=== PATIENT | female | born 1955 | race Caucasian/White ===

== ENCOUNTER → 2020-07-12 08:39 | Outpatient (CLI) | payer MEDICARE, MEDICAID, SELFPAY ==
--- NOTE | 2020-07-12 09:30 | BRBX_PTH ---
PATIENT: NEL HUANG LOC: [facility] U#:[id number] AGE/SX: 69/F ROOM: RE07/12/[address]: Dr. Jess Orellana MD : 1955 BED: DIS: SPEC #: [id number] RECD: 07/12/20 11:56 STATUS: MICHELLE REErick #: [id number] VAISHNAVI: 07/12/20 09:[address]: Jess Orellana DEPT: SURGICAL PATHOLOGY RECD BY: Marcelo Berman ENTERED: 07/12/20 13:27 SP TYPE: BREAST BX OTHR DR: Dr. Elsa Taylor MD Tissues: Right breast, NOS Procedures: Surgery Specimen Level IV HEADER OPERATION: Right stereotactic breast biopsy PRE-OP DIAGNOSIS: Right upper outer quadrant breast microcalcifications TISSUE SUBMITTED: Right breast core tissue ISCHEMIC TIME: 1 minute FIXATION TIME: 58 hours MICROSCOPIC DIAGNOSIS Right breast, upper outer quadrant, stereotactic core biopsy: Clustered microcalcifications in areas of fat necrosis. No evidence of malignancy. AM:jossue 07/15/2020 MICROSCOPIC DESCRIPTION Slides are reviewed. GROSS DESCRIPTION Received is one container labeled with the patient's name and not further designated. The specimen consists of multiple irregular and elongated fragments of yellow-dior soft tissue that in aggregate measure 2.5 x 2.5 x 0.2 cm. The specimen is totally submitted in one cassette. / AM:jossue 07/12/20 TC:5 CPT: 46387
--- NOTE | 2020-07-12 10:28 | OP.PCM_ITS ---
Report of Operation Date of Procedure: 07/12/20 Pre-Operative Diagnosis: abnormal right breast mammograms, history of right breast cancer Post-Operative Diagnosis: same Surgery/Procedure Performed:: right stereotactic breast biopsy Description of Surgical Findings:: tissue taken from the axillary area of the breast - suspect degenerating lymph node Specimen's removed: right breast tissue Estimated Blood Loss (mL): minimal Description of Procedure: After informed consent was given, the patient was brought into the Breast Biopsy suite. Appropriate time out protocol was followed. The patient was placed in the prone position on the stereotactic biopsy table. The patient?s right breast was then placed in the opening at the head of the biopsy table. A well logging captain comp ression mammogram was then obtained in the CC view. The suspicious radiological lesion was thus identified. Stereo pictures of the lesion were then taken for XYZ coordinates. The Mammotome biopsy stylus was then positioned where it would be entering into the patient?s breast. The skin at this site was then cleansed with a surgical skin preparation. The skin and subcutaneous tissues at this si te were then infiltrated with 1% xylocaine. A small skin incision was made with an 11 blade scalpel. The biopsy stylus was then positioned into the patient?s breast at the proper coordinates of depth. Using the Mammotome vacuum-assist device, several core samples of breast tissue were obtained. A specimen mammogram was the obtained. It revealed that the abnormal calcifications were within the specimen. I reviewed this personally and concluded that the tissue sampling was adequate. A hemostatic marker clip was then placed into the biopsy cavity and a well logging captain film revealed that it was properly deployed. The patient was then placed in the supine position and pressure was applied to the breast until no active bleeding was noted. Steristrips were applied to reapproximate the skin. A unilateral mammogram in the CC and MLO view were then taken which revealed that the marker clip was in the same area as the previous suspicious lesion. The patient tolerated the procedure well and was discharged from the Breast Biopsy suite in good condition. - Complications none noted
== END ==
PROVIDERS: PCP Internal Medicine; Referring Provider Surgery; Visit Provider Surgery
DX: R92.8 Other abnormal and inconclusive findings on diagnostic imaging of breast (principal)
CPT/HCPCS: 19081; 88305; J7050

== ENCOUNTER 2022-06-28 00:29 | Inpatient (IN) | payer MEDICARE, MEDICAID, SELFPAY ==
[2022-06-28] VITALS (8 sets, daily range): BP systolic 96–151; BP diastolic 59–95; PULSE 66–97; RESP 16–18; TEMP 36.2–37; O2SAT 94–100; BMI 45.5; BMI 44.6
--- NOTE | 2022-06-28 00:47 | CT_ITS ---
EXAM: CT ABDOMEN AND PELVIS WITHOUT INTRAVENOUS CONTRAST CLINICAL INDICATION: hematuria -- constipation TECHNIQUE: Helically acquired images were obtained of the abdomen and pelvis without intravenous contrast. This CT exam was performed using one or more of the following dose reduction techniques: automated exposure control, adjustment of the mA and/or kV according to patient size, and/or use of iterative reconstruction technique. This report was created using [employer] report generation technology. RADIATION DOSE: Total DLP: 1251.76 mGy-cm. COMPARISON: None. FINDINGS: LOWER THORAX: Visualized lung bases are clear. There is a trace of pericardial fluid. Minimal hiatal hernia is noted. No coronary artery calcifications visualized. ABDOMEN: LIVER: Elongated right hepatic lobe which measures 22 cm in cephalocaudal dimension. GALLBLADDER AND BILE DUCTS: Cholecystectomy. No biliary ductal dilatation or calcified common duct stone. PANCREAS: Unremarkable. No focal cystic mass. SPLEEN: Unremarkable. Normal size without focal cystic or solid mass. ADRENALS: Unremarkable. No nodules. KIDNEYS AND URETERS: Normal size kidneys with nonspecific perirenal stranding. Small exophytic simple cyst at the upper pole of the right kidney, which requires no follow-up. 6 mm ovoid parenchymal calcification at the lower pole of the left kidney. Minimal fullness of the left intrarenal collecting system. No obstructing ureteral stone STOMACH AND BOWEL: Stomach is decompressed. No periduodenal inflammatory changes or distended small bowel loops. Numerous diverticula project from the descending and sigmoid colon. A long segment of colon extending from the distal descending colon through the mid to distal sigmoid colon shows mild/moderate mural thickening with extensive pericolonic stranding. A broad band of soft tissue density containing air bubbles extends anteriorly and inferiorly from the proximal sigmoid colon indicating microperforation, with this abnormal soft tissue density measuring up to 7.4 cm in transverse diameter by 2 cm in cephalocaudal dimension by 5.7 cm in AP diameter. No definite fluid collection is seen in this area. Urinary bladder tilts toward this soft tissue density but no air bubbles are seen within the bladder to indicate fistula. More distally, a 4 cm thin-walled air bubble abuts the mid sigmoid colon, separate from the lumen, and also indicate extraluminal gas. PELVIS: APPENDIX: No evidence of acute appendicitis. BLADDER: Urinary bladder is nearly empty. The bladder wall is thickened with perivesicular stranding, which could be due to cystitis and/or reactive edema from the adjacent sigmoid inflammation. REPRODUCTIVE: Absent uterus. No adnexal mass. Trace of air within the vaginal vault. ABDOMEN and PELVIS: INTRAPERITONEAL SPACE: No free air is noted within the nondependent portion of the abdomen or pelvis. No ascites. BONES/JOINTS: Flowing osteophytes fuse the lower thoracic disc spaces. Lower lumbar facet arthritis is noted. No suspicious lytic or blastic abnormality. SOFT TISSUES: No discrete abdominal or pelvic wall hernia. VASCULATURE: Unremarkable. Abdominal aorta is non-dilated. LYMPH NODES: Unremarkable. No enlarged lymph nodes. CT/Abdomen/Pelvis without Cont IMPRESSION: Extensive colonic diverticulosis. Abnormal thickening of the colonic wall from the distal descending colon through the mid sigmoid colon, with surrounding fat stranding, most likely diverticulitis given the numerous diverticula, though colitis is also a consideration. Bubbles of extraluminal air adjacent to the thick-walled colon indicating microperforation; air bubbles lie within a broad band of soft tissue density radiating anteriorly and inferiorly from the thickened proximal sigmoid colon, consistent with phlegmon. No thick-walled extraluminal fluid collection is seen on this nonenhanced scan to indicate an abscess. Thickening of the urinary bladder with surrounding fat stranding, secondary to reactive edema and/or cystitis. No air bubbles within the urinary bladder. No findings of constipation or small bowel obstruction. Nonstandard communication protocol initiated and completed. N.B. : The above Results were Read Back by Ji Sanabria MD to Dr. Zuhair Roberts MD, and understanding confirmed on 06/28/2022 01:41:28 (ET). Electronically Signed: Ji Sanabria MD at 1:48 EST ,
--- NOTE | 2022-06-28 00:48 | ED.VIS.GI ---
HPI HPI - GI History of Present Illness Chief Complaint: Abd Pain Informant: patient Narrative Narrative: Presents with intermittent constipation for the past 2 weeks. Typical bowel movements every other day. She has been using laxatives with small outputs. Mild abdominal bloating. No vomiting. Cholecystectomy and hysterectomy in the past. Contacted her PCP 2 days ago has not heard back. This evening gross blood in the urine no dysuria or frequency. Mild flank pain in the left. History of kidney stones. No anticoagulation medicines. She has had colonoscopies previously states she is due for another one. Prior similar symptoms: Yes PFSH PFSH Home Medications metformin 500 mg tablet (Glucophage) 500 mg PO DAILY 09/14/16 [History Last Taken Unknown] multivit-iron 18 mg-folic acid 400 mcg-calcium 500 mg-minerals tablet (Women's Daily Formula) 1 ea PO DAILY 09/14/16 [History Last Taken Unknown] atenolol 50 mg tablet 50 mg PO DAILY 06/28/22 [History Last Taken Unknown] chlorthalidone 25 mg tablet 12.5 mg PO DAILY 06/28/22 [History Last Taken Unknown] exemestane 25 mg tablet 25 mg PO DAILY 06/28/22 [History Last Taken Unknown] glipizide 2.5 mg tablet, extended release 24 hr 2.5 mg PO DAILY 06/28/22 [History Last Taken Unknown] potassium chloride 20 mEq tablet,extended release 20 meq PO BID 06/28/22 [History Last Taken Unknown] Allergy/AdvReac Type Severity Reaction Status Date / Time chani dine Allergy Hives Uncoded 06/28/22 00:34 Family History (Updated 06/28/22 @ 03:[address] Yaya Winters MD) Other Cancer Surgical History H/O: hysterectomy Social History Smoking Status: Former smoker ROS ROS ED Constitutional Constitutional ED: Denies chills, fever(s) or sweats Eyes Eyes: Denies change in vision ENT ENT ED: Denies dysphagia or sore throat Cardiovascular Cardiovascular: Denies chest pain, leg edema, palpitations or racing heartbeat Respiratory/Chest Respiratory/Chest: Denies cough, dyspnea or dyspnea on exertion Gastrointestinal Gastrointestinal: Reports constipation; Denies abdominal pain, diarrhea, nausea or vomiting Genitourinary Genitourinary ED: Reports hematuria; Denies dysuria or urinary frequency Musculoskeletal Musculoskeletal: Denies back pain, extremity pain or neck pain Integumentary Denies rash or wounds Neurologic Neurologic: Denies headache(s), paresthesias or weakness EXAM Physical Exam Const Vital Signs: 06/28/22 00:31 Temperature 97.7 F L Temperature Source Oral Pulse Rate 97 Respiratory Rate 18 Blood Pressure 151/95 H Blood Pressure Mean 113 Pulse Ox 98 Oxygen Delivery Method Room Air Positive well nourished and well developed General Appearance ED: well developed and NAD HEENT Reports moist mucous membranes normocephalic and atraumatic Eyes PERRL, EOMs intact bilaterally and conjunctivae normal General Eye ED: Yes normal appearance of both eyes Neck no lymphadenopathy and supple General: Negative for tenderness Chest Wall Chest: Negative for tenderness Resp normal respiratory effort and normal air movement Effort and Inspection: symmetric chest movement; Negative for respiratory distress Cardio regular rate, regular rhythm and no murmurs Peripheral Pulses: pulses 2+ throughout GI normal to inspection, nondistended, normoactive bowel sounds and non-tender GI Narrative: Negative Brownlee's or McBurney's tenderness no left lower quadrant tenderness. Palpation: Negative for guarding or rebound tenderness present Back/Spine no CVA tenderness and no thoracic nor lumbar tenderness Extremity normal to inspection General Extremety ED: Negative for edema or tenderness General Extremity: Negative for edema Neuro oriented x3 and no sensory deficits noted Sensorium / Orientation: awake and alert Skin no rashes or lesions noted and no wounds MDM MDM MDM Narrative Medical decision making narrative: Patient presenting with hematuria with constipation complaints. Does report intermittent pain in her flank region. She denies any rectal bleeding. Differential UTI versus cystitis versus pyelonephritis versus diverticulitis versus kidney stones. Work-up was initiated. Urine noted hematuria with nitrites and bacteria. Culture sent. Laboratory studies White count 14 hemoglobin 12.[address] scan abdomen pelvis interpreted by myself and discussion with radiologist significant diverticulitis extending to the bladder causing thickening. There is noted microperforation and phlegmon there is no abscess. Patient meets SIRS criteria with pulse greater than 90 and white count 14 lactic acid and blood cultures added. She is covered Rocephin and Flagyl IV. Urine noted hematuria with bacteria. Clinically no dysuria, likely extension from her diverticulitis however she is covered with antibiotics for her diverticulitis. 0230: I spoke with on-call surgeon Dr. Menard, discussed patient's history and findings and clinical evaluation. She states medical management at this time. She asked if I would speak with hospitalist for possible admission medically with her consult. I spoke with hospitalist, Dr. Winters for evaluation the ED for admission. Lactic acid returned at 1.3. Clinically remained stable. Patient stable for the medical floor. Lab Data Attestation: I reviewed the patient's lab results. Labs: Laboratory Results - last 24 hr 06/28/22 06/28/22 06/28/22 00:40 01:00 01:00 WBC 14.3 H RBC 4.93 Hgb 12.8 Hct 39.7 MCV 80.5 L MCH 26.0 L MCHC 32.2 RDW Std Deviation 44.2 H RDW Coeff of [place] 15.2 H Plt Count 479 H MPV 8.9 Immature Gran % (Auto) 1.400 H Neut % (Auto) 74.2 H Lymph % (Auto) 13.3 L [place] % (Auto) 9.9 Eos % (Auto) 0.9 Baso % (Auto) 0.3 Absolute Neuts (auto) 10.6 H Absolute Lymphs (auto) 1.91 Nucleated RBC % 0 Sodium 133 L Potassium 3.5 Chloride 100 Carbon Dioxide 26.0 Anion Gap 7 BUN 8 Creatinine 0.98 Estim Creat Clear Calc 56.40 Est GFR (MDRD) Af Amer 74 Est GFR (MDRD) Non-Af 61 BUN/Creatinine Ratio 8.2 L Glucose 142 H Lactic Acid Calcium 9.8 Urine Color Brown Urine Clarity Cloudy Urine pH 6.5 Ur Specific [place] 1.015 Urine Protein 500 H Urine Glucose (UA) Normal Urine Ketones 5 H Urine Occult Blood 250 H Urine Nitrite Positive H Urine Bilirubin Negative Urine Urobilinogen Normal Ur Leukocyte Esterase 500 H Urine RBC 0 SEEN Urine WBC >100 SEEN Ur Squamous Epith Cells 0 SEEN Urine Bacteria 0 SEEN Urine Mucus 0 SEEN 06/28/22 02:20 WBC RBC Hgb Hct MCV MCH MCHC RDW Std Deviation RDW Coeff of [place] Plt Count MPV Immature Gran % (Auto) Neut % (Auto) Lymph % (Auto) [place] % (Auto) Eos % (Auto) Baso % (Auto) Absolute Neuts (auto) Absolute Lymphs (auto) Nucleated RBC % Sodium Potassium Chloride Carbon Dioxide Anion Gap BUN Creatinine Estim Creat Clear Calc Est GFR (MDRD) Af Amer Est GFR (MDRD) Non-Af BUN/Creatinine Ratio Glucose Lactic Acid 1.3 Calcium Urine Color Urine Clarity Urine pH Ur Specific [place] Urine Protein Urine Glucose (UA) Urine Ketones Urine Occult Blood Urine Nitrite Urine Bilirubin Urine Urobilinogen Ur Leukocyte Esterase Urine RBC Urine WBC Ur Squamous Epith Cells Urine Bacteria Urine Mucus Radiography Diagnostic Testing: Clinical Impression(s) from Imaging Studies Abdomen/Pelvis CT 06/28/22 00:47 IMPRESSION: Extensive colonic diverticulosis. Abnormal thickening of the colonic wall from the distal descending colon through the mid sigmoid colon, with surrounding fat stranding, most likely diverticulitis given the numerous diverticula, though colitis is also a consideration. Bubbles of extraluminal air adjacent to the thick-walled colon indicating microperforation; air bubbles lie within a broad band of soft tissue density radiating anteriorly and inferiorly from the thickened proximal sigmoid colon, consistent with phlegmon. No thick-walled extraluminal fluid collection is seen on this nonenhanced scan to indicate an abscess. Thickening of the urinary bladder with surrounding fat stranding, secondary to reactive edema and/or cystitis. No air bubbles within the urinary bladder. No findings of constipation or small bowel obstruction. Nonstandard communication protocol initiated and completed. N.B. : The above Results were Read Back by Ji Sanabria MD to Dr. Zuhair Roberts MD, and understanding confirmed on 06/28/2022 01:41:28 (ET). Electronically Signed: Ji Sanabria MD at 1:48 EST , ADDENDUM: 06/28/22 [id number] IMPRESSION: Extensive colonic diverticulosis. Abnormal thickening of the colonic wall from the distal descending colon through the mid sigmoid colon, with surrounding fat stranding, most likely diverticulitis given the numerous diverticula, though colitis is also a consideration. Bubbles of extraluminal air adjacent to the thick-walled colon indicating microperforation; air bubbles lie within a broad band of soft tissue density radiating anteriorly and inferiorly from the thickened proximal sigmoid colon, consistent with phlegmon. No thick-walled extraluminal fluid collection is seen on this nonenhanced scan to indicate an abscess. Thickening of the urinary bladder with surrounding fat stranding, secondary to reactive edema and/or cystitis. No air bubbles within the urinary bladder. No findings of constipation or small bowel obstruction. Nonstandard communication protocol initiated and completed. N.B. : The above Results were Read Back by Ji Sanabria MD to Dr. Zuhair Roberts MD, and understanding confirmed on 06/28/2022 01:41:28 (ET). Electronically Signed: Ji Sanabria MD at 1:48 EST , Critical Care Time Critical Care Time: Yes Critical care time (excluding procedures): 30-74 minutes, Discussing w/Patient &/or Family/Promotions Officer, Discussing w/Consultants, Arranging Admission or Transfer, Performing Direct Patient Care at Bedside and - (30 minutes) Discharge Plan Dx/Rx/DC Orders Clinical Impression: Diverticulitis of intestine with perforation without abscess or bleeding, Hematuria, UTI (urinary tract infection) Disposition Disposition: Acute Care [facility]
[2022-06-28 00:55] LABS: Bacteria 0 SEEN /hpf (None Seen); Mucous, Urine 0 SEEN /hpf (<or=2+); Red Blood Cells-Urine 0 SEEN /hpf (0-5); Squamous Epithelial Cells - UA 0 SEEN /hpf (5-10)
[2022-06-28 01:00] LABS: Color, Urine Brown (Yellow); Glucose, Dipstick Normal (Normal); Ketone-Dipstick 5 mg/dl (Negative); Leukocyte Esterase-Dipstick 500 /ul (Negative); Nitrite-Dipstick Positive (Negative); Occult Blood-Urine 250 /ul (Negative); Protein-Dipstick 500 mg/dl (Negative); Specific Gravity, Urine 1.015 (1.002-1.030); Urine Bilirubin Dipstick Negative (Negative); Urine Clarity Cloudy (Clear); Urine Urobilinogen Normal (Normal); Urine pH 6.5 (5.0 - 8.0)
[2022-06-28 01:06] LABS: White Blood Cells >100 SEEN /hpf (0-5)
[2022-06-28 01:12] LABS: Absolute Lymphocyte Count 1.91 X10^3/uL (0.83-4.51); Absolute Neutrophil Count 10.6 X10^3/uL (2.0-7.7); Basophil# 0.05 X10^3/uL; Basophil% 0.3 % (0-1); Eosinophil# 0.13 X10^3/uL; Eosinophils% 0.9 % (0-5); Hematocrit 39.7 % (37-47); Hemoglobin 12.8 g/dL (12.0-15.0); Lymphocyte # 1.91 X10^3/ul (0.83-4.51); Lymphocyte % 13.3 % (19-41); Mean Corp Hgb Conc 32.2 g/dL (32-36); Mean Corpuscular Volume 80.5 fL (81-99); Mean Platelet Vol. 8.9 fl (6.2-12.0); Monocyte# 1.42 X10^3/uL; Monocyte% 9.9 % (0-10); NRBC Flagged by Analyzer 0 % (0-5); Neutrophil # 10.62 X10^3/uL (2.7-7.7); Neutrophil % 74.2 % (47-70); Platelet Count 479 K/mm3 (150-450); RBC Distribution Width CV 15.2 % (11.6-14.6); RBC Distribution Width SD 44.2 fl (35.1-43.9); Red Blood Count 4.93 M/mm3 (4.2-5.4); White Blood Count 14.3 K/mm3 (4.4-11.0)
[2022-06-28 01:20] LABS: Anion Gap 7 (5-15); BUN 8 mg/dL (7-18); BUN/Creat Ratio 8.2 RATIO (10-20); Calcium,Total 9.8 mg/dL (8.5-10.1); Chloride 100 mmol/L (98-107); Creatinine, Serum 0.98 mg/dL (0.55-1.02); EST Glomerular Filtration Rate 61 mL/min (>60); Est Glom Filt Rate - Afr Amer 74 mL/min (>60); Glucose 142 mg/dL (74-106); Potassium 3.5 mmol/L (3.5-5.1); Sodium Level 133 mmol/L (136-145)
[2022-06-28] MEDS: Ceftriaxone 1 GM/50 ML BAG IV ×2 (02:40→22:32)
--- NOTE | 2022-06-28 02:43 | PCM.HP.STD ---
[facility] - General General Date of Admission: 06/28/22 Date of Service: 06/28/22 Chief Complaint: Gross hematuria and constipation [facility] Narrative NEL HUANG, is a 66 F with a significant history of right breast cancer status postmastectomy and radiation and on exemestane; appendectomy; hysterectomy; diabetes mellitus and hypertension who presents emergency department with gross hematuria that started a day before presentation. Patient has pain on the left lumbar area of her abdomen; and left hypogastric area of her abdomen. Also patient has constipation for a 'couple' of weeks. Her constipation is not new; it is on and off. She attributes her constipation to possible metformin use. At the emergency department a CT scan showed diverticulitis with microperforation. Emergent department doctor discussed the case with general surgery who will follow. [facility] Home Medications metformin 500 mg tablet (Glucophage) 500 mg PO DAILY 09/14/16 [History Last Taken Unknown] multivit-iron 18 mg-folic acid 400 mcg-calcium 500 mg-minerals tablet (Women's Daily Formula) 1 ea PO DAILY 09/14/16 [History Last Taken Unknown] atenolol 50 mg tablet 50 mg PO DAILY 06/28/22 [History Last Taken Unknown] chlorthalidone 25 mg tablet 12.5 mg PO DAILY 06/28/22 [History Last Taken Unknown] exemestane 25 mg tablet 25 mg PO DAILY 06/28/22 [History Last Taken Unknown] glipizide 2.5 mg tablet, extended release 24 hr 2.5 mg PO DAILY 06/28/22 [History Last Taken Unknown] potassium chloride 20 mEq tablet,extended release 20 meq PO BID 06/28/22 [History Last Taken Unknown] Allergy/AdvReac Type Severity Reaction Status Date / Time chani dine Allergy Hives Uncoded 06/28/22 00:34 Family History (Updated 06/28/22 @ 03:[address] Yaya Winters MD) Other Cancer Surgical History H/O: hysterectomy Social History Smoking Status: Former smoker ROS ROS Narrative Pertinent positives and pertinent negatives as noted in HPI. All other systems were reviewed and are negative Vital Signs Vital Signs Vital Signs: 06/28/22 00:31 Temperature 97.7 F L Temperature Source Oral Pulse Rate 97 Respiratory Rate 18 Blood Pressure 151/95 H Blood Pressure Mean 113 Pulse Ox 98 Oxygen Delivery Method Room Air Weight Weight: 131.9 kg Body Mass Index (BMI) 45.5 Physical Exam Narrative Physical exam: General: Well-nourished, well-developed. Head: Normocephalic, atraumatic, no tenderness Eyes: Vision is grossly intact. EOMI ENT: edentulous, dry mucous membranes, no rhinorrhea Neck: Nontender, No thyromegaly. CVS: Regular rate and rhythm. S1-S2 present. No murmur, gallop or rub. Respiratory : clear to auscultation bilaterally, chest wall nontender, no wheezing Abdomen: Soft, nontender, nondistended, normal bowel sounds, no masses : Deferred Back: Nontender, no CVA tenderness, no midline spinal tenderness, deformities, step-offs Extremities: Nontender full range of motion, no trauma Skin: Normal color, no trauma, abrasions Neuro: Alert, oriented, cranial nerves II through XII grossly intact. Psychiatry: Normal mood. Normal affect. Not depressed. Not anxious. Results Lab / Micro Data Result Diagrams: 06/28/22 01:00 06/28/22 01:00 Labs: Laboratory Results - last 24 hr 06/28/22 00:40: Urine Color Brown, Urine Clarity Cloudy, Urine pH 6.5, Ur Specific [employer] 1.015, Urine Protein 500 H, Urine Glucose (UA) Normal, Urine Ketones 5 H, Urine Occult Blood 250 H, Urine Nitrite Positive H, Urine Bilirubin Negative, Urine Urobilinogen Normal, Ur Leukocyte Esterase 500 H, Urine RBC 0 SEEN, Urine WBC >100 SEEN, Ur Squamous Epith Cells 0 SEEN, Urine Bacteria 0 SEEN, Urine Mucus 0 SEEN 06/28/22 01:00: WBC 14.3 H, RBC 4.93, Hgb 12.8, Hct 39.7, MCV 80.5 L, MCH 26.0 L, MCHC 32.2, RDW Std Deviation 44.2 H, RDW Coeff of Rashaun 15.2 H, Plt Count 479 H, MPV 8.9, Immature Gran % (Auto) 1.400 H, Neut % (Auto) 74.2 H, Lymph % (Auto) 13.3 L, [place] % (Auto) 9.9, Eos % (Auto) 0.9, Baso % (Auto) 0.3, Absolute Neuts (auto) 10.6 H, Absolute Lymphs (auto) 1.91, Nucleated RBC % 0 06/28/22 01:00: Sodium 133 L, Potassium 3.5, Chloride 100, Carbon Dioxide 26.0, Anion Gap 7, BUN 8, Creatinine 0.98, Estim Creat Clear Calc 56.40, Est GFR (MDRD) Af Amer 74, Est GFR (MDRD) Non-Af 61, BUN/Creatinine Ratio 8.2 L, Glucose 142 H, Calcium 9.8 Radiology Impression Abdomen/Pelvis CT 06/28/22 00:47 IMPRESSION: Extensive colonic diverticulosis. Abnormal thickening of the colonic wall from the distal descending colon through the mid sigmoid colon, with surrounding fat stranding, most likely diverticulitis given the numerous diverticula, though colitis is also a consideration. Bubbles of extraluminal air adjacent to the thick-walled colon indicating microperforation; air bubbles lie within a broad band of soft tissue density radiating anteriorly and inferiorly from the thickened proximal sigmoid colon, consistent with phlegmon. No thick-walled extraluminal fluid collection is seen on this nonenhanced scan to indicate an abscess. Thickening of the urinary bladder with surrounding fat stranding, secondary to reactive edema and/or cystitis. No air bubbles within the urinary bladder. No findings of constipation or small bowel obstruction. Nonstandard communication protocol initiated and completed. N.B. : The above Results were Read Back by Ji Sanabria MD to Dr. Zuhair Roberts MD, and understanding confirmed on 06/28/2022 01:41:28 (ET). Electronically Signed: Ji Sanabria MD at 1:48 EST , ADDENDUM: 06/28/22 [id number] IMPRESSION: Extensive colonic diverticulosis. Abnormal thickening of the colonic wall from the distal descending colon through the mid sigmoid colon, with surrounding fat stranding, most likely diverticulitis given the numerous diverticula, though colitis is also a consideration. Bubbles of extraluminal air adjacent to the thick-walled colon indicating microperforation; air bubbles lie within a broad band of soft tissue density radiating anteriorly and inferiorly from the thickened proximal sigmoid colon, consistent with phlegmon. No thick-walled extraluminal fluid collection is seen on this nonenhanced scan to indicate an abscess. Thickening of the urinary bladder with surrounding fat stranding, secondary to reactive edema and/or cystitis. No air bubbles within the urinary bladder. No findings of constipation or small bowel obstruction. Nonstandard communication protocol initiated and completed. N.B. : The above Results were Read Back by Ji Sanabria MD to Dr. Zuhair Roberts MD, and understanding confirmed on 06/28/2022 01:41:28 (ET). Electronically Signed: Ji Sanabria MD at 1:48 EST , Assessment & Plan Assessment/Plan (1) Diverticulitis of intestine with perforation without abscess or bleeding: (2) Hematuria: (3) UTI (urinary tract infection): (4) HTN (hypertension): PLAN: Plan Acute diverticulitis with perforation without abscess or bleeding Abdomen pelvis CT scan of the abdomen with diverticulitis, perforation without abscess or bleeding. Also thickening of the bladder wall. Abdomen/pelvis CT was visualized and independently interpreted and I agree radiologist interpretation. CBC showed white count 14,300 with 1.4% bandemia. Emergency department doctor discussed the case with general surgeon on-call who recommended medical management. Flagyl and ceftriaxone ordered at emergency department and continued. General surgery consult. Trend CBC and BMP. Cystitis CT scan abdomen pelvis with thickening of the bladder wall. Urinalysis is abnormal Flagyl and ceftriaxone as above. Hypertension Blood pressure is stable Home blood pressure medication continued. Trend blood pressure and adjust blood pressure medications. Diabetes mellitus Patient with hyperglycemia on presentation continued. Glipizide continue. Hold metformin Monitor Accu-Cheks Correction scale insulin ordered. DVT prophylaxis: Patient Patient is not a candidate for chemical thromboprophylaxis secondary to gross hematuria. SCDs ordered. Charges/Coding Visit Charges Inpatient E&M: 55919 Subs Hosp L3
[2022-06-28] MEDS: 0.9% Normal Saline 1,000 ML 150 ML IV (02:44)
[2022-06-28 03:10] LABS: Lactic Acid 1.3 mmol/L (0.4-1.9)
[2022-06-28] MEDS: metroNIDAZOLE 500 MG/100 ML BAG 100 MG IV ×3 (03:17→21:14)
[2022-06-28] MEDS: 0.9% Normal Saline 1,000 ML 100 ML IV ×2 (04:31→15:40)
[2022-06-28 06:16] LABS: Absolute Lymphocyte Count 2.12 X10^3/uL (0.83-4.51); Absolute Neutrophil Count 8.9 X10^3/uL (2.0-7.7); Basophil# 0.04 X10^3/uL; Basophil% 0.3 % (0-1); Eosinophil# 0.17 X10^3/uL; Eosinophils% 1.3 % (0-5); Hematocrit 38.4 % (37-47); Hemoglobin 12.1 g/dL (12.0-15.0); Lymphocyte # 2.12 X10^3/ul (0.83-4.51); Lymphocyte % 16.8 % (19-41); Mean Corp Hgb Conc 31.5 g/dL (32-36); Mean Corpuscular Hgb 25.6 pg (27.0-32.0); Mean Corpuscular Volume 81.4 fL (81-99); Mean Platelet Vol. 9.2 fl (6.2-12.0); Monocyte# 1.29 X10^3/uL; Monocyte% 10.2 % (0-10); NRBC Flagged by Analyzer 0 % (0-5); Neutrophil # 8.85 X10^3/uL (2.7-7.7); Neutrophil % 70.1 % (47-70); Platelet Count 454 K/mm3 (150-450); RBC Distribution Width SD 44.8 fl (35.1-43.9); Red Blood Count 4.72 M/mm3 (4.2-5.4); White Blood Count 12.6 K/mm3 (4.4-11.0)
[2022-06-28 06:40] LABS: Bedside Glucose 96 mg/dL (74-106)
[2022-06-28 07:00] LABS: Anion Gap 10 (5-15); BUN 7 mg/dL (7-18); BUN/Creat Ratio 9.7 RATIO (10-20); Calcium,Total 9.5 mg/dL (8.5-10.1); Chloride 104 mmol/L (98-107); Creatinine, Serum 0.72 mg/dL (0.55-1.02); EST Glomerular Filtration Rate 86 mL/min (>60); Est Glom Filt Rate - Afr Amer 104 mL/min (>60); Estimated Creatinine Clearance 76.76 ml/min; Glucose 104 mg/dL (74-106); Potassium 3.3 mmol/L (3.5-5.1); Sodium Level 137 mmol/L (136-145)
[2022-06-28] MEDS: Multivitamins,Ther W-Minerals Tablet 1 TABLET PO (09:30)
[2022-06-28] MEDS: Chlorthalidone 50 MG Tablet 12.5 MG PO (09:30)
[2022-06-28] MEDS: Potassium Chloride Oral Tablet 20 MEQ PO ×2 (09:30→16:58)
[2022-06-28] MEDS: Atenolol 50 MG Tablet PO (09:30)
[2022-06-28 11:25] LABS: Bedside Glucose 158 mg/dL (74-106)
[2022-06-28] MEDS: Insulin Lispro 100 UNIT/ML INSULN.PEN SC (12:00)
--- NOTE | 2022-06-28 13:16 | CON.PCM.SX_ITS ---
Assessment & Plan Assessment/Plan (1) Diverticulitis of intestine with perforation without abscess or bleeding: (2) UTI (urinary tract infection): (3) Hematuria: PLAN: Plan Clears, IV abx (ceftriaxone & flagyl--probably will d/c on augmentin). Plan for conservative management. Pt agreeable with plan- will plan to repeat CT a/p in future. WBC improving minimal to no pain, improved hematuria Deja Menard M.D. Pager: [phone] [facility] [address] [place] [address], Outpatient [facility], [address] [place] [address] Office: [phone] HPI Consult Data Date of Consult: 06/28/22 HPI Narrative HPI Narrative: NEL HUANG, is a 66 F who presents to the ER due to hematuria/clots in her urine. Patient CT abdomen pelvis showed microperforation due to sigmoid diverticulitis. Patient states her last colonoscopy was a few years ago she is currently due for when she states there was a narrowing this was done in [place] patient has not had a previous one as they want her to get him a diet and she is unable to do so as her kids work. Patient gives a history of occasional off-and-on left lower quadrant pain over the last month. Patient did have mild discomfort prior to coming in currently states she only really has a twinge in that area. Patient states her current urine does have appear to have a little bit of blood but it is much less than before. Patient states she has had issues with constipation but did have some small bowel movements denies any blood with those. Patient's abdominal surgeries include a laparoscopic cholecystectomy and hysterectomy and BSO. [facility] Medical History (Updated 06/28/22 @ 04:06 by Sonja Sesay) Bone spur Diabetes type 2, controlled Former smoker Hypertension Home Medications metformin 500 mg tablet (Glucophage) 500 mg PO DAILY diabetes 09/14/16 [History Last Taken 06/27/22 10:00] multivit-iron 18 mg-folic acid 400 mcg-calcium 500 mg-minerals tablet (Women's Daily Formula) 1 ea PO DAILY supplememnt 09/14/16 [History Last Taken 06/27/22 10:00] atenolol 50 mg tablet 50 mg PO DAILY blood pressure 06/28/22 [History Last Taken 06/27/22 10:00] chlorthalidone 25 mg tablet 12.5 mg PO DAILY water pill 06/28/22 [History Last Taken 06/27/22 10:00] exemestane 25 mg tablet 25 mg PO DAILY breast cancer 06/28/22 [History Last Taken 06/27/22 10:00] glipizide 2.5 mg tablet, extended release 24 hr 2.5 mg PO DAILY diabetes 06/28/22 [History Last Taken 06/27/22 10:00] potassium chloride 20 mEq tablet,extended release 20 meq PO BID supplement 06/28/22 [History Last Taken 06/27/22 18:00] Allergy/AdvReac Type Severity Reaction Status Date / Time silver sulfadiazine Allergy Hives Verified 06/28/22 04:09 [From Apryl] Family History (Updated 06/28/22 @ 03:[address] Yaya Winters MD) Other Cancer Surgical History (Updated 06/28/22 @ 04:06 by Sonja Sesay) H/O mastectomy H/O: hysterectomy History of cholecystectomy Social History Smoking Status: Former smoker ROS Constitutional Constitutional: Denies fever(s) Eyes Eyes: Denies change in vision ENT HEENT: Denies dysphagia Cardiovascular Cardiovascular: Denies chest pain Respiratory/Chest Respiratory/Chest: Denies cough Gastrointestinal Gastrointestinal: Reports abdominal pain and constipation; Denies nausea or vomiting Genitourinary Genitourinary: Reports hematuria Musculoskeletal Musculoskeletal: Denies difficulty walking Integumentary Integumentary: Denies jaundice Neurologic Neurologic: Denies abnormal gait Psychiatric Psychiatric: Denies depression Endocrine Endocrinology: Denies palpitations Hematologic/Lymphatic Hematologic/Lymphatic: Denies easy bleeding Physical Exam Const alert, oriented x3 and no apparent distress HEENT normocephalic and head/scalp atraumatic Resp normal respiratory effort Cardio regular rate GI soft to palpation; Negative for non-distended GI Narrative: very minimal LLq tenderness to deep palpation Palpation: Negative for guarding Extremity no clubbing, cyanosis or edema Neuro CN's II-XII intact bilaterally Psych mental status grossly normal Lab / Micro Data Result Diagrams: 06/28/22 05:13 06/28/22 05:13 Labs: Laboratory Results - last 24 hr 06/28/22 00:40: Urine Color Brown, Urine Clarity Cloudy, Urine pH 6.5, Ur Specific [place] 1.015, Urine Protein 500 H, Urine Glucose (UA) Normal, Urine Ketones 5 H, Urine Occult Blood 250 H, Urine Nitrite Positive H, Urine Bilirubin Negative, Urine Urobilinogen Normal, Ur Leukocyte Esterase 500 H, Urine RBC 0 SE EN, Urine WBC >100 SEEN, Ur Squamous Epith Cells 0 SEEN, Urine Bacteria 0 SEEN, Urine Mucus 0 SEEN 06/28/22 01:00: WBC 14.3 H, RBC 4.93, Hgb 12.8, Hct 39.7, MCV 80.5 L, MCH 26.0 L , MCHC 32.2, RDW Std Deviation 44.2 H, RDW Coeff of [place] 15.2 H, Plt Count 479 H, MPV 8.9, Immature Gran % (Auto) 1.400 H, Neut % (Auto) 74.2 H, Lymph % (Auto) 13.3 L, [place] % (Auto) 9.9, Eos % (Auto) 0.9, Baso % (Auto) 0.3, Absolute Neuts (auto) 10.6 H, Absolute Lymphs (auto) 1.91, Nucleated RBC % 0 06/28/22 01:00: Sodium 133 L, Potassium 3.5, Chloride 100, Carbon Dioxide 26.0, Anion Gap 7, BUN 8, Creatinine 0.98, Estim Creat Clear Calc 56.40, Est GFR (MDRD) Af Amer 74, Est GFR (MDRD) Non-Af 61, BUN/Creatinine Ratio 8.2 L, Glucose 142 H, Calcium 9.8 06/28/22 02:20: Lactic Acid 1.3 06/28/22 05:13: WBC 12.6 H, RBC 4.72, Hgb 12.1, Hct 38.4, MCV 81.4, MCH 25.6 L, MCHC 31.5 L, RDW Std Deviation 44.8 H, RDW Coeff of [place] 15.0 H, Plt Count 454 H, MPV 9.2, Immature Gran % (Auto) 1.300 H, Neut % (Auto) 70.1 H, Lymph % (Auto) 16.8 L, [place] % (Auto) 10.2 H, Eos % (Auto) 1.3, Baso % (Auto) 0.3, Absolute Neuts (auto) 8.9 H, Absolute Lymphs (auto) 2.12, Nucleated RBC % 0 06/28/22 05:13: Sodium 137, Potassium 3.3 L, Chloride 104, Carbon Dioxide 23.0, Anion Gap 10, BUN 7, Creatinine 0.72, Estim Creat Clear Calc 76.76, Est GFR (MDRD) Af Amer 104, Est GFR (MDRD) Non-Af 86, BUN/Creatinine Ratio 9.7 L, Glucose 104, Calcium 9.5 06/28/22 06:17: POC Glucose 96 06/28/22 11:03: POC Glucose 158 H Radiology Impression Abdomen/Pelvis CT 06/28/22 00:47 IMPRESSION: Extensive colonic diverticulosis. Abnormal thickening of the colonic wall from the distal descending colon through the mid sigmoid colon, with surrounding fat stranding, most likely diverticulitis given the numerous diverticula, though colitis is also a consideration. Bubbles of extraluminal air adjacent to the thick-walled colon indicating microperforation; air bubbles lie within a broad band of soft tissue density radiating anteriorly and inferiorly from the thickened proximal sigmoid colon, consistent with phlegmon. No thick-walled extraluminal fluid collection is seen on this nonenhanced scan to indicate an abscess. Thickening of the urinary bladder with surrounding fat stranding, secondary to reactive edema and/or cystitis. No air bubbles within the urinary bladder. No findings of constipation or small bowel obstruction. Nonstandard communication protocol initiated and completed. N.B. : The above Results were Read Back by Ji Sanabria MD to Dr. Zuhair Roberts MD, and understanding confirmed on 06/28/2022 01:41:28 (ET). Electronically Signed: Ji Sanabria MD at 1:48 EST , ADDENDUM: 06/28/22 0156
[2022-06-28 16:05] LABS: Bedside Glucose 97 mg/dL (74-106)
[2022-06-28 23:25] LABS: Bedside Glucose 96 mg/dL (74-106)
[2022-06-29 03:15] VITALS: BP 98/60; PULSE 62; RESP 16; TEMP 36.8; O2SAT 96
[2022-06-29] MEDS: 0.9% Normal Saline 1,000 ML 100 ML IV ×2 (03:20→14:54)
[2022-06-29 05:16] LABS: Bedside Glucose 98 mg/dL (74-106)
[2022-06-29 05:34] LABS: Absolute Lymphocyte Count 1.95 X10^3/uL (0.83-4.51); Absolute Neutrophil Count 5.7 X10^3/uL (2.0-7.7); Basophil# 0.04 X10^3/uL; Basophil% 0.4 % (0-1); Eosinophil# 0.42 X10^3/uL; Eosinophils% 4.5 % (0-5); Hematocrit 37.7 % (37-47); Hemoglobin 11.9 g/dL (12.0-15.0); Lymphocyte # 1.95 X10^3/ul (0.83-4.51); Mean Corp Hgb Conc 31.6 g/dL (32-36); Mean Corpuscular Hgb 25.6 pg (27.0-32.0); Mean Corpuscular Volume 81.1 fL (81-99); Mean Platelet Vol. 9.2 fl (6.2-12.0); Monocyte# 0.96 X10^3/uL; Monocyte% 10.3 % (0-10); NRBC Flagged by Analyzer 0 % (0-5); Neutrophil # 5.74 X10^3/uL (2.7-7.7); Neutrophil % 61.9 % (47-70); Platelet Count 467 K/mm3 (150-450); RBC Distribution Width CV 15.4 % (11.6-14.6); RBC Distribution Width SD 45.3 fl (35.1-43.9); Red Blood Count 4.65 M/mm3 (4.2-5.4); White Blood Count 9.3 K/mm3 (4.4-11.0)
[2022-06-29 05:58] LABS: Anion Gap 9 (5-15); BUN 5 mg/dL (7-18); BUN/Creat Ratio 7.7 RATIO (10-20); Calcium,Total 9.1 mg/dL (8.5-10.1); Chloride 108 mmol/L (98-107); Creatinine, Serum 0.65 mg/dL (0.55-1.02); EST Glomerular Filtration Rate 97 mL/min (>60); Est Glom Filt Rate - Afr Amer 118 mL/min (>60); Estimated Creatinine Clearance 85.03 ml/min; Glucose 93 mg/dL (74-106); Potassium 3.5 mmol/L (3.5-5.1); Sodium Level 140 mmol/L (136-145)
[2022-06-29] MEDS: metroNIDAZOLE 500 MG/100 ML BAG 100 MG IV ×3 (06:36→21:10)
[2022-06-29 07:06] LABS: Bedside Glucose 89 mg/dL (74-106)
[2022-06-29 08:26] VITALS: BP 109/63; PULSE 72; RESP 16; TEMP 36.6; O2SAT 95
[2022-06-29] MEDS: Potassium Chloride Oral Tablet 20 MEQ PO ×2 (08:43→17:03)
[2022-06-29] MEDS: Multivitamins,Ther W-Minerals Tablet 1 TABLET PO (08:43)
--- NOTE | 2022-06-29 08:47 | PCM.PN.SRG ---
Subjective Subjective Tolerating clears patient did have liquid bowel movement and a little bit of a twinge in the left lower quadrant with the bowel movement. The pain has overall been controlled she is not needed any pain meds. Objective Data Objective Data Vital Signs: Vital Signs Temp Pulse Resp BP Pulse Ox O2 Del Method 97.8 F 72 16 109/63 95 Room Air 06/29/22 08:26 06/29/22 08:26 06/29/22 08:26 06/29/22 08:26 06/29/22 08:26 06/29/22 08:26 Oxygen Delivery Method Room Air Weight: 285 lb 0.923 oz Body Mass Index (BMI) 44.6 Intake & Output: Intake and Output for Last 24 Hours 06/27/22 06/28/22 06/29/22 23:59 23:59 23:59 Intake Total 3153.33 / 3153.33 1245.00 / 1245.00 Output Total 450 / 450 1200 / 1200 Balance 2703.33 / 2703.33 45.00 / 45.00 Lab / Micro Data Result Diagrams: 06/29/22 05:05 06/29/22 05:05 Labs: Laboratory Results - last 24 hr 06/28/22 11:03: POC Glucose 158 H 06/28/22 15:44: POC Glucose 97 06/28/22 21:17: POC Glucose 96 06/29/22 04:54: POC Glucose 98 06/29/22 05:05: WBC 9.3, RBC 4.65, Hgb 11.9 L, Hct 37.7, MCV 81.1, MCH 25.6 L, MCHC 31.6 L, RDW Std Deviation 45.3 H, RDW Coeff of [place] 15.4 H, Plt Count 467 H, MPV 9.2, Immature Gran % (Auto) 1.900 H, Neut % (Auto) 61.9, Lymph % (Auto) 21.0, [place] % (Auto) 10.3 H, Eos % (Auto) 4.5, Baso % (Auto) 0.4, Absolute Neuts (auto) 5.7, Absolute Lymphs (auto) 1.95, Nucleated RBC % 0 06/29/22 05:05: Sodium 140, Potassium 3.5, Chloride 108 H, Carbon Dioxide 23.0, Anion Gap 9, BUN 5 L, Creatinine 0.65, Estim Creat Clear Calc 85.03, Est GFR (MDRD) Af Amer 118, Est GFR (MDRD) Non-Af 97, BUN/Creatinine Ratio 7.7 L, Glucose 93, Calcium 9.1 06/29/22 06:35: POC Glucose 89 Physical Exam Const oriented x3 and no apparent distress Resp normal respiratory effort Cardio regular rate GI soft to palpation and non-tender Inspection: Negative for abdominal distention Assessment & Plan Assessment/Plan (1) Diverticulitis of intestine with perforation without abscess or bleeding: (2) UTI (urinary tract infection): (3) Hematuria: PLAN: Plan Fullss, stay on IV abx today(ceftriaxone & flagyl--probably will d/c on augmentin). Plan for conservative management. Pt agreeable with plan- will plan to repeat CT a/p in future. WBC improving minimal to no pain, improved hematuria Deja Menard M.D. Pager: [phone] [facility] [address] [place] [address], Outpatient [place], [address] [place] [id number] Office: [phone] Charges/Coding Visit Charges Inpatient E&M: 69841 Subs Hosp L2
--- NOTE | 2022-06-29 09:50 | CASEMGMT ---
RN CM FABRICATION SPECIALIST CM to room to meet with patient for initial transition planning/care coordination assessment. ROSALINA BASHIR introduced self and role at [facility]. Pt voices understanding and consents to assessment at this time. Pt resting in bed in no distress at this time. Pt is A/O at this time and answers all questions appropriately. Care providers, pharmacy, and demographics verified/updated at this time. PCP: Dr Taylor Specialists: Dr Tabor-oncology, Dr Orellana-surgeon Preferred Pharmacy: [facility] Retail Insurance:[facility] Dual Prescription Benefit: Yes Living Will/HPOA: Pt does not currently have LW/HCPOA and declines info at this time. Pt made aware that she can contact [facility] as an out-pt and make appt in the future if she decides she would like to talk with someone about this or would like to utilize [facility] social work for advanced directive completion. Given [employer] card with information and contact number. Pt expresses understanding. LNOK: 7 children. Dtr, Brian Living Arrangements: Pt lives in a 2-story home w/no steps to enter. Pt states her son lives w/her occasionally. She states she does pretty good w/navigating the stairs. She could do FFSU, if needed. Indep w/ADL's, IADL's, and manages her own medications. Transportation: Pt states drives self and states no transportation concerns at this time. DME: States has the following DME: BP machine, pulse ox, functioning glucometer w/supplies. Pt also has a cane, walker, and W/C, but does not use Pt states no need for further DME at this time. HHC/SNF: No hx of SNF. Has had HHC in the past after foot surgery. Pt declines need for HHC and no needs identified. Pt wishes to return home and states has no concerns with going home at time of discharge. CM to follow for any discharge planning/needs. Pt voices no concerns/needs at this time. Advised pt to ask for CM if any questions/concerns/needs arise. Voices understanding. PLAN: Home Nguyễn DE JESUS RN, CM
[2022-06-29] MEDS: Atenolol 50 MG Tablet PO (10:37)
[2022-06-29] MEDS: Chlorthalidone 50 MG Tablet 12.5 MG PO (10:37)
--- NOTE | 2022-06-29 10:45 | CASEMGMT ---
Provided pt with a local healthcare directory per hospitalist request. Pt appreciative.
[2022-06-29 11:10] LABS: Bedside Glucose 105 mg/dL (74-106)
[2022-06-29 14:40] VITALS: BP 96/67; PULSE 66; RESP 16; TEMP 36.6; O2SAT 96
--- NOTE | 2022-06-29 16:41 | PCM.PN.HOSP ---
Subjective Subjective Patient states she is having very minimal abdominal pain. She states she had some grape juice this morning and felt like afterward she had a little bit increased abdominal pain but currently is having minimal symptoms. No previous episodes of diverticulitis. General surgery has advance her diet to full liquids and plan is to repeat a CAT scan in the near future-anticipate in the next 24 to 48 hours. Patient is having bowel movements. Patient indicates she would like a new list of primary care providers that she is unhappy with her current situation. Objective Data Objective Data Vital Signs: Vital Signs Temp Pulse Resp BP Pulse Ox O2 Del Method 97.8 F 66 16 96/67 96 Room Air 06/29/22 14:40 06/29/22 14:40 06/29/22 14:40 06/29/22 14:40 06/29/22 14:40 06/29/22 14:40 Oxygen Delivery Method Room Air Weight: 129.3 kg Body Mass Index (BMI) 44.6 Intake & Output: Intake and Output for Last 24 Hours 06/27/22 06/28/22 06/29/22 23:59 23:59 23:59 Intake Total 3153.33 / 3153.33 1245.00 / 1245.00 Output Total 450 / 450 1200 / 1200 Balance 2703.33 / 2703.33 45.00 / 45.00 Lab / Micro Data Result Diagrams: 06/29/22 05:05 06/29/22 05:05 Labs: Laboratory Results - last 24 hr 06/28/22 00:40: Urine Color Brown, Urine Clarity Cloudy, Urine pH 6.5, Ur Specific [place] 1.015, Urine Protein 500 H, Urine Glucose (UA) Normal, Urine Ketones 5 H, Urine Occult Blood 250 H, Urine Nitrite Positive H, Urine Bilirubin Negative, Urine Urobilinogen Normal, Ur Leukocyte Esterase 500 H, Urine RBC 0 SEEN, Urine WBC >100 SEEN, Ur Squamous Epith Cells 0 SEEN, Urine Bacteria 0 SEEN, Urine Mucus 0 SEEN 06/28/22 21:17: POC Glucose 96 06/29/22 04:54: POC Glucose 98 06/29/22 05:05: WBC 9.3, RBC 4.65, Hgb 11.9 L, Hct 37.7, MCV 81.1, MCH 25.6 L, MCHC 31.6 L, RDW Std Deviation 45.3 H, RDW Coeff of Rashaun 15.4 H, Plt Count 467 H, MPV 9.2, Immature Gran % (Auto) 1.900 H, Neut % (Auto) 61.9, Lymph % (Auto) 21.0, [place] % (Auto) 10.3 H, Eos % (Auto) 4.5, Baso % (Auto) 0.4, Absolute Neuts (auto) 5.7, Absolute Lymphs (auto) 1.95, Nucleated RBC % 0 06/29/22 05:05: Sodium 140, Potassium 3.5, Chloride 108 H, Carbon Dioxide 23.0, Anion Gap 9, BUN 5 L, Creatinine 0.65, Estim Creat Clear Calc 85.03, Est GFR (MDRD) Af Amer 118, Est GFR (MDRD) Non-Af 97, BUN/Creatinine Ratio 7.7 L, Glucose 93, Calcium 9.1 06/29/22 06:35: POC Glucose 89 06/29/22 10:42: POC Glucose 105 Micro: Microbiology 06/28/22 00:40 Urine, Clean Catch Urine Culture - Preliminary Presumptive E. coli Physical Exam Const alert, oriented x3, no apparent distress and well nourished Constitutional Narrative: Morbidly obese, white female, sitting up in bed, appears comfortable and nontoxic, nursing at bedside HEENT head/scalp atraumatic and moist oral mucous membranes HEENT Narrative: Mallampati 3, no thrush Head and Scalp: normocephalic Resp normal respiratory effort, no retractions, no use of accessory muscles and clear to auscultation bilaterally Cardio regular rate, regular rhythm, S1 normal heart sound, S2 normal heart sound, no murmurs, no rub, no gallops and no clicks GI normal to inspection, nondistended, normoactive bowel sounds GI Narrative: Mild tenderness left side of abdomen-predominantly in left mid to lower quadrant area Extremity no clubbing, cyanosis or edema Extremity Narrative: 2+ pedal pulses Neuro oriented x3, moves all extremities and no focal motor deficits Speech: speech normal Psych affect normal Psych Narrative: Very pleasant Assessment & Plan Assessment/Plan (1) Diverticulitis of intestine with perforation without abscess or bleeding: (2) Hematuria: (3) UTI (urinary tract infection): PLAN: Plan Acute diverticulitis with microperforation -Continue IV antibiotics with ceftriaxone and Flagyl -Ended of plan is for discharge on Augmentin -Continue IV fluids for now and if patient's oral intake is adequate we will discontinue -As needed pain medications--> patient has not required -White count has normalized at 9.3 -Will need colonoscopy in the next 3 to 6 months for further evaluation -Plan for repeat CT of the abdomen pelvis in the near future Acute E. coli urinary tract infection/hematuria -Blood cultures are pending -Continue ceftriaxone -Hematuria is resolving -Recommend outpatient follow-up--> refer to after discharge Hypertension -Continue home atenolol -Continue home chlorthalidone DM-2 -Hold home glipizide/metformin -Sliding scale -Accu-Cheks as ordered -When diet advances would recommend advancing to a carb controlled diet History of breast cancer -Continue home Aromasin -Outpatient follow-up is already scheduled DVT prophylaxis -Start enoxaparin 40 twice daily CODE STATUS Full code Charges/Coding Visit Charges Inpatient E&M: 83328 Subs Hosp L2
[2022-06-29 17:30] LABS: Bedside Glucose 120 mg/dL (74-106)
[2022-06-29 21:05] VITALS: BP 118/66; PULSE 65; RESP 18; TEMP 36.8; O2SAT 99
[2022-06-29] MEDS: Enoxaparin 40 MG/0.4 ML Syringe SC (22:26)
[2022-06-29] MEDS: Ceftriaxone 1 GM/50 ML BAG IV (23:21)
[2022-06-29 23:31] LABS: Bedside Glucose 125 mg/dL (74-106)
[2022-06-30] MEDS: 0.9% Normal Saline 1,000 ML 100 ML IV (03:59)
[2022-06-30 04:03] VITALS: BP 101/59; PULSE 57; RESP 16; TEMP 36.4; O2SAT 97
[2022-06-30] MEDS: metroNIDAZOLE 500 MG/100 ML BAG 100 MG IV ×2 (06:27→15:01)
[2022-06-30 07:05] LABS: Bedside Glucose 90 mg/dL (74-106)
[2022-06-30 07:16] VITALS: O2SAT 97
[2022-06-30 07:33] LABS: Absolute Lymphocyte Count 1.87 X10^3/uL (0.83-4.51); Absolute Neutrophil Count 4.5 X10^3/uL (2.0-7.7); Basophil# 0.03 X10^3/uL; Basophil% 0.4 % (0-1); Eosinophil# 0.33 X10^3/uL; Eosinophils% 4.3 % (0-5); Hematocrit 36.7 % (37-47); Hemoglobin 11.5 g/dL (12.0-15.0); Lymphocyte # 1.87 X10^3/ul (0.83-4.51); Lymphocyte % 24.6 % (19-41); Mean Corp Hgb Conc 31.3 g/dL (32-36); Mean Corpuscular Hgb 25.6 pg (27.0-32.0); Mean Corpuscular Volume 81.7 fL (81-99); Mean Platelet Vol. 8.9 fl (6.2-12.0); Monocyte# 0.72 X10^3/uL; Monocyte% 9.5 % (0-10); NRBC Flagged by Analyzer 0 % (0-5); Neutrophil # 4.45 X10^3/uL (2.7-7.7); Neutrophil % 58.6 % (47-70); Platelet Count 492 K/mm3 (150-450); RBC Distribution Width CV 15.5 % (11.6-14.6); RBC Distribution Width SD 46.5 fl (35.1-43.9); Red Blood Count 4.49 M/mm3 (4.2-5.4); White Blood Count 7.6 K/mm3 (4.4-11.0)
[2022-06-30 08:09] LABS: Anion Gap 6 (5-15); BUN 4 mg/dL (7-18); BUN/Creat Ratio 6.1 RATIO (10-20); Calcium,Total 8.9 mg/dL (8.5-10.1); Chloride 111 mmol/L (98-107); Creatinine, Serum 0.66 mg/dL (0.55-1.02); EST Glomerular Filtration Rate 96 mL/min (>60); Est Glom Filt Rate - Afr Amer 117 mL/min (>60); Estimated Creatinine Clearance 83.74 ml/min; Glucose 89 mg/dL (74-106); Magnesium 1.9 mg/dL (1.6-2.6); Phosphorus 3.2 mg/dL (2.5-4.9); Potassium 3.4 mmol/L (3.5-5.1); Sodium Level 142 mmol/L (136-145)
[2022-06-30 08:33] VITALS: BP 106/61; PULSE 62; RESP 16; TEMP 36.6; O2SAT 98
[2022-06-30] MEDS: Potassium Chloride Oral Tablet 20 MEQ PO ×2 (08:43→16:14)
[2022-06-30] MEDS: Multivitamins,Ther W-Minerals Tablet 1 TABLET PO (08:43)
[2022-06-30] MEDS: Enoxaparin 40 MG/0.4 ML Syringe SC (09:15)
[2022-06-30] MEDS: Atenolol 50 MG Tablet PO (09:15)
[2022-06-30] MEDS: Chlorthalidone 50 MG Tablet 12.5 MG PO (09:16)
--- NOTE | 2022-06-30 09:26 | CT_ITS ---
STUDY: CT ABDOMEN AND PELVIS WITH CONTRAST REASON FOR EXAM: Female, 66 years old. Fever and abdominal pain, possible diverticulitis RADIATION DOSAGE (If Supplied By Facility): CTDIvol = ( 17.07 ) mGy, DLP = ( 1324.88 ) mGycm TECHNIQUE: Transaxial images were obtained from the dome of the diaphragm to the symphysis pubis with oral contrast. Oral and amp; IV Gastrografin and amp; 100mL Isovue-370 was administered. Sagittal and coronal images were reconstructed. Individualized dose optimization techniques were used for this CT. COMPARISON: 06/28/2022 FINDINGS: Chronic interstitial changes in the lung bases. The visualized portions of the heart are within normal limits. Normal liver. There are surgical clips in the gallbladder fossa consistent with a prior cholecystectomy. Normal spleen. Normal pancreas. Normal bilateral adrenal glands. Normal right kidney. Normal left kidney. Normal visualized stomach. Normal small intestine. Persistent evidence of acute sigmoid diverticulitis with abnormal thickening of the sigmoid and pericolonic inflammatory stranding. There do appear to be bubbles outside the lumen of the sigmoid colon suggesting microperforation but there is no organized abscess. There is non-visualization of the appendix. Normal abdominal aorta. Normal inferior vena cava. Normal retroperitoneum. Normal urinary bladder. There is absence of the uterus consistent with a prior hysterectomy. Normal abdominal wall. There are diffuse degenerative changes of the visualized lumbar spine, and pelvis. CT/Abdomen/Pelvis WITH Contrast IMPRESSION: Persistent CT evidence of acute sigmoid diverticulitis with microperforation but no organized abscess. Overall, little significant interval change since yesterday''s study. No suspicious solid organ abnormality Previously noted bladder wall thickening and inflammation around the bladder has improved there may be some residual cystitis. No associated ileus or bowel obstruction Electronically Signed: Daniel Chandra MD at 14:23 EST ,
--- NOTE | 2022-06-30 10:17 | PN.SURG_ITS ---
Subjective Subjective Patient states she feels better overall than she has in weeks. Did have some liquid bowel movements yesterday. Objective Data Objective Data Vital Signs: Vital Signs Temp Pulse Resp BP Pulse Ox O2 Del Method 97.8 F 62 16 106/61 98 Room Air 06/30/22 08:33 06/30/22 08:33 06/30/22 08:33 06/30/22 08:33 06/30/22 08:33 06/30/22 08:33 Oxygen Delivery Method Room Air Weight: 285 lb 0.923 oz Body Mass Index (BMI) 44.6 Intake & Output: Intake and Output for Last 24 Hours 06/28/22 06/29/22 06/30/22 23:59 23:59 23:59 Intake Total 3153.33 / 3153.33 2125.00 / 2125.00 1020 / 1020 Output Total 450 / 450 1200 / 1200 Balance 2703.33 / 2703.33 925.00 / 925.00 1020 / 1020 Lab / Micro Data Result Diagrams: 06/30/22 06:55 06/30/22 06:55 Labs: Laboratory Results - last 24 hr 06/28/22 00:40: Urine Color Brown, Urine Clarity Cloudy, Urine pH 6.5, Ur Specific [place] 1.015, Urine Protein 500 H, Urine Glucose (UA) Normal, Urine Ketones 5 H, Urine Occult Blood 250 H, Urine Nitrite Positive H, Urine Bilirubin Negative, Urine Urobilinogen Normal, Ur Leukocyte Esterase 500 H, Urine RBC 0 SEEN, Urine WBC >100 SEEN, Ur Squamous Epith Cells 0 SEEN, Urine Bacteria 0 SEEN, Urine Mucus 0 SEEN 06/29/22 10:42: POC Glucose 105 06/29/22 17:01: POC Glucose 120 H 06/29/22 21:09: POC Glucose 125 H 06/30/22 06:26: POC Glucose 90 06/30/22 06:55: WBC 7.6, RBC 4.49, Hgb 11.5 L, Hct 36.7 L, MCV 81.7, MCH 25.6 L, MCHC 31.3 L, RDW Std Deviation 46.5 H, RDW Coeff of Rashaun 15.5 H, Plt Count 492 H, MPV 8.9, Immature Gran % (Auto) 2.600 H, Neut % (Auto) 58.6, Lymph % (Auto) 24.6, [place] % (Auto) 9.5, Eos % (Auto) 4.3, Baso % (Auto) 0.4, Absolute Neuts (auto) 4.5, Absolute Lymphs (auto) 1.87, Nucleated RBC % 0 06/30/22 06:55: Sodium 142, Potassium 3.4 L, Chloride 111 H, Carbon Dioxide 25.0, Anion Gap 6, BUN 4 L, Creatinine 0.66, Estim Creat Clear Calc 83.74, Est GFR (MDRD) Af Amer 117, Est GFR (MDRD) Non-Af 96, BUN/Creatinine Ratio 6.1 L, Glucose 89, Calcium 8.9, Phosphorus 3.2, Magnesium 1.9 Micro: Microbiology 06/28/22 02:30 Blood Culture (Wb) - Arm Left Blood Culture - Preliminary No growth in 48 hours. 06/28/22 02:20 Blood Culture (Wb) - Anticubital Left Blood Culture - Preliminary No growth in 48 hours. 06/28/22 00:40 Urine, Clean Catch Urine Culture - Final Presumptive E. coli Physical Exam Const oriented x3 and no apparent distress Resp normal respiratory effort Cardio regular rate GI soft to palpation and non-tender Inspection: Negative for abdominal distention Assessment & Plan Assessment/Plan (1) Diverticulitis of intestine with perforation without abscess or bleeding: (2) UTI (urinary tract infection): (3) Hematuria: PLAN: Plan Tolerating full liquids, stay on IV abx today(ceftriaxone & flagyl--probably will d/c on augmentin). Repeat CT abdomen pelvis with IV and p.o. contrast if stable/improved would likely DC home with Augmentin. Patient states she feels better overall today that she has in weeks, no pain on exam. Deja Menard M.D. Pager: [phone] [facility] [address] [place] [address], [facility], [address] [place] [address] Office: [phone] Charges/Coding Visit Charges Inpatient E&M: 08440 Subs Hosp L2
[2022-06-30 10:56] LABS: Bedside Glucose 149 mg/dL (74-106)
--- NOTE | 2022-06-30 11:03 | PCA ---
SENT A REQUEST FOR MEDICAL RECORDS TO [facility] FOR COLONOSCOPY RESULTS. THE HOSPITAL SAID THAT THEY DONT HAVE ANY COLONOSCOPES IN FILE FOR THIS PATIENT IN THER 10 YEAR RETENTION RECORDS THEY KEEP
--- NOTE | 2022-06-30 15:47 | DS.PCM_ITS ---
Providers Date of Admission: 06/28/22 Date of Discharge: 06/30/22 Primary Care Physician: Dr. Elsa Taylor MD Consultations 06/28/22 03:54 Consult: General Surgery Routine Consulting Provider: Deja Menard Reason for Consult: Diverticulitis with microperforation EMERGENT Consult: No MD Notified: Yes Date Notified: 06/28/22 Time Notified: 02:56 Method of Notification: ED Physician Initiated Reason For Visit: ACUTE DIVERTICULITIS WITH MICROPERFORATION. Diagnosis Discharge Diagnosis (1) Diverticulitis of intestine with perforation without abscess or bleeding: Status: Acute Code(s): K57.80 - Diverticulitis of intestine, part unspecified, with perforation and abscess without bleeding (2) UTI (urinary tract infection): Status: Acute Code(s): N39.0 - Urinary tract infection, site not specified (3) Hematuria: Status: Acute Code(s): R31.9 - Hematuria, unspecified Medications at Discharge Home Medications metformin 500 mg tablet (Glucophage) 500 mg PO DAILY diabetes 09/14/16 multivit-iron 18 mg-folic acid 400 mcg-calcium 500 mg-minerals tablet (Women's Daily Formula) 1 ea PO DAILY supplememnt 09/14/16 atenolol 50 mg tablet 50 mg PO DAILY blood pressure 06/28/22 chlorthalidone 25 mg tablet 12.5 mg PO DAILY water pill 06/28/22 exemestane 25 mg tablet 25 mg PO DAILY breast cancer 06/28/22 glipizide 2.5 mg tablet, extended release 24 hr 2.5 mg PO DAILY diabetes 06/28/22 potassium chloride 20 mEq tablet,extended release 20 meq PO BID supplement 06/28/22 ciprofloxacin HCl 500 mg tablet (Cipro) 500 mg PO BID #28 tabs 06/30/22 metronidazole 500 mg tablet 500 mg PO TID #42 tabs 06/30/22 Hospital Course Procedures - (CT of the abdomen pelvis x2) Summary of Care Provided Minutes Spent on Discharge: 37 Hospital Course: Mrs. Sanchez is a 66-year-old white female who presented to the emergency department [facility] due to hematuria and clots in her urine and abdominal pain. The patient underwent a CT of her abdomen pelvis which showed a microperforation due to sigmoid diverticulitis. We do suspect that this has been ongoing for some time now. Patient did indicate she had a colonoscopy which was done a few years ago we did contact [place] and it seems that this has been at least 10 years and a do not have any records. She has had left lower quadrant pain on and off over the last month and has had some weight loss but seems to have a fairly high pain tolerance. Her UA was consistent with infection. She was admitted to the medical floor and started on ceftriaxone and Flagyl. A urine culture was sent and general surgery was consulted. General surgery allow the patient to start with clear liquids and advance to full liquid diet by 06/29/2019 3 in the afternoon. A repeat CT of her abdomen pelvis was performed on 06/30/2022 and after general surgery review they feel that it looks like it is improving. Clinically she is feeling much better. Her hematuria has resolved and I suspect this is related to her cystitis. The imaging of her bladder appears improved as well on the CT done on the . It was recommended that she continue a low residue diet for the next 4 weeks after discharge. This was discussed with the patient prior to discharge. We also will continue oral antibiotics for 14 more days as there is microperforation on the CAT scan and we suspect this has been ongoing for some time. There was no abscess or fluid collection on either CAT scan. She was placed on Cipro and Flagyl to complete her oral antibiotic regimen and a prescription for 14 more days of each was sent to her pharmacy. We did choose Cipro and Flagyl based on her urine culture sens itivities. Her white count had resolved prior to discharge and patient was tolerating a regular low fiber diet prior to discharge. She was discharged home in stable condition. She is to call Dr. Menard's office to schedule follow-up appointment to be seen within the next 2 weeks. Discharge diagnoses: Acute diverticulitis with microperforation-sigmoid colon Acute E. coli urinary tract infection Hematuria-resolved Hypertension DM-2 History of breast cancer Physical Exam Const alert, oriented x3, no apparent distress, healthy appearing and well nourished Constitutional Narrative: Morbidly obese, white female, sitting up in bed, appears comfortable nontoxic General Appearance: cooperative, comfortable, well kempt and well developed Orientation / Consciousness: awake, oriented to person, oriented to place and oriented to time Exam Limitations: no limitations Nutritional Appearance: morbidly obese HEENT normocephalic, head/scalp atraumatic, hearing grossly normal bilaterally and moist oral mucous membranes HEENT Narrative: Mallampati 3, no thrush Eyes PERRL, EOMs intact bilaterally and conjunctivae normal Eyes Narrative: No scleral icterus Neck no lymphadenopathy and supple Neck Narrative: Trachea midline, no thyroid enlargement Resp normal respiratory effort, no retractions, no use of accessory muscles and clear to auscultation bilaterally Auscultation: Negative for crackles, rhonchi or wheezes Cardio regular rate, regular rhythm, S1 normal heart sound, S2 normal heart sound, no murmurs, no rub, no gallops and no clicks GI normal to inspection, nondistended, normoactive bowel sounds, soft to palpation and non-tender Extremity no clubbing, cyanosis or edema Extremity Narrative: 2+ pedal pulses Skin no rashes or lesions noted, no wounds, skin turgor normal and no jaundice Neuro oriented x3, CN's II-XII intact bilaterally, moves all extremities and no focal motor deficits Sensorium / Orientation: awake, alert, oriented to person, oriented to place and oriented to time Speech: speech normal Psych affect normal Psych Narrative: Very pleasant, appropriately active Weight / BMI Weight Weight: 129.3 kg Body Mass Index (BMI) 44.6 ABG / Lab / Microbiology Data Result Diagrams: 06/30/22 06:55 06/30/22 06:55 Laboratory: Laboratory Results - last 24 hr 06/29/22 17:01: POC Glucose 120 H 06/29/22 21:09: POC Glucose 125 H 06/30/22 06:26: POC Glucose 90 06/30/22 06:55: WBC 7.6, RBC 4.49, Hgb 11.5 L, Hct 36.7 L, MCV 81.7, MCH 25.6 L, MCHC 31.3 L, RDW Std Deviation 46.5 H, RDW Coeff of Rashaun 15.5 H, Plt Count 492 H, MPV 8.9, Immature Gran % (Auto) 2.600 H, Neut % (Auto) 58.6, Lymph % (Auto) 24.6, [place] % (Auto) 9.5, Eos % (Auto) 4.3, Baso % (Auto) 0.4, Absolute Neuts (auto) 4.5, Absolute Lymphs (auto) 1.87, Nucleated RBC % 0 06/30/22 06:55: Sodium 142, Potassium 3.4 L, Chloride 111 H, Carbon Dioxide 25.0, Anion Gap 6, BUN 4 L, Creatinine 0.66, Estim Creat Clear Calc 83.74, Est GFR (MDRD) Af Amer 117, Est GFR (MDRD) Non-Af 96, BUN/Creatinine Ratio 6.1 L, Glucose 89, Calcium 8.9, Phosphorus 3.2, Magnesium 1.9 06/30/22 10:34: POC Glucose 149 H Microbiology: Microbiology 06/28/22 02:30 Blood Culture (Wb) - Arm Left Blood Culture - Preliminary No growth in 48 hours. 06/28/22 02:20 Blood Culture (Wb) - Anticubital Left Blood Culture - Preliminary No growth in 48 hours. 06/28/22 00:40 Urine, Clean Catch Urine Culture - Final Presumptive E. coli Radiography Diagnostic Testing: Radiology Impression Abdomen/Pelvis CT 06/30/22 09:26 IMPRESSION: Persistent CT evidence of acute sigmoid diverticulitis with microperforation but no organized abscess. Overall, little significant interval change since yesterday''s study. No suspicious solid organ abnormality Previously noted bladder wall thickening and inflammation around the bladder has improved there may be some residual cystitis. No associated ileus or bowel obstruction Electronically Signed: Daniel Chandra MD at 14:23 EST Reading Location ID and State: [address] [place] [address] , Service support , D/C Instructions Discharge Diet: Low fat / Low cholesterol (low residue x 4 weeks) and 1800 Calorie Control Diet Discharge Activity: Return to Normal Activity Return to work on: 07/02/22 Meaningful Use Info Meaningful Use Diagnoses (Choose all that apply): None applicable Discharge Plan Admission Admit Date/Time: 06/28/22 02:45 Primary Reason for Your Visit: Gross hematuria/constipation Attending Provider: Chica Centeno Primary Care Provider: Elsa Taylor Consulting Providers: Deja Menard ; Yaya Winters ; Michael Redman Instructions Additional Instructions / Restrictions: 1. Follow a low residue diet for 4 weeks after discharge 2. Please call Dr. Menard's office tomorrow to schedule outpatient follow-up to be seen within the next 2 weeks 3. Please complete oral antibiotics as ordered Discharge Orders/Prescriptions Prescriptions: New ciprofloxacin HCl [Cipro] 500 mg tablet 500 mg PO BID Qty: 28 0RF metronidazole 500 mg tablet 500 mg PO TID Qty: 42 0RF Continued metformin [Glucophage] 500 MG tablet 500 mg PO DAILY Women's Daily Formula 1 EACH tablet 1 ea PO DAILY exemestane 25 mg tablet 25 mg PO DAILY atenolol 50 mg tablet 50 mg PO DAILY chlorthalidone 25 mg tablet 12.5 mg PO DAILY glipizide 2.5 mg tablet extended release 24hr 2.5 mg PO DAILY potassium chloride 20 mEq tablet extended release 20 meq PO BID Referrals / Follow Up: Elsa Taylor MD [Primary Care Provider] - Within 2 Weeks Deja Menard MD [Med Staff - Active Staff] - Within 2 Weeks Disposition Disposition (needs filled in before D/C Order can be placed): Home, Self Care Charges/Coding Visit Charges Inpatient E&M: 78189 Disch Hosp >30min
[2022-06-30 17:36] VITALS: BP 119/75; PULSE 72; RESP 16; TEMP 36.6; O2SAT 98
== END 2022-06-30 17:20 | disposition home or self-care (01) | DRG 392 ==
LOC: ED 02:49 → MS3 03:18
PROVIDERS: Family Medicine; Admitting Provider Hospitalist; Emergency Provider Emergency Medicine; PCP Internal Medicine; Visit Provider Internal Medicine
DX: K57.20 Diverticulitis of large intestine with perforation and abscess without bleeding (principal); N30.01 Acute cystitis with hematuria; Z68.41 Body mass index [BMI] 40.0-44.9, adult; E11.65 Type 2 diabetes mellitus with hyperglycemia; E66.01 Morbid (severe) obesity due to excess calories; I10 Essential (primary) hypertension; B96.20 Unspecified Escherichia coli [E. coli] as the cause of diseases classified elsewhere; I77.6 Arteritis, unspecified; Z90.49 Acquired absence of other specified parts of digestive tract; Z90.710 Acquired absence of both cervix and uterus; Z79.84 Long term (current) use of oral hypoglycemic drugs; Z79.899 Other long term (current) drug therapy; Z85.3 Personal history of malignant neoplasm of breast; Z87.891 Personal history of nicotine dependence
CPT/HCPCS: 36415; 74176; 74177; 80048; 81001; 82962; 83605; 83735; 84100; 85025; 87040; 87086; 87088; 87186; 97802; 99284; J7030; Q9967; A4216

== ENCOUNTER 2022-08-07 17:01 | Emergency (ER) | payer MEDICARE, MEDICAID, SELFPAY ==
[2022-08-07 17:04] VITALS: BP 118/84; PULSE 88; RESP 24; TEMP 37.1; O2SAT 98; BMI 47.0
--- NOTE | 2022-08-07 18:40 | CT_ITS ---
STUDY: CT Abdomen And Pelvis W/ Contrast Injection 08/07/2022 8:26 PM REASON FOR EXAM: Female, 66 years old. History of diverticulitis, hypertension, cholecystectomy, hysterectomy, breast cancer. pain llq abdominal pain Individualized dose optimization techniques were used for this CT. COMPARISON: 06.30.22. TECHNIQUE: CT Abdomen And Pelvis W/ Contrast Injection IV 100mL Isovue-370 FINDINGS: There are atherosclerotic calcifications of visualized coronary arteries. The visualized portions of the heart are within normal limits. Normal liver. There are surgical clips in the gallbladder fossa consistent with a prior cholecystectomy. Normal spleen. Normal pancreas. Normal bilateral adrenal glands. No acute findings of the right kidney. Non obstructive 2 mm left renal parenchymal stones. Normal visualized stomach. Normal small intestine. There is diverticulosis, with thickening of the colon wall, and pericolonic inflammation changes consistent with acute diverticulitis. There is non-visualization of the appendix. There are calcifications of the abdominal aorta. This is consistent for atherosclerotic disease. There is NO abdominal aortic aneurysm. Vascular workup can be obtained based on clinical correlation. Normal inferior vena cava. Subcentimeter mesenteric lymph nodes. Normal urinary bladder. There is absence of the uterus consistent with a prior hysterectomy. There is an umbilical hernia containing fat. Normal osseous structures. CT/Abdomen/Pelvis W IV Cont ONLY IMPRESSION: (NOT LISTED IN ORDER OF SIGNIFICANCE) There is acute distal descending diverticulitis. Other findings as above. Electronically Signed: Gunnar Santizo MD at 20:29 EST ,
--- NOTE | 2022-08-07 18:50 | ED.VIS.GI ---
HPI HPI - GI History of Present Illness Chief Complaint: Abd Pain Narrative Narrative: Old female with history of UTI, renal calculi, diverticulitis presenting with left lower quadrant abdominal pain. She states it started again today. She states that in June she had diverticulitis with microperforations. She was admitted on IV antibiotics. She was seen by Dr. Menard at that time and was discharged home on Augmentin. There was no surgery at that point. Patient followed up with surgery and is scheduled for colonoscopy on Wednesday but is now having abdominal pain. She does state it started rather abruptly. She does state that radiates to the left flank. She states that she did not know it last time she was here but she had a very bad UTI as well. [facility] Medical History Arthritis Bone spur Cancer Diabetes Diabetes type 2, controlled Former smoker History of diverticulitis History of stress test HTN (hypertension) Hypertension Invasive ductal carcinoma of right breast Rash Wears glasses Home Medications metformin 500 mg tablet (Glucophage) 500 mg PO DAILY diabetes 09/14/16 [History Last Taken 06/27/22 10:00] multivit-iron 18 mg-folic acid 400 mcg-calcium 500 mg-minerals tablet (Women's Daily Formula) 1 ea PO DAILY supplememnt 09/14/16 [History Last Taken 06/27/22 10:00] atenolol 50 mg tablet 50 mg PO DAILY blood pressure 06/28/22 [History Last Taken 06/27/22 10:00] chlorthalidone 25 mg tablet 12.5 mg PO DAILY water pill 06/28/22 [History Last Taken 06/27/22 10:00] exemestane 25 mg tablet 25 mg PO DAILY breast cancer 06/28/22 [History Last Taken 06/27/22 10:00] glipizide 2.5 mg tablet, extended release 24 hr 2.5 mg PO DAILY diabetes 06/28/22 [History Last Taken 06/27/22 10:00] potassium chloride 20 mEq tablet,extended release 20 meq PO BID supplement 06/28/22 [History Last Taken 06/27/22 18:00] amoxicillin 875 mg-potassium clavulanate 125 mg tablet 1 tab PO BID #20 tabs 08/07/22 [Rx Last Taken Unknown] Allergy/AdvReac Type Severity Reaction Status Date / Time silver sulfadiazine Allergy Hives Verified 08/07/22 17:06 [From Silvadene] Family History Other Cancer Surgical History H/O: hysterectomy History of cholecystectomy History of foot surgery S/P lumpectomy, right breast Social History Smoking Status: Former smoker ROS ROS ED Constitutional Constitutional ED: Denies chills or fever(s) ENT ENT ED: Denies rhinorrhea or sore throat Cardiovascular Cardiovascular: Denies chest pain or palpitations Respiratory/Chest Respiratory/Chest: Denies cough or dyspnea Gastrointestinal Gastrointestinal: Reports abdominal pain, diarrhea and nausea Genitourinary Genitourinary ED: Denies dysuria or hematuria Musculoskeletal Musculoskeletal: Reports back pain; Denies arthralgias Integumentary Denies abscess or Abrasions Neurologic Neurologic: Reports headache(s); Denies paresthesias Psychiatric Psychiatric: Denies anxiety or depression EXAM Physical Exam Const Vital Signs: 08/07/22 17:04 08/07/22 20:33 Temperature 98.8 F Temperature Source Temporal Pulse Rate 88 81 Respiratory Rate 24 H 16 Blood Pressure 118/84 H 114/71 Blood Pressure Mean 95 85 Pulse Ox 98 96 Oxygen Delivery Method Room Air Room Air Positive well nourished and obese General Appearance ED: NAD Nutritional Appearance: obese HEENT Reports moist mucous membranes normocephalic and atraumatic Eyes PERRL and EOMs intact bilaterally General Eye ED: Yes pale conjunctiva Resp normal respiratory effort GI Palpation: tender LLQ Back/Spine General Back: CVA tenderness left Neuro CN's II-XII intact bilaterally Sensorium / Orientation: alert Psych mental status grossly normal Skin no wounds MDM MDM MDM Narrative Medical decision making narrative: Patient presenting with left lower quadrant abdominal pain but also has CVA tenderness on exam. She has history of UTI, kidney stones, diverticulitis. Differential at this point includes but is not limited to UTI, pyelonephritis, renal calculi, ureteral calculi, diverticulitis, colitis. CBC to assess white blood cell count, hemoglobin, platelets, differential. BMP to assess renal function electrolytes. Urinalysis to assess for occult blood and for evidence of infection. Patient declines analgesia and antiemetics at this point. Urinalysis does not show any evidence of infection. CBC with blood cell count of 12.8. Hemoglobin stable at 14.7. Platelets normal 424. Renal function and electrolytes within normal limits with exception of potassium 3.4. CT of the abdomen pelvis with IV contrast was obtained and this does show acute uncomplicated sigmoid diverticulitis. Patient feels well enough to go home. She started on Augmentin. First dose given in the ED. She declines analgesia. She states that she will come back if it gets worse. She will follow-up with Dr. Menard. Impression: 1. abdominal pain 2. leukocytosis 3. Acute uncomplicated sigmoid diverticula Lab Data Attestation: I reviewed the patient's lab results. Labs: Laboratory Results - last 24 hr 08/07/22 08/07/22 08/07/22 18:25 18:30 18:30 WBC 12.8 H RBC 5.48 H Hgb 14.7 Hct 45.2 MCV 82.5 MCH 26.8 L MCHC 32.5 RDW Std Deviation 53.2 H RDW Coeff of Rashaun 17.9 H Plt Count 424 MPV 9.6 Immature Gran % (Auto) 0.500 Neut % (Auto) 78.2 H Lymph % (Auto) 13.2 L Stanly % (Auto) 7.3 Eos % (Auto) 0.6 Baso % (Auto) 0.2 Absolute Neuts (auto) 10.0 H Absolute Lymphs (auto) 1.69 Nucleated RBC % 0 Sodium 138 Potassium 3.4 L Chloride 102 Carbon Dioxide 29.0 Anion Gap 7 BUN 7 Creatinine 0.80 Estim Creat Clear Calc 66.51 Est GFR (MDRD) Af Amer 92 Est GFR (MDRD) Non-Af 76 BUN/Creatinine Ratio 8.7 L Glucose 119 H Calcium 10.2 H Urine Color Yellow Urine Clarity Clear Urine pH 7.0 Ur Specific [place] 1.010 Urine Protein Negative Urine Glucose (UA) Normal Urine Ketones Negative Urine Occult Blood 10 H Urine Nitrite Negative Urine Bilirubin Negative Urine Urobilinogen Normal Ur Leukocyte Esterase 500 H Urine RBC 0 SEEN Urine WBC 0-5 SEEN Ur Squamous Epith Cells 0 SEEN Urine Bacteria 0 SEEN Urine Mucus 0 SEEN Radiography Diagnostic Testing: Clinical Impression(s) from Imaging Studies Abdomen/Pelvis CT 08/07/22 18:40 IMPRESSION: (NOT LISTED IN ORDER OF SIGNIFICANCE) There is acute distal descending diverticulitis. Other findings as above. Electronically Signed: Gunnar Santizo MD at 20:29 EST Reading Location ID and State: [facility] / [place] , Service support , Discharge Plan Triage Chief Complaint: Abd Pain ED Provider: Rafy Jordan Dx/Rx/DC Orders Clinical Impression: Sigmoid diverticulitis Instructions: ED Diverticulitis Prescriptions: New amoxicillin-pot clavulanate 875-125 mg tablet 1 tab PO BID Qty: 20 0RF No Action metformin [Glucophage] 500 MG tablet 500 mg PO DAILY Women's Daily Formula 1 EACH tablet 1 ea PO DAILY exemestane 25 mg tablet 25 mg PO DAILY atenolol 50 mg tablet 50 mg PO DAILY chlorthalidone 25 mg tablet 12.5 mg PO DAILY glipizide 2.5 mg tablet extended release 24hr 2.5 mg PO DAILY potassium chloride 20 mEq tablet extended release 20 meq PO BID Primary Care Provider: Elsa Taylor Referrals: Elsa Taylor MD [Primary Care Provider] - Deja Menard MD [Med Staff - Active Staff] - 3-5 Days Disposition Disposition: Home, Self Care Discharge Date/Time: 08/07/22 22:44
[2022-08-07 18:51] LABS: Bacteria 0 SEEN /hpf (None Seen); Mucous, Urine 0 SEEN /hpf (<or=2+); Red Blood Cells-Urine 0 SEEN /hpf (0-5); Squamous Epithelial Cells - UA 0 SEEN /hpf (5-10)
[2022-08-07 18:53] LABS: Absolute Lymphocyte Count 1.69 X10^3/uL (0.83-4.51); Basophil# 0.03 X10^3/uL; Basophil% 0.2 % (0-1); Eosinophil# 0.08 X10^3/uL; Eosinophils% 0.6 % (0-5); Hematocrit 45.2 % (37-47); Hemoglobin 14.7 g/dL (12.0-15.0); Lymphocyte # 1.69 X10^3/ul (0.83-4.51); Lymphocyte % 13.2 % (19-41); Mean Corp Hgb Conc 32.5 g/dL (32-36); Mean Corpuscular Hgb 26.8 pg (27.0-32.0); Mean Corpuscular Volume 82.5 fL (81-99); Mean Platelet Vol. 9.6 fl (6.2-12.0); Monocyte# 0.94 X10^3/uL; Monocyte% 7.3 % (0-10); NRBC Flagged by Analyzer 0 % (0-5); Neutrophil # 10.01 X10^3/uL (2.7-7.7); Neutrophil % 78.2 % (47-70); Platelet Count 424 K/mm3 (150-450); RBC Distribution Width CV 17.9 % (11.6-14.6); RBC Distribution Width SD 53.2 fl (35.1-43.9); Red Blood Count 5.48 M/mm3 (4.2-5.4); White Blood Count 12.8 K/mm3 (4.4-11.0)
[2022-08-07 18:58] LABS: Color, Urine Yellow (Yellow); Glucose, Dipstick Normal (Normal); Ketone-Dipstick Negative (Negative); Leukocyte Esterase-Dipstick 500 /ul (Negative); Nitrite-Dipstick Negative (Negative); Occult Blood-Urine 10 /ul (Negative); Protein-Dipstick Negative (Negative); Urine Bilirubin Dipstick Negative (Negative); Urine Clarity Clear (Clear); Urine Urobilinogen Normal (Normal)
[2022-08-07 19:07] LABS: Anion Gap 7 (5-15); BUN 7 mg/dL (7-18); BUN/Creat Ratio 8.7 RATIO (10-20); Calcium,Total 10.2 mg/dL (8.5-10.1); Chloride 102 mmol/L (98-107); EST Glomerular Filtration Rate 76 mL/min (>60); Est Glom Filt Rate - Afr Amer 92 mL/min (>60); Estimated Creatinine Clearance 66.51 ml/min; Glucose 119 mg/dL (74-106); Potassium 3.4 mmol/L (3.5-5.1); Sodium Level 138 mmol/L (136-145)
[2022-08-07 19:37] LABS: White Blood Cells 0-5 SEEN /hpf (0-5)
[2022-08-07 20:33] VITALS: BP 114/71; PULSE 81; RESP 16; O2SAT 96
--- NOTE | 2022-08-07 21:14 | ED.RN ---
WHEN PT RETURNED FROM RADIOLOGY, PT REPORTED IV LEAKING. THIS RN ASSESSED THE IV SITE. SKIN AROUND IV SITE P/W/D. IV FLUSHES. THIS RN REPLACED DRESSING AND CLEANED UP SKIN AROUND IV SITE WITH GAUZE PAD. PT DENIES PAIN OR IRRITATION AT IV SITE. NO S/S OF INFILTRATION.
[2022-08-07] MEDS: Amox/Clavulanate 875 MG Tablet PO (22:39)
== END 2022-08-07 22:44 | disposition home or self-care (01) ==
PROVIDERS: Emergency Provider Student in an Organized Health Care Education/Training Program; PCP Internal Medicine; Visit Provider Student in an Organized Health Care Education/Training Program
DX: R10.32 Left lower quadrant pain (principal); D72.829 Elevated white blood cell count, unspecified; K57.32 Diverticulitis of large intestine without perforation or abscess without bleeding; E66.9 Obesity, unspecified; Z87.891 Personal history of nicotine dependence
CPT/HCPCS: 74177; 80048; 81001; 85025; 99283; Q9967; A4216

== ENCOUNTER → 2022-09-01 | Outpatient (CLI) | payer MEDICARE, MEDICAID, SELFPAY ==
--- NOTE | 2022-09-01 | BRBX_PTH ---
PATIENT: NEL HUANG LOC: [facility] U#:[id number] AGE/SX: 67/F ROOM: RE09/01/[address]: Dr. Jess Orellana MD : 1955 BED: DIS: 09/01/2022 SPEC #: [id number] RECD: 09/01/22 12:56 STATUS: MICHELLE REQ #: [id number] VAISHNAVI: 09/01/22 00:[address]: Jess Orellana DEPT: SURGICAL PATHOLOGY RECD BY: Jay Jay Thomas ENTERED: 09/01/22 12:56 SP TYPE: BREAST BX OTHR DR: Dr. Elsa Taylor MD Tissues: Right breast, NOS Procedures: Surgery Specimen Level IV HEADER OPERATION: Right breast stereotactic biopsy PRE-OP DIAGNOSIS: Right breast calcifications medial middle depth TISSUE SUBMITTED: Right breast core tissue ISCHEMIC TIME: 1 minute FIXATION TIME: 8 hours MICROSCOPIC DIAGNOSIS Right breast, stereotactic core biopsy: Fat necrosis. Focal clustered banal microcalcifications. No evidence of malignancy. AM:jossue 09/02/2022 MICROSCOPIC DESCRIPTION Slides are reviewed. GROSS DESCRIPTION Received in fixative is one container labeled with the patient's name and designated right breast. The specimen consists of multiple elongated fragments of dior-yellow fibroadipose tissue that in aggregate measure 5.0 x 3.0 x 0.3 cm. The entire specimen is submitted in two cassettes. / SJ:jossue 09/01/2022 TC:5 CPT: 84032
--- NOTE | 2022-09-01 11:41 | PCM.OPRPT ---
Report of Operation Date of Procedure: 09/01/22 Pre-Operative Diagnosis: abnormal calcifications of right breast, history of right breast cancer Post-Operative Diagnosis: same Surgery/Procedure Performed:: right stereotactic breast biopsy Surgeon: Jess Orellana operations asst: None Type of Anesthesia: Local Specimen's removed: right breast tissue Estimated Blood Loss (mL): minimal Description of Procedure: After informed consent was given, the patient was brought into the Breast Biopsy suite. Appropriate time out protocol was followed. The patient was placed in the prone position on the stereotactic biopsy table. The patient?s right breast was then placed in the opening at the head of the biopsy table. A court manager compression mammogram was then obtained in the lateral view. The suspicious radiological lesion was thus identified. Stereo pictures of the lesion were then taken for XYZ coordinates. The Mammotome biopsy stylus was then positioned where it would be entering into the patient?s breast. The skin at this site was then cleansed with a surgical skin preparation. The skin and subcutaneous tissues at this site were then infiltrated with 1% xylocaine. A small skin incision was made with an 11 blade scalpel. The biopsy stylus was then positioned into the patient?s breast at the proper coordinates of depth. Using the Mammotome vacuum-assist device, several core samples of breast tissue were obtained. A specimen mammogram was the obtained. It revealed that the abnormal calcifications were within the specimen. I reviewed this personally and concluded that the tissue sampling was adequate. A hemostatic marker clip was then placed into the biopsy cavity and a court manager film revealed that it was properly deployed. The patient was then placed in the supine position and pressure was applied to the breast until no active bleeding was noted. Steristrips were applied to reapproximate the skin. A unilateral mammogram in the CC and MLO view were then taken which revealed that the marker clip was in the same area as the previous suspicious lesion. The patient tolerated the procedure well and was discharged from the Breast Biopsy suite in good condition. Complications none noted
== END | disposition home or self-care (01) ==
LOC: BIRAD 10:53
PROVIDERS: PCP Internal Medicine; Referring Provider Surgery; Visit Provider Surgery
DX: R92.8 Other abnormal and inconclusive findings on diagnostic imaging of breast (principal); R92.1 Mammographic calcification found on diagnostic imaging of breast
CPT/HCPCS: 19081; 88305; J7050

== ENCOUNTER 2022-10-05 06:28 | Day surgery (SDC) | payer MEDICARE, MEDICAID, SELFPAY ==
--- NOTE | 2022-10-05 | COLBX_PTH ---
PATIENT: NEL HUANG LOC: EN U#:[id number] AGE/SX: 67/F ROOM: RE10/05/[address]: Dr. Deja Menard MD : 1955 BED: DIS: 10/05/2022 SPEC #: [id number] RECD: 10/05/22 13:11 STATUS: MICHELLE REErick #: [id number] VAISHNAVI: 10/05/22 00:[address]: Deja Menard DEPT: SURGICAL PATHOLOGY RECD BY: Jay Jay Thomas ENTERED: 10/05/22 13:11 SP TYPE: COLON BX OTHR DR: Dr. Elsa Taylor MD Tissues: A - Sigmoid colon biopsy B - Cecum, NOS C - Rectum, NOS Procedures: Surgery Specimen Level IV HEADER OPERATION: Colonoscopy (MAC) with biopsies PRE-OP DIAGNOSIS: Diverticulitis TISSUE SUBMITTED: A ? Sigmoid polyp biopsy, B ? Cecum polyp biopsy, C ? Rectal polyp biopsy MICROSCOPIC DIAGNOSIS A. Sigmoid colon polyp, biopsy: Hyperplastic polyp. B. Cecal polyp, biopsy: Focal adenomatous change. C. Rectal polyp, biopsy: Fragments of hyperplastic polyp. AM:jossue 10/06/2022 MICROSCOPIC DESCRIPTION Slides are reviewed. GROSS DESCRIPTION A - Received in fixative is one container labeled with the patient's name and designated sigmoid polyp biopsy. The specimen consists of one irregular fragment of light dior soft tissue that measures 0.4 x 0.3 x 0.1 cm. The specimen is totally submitted in one cassette. B - Received in fixative is one container labeled with the patient's name and designated cecum polyp biopsy. The specimen consists of one irregular fragment of light dior soft tissue that measures 0.4 x 0.3 x 0.1 cm. The specimen is totally submitted in one cassette. C - Received in fixative is one container labeled with the patient's name and designated rectal polyp biopsy. The specimen consists of two irregular fragments of light dior soft tissue that in aggregate measure 0.6 x 0.3 x 0.1 cm. The specimen is totally submitted in one cassette. / BALDOMERO:jossue 10/05/2022 TC:3 CPT: 60168 x3
[2022-10-05] MEDS: Lactated Ringers 1,000 ML 15 ML IV (06:35)
[2022-10-05 06:48] VITALS: BP 103/82; PULSE 73; RESP 16; TEMP 37.1; O2SAT 97; BMI 46.6
--- NOTE | 2022-10-05 07:06 | PCM.HP.BLA ---
History and Physical Date of Admission: 10/05/22 Date of Service:? 09/07/22 MR#: [id number] Acct: [id number] Name:? NEL HUANG Rep #: [id number] : 1955 ? ? Provider: Dr. Deja Menard MD Age/Sex:? 67/F ? ? [place] [facility] 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 Required: No Is patient in pain?: No Allergies silver sulfadiazine [From Silvadene] Allergy (Verified 09/07/22 13:02) Hives Medications metformin 500 mg tablet (Glucophage) 500 mg PO DAILY diabetes 09/14/16 [History Confirmed 09/07/22] multivit-iron 18 mg-folic acid 400 mcg-calcium 500 mg-minerals tablet (Women's Daily Formula) 1 ea PO DAILY supplememnt 09/14/16 [History Confirmed 09/07/22] atenolol 50 mg tablet 50 mg PO DAILY blood pressure 06/28/22 [History Confirmed 09/07/22] chlorthalidone 25 mg tablet 12.5 mg PO DAILY water pill 06/28/22 [History Confirmed 09/07/22] exemestane 25 mg tablet 25 mg PO DAILY breast cancer 06/28/22 [History Confirmed 09/07/22] glipizide 2.5 mg tablet, extended release 24 hr 2.5 mg PO DAILY diabetes 06/28/22 [History Confirmed 09/07/22] potassium chloride 20 mEq tablet,extended release 20 meq PO BID supplement 06/28/22 [History Confirmed 09/07/22] fluconazole 150 mg tablet 150 mg PO 09/07/22 [History Confirmed 09/07/22] PFSH Medical History? Arthritis Bone spur Cancer Diabetes Diabetes type 2, controlled Former smoker History of diverticulitis History of stress test HTN (hypertension) Hypertension Invasive ductal carcinoma of right breast Rash Wears glasses Surgical History? H/O: hysterectomy History of cholecystectomy History of foot surgery S/P lumpectomy, right breast Family History? Other Cancer Social History? Smoking Status:? Former smoker HPI HPI HPI: 67-year-old female presents for follow-up for diverticulitis for colonoscopy.? Patient previously had a colonoscopy scheduled however she had a diverticulitis attack just prior and needed to cancel.? Patient completed her amoxicillin about August 28.? Has not had any left lower quadrant pain since then or a couple days before.? Patient is having bowel is having issues with constipation and takes stool softeners however to stool softeners may give her diarrhea but 1 may not work as well.? Patient denies any nausea or vomiting.? Patient did have her stereotactic breast biopsy done by Dr. Orellana and was benign. Exam Const General: cooperative, healthy appearing, comfortable and no acute distress Neck Neck: normal visual inspection Resp Effort & Inspection: normal respiratory effort Cardio Rate: regular rate GI Inspection: non-distended Palpation: soft, no guarding and nontender Neuro General: patient oriented x3 Psych Affect: normal affect Assessment and Plan Assessment and Plan (1) Diverticulitis of intestine with perforation without abscess or bleeding: ?Status:?Acute ? ? ? Medications: Discontinued amoxicillin-pot clavulanate 875-125 mg ?? Discontinued Reason:? Pt no longer taking 1 TAB? PO BID 20 tabs 0RF ? ? Plan If she has any pain before the colonoscopy will not schedule until after September 28-.? If patient did have pain would plan to get repeat CAT scan and do additional Augmentin. I have discussed the above with the patient. I have offered the patient colonoscopy for evaluation. I have explained the risks/benefits of the procedure and described the procedure.? I have discussed the risks with the patient, including but not limited to:? infection, bleeding, perforation of the GI tract requiring emergency surgery, inability to complete the procedure, injury to any internal organs, complications of anesthesia, etc. - the patient understands and agrees to proceed. I have answered all the patient's questions to the patient's satisfaction and the patient has no further questions. The patient has been given instructions for the colon cleansing preparation.? 1 day of clears, MiraLAX Dulcolax split prep. Deja Menard M.D. Pager: [phone] [facility] [address] [place] [address], [facility], [address] [place] [address] Office: [phone] Coding Level of Care Code Off vis,est,level 4 Diagnoses Diverticulitis of intestine with perforation without abscess or bleeding? K57.80 09/07/22 1328 <Electronically signed by Deja Menard MD> Date Deja Menard MD
[2022-10-05 07:20] LABS: Bedside Glucose 151 mg/dL (74-106)
[2022-10-05 08:00] VITALS: BP 103/82; BP 108/68; PULSE 70; RESP 16; TEMP 36.3; O2SAT 96
[2022-10-05 08:05] VITALS: BP 103/82; BP 109/77; PULSE 66; RESP 16; O2SAT 99
--- NOTE | 2022-10-05 08:07 | OP.COLON_ITS ---
Patient Name: Patrica Sanchez Procedure Date: 10/05/2022 7:15 AM Date of : 1955 Age: 67 Procedure: Colonoscopy Indications: Follow-up of diverticulitis Providers: Deja Menard MD Referring MD: Deja Menard MD Medicines: Monitored Anesthesia Care Patient Profile: This is a 67 year old female. Last Colonoscopy: more than 10 years ago. Complications: No immediate complications. Procedure: Pre-Anesthesia Assessment: - Prior to the procedure, a History and Physical was performed, and patient medications and allergies were reviewed. The patient's tolerance of previous anesthesia was also reviewed. The risks and benefits of the procedure and the sedation options and risks were discussed with the patient. All questions were answered, and informed consent was obtained. Prior Anticoagulants: The patient has taken no previous anticoagulant or antiplatelet agents. ASA Grade Assessment: Per anesthesia. After reviewing the risks and benefits, the patient was deemed in satisfactory condition to undergo the procedure. After I obtained informed consent, the scope was passed under direct vision. Throughout the procedure, the patient's blood pressure, pulse, and oxygen saturations were monitored continuously. The colonoscope was introduced through the anus and advanced to the cecum, identified by the appendiceal orifice, ileocecal valve and palpation. The colonoscopy was performed without difficulty. The patient tolerated the procedure well. The quality of the bowel preparation was good. Scope In: 7:27:18 AM Scope Withdrawal Time 0 hours 10 minutes 26 seconds Scope Out: 7:52:47 AM Total Procedure Duration Time 0 hours 25 minutes 29 seconds Findings: Hemorrhoids were found on perianal exam. Non-bleeding internal hemorrhoids were found. The hemorrhoids were Grade I (internal hemorrhoids that do not prolapse). Three sessile polyps were found in the rectum, sigmoid colon and cecum. The polyps were less than 5 mm in size. These polyps were removed with a cold biopsy forceps. Resection and retrieval were complete. The exam was otherwise without abnormality. Many small and large-mouthed diverticula were found in the sigmoid colon, descending colon and transverse colon. Impression: - Hemorrhoids found on perianal exam. - Non-bleeding internal hemorrhoids. - Three less than 5 mm polyps in the rectum, in the sigmoid colon and in the cecum, removed with a cold biopsy forceps. Resected and retrieved. - The examination was otherwise normal. - Diverticulosis in the sigmoid colon, in the descending colon and in the transverse colon. Recommendation: - Discharge patient to home. - Resume previous diet. - Continue present medications. - Await pathology results. - Repeat colonoscopy in 5 years for surveillance based on pathology results. Procedure Code(s): --- Professional --- 26334, Colonoscopy, flexible; with biopsy, single or multiple Diagnosis Code(s): --- Professional --- K64.0, First degree hemorrhoids K62.1, Rectal polyp D12.5, Benign neoplasm of sigmoid colon D12.0, Benign neoplasm of cecum K57.32, Diverticulitis of large intestine without perforation or abscess without bleeding K57.30, Diverticulosis of large intestine without perforation or abscess without bleeding CPT copyright 2017 [employer] [place] [employer]. All rights reserved. The codes documented in this report are preliminary and upon creasing and cutting press feeder review may be revised to meet current compliance requirements. MD Deja Shannon MD 10/05/2022 8:07:01 AM This report has been signed electronically. Number of Addenda: 0 Note Initiated On: 10/05/2022 7:15 AM
--- NOTE | 2022-10-05 08:08 | OP.CCLET_ITS ---
10/05/2022 Elsa Taylor [address] [id number] Re : Colonoscopy procedure for Patrica Sanchez Dear Dr. Taylor This procedure was performed on Wednesday, October 05, 2022. My impressions and recommendations are as follows: Impressions : - Hemorrhoids found on perianal exam. - Non-bleeding internal hemorrhoids. - Three less than 5 mm polyps in the rectum, in the sigmoid colon and in the cecum, removed with a cold biopsy forceps. Resected and retrieved. - The examination was otherwise normal. - Diverticulosis in the sigmoid colon, in the descending colon and in the transverse colon. Recommendations : - Discharge patient to home. - Resume previous diet. - Continue present medications. - Await pathology results. - Repeat colonoscopy in 5 years for surveillance based on pathology results. My findings are described in the full procedure note, which is enclosed. If I can be of further assistance, please feel free to contact me at Doctor phone number(s): , Work: . Sincerely, MD Deja Shannon MD 10/05/2022 8:07:01 AM This report has been signed electronically.
[2022-10-05 08:10] VITALS: BP 103/82; BP 112/79; PULSE 67; RESP 16; O2SAT 98
[2022-10-05 08:16] VITALS: BP 103/82; BP 107/66; PULSE 61; RESP 16; TEMP 36.5; O2SAT 100
[2022-10-05 08:25] VITALS: BP 103/82
== END 2022-10-05 08:43 | disposition home or self-care (01) ==
LOC: EN 06:31 → AC 06:31
PROVIDERS: PCP Internal Medicine; Referring Provider Internal Medicine; Visit Provider Surgery
PROC: 0DJD8ZZ Inspection of Lower Intestinal Tract, Via Natural or Artificial Opening Endoscopic (ICD-10-PCS; CPT 45378; principal; 2022-10-05 07:25)
DX: K57.30 Diverticulosis of large intestine without perforation or abscess without bleeding (principal); E11.9 Type 2 diabetes mellitus without complications; D12.0 Benign neoplasm of cecum; K64.0 First degree hemorrhoids; K62.1 Rectal polyp; I10 Essential (primary) hypertension; Z79.899 Other long term (current) drug therapy; Z79.84 Long term (current) use of oral hypoglycemic drugs; Z87.891 Personal history of nicotine dependence
CPT/HCPCS: 45380; 82962; 88305; J7120; J2405

== ENCOUNTER 2023-07-05 18:58 | Emergency (ER) | payer MEDICARE, MEDICAID, SELFPAY ==
[2023-07-05 18:59] VITALS: BP 126/96; PULSE 71; RESP 18; TEMP 37.2; O2SAT 99; BMI 48.1
[2023-07-05 19:51] LABS: Absolute Lymphocyte Count 2.16 X10^3/uL (0.83-4.51); Absolute Neutrophil Count 6.2 X10^3/uL (2.0-7.7); Basophil# 0.07 X10^3/uL; Basophil% 0.7 % (0-1); Eosinophil# 0.19 X10^3/uL; Hematocrit 48.8 % (37-47); Hemoglobin 15.6 g/dL (12.0-15.0); Lymphocyte # 2.16 X10^3/ul (0.83-4.51); Mean Corpuscular Hgb 26.9 pg (27.0-32.0); Mean Platelet Vol. 9.8 fl (6.2-12.0); Monocyte# 0.75 X10^3/uL; NRBC Flagged by Analyzer 0 % (0-5); Neutrophil # 6.19 X10^3/uL (2.7-7.7); Neutrophil % 65.9 % (47-70); Platelet Count 355 K/mm3 (150-450); RBC Distribution Width CV 15.1 % (11.6-14.6); RBC Distribution Width SD 45.3 fl (35.1-43.9); Red Blood Count 5.81 M/mm3 (4.2-5.4); White Blood Count 9.4 K/mm3 (4.4-11.0)
[2023-07-05 20:12] LABS: ALB/GLOB Ratio 0.7 RATIO (0.9-2.4); AST(SGOT) 33 U/L (15-37); Alanine Aminotransfer ALT/SGPT 41 U/L (13-56); Albumin, Serum 3.6 g/dL (3.2-5.0); Alkaline Phosphatase 140 U/L (45-117); Anion Gap 7 (5-15); BUN 8 mg/dL (7-18); BUN/Creat Ratio 7.8 RATIO (10-20); Calcium,Total 10.6 mg/dL (8.5-10.1); Chloride 106 mmol/L (98-107); Creatinine, Serum 1.02 mg/dL (0.55-1.02); EST Glomerular Filtration Rate 58 mL/min (>60); Est Glom Filt Rate - Afr Amer 70 mL/min (>60); Estimated Creatinine Clearance 77.82 ml/min; Globulin 4.9 g/dL (2.2-4.2); Glucose 145 mg/dL (74-106); Protein, Total 8.5 g/dL (6.4-8.2); Sodium Level 138 mmol/L (136-145)
--- NOTE | 2023-07-05 20:39 | CT_ITS ---
We are attempting to reach an attending provider to discuss findings. An addendum with communication details will be sent when the communication is complete. EXAM: CT ABDOMEN AND PELVIS WITH INTRAVENOUS CONTRAST CLINICAL INDICATION: diverticulitis TECHNIQUE: Helically acquired images were obtained of the abdomen and pelvis with intravenous contrast. This CT exam was performed using one or more of the following dose reduction techniques: automated exposure control, adjustment of the mA and/or kV according to patient size, and/or use of iterative reconstruction technique. CONTRAST: IV 100mL Isovue-370 COMPARISON: 08/07/2022 FINDINGS: LOWER THORAX: No significant abnormality. Lung bases are clear. No cardiomegaly. No significant pericardial effusion. ABDOMEN: LIVER: No significant abnormality. Homogeneous. No focal mass. GALLBLADDER AND BILE DUCTS: Status post cholecystectomy. No intra- or extrahepatic biliary ductal dilation. PANCREAS: No significant abnormality. No focal cystic or solid mass. SPLEEN: No significant abnormality. Normal size without focal cystic or solid mass. ADRENALS: No significant abnormality. No nodules. KIDNEYS AND URETERS: Left lower pole parenchymal calcification. No obstructive urolithiasis. STOMACH AND BOWEL: Small foci of air adjacent to the sigmoid colon may be within focal diverticula versus indicative of microperforation. Colonic diverticulosis, mild sigmoid wall thickening, and pericolonic inflammation suggesting acute uncomplicated diverticulitis. No stomach or bowel distention. PELVIS: APPENDIX: No evidence of acute appendicitis. BLADDER: Strandy opacity within the mesentery between the sigmoid colon and the urinary bladder. Urinary bladder wall thickening. No air within the urinary bladder lumen. REPRODUCTIVE: Status post hysterectomy. No mass. ABDOMEN and PELVIS: INTRAPERITONEAL SPACE: Strandy opacities adjacent to the sigmoid colon. Possible microperforation. No abscess. No significant free fluid. BONES/JOINTS: No significant abnormality. No suspicious lytic or blastic abnormality. SOFT TISSUES: No significant abnormality. No discrete abdominal or pelvic wall hernia. VASCULATURE: No significant abnormality. Abdominal aorta is non-dilated. LYMPH NODES: No significant abnormality. No enlarged lymph nodes. CT/Abdomen/Pelvis W IV Cont ONLY IMPRESSION: Acute diverticulitis of the sigmoid colon. No discrete abscess. Possible microperforation. Similar appearance of findings suggesting possible enterovesicular fistula versus adhesions/scarring from prior disease. Electronically Signed: Sergei Ferrara DO at 21:20 EST ,
--- NOTE | 2023-07-05 20:48 | EX.ED.DYSGE1 ---
HPI History of Present Illness Chief Complaint: Abd Pain Informant: patient Narrative Narrative: 67-year-old female with a history of diverticulitis. She states that since Wednesday she has not really had much of an appetite. She states she has been drinking lots of fluids. She has not had a fever. She notes some pain in the left lower quadrant and suprapubic region. She states it is similar to the pain that she had when she had diverticulitis. She reports that today she had several loose stools which she states is not unexpected for her. She also notes nasal congestion and drainage into her throat. She now notes a frontal headache. She also feels bloated. She states the pain in the lower abdomen seems to radiate to her low back. [facility] Medical History Arthritis Bone spur Cancer Diabetes Former smoker History of diverticulitis History of stress test HTN (hypertension) Hypertension Invasive ductal carcinoma of right breast Rash Wears glasses Home Medications metformin 500 mg tablet (Glucophage) 500 mg PO DAILY diabetes 09/14/16 [History Last Taken 06/27/22 10:00] multivit-iron 18 mg-folic acid 400 mcg-calcium 500 mg-minerals tablet (Women's Daily Formula) 1 ea PO DAILY supplememnt 09/14/16 [History Last Taken 06/27/22 10:00] atenolol 50 mg tablet 50 mg PO DAILY blood pressure 06/28/22 [History Last Taken 10/05/22] chlorthalidone 25 mg tablet 12.5 mg PO DAILY water pill 06/28/22 [History Last Taken 06/27/22 10:00] exemestane 25 mg tablet 25 mg PO DAILY breast cancer 06/28/22 [History Last Taken 06/27/22 10:00] glipizide 2.5 mg tablet, extended release 24 hr 2.5 mg PO DAILY diabetes 06/28/22 [History Last Taken 06/27/22 10:00] potassium chloride 20 mEq tablet,extended release 20 meq PO BID supplement 06/28/22 [History Last Taken 06/27/22 18:00] amoxicillin 875 mg-potassium clavulanate 125 mg tablet 1 tab PO BID #19 tabs 07/05/23 [Rx Last Taken Unknown] Allergy/AdvReac Type Severity Reaction Status Date / Time silver sulfadiazine Allergy Hives Verified 07/05/23 18:59 [From Apryl] Family History Other Cancer Surgical History H/O: hysterectomy History of cholecystectomy History of foot surgery S/P lumpectomy, right breast Social History Smoking Status: Former smoker ROS ROS ED Constitutional Constitutional ED: Reports chills; Denies fever(s), sweats or weight loss Eyes Eyes: Denies change in vision or diplopia ENT ENT ED: Reports rhinorrhea; Denies ear pain or sore throat Cardiovascular Cardiovascular: Denies chest pain, orthopnea, palpitations or racing heartbeat Respiratory/Chest Respiratory/Chest: Denies cough, dyspnea or orthopnea Gastrointestinal Gastrointestinal: Reports abdominal pain, diarrhea and other Details: Anorexia ; Denies nausea or vomiting Genitourinary Genitourinary ED: Denies dysuria, hematuria or urinary frequency Musculoskeletal Musculoskeletal: Reports back pain; Denies arthralgias or myalgias Integumentary Denies abscess or rash Neurologic Neurologic: Denies headache(s) or weakness Psychiatric Psychiatric: Denies anxiety, depression, suicidal ideation or suicidal thoughts Endocrine Endocrinology: Denies polydipsia, polyphagia or polyuria Allergic/Immunologic Allergic/Immunologic ED: Denies mouth swelling, tongue swelling or urticaria EXAM Physical Exam Const Vital Signs: 07/05/23 18:59 07/05/23 23:00 Temperature 98.9 F Temperature Source Temporal Pulse Rate 71 75 Respiratory Rate 18 16 Blood Pressure 126/96 H Blood Pressure Mean 106 Pulse Ox 99 99 Oxygen Delivery Method Room Air Room Air Positive well nourished, well developed and obese General Appearance ED: well developed Nutritional Appearance: obese HEENT Reports normocephalic, head/scalp atraumatic and moist mucous membranes HEENT Narrative: Nasal congestion mild frontal sinus tenderness to palpation Eyes PERRL and EOMs intact bilaterally Neck no lymphadenopathy, supple and no JVD Resp normal respiratory effort and clear to auscultation bilaterally Cardio regular rate, regular rhythm and no murmurs GI Inspection: Negative for abdominal distention Auscultation: normoactive bowel sounds Palpation: soft and tender LLQ and suprapubic; Negative for guarding or rebound tenderness present Back/Spine no CVA tenderness and normal ROM Extremity normal to inspection General Extremety ED: Negative for edema General Extremity: Negative for edema Neuro oriented x3 and CN's II-XII intact bilaterally Sensorium / Orientation: alert Motor Exam: strength 5/5 throughout Psych mental status grossly normal Mood & Affect: Negative for depressed or tearful Skin no rashes or lesions noted and no wounds MDM MDM MDM Narrative Medical decision making narrative: Patient's white count was 9.4 with a hemoglobin of 15.6. Platelet count of 355. BMP creatinine 1.02 CO2 of 25 alk phos 140 urinalysis with 10-25 white cells rare bacteria negative nitrates urine color is yellow. CT of the abdomen pelvis was obtained. This was reviewed by myself read by radiology as acute diverticulitis of the sigmoid colon without discrete abscess. They feel that there is possible microperforation. They question findings suggesting enterovesicular fistula. Her urine however does not not appear to have stool with that there is a small amount of white cells. Patient did have colonoscopy by surgery in October 2022. I spoke with general surgery regarding this patient. Reviewed the CT together. Plan is that we will start her on Augmentin. The patient does not wish any pain or nausea medication. I doubt that this represents a enterovesicular fistula. There is no obvious abscess. Microperforation can always be a possibility and be very small. However her exam is not overly tender her white count is normal and she is without fever. She will follow-up with surgery in the office return if worsening History & Record Review Discussion w/independent historian: Patient Lab Data Attestation: I reviewed the patient's lab results. Labs: Laboratory Results - last 24 hr 07/05/23 07/05/23 19:30 19:40 WBC 9.4 RBC 5.81 H Hgb 15.6 H Hct 48.8 H MCV 84.0 MCH 26.9 L MCHC 32.0 RDW Std Deviation 45.3 H RDW Coeff of [place] 15.1 H Plt Count 355 MPV 9.8 Immature Gran % (Auto) 0.400 Neut % (Auto) 65.9 Lymph % (Auto) 23.0 [place] % (Auto) 8.0 Eos % (Auto) 2.0 Baso % (Auto) 0.7 Absolute Neuts (auto) 6.2 Absolute Lymphs (auto) 2.16 Nucleated RBC % 0 Sodium 138 Potassium 4.0 Chloride 106 Carbon Dioxide 25.0 Anion Gap 7 BUN 8 Creatinine 1.02 Estim Creat Clear Calc 77.82 Est GFR (MDRD) Af Amer 70 Est GFR (MDRD) Non-Af 58 L BUN/Creatinine Ratio 7.8 L Glucose 145 H Calcium 10.6 H Total Bilirubin 0.50 AST 33 ALT 41 Alkaline Phosphatase 140 H Total Protein 8.5 H Albumin 3.6 Globulin 4.9 H Albumin/Globulin Ratio 0.7 L Urine Color Yellow Urine Clarity Sl. Cloudy Urine pH 7.0 Ur Specific [place] 1.005 Urine Protein 15 H Urine Glucose (UA) Normal Urine Ketones Negative Urine Occult Blood 10 H Urine Nitrite Negative Urine Bilirubin Negative Urine Urobilinogen Normal Ur Leukocyte Esterase 500 H Urine RBC 0 SEEN Urine WBC 10-25 SEEN Ur Squamous Epith Cells 0-5 SEEN Urine Bacteria RARE Urine Mucus 0 SEEN Radiography Diagnostic Testing: Clinical Impression(s) from Imaging Studies Abdomen/Pelvis CT 07/05/23 20:39 IMPRESSION: Acute diverticulitis of the sigmoid colon. No discrete abscess. Possible microperforation. Similar appearance of findings suggesting possible enterovesicular fistula versus adhesions/scarring from prior disease. Electronically Signed: Sergei Ferrara DO at 21:20 EST , ADDENDUM: 07/05/234 IMPRESSION: Acute diverticulitis of the sigmoid colon. No discrete abscess. Possible microperforation. Similar appearance of findings suggesting possible enterovesicular fistula versus adhesions/scarring from prior disease. N.B. : The above Results were Read Back by Sergei Ferrara DO to Adam Wallis DO, and understanding confirmed on 07/05/2023 21:47:39 (ET). Electronically Signed: Sergei Ferrara DO at 21:20 EST , Management Discussion w/another healthcare provider: Survey Technician (Surgery (Dr. Tran)) Discharge Plan Triage Chief Complaint: Abd Pain ED Provider: Adam Wallis Dx/Rx/DC Orders Clinical Impression: Abdominal pain, Diverticulitis of intestine with perforation without abscess or bleeding Instructions: ED Diverticulitis Prescriptions: New amoxicillin-pot clavulanate 875-125 mg tablet 1 tab PO BID Qty: 19 0RF No Action metformin [Glucophage] 500 MG tablet 500 mg PO DAILY Women's Daily Formula 1 EACH tablet 1 ea PO DAILY exemestane 25 mg tablet 25 mg PO DAILY atenolol 50 mg tablet 50 mg PO DAILY chlorthalidone 25 mg tablet 12.5 mg PO DAILY glipizide 2.5 mg tablet extended release 24hr 2.5 mg PO DAILY potassium chloride 20 mEq tablet extended release 20 meq PO BID Primary Care Provider: Elsa Taylor Referrals: Elsa Taylor MD [Primary Care Provider] - Deja Menard MD [Med Staff - Active Staff] - As soon as possible Disposition Disposition: Home, Self Care Discharge Date/Time: 07/05/23 23:46
--- OUTSIDE RECORDS SUMMARY | 2023-07-05 20:54 | XMS RPT_ITS | CCD ---
Author Name Unknown Address [address] [place] [address] Organization [facility] Care Team Providers Care Sports Marketing Specialist Name Role Phone BARK, VELIA E Unavailable Unavailable BARK, VELIA E Unavailable Unavailable BARK, VELIA E Unavailable Unavailable BARK, VELIA E Unavailable Unavailable MAKKAR, GUDELIA K Unavailable Unavailable MAKKAR, GUDELIA K Unavailable Unavailable MAKKAR, GUDELIA K Unavailable Unavailable MAKKAR, GUDELIA K Unavailable Unavailable Kamaljit Berry Admitting Unavailabl e Kamaljit Berry Attending Unavailabl e Ganta, Yuli C Primary Care Unavailable Kamaljit Berry Admitting Unavailabl e Kamaljit Berry Attending Unavailabl e Ganta, Yuli C Primary Care Unavailable Bark, Velia E Admitting Unavailable Bark, Velia E Attending Unavailable Ganta, Yuli C Primary Care Unavailable Yuli Taylor MD Primary Care Provider Jacobo STARK MD, Frank Unavailable Donicki RN, Carmen Unavailable Unavailable Yuli Taylor MD Primary Care Provider Jacobo STARK MD, Frank Unavailable Doup RN, Carmen Unavailable Unavailable Yuli Taylor MD Primary Care Provider Jacobo STARK MD, Frank Unavailable Doup RN, Carmen Unavailable Unavailable Doup RN, Carmen Unavailable Unavailable JESS ORELLANA Attending Unavailable GANTA, YULI Primary Care Unavailable GANTA, YULI Primary Care Unavailable KALIA TABOR Referring Unavailable GANTA, YULI Primary Care Unavailable ZOHREH TY Referring Unavailable GANTA, YULI Primary Care Unavailable GANTA, YULI Referring Unavailable GANTA, YULI Primary Care Unavailable GANTA, YULI Referring Unavailable GANTA, YULI Primary Care Unavailable GANTA, YULI Attending Unavailable GANTA, YULI Primary Care Unavailable GANTA, YULI Primary Care Unavailable REMIGIO GARCIA Attending Unavailable MASCIKALIA Referring Unavailable GANTA, YULI Primary Care Unavailable GANTA, YULI Referring Unavailable GANTA, YULI Primary Care Unavailable OLDER, TAMIA Referring Unavailable GANTA, YULI Primary Care Unavailable OLDER, TAMIA Attending Unavailable GANTA, YULI Primary Care Unavailable GANTA, YULI Attending Unavailable GANTA, YULI Referring Unavailable GANTA, YULI Primary Care Unavailable GILL LEE Attending Unavailable GANTA, YULI Primary Care Unavailable ZOHREH TY Referring Unavailable GANTA, YULI Primary Care Unavailable KALIA TABOR Attending Unavailable ZOHREH TY Referring Unavailable GANTA, YULI Primary Care Unavailable JESS ORELLANA Attending Unavailable MASCI, KALIA A Referring Unavailable GANTA, YULI Primary Care Unavailable Allergies Allergy Classification Reported Allergen(s) Allergy Type Date of Onset Reaction(s) Facility (1 source) Sulfonamides (Antibiotic); Translations: [sulfa drugs] Propensity to adverse reactions to drug (disorder) [facility] (20 sources) silver sulfADIAZINE; Translations: [SILVER SULFADIAZINE] Drug Allergy 7 [facility] (20 sources) Sulfonamides (Antibiotic); Translations: [SULFA (SULFONAMIDE ANTIBIOTICS)] Drug Allergy 1 [facility] Medications Current Medications Medication Drug Class(es) Dates Sig (Normalized) Sig (Original) [id number] 200 actuat albuterol 0.09 mg/actuat metered dose inhaler (7 sources) beta2-Adrenergic Agonist Start: 05-13-2022 End: 07-04-2022 take 2 puff(s) by inhalation every six hours as needed albuterol HFA (PROAIR HFA) 90 mcg/actuation inhaler Inhale 2 Puffs as instructed every 6 hours as needed. 1 Each 0 05/13/2022 07/04/2022 Discontinued Completed/Discontinued Medications Medication Drug Class(es) Dates Sig (Normalized) Sig (Original) ascorbic acid 500 mg oral tablet (20 sources) Vitamin C End: 03-08-2023 take 1 tablet by mouth once daily ascorbic acid, vitamin C, (VITAMIN C) 500 mg tablet Take 500 mg by mouth once daily. 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 breast; Translations: [Malignant neoplasm of lower-outer quadrant of right female breast] Onset: 10-14-2016 10-14-2016 Chronic Diabetes mellitus without complication (20 sources) Type 2 diabetes mellitus without complication; Translations: [Type 2 diabetes mellitus without complications] Onset: 10-22-2015 Chronic Disorders of lipid metabolism (20 sources) Hypercholesterolemia; Translations: [Pure hypercholesterolemia, unspecified] Onset: 12-30-2013 Chronic Diverticulosis and diverticulitis (4 sources) Diverticulitis; Translations: [Diverticulitis of intestine, part unspecified, without perforation or abscess without bleeding] Onset: 08-04-2022 Chronic Esophageal disorders (20 sources) Gastroesophageal reflux disease; Translations: [Gastro-esophageal reflux disease without esophagitis] 10-19-2016 Chronic Essential hypertension (20 sources) Essential hypertension; Translations: [Essential (primary) hypertension] Onset: 12-13-2013 Chronic Fluid and electrolyte disorders (2 sources) Hypokalemia; Translations: [Hypokalemia] Episodic Mycoses (2 sources) Candidiasis; Translations: [Candidiasis, unspecified] Episodic Other nutritional; endocrine; and metabolic disorders (20 sources) Body mass index 40+ - severely obese; Translations: [Morbid (severe) obesity due to excess calories] Onset: 11-07-2013 Chronic Other upper respiratory infections (1 source) Chronic sinusitis; Translations: [Chronic sinusitis, unspecified] Chronic Residual codes; unclassified (1 source) Menopause present; Translations: [Asymptomatic menopausal state] Episodic Unclassified (1 source) New Patient / [id number]() Onset: 08-24-2017 Unclassified (1 source) Unknown / UNK(Unknown) Onset: 12-14-2016 Past or Other Problems Problem Classification Problem Date Documented Date Episodic/Chronic Blindness and vision defects (20 sources) Hypermetropia; Translations: [Hypermetropia, unspecified eye] Onset: 10-22-2015 10-22-2015 Episodic Genitourinary symptoms and ill-defined conditions (5 sources) [place] hematuria; Translations: [Gross hematuria] Onset: 07-14-2022 Episodic Nonmalignant breast conditions (3 sources) Mammographic calcification of right breast; Translations: [Mammographic calcification found on diagnostic imaging of breast] Onset: 09-11-2022 Episodic Other and unspecified benign neoplasm (20 sources) Benign neoplasm of skin of eyelid; Translations: [Other benign neoplasm of skin of unspecified eyelid, including canthus] Onset: 10-22-2015 10-22-2015 Episodic Other screening for suspected conditions (not mental disorders or infectious disease) (7 sources) Mammography abnormal; Translations: [Other abnormal and inconclusive findings on diagnostic imaging of breast] Onset: 07-06-2022 Episodic Residual codes; unclassified (20 sources) Family history of malignant neoplasm of ovary; Translations: [Family history of malignant neoplasm of ovary] Onset: 10-14-2016 10-14-2016 Episodic Residual codes; unclassified (1 source) Estrogen receptor positive status [ER+]; Translations: [Carcinoma of right breast, estrogen and progesterone receptor positive (HCC)] Onset: 10-14-2016 Episodic Spondylosis; intervertebral disc disorders; other back problems (20 sources) Chronic low back pain; Translations: [Lumbago with sciatica, left side] Onset: 01-09-2016 01-09-2016 Episodic Unclassified (1 source) New Patient; Translations: [New Patient] Onset: 08-24-2017 Results Test Name Value Interpretation Reference Range Facil it Vital Signs Date Time Vital Sign Value Performing Clinician Narda guerrero 04-19-2023 10:27-0500 Body weight 137.53 kg ANALYST PROGRAMMER.AMMY Work Phone: [facility] 04-19-2023 10:27-0500 Diastolic blood pressure 76 mm[Hg] ANALYST PROGRAMMER.INFORMATION TECHNOLOGY PROJECT MANAGER Work Phone: [facility] 04-19-2023 10:27-0500 Heart rate 68 /min ANALYST PROGRAMMER.INFORMATION TECHNOLOGY PROJECT MANAGER Work Phone: [facility] 04-19-2023 10:27-0500 Respiratory rate 16 /min Tamia Older ANALYST PROGRAMMER.AMMY Work Phone: [facility] 04-19-2023 10:27-0500 SaO2% (BldA) [Mass fraction] 97 % Tamia Older ANALYST PROGRAMMER.INFORMATION TECHNOLOGY PROJECT MANAGER Work Phone: [facility] 04-19-2023 10:27-0500 Systolic blood pressure 122 mm[Hg] Tamia Watson APRN.CNP Work Phone: [facility] 09-26-2022 09:42-0400 Body weight 132.9 kg Yuli Taylor MD Work Phone: [facility] 09-26-2022 09:42-0400 Diastolic blood pressure 72 mm[Hg] Yuli Taylor MD Work Phone: [facility] 09-26-2022 09:42-0400 Heart rate 64 /min Yuli Taylor MD Work Phone: [facility] 09-26-2022 09:42-0400 Respiratory rate 16 /min Yuli Taylor MD Work Phone: [facility] 09-26-2022 09:42-0400 SaO2% (BldA) [Mass fraction] 97 % Yuli Taylor MD Work Phone: [facility] 09-26-2022 09:42-0400 Systolic blood pressure 118 mm[Hg] Yuli Taylor MD Work Phone: [facility] 08-04-2022 12:42-0500 Body height 167.6 cm Jess Orellana MD Work Phone: [facility] 08-04-2022 12:42-0500 Body temperature 98.6 [degF] Jess Orellana MD Work Phone: [facility] 08-04-2022 12:42-0500 Body weight 131.09 kg Jess Orellana MD Work Phone: [facility] 08-04-2022 12:42-0500 Diastolic blood pressure 72 mm[Hg] Jess Orellana MD Work Phone: [facility] 08-04-2022 12:42-0500 Heart rate 81 /min Jess Orellana MD Work Phone: [facility] 08-04-2022 12:42-0500 SaO2% (BldA) [Mass fraction] 96 % Jess Orellana MD Work Phone: [facility] 08-04-2022 12:42-0500 Systolic blood pressure 118 mm[Hg] Jess Orellana MD Work Phone: [facility] 07-14-2022 11:10-0500 Body height 167.6 cm Remigio Garcia PA-C Work Phone: [facility] 07-14-2022 11:10-0500 Body temperature 97.7 [degF] Remigio Garcia PA-C Work Phone: [facility] 07-14-2022 11:10-0500 Body weight 132.45 kg Remigio Garcia PA-C Work Phone: [facility] 07-14-2022 11:10-0500 Diastolic blood pressure 80 mm[Hg] Remigio Garcia PA-C Work Phone: [facility] 07-14-2022 11:10-0500 Heart rate 86 /min Remigio Garcia PA-C Work Phone: [facility] 07-14-2022 11:10-0500 SaO2% (BldA) [Mass fraction] 98 % Remigio Garcia PA-C Work Phone: [facility] 07-14-2022 11:10-0500 Systolic blood pressure 110 mm[Hg] Remigio Garcia PA-C Work Phone: [facility] 07-09-2022 09:12-0500 Body height 167 cm Kalia Masci DO Work Phone: [facility] 07-09-2022 09:12-0500 Body temperature 98.2 [degF] Kalia Masci DO Work Phone: [facility] 07-09-2022 09:12-0500 Body weight 132.22 kg Kalia Masci DO Work Phone: [facility] 07-09-2022 09:12-0500 Diastolic blood pressure 70 mm[Hg] Kalia Masci DO Work Phone: [facility] 07-09-2022 09:12-0500 Heart rate 81 /min Kalia Masci DO Work Phone: [facility] 07-09-2022 09:12-0500 SaO2% (BldA) [Mass fraction] 98 % Kalia Tabor DO Work Phone: [facility] 07-09-2022 09:12-0500 Systolic blood pressure 115 mm[Hg] Kalia Tabor DO Work Phone: [facility] 07-03-2022 15:15-0500 Body height 165.1 cm Yuli Taylor MD Work Phone: [facility] 07-03-2022 15:15-0500 Body temperature 98.29 [degF] Yuli Taylor MD Work Phone: [facility] 07-03-2022 15:15-0500 Body weight 131.54 kg Yuli Taylor MD Work Phone: [facility] 07-03-2022 15:15-0500 Diastolic blood pressure 82 mm[Hg] Yuli Taylor MD Work Phone: [facility] 07-03-2022 15:15-0500 Heart rate 71 /min Yuli Taylor MD Work Phone: [facility] 07-03-2022 15:15-0500 Respiratory rate 16 /min Yuli Taylor MD Work Phone: [facility] 07-03-2022 15:15-0500 SaO2% (BldA) [Mass fraction] 97 % uYli Taylor MD Work Phone: [facility] 07-03-2022 15:15-0500 Systolic blood pressure 120 mm[Hg] Yuli Taylor MD Work Phone: [facility] 05-13-2022 12:10-0500 Body temperature 97.5 [degF] Khris Berry APRN.INFORMATION TECHNOLOGY PROJECT MANAGER Work Phone: [facility] 05-13-2022 12:10-0500 Body weight 137.71 kg Khris Berry APRN.INFORMATION TECHNOLOGY PROJECT MANAGER Work Phone: [facility] 05-13-2022 12:10-0500 Diastolic blood pressure 74 mm[Hg] [facility]ris [facility] ANALYST PROGRAMMER.INFORMATION TECHNOLOGY PROJECT MANAGER Work Phone: [facility] 05-13-2022 12:10-0500 Heart rate 65 /min [facility]ris [facility] ANALYST PROGRAMMER.INFORMATION TECHNOLOGY PROJECT MANAGER Work Phone: [facility] 05-13-2022 12:10-0500 Respiratory rate 18 /min [facility] ANALYST PROGRAMMER.INFORMATION TECHNOLOGY PROJECT MANAGER Work Phone: [facility] 05-13-2022 12:10-0500 SaO2% (BldA) [Mass fraction] 97 % [facility] ANALYST PROGRAMMER.INFORMATION TECHNOLOGY PROJECT MANAGER Work Phone: [facility] 05-13-2022 12:10-0500 Systolic blood pressure 122 mm[Hg] Khris [facility] ANALYST PROGRAMMER.INFORMATION TECHNOLOGY PROJECT MANAGER Work Phone: [facility] 09-03-2021 14:06-0400 Body height 165.1 cm Yuli Taylor MD Work Phone: [facility] 09-03-2021 14:06-0400 Body temperature 98.4 [degF] Yuli Taylor MD Work Phone: [facility] 09-03-2021 14:06-0400 Body weight 137.89 kg Yuli Taylor MD Work Phone: [facility] 09-03-2021 14:06-0400 Diastolic blood pressure 76 mm[Hg] Yuli Taylor MD Work Phone: [facility] 09-03-2021 14:06-0400 Heart rate 75 /min Yuli Taylor MD Work Phone: [facility] 09-03-2021 14:06-0400 Respiratory rate 16 /min Yuil Taylor MD Work Phone: [facility] 09-03-2021 14:06-0400 SaO2% (BldA) [Mass fraction] 94 % Yuli Taylor MD Work Phone: [facility] 09-03-2021 14:06-0400 Systolic blood pressure 122 mm[Hg] Yuli Taylor MD Work Phone: [facility] Encounters Encounter Date Encounter Type Care Provider Facility Start: 05-26-2023 Maria L rose PA-C Work Phone: [facility] Procedures Date Procedure Procedure Detail Performing Clinician Start: 10-05-2022 Colonoscopy [facility] Provid er Start: 09-26-2022 Urnls dip stick/tabl et rgnt auto w/o microscopy Yuli Taylor MD Work Phone: Start: 07-14-2022 Urnls dip stick/tabl et rgnt auto w/o microscopy Remigio Garcia PA-C Work Phone: Start: 07-06-2022 End: 07-06-2022 Mammography Zohreh Ty MD Work Phone: Start: 07-04-2021 Adult depression scr eening assessment Yuli Taylor MD Work Phone: Start: 07-03-2021 Mammography Yuli whittaker MD Work Phone: Start: 09-22-2010 Colonoscopy Yuli whittaker MD Work Phone: Plan of Treatment Date Care Activity Detail Author Start: 10-06-2027 Colonoscopy COLONOSCOPY [facility] Start: 10-06-2027 COLORECTAL CANCER SCREENING COLORECTAL CANCER SCREENING [facility] Start: 10-06-2027 Screening for malign ant neoplasm of colon [facility] Start: 04-19-2024 Annual PCP Team Ada Accommodation Consultant collin Disease Visit Annual PCP Team Chronic Disease Visit [facility] Start: 04-19-2024 BP Controlled (<130/80) BP Controlle d (<130/80) [facility] Start: 04-19-2024 Hepatitis B screening Urine Al bumin:Creatinine Ratio [facility] Start: 04-19-2024 Hepatitis B Vaccine (1 of 3 - Risk 3-dose series) Hepatitis B Vaccine (1 of 3 - Risk 3-dose series) [facility] Immunizations Immunization Date Immunization Notes Care Provider Tesha thompson 04-06-2017 influenza virus vaccine, unspecified formulation Screen Wstr [facility] 12-13-2013 tetanus toxoid, redu kristin diphtheria toxoid, and acellular pertussis vaccine, adsorbed Yuli Taylor MD Work Phone: [facility] Work Phone: Payers Date Payer Category Payer Medicaid [id number] 2019 Medicaid MEDICAID [facility] MEDICAID [id number] 2019-Present [phone] [address] [place] [address] Medicaid [id number] 2018 Medicare [facility] MEDICARE [facility] DUAL COMPLETE HMO SNP [id number] 2018-Present [phone] [address] [place] [address] Medicare [id number] 2018 Unknown [id number] 2018 Medicaid 2018 Medicare 2017 Private Health Insurance 1955 Unknown [id number] 1955 Unknown [id number] 1957 Unknown [id number] 1957 Unknown [id number] 17 Medicare [id number] Social History Date Type Detail Facility Start: 10-19-2013 End: 03-02-2022 Tobacco smoking status NHIS Ex-smoker [facility] Work Phone: End: 10-19-2006 History of tobacco use Current smoker [facility] Work Phone: End: 10-19-2006 History of tobacco use Cigarette Smoker [facility] Work Phone: Start: 10-19-2013 End: 03-08-2023 Cigarettes smoked current (pack per day) - Reported 1 [facility] Start: 10-19-2013 End: 03-02-2022 Tobacco use and exposure Smokeless tobacco non-user [facility] Work Phone: Start: 09-03-2021 End: 04-19-2023 Alcohol intake Current non-drinker of alcohol (finding) [facility] Start: 04-01-2021 End: 07-05-2022 History SDOH Alcohol Binge 1 [facility] Start: 04-01-2021 End: 07-05-2022 History SDOH Social Connections Phone 5 [facility] Start: 04-01-2021 End: 04-20-2022 History SDOH Social Connections Yazidism 98 [facility] Start: 04-01-2021 End: 07-05-2022 History SDOH Social Connections Membership 2 [facility] Start: 04-01-2021 End: 04-20-2022 History SDOH Financial 3 [facility] Start: 01-13-2020 Education 12 [facility] Start: 1955 Sex Assigned At Female [facility] Start: 08-24-2021 End: 03-02-2022 Exposure to SARS-CoV-2 (event) Not sure [facility] Work Phone: Start: 04-20-2022 End: 07-05-2022 History SDOH Alcohol Std Drinks 0 [facility] Start: 07-05-2022 End: 03-08-2023 Social connection and isolation panel [facility] Do you belong to any clubs or organizations such as lutheran groups, unions, fraternal or athletic groups, or school groups? No [facility] Are you now , , , , never or living with a partner? [facility] How often to you hav e a drink containing alcohol? Never [facility] How many standard dr inks containing alcohol do you have on a typical day? Patient does not drink [facility] Do you feel stress - tense, restless, nervous, or anxious, or unable to sleep at night because your mind is troubled all the time - these days [OSQ] Not at all [facility] (I/We) worried wheth er (my/our) food would run out before (I/we) got money to buy more. Never true [facility] Start: 03-30-2021 Gender identity Identifies as female gender (finding) [facility] Start: 03-30-2021 Sexual orientation Heterosexual (finding) [facility] Medical Equipment Procedure Code Equipment Code Equipment Origin al Text Equipment Identifier Dates Sys Endscp Rebecca Cummings - [id number] Start: 02-01-2015 Start: 07-26-2019 End: 02-09-2023 Clinical Notes 09-19-2015 to 04-19-2023 Tamia Watson APRN.INFORMATION TECHNOLOGY PROJECT MANAGER - 04/19/2023 10:44 AM ESTTelephone Encounter - Joni Kelly TRAINING DEVELOPMENT SPECIALIST - 02/09/2023 8:11 AM EDTTelephone Encounter - Kelly Alvarez TRAINING DEVELOPMENT SPECIALIST - 11/27/2022 10:41 AM EDTPatient Instructions Note Date & Type Note Facility 04-19-2023 Note HNO ID: [id number] Author: Tamia Watson APRN.CNP Service: ? Author Type: Nurse Practitioner Type: Progress Notes Filed: 04/19/2023 4:01 PM Note Text: CC: Patient presents with: F/U 6 months HPI Donnajulio Sanchez is a 67 year old female who presents today for routine follow up. DIABETES MELLITUS: Ms. Sanchez denies excessive thirst or increased frequency of urination, chest pain or dyspnea , numbness, tingling or pain in extremities, new or unusual visual symptoms, low sugar/hypoglycemic reactions, weight loss/gain, lightheadedness/dizziness. Follows a diabetic diet most of the time. She is compliant with medication(s) and is tolerating med(s) without any side effects. She reports checking her glucose on a twice a day schedule with sugars in the fasting 120s-140s and postprandial 70s-90s range. Patient's last HgA1C was Hemoglobin A1C (%) Date Value 09/07/2022 6.1 06/18/2022 6.8 12/20/2019 7.7 07/11/2019 7.6 Hemoglobin A1C (POCT) (%) Date Value 04/01/2021 7.1 ) Last Ophthalmology exam was over a year ago. HTN: Ms. Sanchez indicates that she is feeling well and denies any symptoms referable to elevated blood pressure. Specifically denies headache, chest pain, palpitations, dyspnea, and peripheral edema. Patient denies any side effects of her medication(s) and is compliant with their regimen. She does check BP's away from this office with average BP's in the 110s-120s/70s-80 range. Donna gets sporadic irregular exercise with walking. She watches her diet for sodium, low fat and low cholesterol some of the time. Last 3 Encounter BP Readings: Date: BP: 04/19/2023 122/76 03/08/2023 103/67 09/26/2022 118/72 Obesity: Has difficulty with exercise because of arthritic pain. Will every now and then take an ibuprofen to help when she is unable to sleep. Does not use more than once a week or less. REVIEW OF SYSTEMS General: no fevers, no chills, no night sweats, no recurrent infections, no change in appetite, no change in energy, and no significant changes in weight Respiratory: no cough, no wheezing, no shortness of breath, no hemoptysis Cardiovascular: no chest pain, no chest pressure, no palpitations, and no swelling Endocrine: no fatigue, no polyuria, no polyphagia, and no polydipsia Neurologic: No headache, weakness, numbness, dizziness, memory loss, syncope. PAST MEDICAL HISTORY Diagnosis Date Abnormal mammogram 07/2020 Achilles tendon pain 04/29/2015 Ankle weakness 04/29/2015 Chronic pain of left ankle 05/21/2016 Colon abnormality 11/07/2013 Thickening of the ascending colon seen on the recent CT scan. Patient has had a colonoscopy around 4 years ago. Records were obtained for [facility] her colonoscopy was completely normal, no thickening, and the biopsy too was normal except for lymphoid aggregates. Diverticulitis [address] Menard at [facility] DJD (degenerative joint disease), ankle and foot 09/19/2015 DM (diabetes mellitus) (HCC) GERD (gastroesophageal reflux disease) Gross hematuria 10/19/20132013, had hematuria, investigated extensively along with cytoscopy, a stone was found but no signs of any malignancy. Heel pain, chronic 05/21/2016 Hepatic steatosis 03/09/2017 Hiatal hernia 03/09/2017 Hypertension Insomnia Kidney stone 10/19/2013 Morbid obesity (HCC) Nephrolithiasis Neuritis 07/18/2015 Renal lesion 10/19/2013 S/P Achilles tendon repair 04/29/2015 sx done PAST SURGICAL HISTORY Procedure Laterality Date BREAST LUMPECTOMY HX Right 2017 BX BREAST W/DEVICE 1ST LESION STEREOTACTIC GUID Right 07/12/2020 CHOLECYSTECTOMY 2010 gallbladder removal COLONOSCOPY 2010 CT ABDOMEN 10/09/2013 PAST SURGICAL HISTORY OF 01/10/2014 [facility] hysteroscopy PAST SURGICAL HISTORY OF Left 02/01/2015 Left foot surgery S PK LAVH [id number] 03/22/2014 ALLERGIES Silvadene [Silver Sulfadiazine] and Sulfa (Sulfonamide Antibiotics) MEDICATIONS metFORMIN ER (GLUCOPHAGE XR) 500 mg 24 hr tablet Take 1 tablet by mouth daily with breakfast. blood sugar diagnostic (BLOOD GLUCOSE TEST) test strip Test blood sugars 2daily. Dx:ucnontrolled diabetes . Insulin: Yes chlorthalidone (HYGROTON) 25 mg tablet Take 0.5 tablets by mouth once daily. atenolol (TENORMIN) 50 mg tablet Take 1 tablet by mouth once daily. potassium chloride 20 mEq TbER Take 1 tablet by mouth twice daily. glipiZIDE (GLUCOTROL XL) 2.5 mg 24 hr tablet Take 1 tablet by mouth once daily. exemestane (AROMASIN) 25 mg tablet Take 1 tablet by mouth once daily. ibuprofen (MOTRIN) 800 mg tablet Take 1 tablet by mouth every 8 hours as needed for pain. Take with food. lancets (ONE TOUCH DELICA) 33 gauge misc Test blood sugar(s) 2 daily. Dx: Type 2 DM - Controlled E11.9 Insulin: Yes Blood-Glucose Meter monitoring kit Glucose Meter of Choice - Kit - Dx: Type 2 DM - Uncontrolled E11.65 MV-MN/FOLIC A (more content not included)... [facility] 04-19-2023 History of Present illness Narrative CC: Patient presents with: F/U 6 months HPI Donnajulio Sanchez is a 67 year old female who presents today for routine follow up. DIABETES MELLITUS: Ms. Sanchez denies excessive thirst or increased frequency of urination, chest pain or dyspnea , numbness, tingling or pain in extremities, new or unusual visual symptoms, low sugar/hypoglycemic reactions, weight loss/gain, lightheadedness/dizziness. Follows a diabetic diet most of the time. She is compliant with medication(s) and is tolerating med(s) without any side effects. She reports checking her glucose on a twice a day schedule with sugars in the fasting 120s-140s and postprandial 70s-90s range. Patient's last HgA1C was Hemoglobin A1C (%) Date Value 09/07/2022 6.1 06/18/2022 6.8 12/20/2019 7.7 07/11/2019 7.6 Hemoglobin A1C (POCT) (%) Date Value 04/01/2021 7.1 ) Last Ophthalmology exam was over a year ago. HTN: Ms. Sanchez indicates that she is feeling well and denies any symptoms referable to elevated blood pressure. Specifically denies headache, chest pain, palpitations, dyspnea, and peripheral edema. Patient denies any side effects of her medication(s) and is compliant with their regimen. She does check BP's away from this office with average BP's in the 110s-120s/70s-80 range. Donna gets sporadic irregular exercise with walking. She watches her diet for sodium, low fat and low cholesterol some of the time. Last 3 Encounter BP Readings: Date: BP: 04/19/2023 122/76 03/08/2023 103/67 09/26/2022 118/72 Obesity: Has difficulty with exercise because of arthritic pain. Will every now and then take an ibuprofen to help when she is unable to sleep. Does not use more than once a week or less. REVIEW OF SYSTEMS General: no fevers, no chills, no night sweats, no recurrent infections, no change in appetite, no change in energy, and no significant changes in weight Respiratory: no cough, no wheezing, no shortness of breath, no hemoptysis Cardiovascular: no chest pain, no chest pressure, no palpitations, and no swelling Endocrine: no fatigue, no polyuria, no polyphagia, and no polydipsia Neurologic: No headache, weakness, numbness, dizziness, memory loss, syncope. PAST MEDICAL HISTORY Diagnosis Date Abnormal mammogram 07/2020 Achilles tendon pain 04/29/2015 Ankle weakness 04/29/2015 Chronic pain of left ankle 05/21/2016 Colon abnormality 11/07/2013 Thickening of the ascending colon seen on the recent CT scan. Patient has had a colonoscopy around 4 years ago. Records were obtained for when they were done, 4 [facility]. her colonoscopy was completely normal, no thickening, and the biopsy too was normal except for lymphoid aggregates. Diverticulitis [address] Menard at [facility] DJD (degenerative joint disease), ankle and foot 09/19/2015 DM (diabetes mellitus) (HCC) GERD (gastroesophageal reflux disease) Gross hematuria 10/19/20132013, had hematuria, investigated extensively along with cytoscopy, a stone was found but no signs of any malignancy. Heel pain, chronic 05/21/2016 Hepatic steatosis 03/09/2017 Hiatal hernia 03/09/2017 Hypertension Insomnia Kidney stone 10/19/2013 Morbid obesity (HCC) Nephrolithiasis Neuritis 07/18/2015 Renal lesion 10/19/2013 S/P Achilles tendon repair 04/29/2015 sx done PAST SURGICAL HISTORY Procedure Laterality Date BREAST LUMPECTOMY HX Right 2016 BX BREAST W/DEVICE 1ST LESION STEREOTACTIC GUID Right 07/12/2020 CHOLECYSTECTOMY 2010 gallbladder removal COLONOSCOPY 2010 CT ABDOMEN 10/09/2013 PAST SURGICAL HISTORY OF 01/10/2014 D&C hysteroscopy PAST SURGICAL HISTORY OF Left 02/01/2015 Left foot surgery S PK LAVH [id number] 03/22/2014 ALLERGIES Silvadene [Silver Sulfadiazine] and Sulfa (Sulfonamide Antibiotics) MEDICATIONS metFORMIN ER (GLUCOPHAGE XR) 500 mg 24 hr tablet Take 1 tablet by mouth daily with breakfast. blood sugar diagnostic (BLOOD GLUCOSE TEST) test strip Test blood sugars 2daily. Dx:ucnontrolled diabetes . Insulin: Yes chlorthalidone (HYGROTON) 25 mg tablet Take 0.5 tablets by mouth once daily. atenolol (TENORMIN) 50 mg tablet Take 1 tablet by mouth once daily. potassium chloride 20 mEq TbER Take 1 tablet by mouth twice daily. glipiZIDE (GLUCOTROL XL) 2.5 mg 24 hr tablet Take 1 tablet by mouth once daily. exemestane (AROMASIN) 25 mg tablet Take 1 tablet by mouth once daily. ibuprofen (MOTRIN) 800 mg tablet Take 1 tablet by mouth every 8 hours as needed for pain. Take with food. lancets (ONE TOUCH DELICA) 33 gauge misc Test blood sugar(s) 2 daily. Dx: Type 2 DM - Controlled E11.9 Insulin: Yes Blood-Glucose Meter monitoring kit Glucose Meter of Choice - Kit - Dx: Type 2 DM - Uncontrolled E11.65 MV-MN/FOLIC ACID/CALCIUM/VIT K (ONE-A-DAY WOMEN'S 50 PLUS ORAL) Take 1 tablet by mouth once daily. azithromycin (ZITHROMAX Z-CRUZ) 250 mg tablet TAKE 2 TABS ON THE FIRST DAY, THEN ONE TAB DAILY FOR 4 DAYS. FAMILY HISTORY Problem Relation Age of Onset Ovarian cancer Mother 39 Heart Father Hypertension Father Prostate Cancer Father 78 other (kidney stones) Brother Hypertension Brother Diabetes Brother Seizures Son Breast Cancer Other 55 Double first cousin (daughter of mother's sister and father's brother) Social History Tobacco Use Smoking status: Former Packs/day: 1.00 Years: 10.00 Additional pack years: 0.00 Total pack years: 10.00 Types: Cigarettes Quit date: 10/19/2006 Years since quittin.5 Smokeless tobacco: Never Vaping Use Vaping Use: Never used Substance Use Topics Alcohol use: No Drug use: Not Currently Comment: marijuana for insomnia - currently not using PHYSICAL EXAM BP 122/76 (BP Site: Left Arm, BP Position: Sitting, BP Cuff Size: Regular Adult) Pulse 68 Resp 16 Wt (!) 137.5 kg (303 lb 3.2 oz) SpO2 97% BMI 49.69 kg/m General Appearance: well appearing, in no acute distress, alert Pysch: mood and affect broad and appropriate Skin: Skin color, texture, turgor normal for age; Eyes: conjunctiva pink and moist, no icterus, sclera white, non-injected Neck: Thyroid normal size and symmetric without palpable nodules, Neck supple, No adenopathy Lymph nodes: No cervical lymphadenopathy and No supraclavicular lymphadenopathy Lungs: Lungs clear to auscultation. No wheezing, rhonchi, rales. Heart: RRR without murmur, gallop, or rubs. No ectopy Health maintenance reviewed with patient: HIV Screening Never done Shingrix Vaccine(1 of 2) Never done Hepatitis B Vaccine(1 of 3 - Risk 3-dose series) Never done RSV Vaccine(1 - 1-dose 60+ series) Never done Dilated Retinal Exam due on 04/14/2022 Urine Albumin:Creatinine Ratio due on 07/03/2022 Bone Density Screening due on 2022 Advance Directive Discussion Never done Influenza Vaccine(1) due on 02/05/2023 Diabetic Foot Exam due on 03/02/2023 HbA1C due on 03/09/2023 Mammogram Screening due on 07/06/2023 Covid-19 Vaccine(1) due on 09/27/2023 Pneumococcal Vaccine: 65+(1 - PCV) due on 09/27/2023 LDL Cholesterol due on 09/08/2023 Annual PCP Team Chronic Disease Visit due on 09/27/2023 DTaP,Tdap,Td Vaccine(2 - Td or Tdap) due on 12/14/2023 BP Controlled (<130/80) due on 03/08/2024 Colorectal Cancer Screening due on 10/06/2027 Depression Assessment Completed Hepatitis C Screening Completed HPV Vaccine Aged Out Pap Testing Discontinued DATA REVIEWED: No new labs ASSESSMENT/PLAN: 1. Controlled type 2 diabetes mellitus without complication, without long-term current use of insulin (HCC) - ICD9: 250.00, ICD10: E11.9 (primary diagnosis) - Control undetermined, due for labs - Continue current medications - Blood glucose monitoring on a once daily schedule - Counseled on healthy diet and regular exercise - Discussed need for and benefit of weight loss. BMI 49.69 kg/(m^2) - CONSULT TO OPHTHALMOLOGY - ALBUMIN/CREAT RATIO RND UR - HGB A1C - BASIC METABOLIC PNL - CBC - LIPID PANEL BASIC - CBC - COMP METABOLIC PANEL - HGB A1C 2. Primary hypertension - ICD9: 401.9, ICD10: I10 - Controlled - Continue current medications - Recommend home blood pressure monitoring, to bring results to next visit - Encouraged sodium restriction, DASH or Mediterranean diet - Recommend regular aerobic exercise - CBC - LIPID PANEL BASIC - CBC - COMP METABOLIC PANEL 3. Morbid obesity with BMI of 40.0-44.9, adult (HCC) - ICD9: 278.01, V85.41, ICD10: E66.01, Z68.41 Weight increasing - Behavioral intervention - low fat, low sugar, well portioned balanced diet - at least 30min of aerobic exercise 5 days a week Prescription instructions reviewed with patient as applicable. Potential red flag symptoms discussed with the patient. Reviewed appropriate action plan to take if red flag symptoms occur. Patient agreeable to treatment plan. Tamia Watson APRN.CNP documented in this encounter [facility] 03-08-2023 Note HNO ID: [id number] Author: Lee, Gill, ANALYST PROGRAMMER.INFORMATION TECHNOLOGY PROJECT MANAGER Service: ? Author Type: Nurse Practitioner Type: Progress Notes Filed: 03/10/2023 1:49 PM Note Text: Chief Complaint Patient presents with: Established Patient HPI: Donna Sanchez is a 67 year old female who presents here today for follow up breast cancer. Per Dr. Ty/Leander's previous note: H/o hypertension and borderline diabetes/insulin resistant, obesity, who presented with an abnormal breast exam at her PCP office. Subsequent diagnostic mammogram revealing a lobulated lesion in the right breast at the lower outer quadrant highly suspicious of malignancy. Patient had a mammotome breast biopsy on 08/31/16 that showed invasive ductal carcinoma, positive for estrogen and progesterone receptors, equivocal for overexpression HER-2/margie. She had surgery by Dr. Orellana, right breast lumpectomy and right axillary sentinel lymph node biopsy on 09/15/16 for right breast cancer. Stage IA- pT1c pN0 (3/3 sentinel lymph nodes negative for metastatic disease) Tumor size 1.5 cm x 1 x 0.9 cm Overall grade 2 out of 7 Margins - 0.4 cm from posterior margin ER/LA >95%, [id number] not amplified by FISH Lymph/vasc invasion - none; derm/vasc/lymph invasion - none Menstrual history: Menarche at age 15, first at age 22, 8 ; surgical menopause-total abdominal hysterectomy age 58. No estrogen replacement therapy. Family history: Mother of ovarian cancer in her 40's. No family history of breast cancer. She was initially started on anastrozole, then subsequent switch to Aromasin because of joint pain. RADIATION-10/27/16 to 12/09/16 Right breast Current treatment: 1) Aromasin 25 mg once daily No new concerns today. Appetite: Ok. Energy level: Eh. Denies fevers. +sinus congestion/drainage Resp:denies cough or sob Cardiac:denies chest pain/palpitations GI:denies abd pain, n/v, moving bowels regularly :denies dysuria/hematuria Extrem:occ. RUE aches, L foot pain s/p surgery Endo:occ. hot flash at night Neuro:denies symptoms of neuropathy Skin:denies rashes Heme:denies bleeding The ROS is otherwise negative. Past medical history, appointments, medications, allergies reviewed. No changes. EXAM: BP 103/67 Pulse 70 Temp 36.5 ?C (97.7 ?F) (Temporal) Ht 166.4 cm (5' 5.5 ) Wt 135.6 kg (299 lb) SpO2 96% BMI 49.00 kg/m? APPEARANCE Well appearing, alert, in no acute distress, well-hydrated, well nourished. HEART RRR with normal S1 and S2, no murmurs LUNG clear to auscultation BREAST FEMALE no mass/nodule b/l, R radiation changes LYMPH NODES No cervical lymphadenopathy, No supraclavicular lymphadenopathy, and No axillary lymphadenopathy. ABDOMEN bowel sounds normoactive, soft, non-tender EXTREMITIES No edema NEURO Awake, alert and oriented x 3, Normal gait, and No involuntary motions. SKIN Skin color, texture, turgor normal, no suspicious rashes or lesions ASSESSMENT/PLAN: 1. Malignant neoplasm of lower-outer quadrant of right breast of female, estrogen receptor positive (HCC) - ICD9: 174.5, V86.0, ICD10: C50.511, Z17.0 (primary diagnosis) pT1c pN0 (3/3 sentinel lymph nodes negative for metastatic disease) stage IA infiltrating ductal carcinoma the right breast. ER/LA >95%, Kum2cmd non-amplified by FISH. - No concerning findings on exam. - Overall tolerating aromasin well. - Continue aromasin. - Mammogram due end of 2023. - Follow up in 6 months. - Pt. aware to call office with any questions/concerns. The patient indicates understanding of these issues and agrees with the plan. All documentation from previous visit of 07/09/22-Dr. Tabor was copied and pasted, documentation has been reviewed and edited as necessary for today's visit. Gill Lee, MEAGAN.[facility] 02-09-2023 Miscellaneous Notes Patient has been identified by name and date of : No Patient phones for refill(s): Requested Prescriptions Pending Prescriptions Disp Refills metFORMIN ER (GLUCOPHAGE XR) 500 mg 24 hr tablet 180 tablet 3 Sig: Take 1 tablet by mouth daily with breakfast. blood sugar diagnostic (BLOOD GLUCOSE TEST) test strip 50 Strip 11 Sig: Test blood sugars 2daily. Dx:ucnontrolled diabetes . Insulin: Yes chlorthalidone (HYGROTON) 25 mg tablet 45 tablet 3 Sig: Take 0.5 tablets by mouth once daily. atenolol (TENORMIN) 50 mg tablet 90 tablet 3 Sig: Take 1 tablet by mouth once daily. potassium chloride 20 mEq TbER 180 tablet 1 Sig: Take 1 tablet by mouth twice daily. glipiZIDE XL (GLUCOTROL XL) 2.5 mg 24 hr tablet 90 tablet 3 Sig: Take 1 tablet by mouth once daily. Date of last office visit in primary care: 09/26/22 Last 2 Encounter Wt Readings: Date: Wt: 09/26/2022 132.9 kg (293 lb) 08/04/2022 132 kg (291 lb) Previous labs/tests for medication: Diabetes: Hemoglobin A1C (%) Date Value 09/07/2022 6.1 06/18/2022 6.8 12/20/2019 7.7 07/11/2019 7.6 Hemoglobin A1C (POCT) (%) Date Value 04/01/2021 7.1 Blood Pressure: BUN (mg/dL) Date Value 09/07/2022 10 07/03/2021 15 Sodium (mmol/L) Date Value 09/07/2022 139 07/03/2021 136 Last 1 Encounter BP Readings: Date: BP: 09/26/2022 118/72 Please advise. Thank you. Kelly Quinones LPN documented in this encounter [facility] 11-27-2022 Miscellaneous Notes Patient has been identified by name and date of : No Patient phones for refill(s): Requested Prescriptions Pending Prescriptions Disp Refills glipiZIDE XL (GLUCOTROL XL) 2.5 mg 24 hr tablet [Pharmacy Med Name: GLIPIZIDE ER 2.5 MG TB24 2.5 Tablet] 90 tablet 3 Sig: TAKE 1 TABLET BY MOUTH ONCE DAILY. Date of last office visit in primary care: 09/26/22 Last 2 Encounter Wt Readings: Date: Wt: 09/26/2022 132.9 kg (293 lb) 08/04/2022 132 kg (291 lb) Previous labs/tests for medication: Diabetes: Hemoglobin A1C (%) Date Value 09/07/2022 6.1 06/18/2022 6.8 12/20/2019 7.7 07/11/2019 7.6 Hemoglobin A1C (POCT) (%) Date Value 04/01/2021 7.1 Please advise. Thank you. Kelly Alvarez LPN documented in this encounter [facility] 09-26-2022 Note HNO ID: [id number] Author: Yuli Taylor MD Service: ? Author Type: Physician Type: Progress Notes Filed: 09/26/2022 1:42 PM Note Text: Reason for Visit Patient presents with: F/U 6 months Donna Sanchez is a 67 year old female who presents here today for Above Complaints.. Health Maintenance PNEUMOCOCCAL: 65+(1 - PCV) HIV SCREENING SHINGRIX VACCINE(1 of 2) COLORECTAL CANCER SCREENING DILATED RETINAL EXAM DEPRESSION ASSESSMENT URINE ALBUMIN:CREATININE RATIO BONE DENSITY ADVANCE DIRECTIVE DISCUSSION HPI Patient is here for chronic medical conditions follow-up and to date on her current diverticulitis condition Reviewed blood work She had diverticulitis the end of June. Was on abx of a couple courses. Patient was in the hospital with IV for 3 days and the on oral abx , one for uti and one for diverticulitis , total of 3/4 courses of abx and then had yeast infection and took diflucan. Right now she still has discharge from the vagina. She is having a colonoscopy with Dr Leavitt. Also had another breast cancer scare but everything is ok as of now. Sugars well controlled . Patient has lost 10 pounds of weight because of the diverticulitis , the low fiber is giving her constipation. HPL: Reviewed test results with patient , takes medications regularly , does not report side effects. Conscious to avoid red meats, full fat dairy and its by products. Exercising 3 to 5 times a week. HTN: BP controlled today. Checks BP at home. Compliant with medications. Denies any chest pain, palpitations, SOB, swelling in the feet. Careful with diet to avoid salt, trying to eat more fruits and vegetables, exercises regularly. Tsh is normal. No problem-specific Assessment AND Plan notes found for this encounter. PAST MEDICAL HISTORY Diagnosis Date Abnormal mammogram 07/2020 Achilles tendon pain 04/29/2015 Ankle weakness 04/29/2015 Chronic pain of left ankle 05/21/2016 Colon abnormality 11/07/2013 Thickening of the ascending colon seen on the recent CT scan. Patient has had a colonoscopy around 4 years ago. Records were obtained for when they were done, [facility]. her colonoscopy was completely normal, no thickening, and the biopsy too was normal except for lymphoid aggregates. Diverticulitis [address] Menard at [facility] DJD (degenerative joint disease), ankle and foot 09/19/2015 DM (diabetes mellitus) (HCC) GERD (gastroesophageal reflux disease) Gross hematuria 10/19/20132013, had hematuria, investigated extensively along with cytoscopy, a stone was found but no signs of any malignancy. Heel pain, chronic 05/21/2016 Hepatic steatosis 03/09/2017 Hiatal hernia 03/09/2017 Hypertension Insomnia Kidney stone 10/19/2013 Morbid obesity (HCC) Nephrolithiasis Neuritis 07/18/2015 Renal lesion 10/19/2013 S/P Achilles tendon repair 04/29/2015 sx done PAST SURGICAL HISTORY Procedure Laterality Date BREAST LUMPECTOMY HX Right 2016 BX BREAST W/DEVICE 1ST LESION STEREOTACTIC GUID Right 07/12/2020 CHOLECYSTECTOMY 2010 gallbladder removal COLONOSCOPY 2010 CT ABDOMEN 10/09/2013 PAST SURGICAL HISTORY OF 01/10/2014 [facility] hysteroscopy PAST SURGICAL HISTORY OF Left 02/01/2015 Left foot surgery S PK LAVH [id number] 03/22/2014 FAMILY HISTORY Problem Relation Age of Onset Ovarian cancer Mother 39 Heart Father Hypertension Father Prostate Cancer Father 78 other (kidney stones) Brother Hypertension Brother Diabetes Brother Seizures Son Breast Cancer Other 55 Double first cousin (daughter of mother's sister and father's brother) Social History Tobacco Use Smoking status: Former Packs/day: 1.00 Years: 10.00 Pack years: 10.00 Types: Cigarettes Quit date: 10/19/2006 Years since quittin.9 Smokeless tobacco: Never Vaping Use Vaping Use: Never used Substance Use Topics Alcohol use: No Drug use: Not Currently Comment: marijuana for insomnia - currently not using Past medical history, appointments, medications, allergies reviewed. Pertinent Lab/Diagnostic Studies are reviewed and discussed today Current Outpatient Medications: potassium chloride 20 mEq TbER atenolol (TENORMIN) 50 mg tablet exemestane (AROMASIN) 25 mg tablet chlorthalidone (HYGROTON) 25 mg tablet metFORMIN ER (GLUCOPHAGE XR) 500 mg 24 hr tablet glipiZIDE (GLUCOTROL XL) 2.5 mg 24 hr tablet blood sugar diagnostic (BLOOD GLUCOSE TEST) test strip ibuprofen (MOTRIN) 800 mg tablet lancets (ONE TOUCH DELICA) [address] [facility] Blood-Glucose Meter monitoring kit MV-MN/FOLIC ACID/CALCIUM/VIT K (ONE-A-DAY WOMEN'S 50 PLUS ORAL) fluconazole (DIFLUCAN) 150 mg tablet ciprofloxacin HCl (CIPRO) 500 mg tablet metroNIDAZOLE (FLAGYL) 500 mg tablet ascorbic acid, vitamin C, (VITAMIN C) 500 mg tablet Review of Systems CONSTITUTIONAL: No fevers, chills night sweats, unintended weight loss CARDIOVASCULAR: N (more content not included)... [facility] 09-26-2022 History of Present illness Narrative Reason for Visit Patient presents with: F/U 6 months Donna Sanchez is a 67 year old female who presents here today for Above Complaints.. Health Maintenance PNEUMOCOCCAL: 65+(1 - PCV) HIV SCREENING SHINGRIX VACCINE(1 of 2) COLORECTAL CANCER SCREENING DILATED RETINAL EXAM DEPRESSION ASSESSMENT URINE ALBUMIN:CREATININE RATIO BONE DENSITY ADVANCE DIRECTIVE DISCUSSION HPI Patient is here for chronic medical conditions follow-up and to date on her current diverticulitis condition Reviewed blood work She had diverticulitis the end of June. Was on abx of a couple courses. Patient was in the hospital with IV for 3 days and the on oral abx , one for uti and one for diverticulitis , total of 3/4 courses of abx and then had yeast infection and took diflucan. Right now she still has discharge from the vagina. She is having a colonoscopy with Dr eLavitt. Also had another breast cancer scare but everything is ok as of now. Sugars well controlled . Patient has lost 10 pounds of weight because of the diverticulitis , the low fiber is giving her constipation. HPL: Reviewed test results with patient , takes medications regularly , does not report side effects. Conscious to avoid red meats, full fat dairy and its by products. Exercising 3 to 5 times a week. HTN: BP controlled today. Checks BP at home. Compliant with medications. Denies any chest pain, palpitations, SOB, swelling in the feet. Careful with diet to avoid salt, trying to eat more fruits and vegetables, exercises regularly. Tsh is normal. No problem-specific Assessment & Plan notes found for this encounter. PAST MEDICAL HISTORY Diagnosis Date Abnormal mammogram 07/2020 Achilles tendon pain 04/29/2015 Ankle weakness 04/29/2015 Chronic pain of left ankle 05/21/2016 Colon abnormality 11/07/2013 Thickening of the ascending colon seen on the recent CT scan. Patient has had a colonoscopy around 4 years ago. Records were obtained for when they were done, [facility]. her colonoscopy was completely normal, no thickening, and the biopsy too was normal except for lymphoid aggregates. Diverticulitis [address] Mneard at [facility] DJD (degenerative joint disease), ankle and foot 09/19/2015 DM (diabetes mellitus) (HCC) GERD (gastroesophageal reflux disease) Gross hematuria 10/19/20132013, had hematuria, investigated extensively along with cytoscopy, a stone was found but no signs of any malignancy. Heel pain, chronic 05/21/2016 Hepatic steatosis 03/09/2017 Hiatal hernia 03/09/2017 Hypertension Insomnia Kidney stone 10/19/2013 Morbid obesity (HCC) Nephrolithiasis Neuritis 07/18/2015 Renal lesion 10/19/2013 S/P Achilles tendon repair 04/29/2015 sx done PAST SURGICAL HISTORY Procedure Laterality Date BREAST LUMPECTOMY HX Right 2016 BX BREAST W/DEVICE 1ST LESION STEREOTACTIC GUID Right 07/12/2020 CHOLECYSTECTOMY 2011 gallbladder removal COLONOSCOPY 2010 CT ABDOMEN 10/09/2013 PAST SURGICAL HISTORY OF 01/10/2014 [facility] hysteroscopy PAST SURGICAL HISTORY OF Left 02/01/2015 Left foot surgery S PK LAVH [id number] 03/22/2014 FAMILY HISTORY Problem Relation Age of Onset Ovarian cancer Mother 39 Heart Father Hypertension Father Prostate Cancer Father 78 other (kidney stones) Brother Hypertension Brother Diabetes Brother Seizures Son Breast Cancer Other 55 Double first cousin (daughter of mother's sister and father's brother) Social History Tobacco Use Smoking status: Former Packs/day: 1.00 Years: 10.00 Pack years: 10.00 Types: Cigarettes Quit date: 10/19/2006 Years since quittin.9 Smokeless tobacco: Never Vaping Use Vaping Use: Never used Substance Use Topics Alcohol use: No Drug use: Not Currently Comment: marijuana for insomnia - currently not using Past medical history, appointments, medications, allergies reviewed. Pertinent Lab/Diagnostic Studies are reviewed and discussed today Current Outpatient Medications: potassium chloride 20 mEq TbER atenolol (TENORMIN) 50 mg tablet exemestane (AROMASIN) 25 mg tablet chlorthalidone (HYGROTON) 25 mg tablet metFORMIN ER (GLUCOPHAGE XR) 500 mg 24 hr tablet glipiZIDE (GLUCOTROL XL) 2.5 mg 24 hr tablet blood sugar diagnostic (BLOOD GLUCOSE TEST) test strip ibuprofen (MOTRIN) 800 mg tablet lancets (ONE TOUCH DELICA) [address] [facility] Blood-Glucose Meter monitoring kit MV-MN/FOLIC ACID/CALCIUM/VIT K (ONE-A-DAY WOMEN'S 50 PLUS ORAL) fluconazole (DIFLUCAN) 150 mg tablet ciprofloxacin HCl (CIPRO) 500 mg tablet metroNIDAZOLE (FLAGYL) 500 mg tablet ascorbic acid, vitamin C, (VITAMIN C) 500 mg tablet Review of Systems CONSTITUTIONAL: No fevers, chills night sweats, unintended weight loss CARDIOVASCULAR: No chest pain, dyspnea, palpitations, orthopnea, PND, ankle edema. PULM: No dyspnea, unexplained cough. GI: No dysphagia/odynophagia, problematic reflux, constipation, diarrhea, changes in stool habits, hematochezia, melena. : No new urinary complaints, including dysuria, gross hematuria or pyuria. NEURO: No new balance problems, peripheral weakness/paresthesias or numbness of concern. Physical Exam BP 118/72 (BP Site: Left Arm, BP Position: Sitting, BP Cuff Size: Large Adult) Pulse 64 Resp 16 Wt 132.9 kg (293 lb) SpO2 97% BMI 47.29 kg/m General appearance: Well appearing, alert, in no acute distress, well nourished. Skin: Skin color, texture, turgor normal, no suspicious rashes or lesions Head: Normocephalic, no masses, lesions, tenderness or abnormalities Eyes: Anicteric sclera. Pupils are equally round and reactive to light. Extraocular movements are intact. Lungs: Lungs clear to auscultation. No wheezing, rhonchi, rales Heart: RRR without murmur, gallop, or rubs. Extremities: No deformities, edema, skin discoloration, clubbing or cyanosis. Good capillary refill. ASSESSMENT/PLAN: 1. Type 2 diabetes mellitus without complication, without long-term current use of insulin (HCC) - ICD9: 250.00, ICD10: E11.9 (primary diagnosis) - IBUPROFEN 800 MG TABLET - ALBUMIN/CREAT RATIO RND UR - DEPRESSION SCREENING/ASSESSMENT 2. Screening for osteoporosis - ICD9: V82.81, ICD10: Z13.820 - DXA-AXIAL SKELETON 3. Asymptomatic menopause - ICD9: V49.81, ICD10: Z78.0 4. Primary hypertension - ICD9: 401.9, ICD10: I10 - good control - Recommended regular aerobic exercise. - Recommend home blood pressure monitoring, to bring results in on next visit - Goal of BP <130/80 5. Hypercholesterolemia - ICD9: 272.0, ICD10: E78.00 6. Diverticulitis - ICD9: 562.11, ICD10: K57.92 We will see what the colonoscopy has to say 7. Dysuria - ICD9: 788.1, ICD10: R30.0 acute - Patient education for prevention given - URINE CULTURE Yuli Taylor MD documented in this encounter [facility] 09-12-2022 Note HNO ID: [id number] Author: Jess Orellana MD Service: ? Author Type: Physician Type: Progress Notes Filed: 09/12/2022 4:16 PM Note Text: TELEPHONE FOLLOW-UP ENCOUNTER Donna Sanchez [id number] 1955 has requested a telemedicine follow-up visit. Donna Sanchez verbalized informed consent to proceed with the telemedicine follow-up visit. Donna Sanchez was informed that the details of this telephone visit would be recorded as part of their electronic medical record. I had a telephone visit with Ms. Sanchez today for follow up of right stereotactic breast biopsy done at [facility] on 09/01/2022. Pathology reveals fat necrosis, focal clustered banal microcalcifications, no evidence of malignancy Patient states that she has no problems from her biopsy. PAST MEDICAL HISTORY Diagnosis Date Abnormal mammogram 07/2020 Achilles tendon pain 04/29/2015 Ankle weakness 04/29/2015 Chronic pain of left ankle 05/21/2016 Colon abnormality 11/07/2013 Thickening of the ascending colon seen on the recent CT scan. Patient has had a colonoscopy around 4 years ago. Records were obtained for when they were done, 4 years ago , [facility]. her colonoscopy was completely normal, no thickening, and the biopsy too was normal except for lymphoid aggregates. Diverticulitis [address] Menard at [facility] DJD (degenerative joint disease), ankle and foot 09/19/2015 DM (diabetes mellitus) (HCC) GERD (gastroesophageal reflux disease) Gross hematuria 10/19/20132013, had hematuria, investigated extensively along with cytoscopy, a stone was found but no signs of any malignancy. Heel pain, chronic 05/21/2016 Hepatic steatosis 03/09/2017 Hiatal hernia 03/09/2017 Hypertension Insomnia Kidney stone 10/19/2013 Morbid obesity (HCC) Nephrolithiasis Neuritis 07/18/2015 Renal lesion 10/19/2013 S/P Achilles tendon repair 04/29/2015 sx done PAST SURGICAL HISTORY Procedure Laterality Date BREAST LUMPECTOMY HX Right 2016 BX BREAST W/DEVICE 1ST LESION STEREOTACTIC GUID Right 07/12/2020 CHOLECYSTECTOMY 2010 gallbladder removal COLONOSCOPY 2010 CT ABDOMEN 10/09/2013 PAST SURGICAL HISTORY OF 01/10/2014 DANDC hysteroscopy PAST SURGICAL HISTORY OF Left 02/01/2015 Left foot surgery S PK LAVH [id number] 03/22/2014 FAMILY HISTORY Problem Relation Age of Onset Ovarian cancer Mother 39 Heart Father Hypertension Father Prostate Cancer Father 78 other (kidney stones) Brother Hypertension Brother Diabetes Brother Seizures Son Breast Cancer Other 55 Double first cousin (daughter of mother's sister and father's brother) Social History Tobacco Use Smoking status: Former Packs/day: 1.00 Years: 10.00 Pack years: 10.00 Types: Cigarettes Quit date: 10/19/2006 Years since quittin.9 Smokeless tobacco: Never Vaping Use Vaping Use: Never used Substance Use Topics Alcohol use: No Drug use: Not Currently Comment: marijuana for insomnia - currently not using Current Outpatient Medications Medication Sig Dispense Refill fluconazole (DIFLUCAN) 150 mg tablet (Patient not taking: Reported on 07/14/2022) ciprofloxacin HCl (CIPRO) 500 mg tablet Take 1 tablet by mouth twice daily. 20 tablet 0 metroNIDAZOLE (FLAGYL) 500 mg tablet Take 500 mg by mouth three times daily. TAKE ONE(2) TABLET TWO(2) TIMES DAILY FOR (1) DAY. 0 potassium chloride 20 mEq TbER Take 1 tablet by mouth twice daily. 180 tablet 1 atenolol (TENORMIN) 50 mg tablet Take 1 tablet by mouth once daily. 90 tablet 3 exemestane (AROMASIN) 25 mg tablet TAKE 1 TABLET BY MOUTH ONCE DAILY. 90 tablet 3 chlorthalidone (HYGROTON) 25 mg tablet Take 0.5 tablets by mouth once daily. 45 tablet 3 metFORMIN ER (GLUCOPHAGE XR) 500 mg 24 hr tablet Take 1 tablet by mouth daily with breakfast. 180 tablet 3 glipiZIDE (GLUCOTROL XL) 2.5 mg 24 hr tablet Take 1 tablet by mouth once daily. 90 tablet 3 blood sugar diagnostic (BLOOD GLUCOSE TEST) test strip Test blood sugars 2daily. Dx:ucnontrolled diabetes . Insulin: Yes 50 Strip 11 ibuprofen (MOTRIN) 800 mg tablet Take 1 tablet by mouth every 8 hours as needed for pain. Take with food. 45 tablet 1 ascorbic acid, vitamin C, (VITAMIN C) 500 mg tablet Take 500 mg by mouth once daily. lancets (ONE TOUCH DELICA) 33 gauge misc Test blood sugar(s) 2 daily. Dx: Type 2 DM - Controlled E11.9 Insulin: Yes 1 Each 11 Blood-Glucose Meter monitoring kit Glucose Meter of Choice - Kit - Dx: Type 2 DM - Uncontrolled E11.65 1 Each 0 MV-MN/FOLIC ACID/CALCIUM/VIT K (ONE-A-DAY WOMEN'S 50 PLUS ORAL) Take 1 tablet by mouth once daily. No current facility-administered medications for this visit. ALLERGIES Allergen Reactions Silvadene [Silver S* Hives Sulfa (Sulfonamide * Hives No physical exam performed due to telephone encounter. Assessment IMPRESSION No evidence of breast cancer from biopsy PLAN Reassurance to patient that there is no c (more content not included)... [facility] 09-12-2022 History of Present illness Narrative TELEPHONE FOLLOW-UP ENCOUNTER Donna Sanchez [id number] 1955 has requested a telemedicine follow-up visit. Donna Sanchez verbalized informed consent to proceed with the telemedicine follow-up visit. Donna Sanchez was informed that the details of this telephone visit would be recorded as part of their electronic medical record. I had a telephone visit with Carie Sanchez today for follow up of right stereotactic breast biopsy done at [facility] on 09/01/2022. Pathology reveals fat necrosis, focal clustered banal microcalcifications, no evidence of malignancy Patient states that she has no problems from her biopsy. PAST MEDICAL HISTORY Diagnosis Date Abnormal mammogram 07/2020 Achilles tendon pain 04/29/2015 Ankle weakness 04/29/2015 Chronic pain of left ankle 05/21/2016 Colon abnormality 11/07/2013 Thickening of the ascending colon seen on the recent CT scan. Patient has had a colonoscopy around 4 years ago. Records were obtained for when they were done, 4 years ago , [facility]. her colonoscopy was completely normal, no thickening, and the biopsy too was normal except for lymphoid aggregates. Diverticulitis [address] Menard at [facility] DJD (degenerative joint disease), ankle and foot 09/19/2015 DM (diabetes mellitus) (HCC) GERD (gastroesophageal reflux disease) Gross hematuria 10/19/20132013, had hematuria, investigated extensively along with cytoscopy, a stone was found but no signs of any malignancy. Heel pain, chronic 05/21/2016 Hepatic steatosis 03/09/2017 Hiatal hernia 03/09/2017 Hypertension Insomnia Kidney stone 10/19/2013 Morbid obesity (HCC) Nephrolithiasis Neuritis 07/18/2015 Renal lesion 10/19/2013 S/P Achilles tendon repair 04/29/2015 sx done PAST SURGICAL HISTORY Procedure Laterality Date BREAST LUMPECTOMY HX Right 2017 BX BREAST W/DEVICE 1ST LESION STEREOTACTIC GUID Right 07/12/2020 CHOLECYSTECTOMY 2010 gallbladder removal COLONOSCOPY 2010 CT ABDOMEN 10/09/2013 PAST SURGICAL HISTORY OF 01/10/2014 D&C hysteroscopy PAST SURGICAL HISTORY OF Left 02/01/2015 Left foot surgery S PK LAVH [id number] 03/22/2014 FAMILY HISTORY Problem Relation Age of Onset Ovarian cancer Mother 39 Heart Father Hypertension Father Prostate Cancer Father 78 other (kidney stones) Brother Hypertension Brother Diabetes Brother Seizures Son Breast Cancer Other 55 Double first cousin (daughter of mother's sister and father's brother) Social History Tobacco Use Smoking status: Former Packs/day: 1.00 Years: 10.00 Pack years: 10.00 Types: Cigarettes Quit date: 10/19/2006 Years since quittin.9 Smokeless tobacco: Never Vaping Use Vaping Use: Never used Substance Use Topics Alcohol use: No Drug use: Not Currently Comment: marijuana for insomnia - currently not using Current Outpatient Medications Medication Sig Dispense Refill fluconazole (DIFLUCAN) 150 mg tablet (Patient not taking: Reported on 07/14/2022) ciprofloxacin HCl (CIPRO) 500 mg tablet Take 1 tablet by mouth twice daily. 20 tablet 0 metroNIDAZOLE (FLAGYL) 500 mg tablet Take 500 mg by mouth three times daily. TAKE ONE(2) TABLET TWO(2) TIMES DAILY FOR (1) DAY. 0 potassium chloride 20 mEq TbER Take 1 tablet by mouth twice daily. 180 tablet 1 atenolol (TENORMIN) 50 mg tablet Take 1 tablet by mouth once daily. 90 tablet 3 exemestane (AROMASIN) 25 mg tablet TAKE 1 TABLET BY MOUTH ONCE DAILY. 90 tablet 3 chlorthalidone (HYGROTON) 25 mg tablet Take 0.5 tablets by mouth once daily. 45 tablet 3 metFORMIN ER (GLUCOPHAGE XR) 500 mg 24 hr tablet Take 1 tablet by mouth daily with breakfast. 180 tablet 3 glipiZIDE (GLUCOTROL XL) 2.5 mg 24 hr tablet Take 1 tablet by mouth once daily. 90 tablet 3 blood sugar diagnostic (BLOOD GLUCOSE TEST) test strip Test blood sugars 2daily. Dx:ucnontrolled diabetes . Insulin: Yes 50 Strip 11 ibuprofen (MOTRIN) 800 mg tablet Take 1 tablet by mouth every 8 hours as needed for pain. Take with food. 45 tablet 1 ascorbic acid, vitamin C, (VITAMIN C) 500 mg tablet Take 500 mg by mouth once daily. lancets (ONE TOUCH DELICA) 33 gauge misc Test blood sugar(s) 2 daily. Dx: Type 2 DM - Controlled E11.9 Insulin: Yes 1 Each 11 Blood-Glucose Meter monitoring kit Glucose Meter of Choice - Kit - Dx: Type 2 DM - Uncontrolled E11.65 1 Each 0 MV-MN/FOLIC ACID/CALCIUM/VIT K (ONE-A-DAY WOMEN'S 50 PLUS ORAL) Take 1 tablet by mouth once daily. No current facility-administered medications for this visit. ALLERGIES Allergen Reactions Silvadene [Silver S* Hives Sulfa (Sulfonamide * Hives No physical exam performed due to telephone encounter. Assessment IMPRESSION No evidence of breast cancer from biopsy PLAN Reassurance to patient that there is no clinical evidence of breast malignancy. Patient to continue routine breast cancer screening - yearly mammograms. Patient will continue follow up with Hem/onc. I spent 5 minutes in the telephone visit. I have confirmed and edited as necessary, the PFSH and ROS obtained by others. Unrelated to E/M, telemedicine, or virtual visit service provided within previous 7 days. No E/M service or procedure anticipated within next 24 hours. Jess Orellana MD September 11, 2022 14:39 PM documented in this encounter [facility] 09-11-2022 Miscellaneous Notes Donna is scheduled for a provider specialty phone call on 09/11/2022. Ana Hunter RN [facility] - [facility]ology [ID [id number]] documented in this encounter [facility] 09-07-2022 Miscellaneous Notes Spoke with patient. Patient was driving, unable to check schedule. Informed to schedule midday and mail reminder. Completed. PSS- OV with Gill in about 6 months. Left detailed message on identified voicemail also sent information via my chart. Miriam Pastor LPN If she is tolerating it then I would advise 7 to 10 years of therapy. OV with Gill in about 6 months. Kalia Tabor DO Patient called stating biopsy was benign and that she has been on cancer medication for 6 years, asking if she is able to discontinue. Please advise. documented in this encounter [facility] 08-06-2022 Miscellaneous Notes Patient returned call and went over results, notes from express care provider with understanding. Left message for pt to call back. Christy Ojeda MA ----- Message from Merlyn Mann APRN.INFORMATION TECHNOLOGY PROJECT MANAGER sent at 08/06/2022 7:18 AM EST ----- Urine culture did not show clear evidence of infection. Recommend follow up with PCP to ensure hematuria has resolved. Merlyn Mann CNP documented in this encounter [facility] 08-05-2022 Note Patient Outreach (ALAN TRISTANAV) DONNA SANCHEZ ([id number]) 1955 F Date Time Provider Department 08/05/22 BELKYS PALENCIA During your visit today, we recorded the following information about you: Belkys Palencia MA 08/05/2022 9:35 AM Signed POPULATION HEALTH NAVIGATION OUTREACH Action/FYI Left message on patient's voice mail to return my call. [employer] message sent. Patient is on [facility] for the following HM care gaps: DILATED RETINAL EXAM COLORECTAL CANCER SCREENING Advance Directives Patient Identified by Name and : NO Outreach Outcome/Action Unable to reach patient: Left message MyChart message sent Did you use a PCP flex slot to schedule this appointment? N/A Reason for Outreach Care Gap or Scheduling/Wellness visits Payer: Payor: [facility] MEDICARE / Plan: [facility] DUAL COMPLETE HMO SNP / Product Type: Medicare / Care Gap Reviewed:: Colorectal Cancer Screening Diabetic Eye Exam Reminder: Reminder note to check Health Maintenance for items below Health Maintenance items due: COVID-19 VACCINE(1) Never done PNEUMOCOCCAL(1 - PCV) Never done HIV SCREENING Never done SHINGRIX VACCINE(1 of 2) Never done PAP TESTING due on 12/06/2018 HPV TESTING due on 12/06/2018 COLORECTAL CANCER SCREENING due on 09/22/2020 DILATED RETINAL EXAM due on 04/14/2022 DEPRESSION ASSESSMENT Never done URINE ALBUMIN:CREATININE RATIO due on 07/03/2022 Navigation Signature: Belkys Palencia MA August 05, 2022 7:27 AM Allergies As of Date: 08/05/2022 Noted Allergy Reaction SILVADENE (SILVER SULFADIAZINE) 01/08/2017 4 - Hives SULFA (SULFONAMIDE ANTIBIOTICS) 04/14/2021 4 - Hives Date Reviewed: 08/04/2022 Reviewed by: Ana Hunter RN - Fully Assessed Reason for Visit: Population Health Navigation Outreach [3910] Cmt: [facility] Care Gaps Prescriptions as of 08/05/2022 - fluconazole (DIFLUCAN) 150 mg tablet - ciprofloxacin HCl (CIPRO) 500 mg tablet Take 1 tablet by mouth twice daily. - metroNIDAZOLE (FLAGYL) 500 mg tablet Take 500 mg by mouth three times daily. TAKE ONE(2) TABLET TWO(2) TIMES DAILY FOR (1) DAY. - potassium chloride 20 mEq TbER Take 1 tablet by mouth twice daily. - atenolol (TENORMIN) 50 mg tablet Take 1 tablet by mouth once daily. - exemestane (AROMASIN) 25 mg tablet TAKE 1 TABLET BY MOUTH ONCE DAILY. - chlorthalidone (HYGROTON) 25 mg tablet Take 0.5 tablets by mouth once daily. - metFORMIN ER (GLUCOPHAGE XR) 500 mg 24 hr tablet Take 1 tablet by mouth daily with breakfast. - glipiZIDE (GLUCOTROL XL) 2.5 mg 24 hr tablet Take 1 tablet by mouth once daily. - blood sugar diagnostic (BLOOD GLUCOSE TEST) test strip Test blood sugars 2daily. Dx:ucnontrolled diabetes . Insulin: Yes - ibuprofen (MOTRIN) 800 mg tablet Take 1 tablet by mouth every 8 hours as needed for pain. Take with food. - ascorbic acid, vitamin C, (VITAMIN C) 500 mg tablet Take 500 mg by mouth once daily. - lancets (ONE TOUCH DELICA) 33 gauge misc Test blood sugar(s) 2 daily. Dx: Type 2 DM - Controlled E11.9 Insulin: Yes - Blood-Glucose Meter monitoring kit Glucose Meter of Choice - Kit - Dx: Type 2 DM - Uncontrolled E11.65 - MV-MN/FOLIC ACID/CALCIUM/VIT K (ONE-A-DAY WOMEN'S 50 PLUS ORAL) Take 1 tablet by mouth once daily. Meds Comments as of 11/29/2014: Patient only took the Etodolac for a few days and noticed no difference so she quit taking this medication. Problem List As Of Date 08/05/2022 Noted Resolved Morbid obesity with BMI of 40.0-44.9, adult (HC*11/07/2013 Uterus disorder [N85.9] 11/07/2013 01/25/2014 Hypertension [I10] 12/13/2013 Hypercholesterolemia [E78.00] 12/30/2013 Endometrial hyperplasia without atypia, complex*01/05/2014 01/25/2014 Uterine prolapse without mention of vaginal wal*01/25/2014 05/04/2014 Rectocele [N81.6] 01/25/2014 05/04/2014 Complex endometrial hyperplasia with atypia [N8*01/25/2014 05/04/2014 Follow-up examination, following other surgery *02/22/2015 09/19/2015 Bilateral low back pain with left-sided sciatic*07/23/2015 01/09/2016 Peroneal tendonitis [M76.70] 09/19/2015 12/29/2018 Controlled diabetes mellitus type II without co*10/22/2015 Hyperopia [H52.00] 10/22/2015 Presbyopia [H52.4] 10/22/2015 Benign neoplasm of skin of eyelid including can*10/22/2015 Chronic bilateral low back pain with left-sided*01/09/2016 Malignant neoplasm of lower-outer quadrant of r*10/14/2016 ER+ LA+ carcinoma of breast (HCC) [C50.919, Z17*10/14/2016 Family history of ovarian cancer [Z80.41] 10/14/2016 GERD (gastroesophageal reflux disease) [K21.9] Encounter Status:Closed by BELKYS PALENCIA on 08/05/22 [facility] 08-05-2022 Note HNO ID: [id number] Author: Belkys Palencia MA Service: ? Author Type: [employer] Supervisor Type: Progress Notes Filed: 08/05/2022 9:35 AM Note Text: POPULATION HEALTH NAVIGATION OUTREACH Action/FYI Left message on patient's voice mail to return my call. MyChart message sent. Patient is on [facility] for the following HM care gaps: DILATED RETINAL EXAM COLORECTAL CANCER SCREENING Advance Directives Patient Identified by Name and : NO Outreach Outcome/Action Unable to reach patient: Left message MyChart message sent Did you use a PCP flex slot to schedule this appointment? N/A Reason for Outreach Care Gap or Scheduling/Wellness visits Payer: Payor: [facility] MEDICARE / Plan: [facility] DUAL COMPLETE HMO SNP / Product Type: Medicare / Care Gap Reviewed:: Colorectal Cancer Screening Diabetic Eye Exam Reminder: Reminder note to check Health Maintenance for items below Health Maintenance items due: COVID-19 VACCINE(1) Never done PNEUMOCOCCAL(1 - PCV) Never done HIV SCREENING Never done SHINGRIX VACCINE(1 of 2) Never done PAP TESTING due on 12/06/2018 HPV TESTING due on 12/06/2018 COLORECTAL CANCER SCREENING due on 09/22/2020 DILATED RETINAL EXAM due on 04/14/2022 DEPRESSION ASSESSMENT Never done URINE ALBUMIN:CREATININE RATIO due on 07/03/2022 Navigation Signature: Belkys Palencia MA August 05, 2022 7:27 AM [facility] 08-05-2022 History of Present illness Narrative POPULATION HEALTH NAVIGATION OUTREACH Action/FYI Left message on patient's voice mail to return my call. MyChart message sent. Patient is on [facility] for the following HM care gaps: DILATED RETINAL EXAM COLORECTAL CANCER SCREENING Advance Directives Patient Identified by Name and : NO Outreach Outcome/Action Unable to reach patient: Left message MyChart message sent Did you use a PCP flex slot to schedule this appointment? N/A Reason for Outreach Care Gap or Scheduling/Wellness visits Payer: Payor: [facility] MEDICARE / Plan: [facility] DUAL COMPLETE HMO SNP / Product Type: Medicare / Care Gap Reviewed:: Colorectal Cancer Screening Diabetic Eye Exam Reminder: Reminder note to check Health Maintenance for items below Health Maintenance items due: COVID-19 VACCINE(1) Never done PNEUMOCOCCAL(1 - PCV) Never done HIV SCREENING Never done SHINGRIX VACCINE(1 of 2) Never done PAP TESTING due on 12/06/2018 HPV TESTING due on 12/06/2018 COLORECTAL CANCER SCREENING due on 09/22/2020 DILATED RETINAL EXAM due on 04/14/2022 DEPRESSION ASSESSMENT Never done URINE ALBUMIN:CREATININE RATIO due on 07/03/2022 Navigation Signature: Belkys Palencia MA August 05, 2022 7:27 AM documented in this encounter [facility] 08-04-2022 Note HNO ID: [id number] Author: Jess Orellana MD Service: ? Author Type: Physician Type: Progress Notes Filed: 08/06/2022 7:49 AM Note Text: Donna Sanchez 1955 REFERRING PHYSICIAN: Kalia Tabor DO CHIEF COMPLAINT: Consult (Abnormal mammogram) HPI: The patient is a 66 year old female presents with abnormal right breast radiographs. She has a history of right breast cancer. She is s/p right breast lumpectomy/SLNBBx and XRT in 2017 There are pleomorphic scattered calcifications that are noted and they are in the vicinity of the previous surgery. She denies palpable breast masses. She denies nipple discharge. She denies chronic pain to the right breast, she notes twinges of discomfort in the area, intermittently. She also presents s/p episode of acute diverticulitis for which she was hospitalized at [facility]. I have reviewed the CT scan findings obtained there. She is scheduled for colonoscopy in the near future. She asks about the disease progression of diverticular disease and why the need for colonscopy. PAST MEDICAL HISTORY Diagnosis Date Abnormal mammogram 07/2020 Achilles tendon pain 04/29/2015 Ankle weakness 04/29/2015 Chronic pain of left ankle 05/21/2016 Colon abnormality 11/07/2013 Thickening of the ascending colon seen on the recent CT scan. Patient has had a colonoscopy around 4 years ago. Records were obtained for when they were done, 4 [facility] , [facility]. her colonoscopy was completely normal, no thickening, and the biopsy too was normal except for lymphoid aggregates. Diverticulitis [address] Menard at [facility] DJD (degenerative joint disease), ankle and foot 09/19/2015 DM (diabetes mellitus) (HCC) GERD (gastroesophageal reflux disease) Gross hematuria 10/19/20132013, had hematuria, investigated extensively along with cytoscopy, a stone was found but no signs of any malignancy. Heel pain, chronic 05/21/2016 Hepatic steatosis 03/09/2017 Hiatal hernia 03/09/2017 Hypertension Insomnia Kidney stone 10/19/2013 Morbid obesity (HCC) Nephrolithiasis Neuritis 07/18/2015 Renal lesion 10/19/2013 S/P Achilles tendon repair 04/29/2015 sx done PAST SURGICAL HISTORY Procedure Laterality Date BREAST LUMPECTOMY HX Right 2017 BX BREAST W/DEVICE 1ST LESION STEREOTACTIC GUID Right 07/12/2020 CHOLECYSTECTOMY 2010 gallbladder removal COLONOSCOPY 2010 CT ABDOMEN 10/09/2013 PAST SURGICAL HISTORY OF 01/10/2014 DANDC hysteroscopy PAST SURGICAL HISTORY OF Left 02/01/2015 Left foot surgery S PK LAVH [id number] 03/22/2014 Current Outpatient Medications Medication Sig potassium chloride 20 mEq TbER Take 1 tablet by mouth twice daily. atenolol (TENORMIN) 50 mg tablet Take 1 tablet by mouth once daily. exemestane (AROMASIN) 25 mg tablet TAKE 1 TABLET BY MOUTH ONCE DAILY. chlorthalidone (HYGROTON) 25 mg tablet Take 0.5 tablets by mouth once daily. metFORMIN ER (GLUCOPHAGE XR) 500 mg 24 hr tablet Take 1 tablet by mouth daily with breakfast. glipiZIDE (GLUCOTROL XL) 2.5 mg 24 hr tablet Take 1 tablet by mouth once daily. blood sugar diagnostic (BLOOD GLUCOSE TEST) test strip Test blood sugars 2daily. Dx:ucnontrolled diabetes . Insulin: Yes ibuprofen (MOTRIN) 800 mg tablet Take 1 tablet by mouth every 8 hours as needed for pain. Take with food. lancets (ONE TOUCH DELICA) 33 gauge misc Test blood sugar(s) 2 daily. Dx: Type 2 DM - Controlled E11.9 Insulin: Yes Blood-Glucose Meter monitoring kit Glucose Meter of Choice - Kit - Dx: Type 2 DM - Uncontrolled E11.65 MV-MN/FOLIC ACID/CALCIUM/VIT K (ONE-A-DAY WOMEN'S 50 PLUS ORAL) Take 1 tablet by mouth once daily. fluconazole (DIFLUCAN) 150 mg tablet (Patient not taking: Reported on 07/14/2022) ciprofloxacin HCl (CIPRO) 500 mg tablet Take 1 tablet by mouth twice daily. metroNIDAZOLE (FLAGYL) 500 mg tablet Take 500 mg by mouth three times daily. TAKE ONE(2) TABLET TWO(2) TIMES DAILY FOR (1) DAY. ascorbic acid, vitamin C, (VITAMIN C) 500 mg tablet Take 500 mg by mouth once daily. ALLERGIES: Silvadene [Silver Sulfadiazine] and Sulfa (Sulfonamide Antibiotics) PERSONAL HISTORY: Social History Tobacco Use Smoking status: Former Packs/day: 1.00 Years: 10.00 Pack years: 10.00 Types: Cigarettes Quit date: 10/19/2006 Years since quittin.8 Smokeless tobacco: Never Vaping Use Vaping Use: Never used Substance Use Topics Alcohol use: No Drug use: Not Currently Comment: marijuana for insomnia - currently not using FAMILY HISTORY Problem Relation Age of Onset Ovarian cancer Mother 39 Heart Father Hypertension Father Prostate Cancer Father 78 other (kidney stones) Brother Hypertension Brother Diabetes Brother Seizures Son Breast Cancer Other 55 Double first cousin (daughter of mother's sister and father's brother) The review of systems data was entered by the nurse and reviewed by me Luzmaria (more content not included)... [facility] 08-04-2022 History of Present illness Narrative Donna Sanchez 1955 REFERRING PHYSICIAN: Kalia Tabor DO CHIEF COMPLAINT: Consult (Abnormal mammogram) HPI: The patient is a 66 year old female presents with abnormal right breast radiographs. She has a history of right breast cancer. She is s/p right breast lumpectomy/SLNBBx and XRT in 2017 There are pleomorphic scattered calcifications that are noted and they are in the vicinity of the previous surgery. She denies palpable breast masses. She denies nipple discharge. She denies chronic pain to the right breast, she notes twinges of discomfort in the area, intermittently. She also presents s/p episode of acute diverticulitis for which she was hospitalized at [facility]. I have reviewed the CT scan findings obtained there. She is scheduled for colonoscopy in the near future. She asks about the disease progression of diverticular disease and why the need for colonscopy. PAST MEDICAL HISTORY Diagnosis Date Abnormal mammogram 07/2020 Achilles tendon pain 04/29/2015 Ankle weakness 04/29/2015 Chronic pain of left ankle 05/21/2016 Colon abnormality 11/07/2013 Thickening of the ascending colon seen on the recent CT scan. Patient has had a colonoscopy around 4 years ago. Records were obtained for when they were done, [facility]. her colonoscopy was completely normal, no thickening, and the biopsy too was normal except for lymphoid aggregates. Diverticulitis [address] Menard at [facility] DJD (degenerative joint disease), ankle and foot 09/19/2015 DM (diabetes mellitus) (HCC) GERD (gastroesophageal reflux disease) Gross hematuria 10/19/20132013, had hematuria, investigated extensively along with cytoscopy, a stone was found but no signs of any malignancy. Heel pain, chronic 05/21/2016 Hepatic steatosis 03/09/2017 Hiatal hernia 03/09/2017 Hypertension Insomnia Kidney stone 10/19/2013 Morbid obesity (HCC) Nephrolithiasis Neuritis 07/18/2015 Renal lesion 10/19/2013 S/P Achilles tendon repair 04/29/2015 sx done PAST SURGICAL HISTORY Procedure Laterality Date BREAST LUMPECTOMY HX Right 2017 BX BREAST W/DEVICE 1ST LESION STEREOTACTIC GUID Right 07/12/2020 CHOLECYSTECTOMY 2011 gallbladder removal COLONOSCOPY 2010 CT ABDOMEN 10/09/2013 PAST SURGICAL HISTORY OF 01/10/2014 D&C hysteroscopy PAST SURGICAL HISTORY OF Left 02/01/2015 Left foot surgery S [facility] [id number] 03/22/2014 Current Outpatient Medications Medication Sig potassium chloride 20 mEq TbER Take 1 tablet by mouth twice daily. atenolol (TENORMIN) 50 mg tablet Take 1 tablet by mouth once daily. exemestane (AROMASIN) 25 mg tablet TAKE 1 TABLET BY MOUTH ONCE DAILY. chlorthalidone (HYGROTON) 25 mg tablet Take 0.5 tablets by mouth once daily. metFORMIN ER (GLUCOPHAGE XR) 500 mg 24 hr tablet Take 1 tablet by mouth daily with breakfast. glipiZIDE (GLUCOTROL XL) 2.5 mg 24 hr tablet Take 1 tablet by mouth once daily. blood sugar diagnostic (BLOOD GLUCOSE TEST) test strip Test blood sugars 2daily. Dx:ucnontrolled diabetes . Insulin: Yes ibuprofen (MOTRIN) 800 mg tablet Take 1 tablet by mouth every 8 hours as needed for pain. Take with food. lancets (ONE TOUCH DELICA) 33 gauge misc Test blood sugar(s) 2 daily. Dx: Type 2 DM - Controlled E11.9 Insulin: Yes Blood-Glucose Meter monitoring kit Glucose Meter of Choice - Kit - Dx: Type 2 DM - Uncontrolled E11.65 MV-MN/FOLIC ACID/CALCIUM/VIT K (ONE-A-DAY WOMEN'S 50 PLUS ORAL) Take 1 tablet by mouth once daily. fluconazole (DIFLUCAN) 150 mg tablet (Patient not taking: Reported on 07/14/2022) ciprofloxacin HCl (CIPRO) 500 mg tablet Take 1 tablet by mouth twice daily. metroNIDAZOLE (FLAGYL) 500 mg tablet Take 500 mg by mouth three times daily. TAKE ONE(2) TABLET TWO(2) TIMES DAILY FOR (1) DAY. ascorbic acid, vitamin C, (VITAMIN C) 500 mg tablet Take 500 mg by mouth once daily. ALLERGIES: Silvadene [Silver Sulfadiazine] and Sulfa (Sulfonamide Antibiotics) PERSONAL HISTORY: Social History Tobacco Use Smoking status: Former Packs/day: 1.00 Years: 10.00 Pack years: 10.00 Types: Cigarettes Quit date: 10/19/2006 Years since quittin.8 Smokeless tobacco: Never Vaping Use Vaping Use: Never used Substance Use Topics Alcohol use: No Drug use: Not Currently Comment: marijuana for insomnia - currently not using FAMILY HISTORY Problem Relation Age of Onset Ovarian cancer Mother 39 Heart Father Hypertension Father Prostate Cancer Father 78 other (kidney stones) Brother Hypertension Brother Diabetes Brother Seizures Son Breast Cancer Other 55 Double first cousin (daughter of mother's sister and father's brother) The review of systems data was entered by the nurse and reviewed by ak Nursing Notes: Ana Hunter RN 08/04/2022 12:50 PM Signed REVIEW OF SYSTEMS: General: The patient denies fatigue, denies weight loss, denies weight gain, denies feeling hot, and denies feelings of cold. Eyes: The patient denies glaucoma, denies eye injury/surgery, wears glasses or contacts. Ear/Nose/Throat: The patient NOTES allergies, denies hayfever, denies ear infections, and denies bloody noses. Cardiovascular: The patient denies chest pain, denies heart disease, NOTES high blood pressure,denies cardiac stent, denies prior heart attack, denies irregular heart beat, denies high cholesterol, denies poor circulation, denies heart failure, other cardiac issues, denies claudication, denies cold feet, denies peripheral arterial stent. Respiratory: The patient denies tuberculosis, denies pneumonia, denies frequent cough, denies pulmonary embolism, denies shortness of breath, and denies coughing up blood. Gastrointestinal: The patient denies difficulty swallowing, denies acid reflux, denies ulcers, denies vomiting, denies jaundice/hepatitis, NOTES gallbladder problems, denies black or tarry stools, denies hemorrhoids, denies bleeding from rectum, NOTES diverticulitis, denies constipation, denies diarrhea, denies loss of stool control, and denies hernias. Kidney/Bladder: The patient NOTES kidney stones, NOTES urine infections, and NOTES bloody urine. Skin: The patient denies a history of skin cancer, denies bleeding/changing moles, and NOTES a history of skin rash. Neurologic: The patient denies a history of epilepsy/convulsions, denies headaches, denies head/spinal injuries, and denies stroke/TIA. Psychiatric: The patient denies psychiatric medications, denies depression, and denies voices, denies substance abuse. Endocrine: The patient denies thyroid disorders, NOTES diabetes, and denies hormonal problems. Hematologic: The patient denies a history of bruising, denies bleeding, and denies anemia, denies blood clots. Infections: The patient denies a history of measles and mumps, denies rheumatic fever, and denies sexually transmitted diseases. Musculoskeletal: The patient denies back pain/injury, denies back problems, denies sciatica, NOTES knee/foot trouble, NOTES arthritis, or denies gout. When was patient's last Mammogram screening? 07/06/22 and 08/04/22 Last Colonoscopy: 09/22/2010 Ana Hunter RN PHYSICAL EXAMINATION: General: The patient is 66 year old female, well nourished, well hydrated in no acute distress. The patient is oriented to time, place, and person. VITALS: Blood pressure 118/72, pulse 81, temperature 37 C (98.6 F), height 167.6 cm (5' 6 ), weight 131.1 kg (289 lb), SpO2 96 %. Body mass index is 46.65 kg/m . Head - Normocephalic. EOM intact with sclera clear and no icterus noted. Neck - supple with no jugular venous distention noted. Trachea is midline. No thyroid enlargement or thyroid nodules detected. No masses noted. Chest/breast - no asymmetry of breasts noted, no suspicious skin lesions noted, - healed incisional sites of upper outer quadrant and inferior aspect of right breast, no nipple discharge and both nipples everted, no breast masses noted Lungs - clear to auscultation. Normal breath sounds. No rales/rhonchi/wheezing noted. No labored breathing noted, such as retractions. No cough heard. Heart - normal S1 and S2 auscultated. No rubs/clicks/murmurs noted. Regular rate. Abdomen - soft and benign. Difficult to determine if any masses or organomegaly due to body habitus. Extremities - no calf tenderness noted. No pitting edema noted. Skin - normal skin integrity. Lymph - no cervical adenopathy detected, no supraclavicular adenopathy detected, no axillary adenopathy detected Neurological - gait normal, no focal deficits noted Psych - calm and appropriate RADIOLOGIC STUDIES: As Noted Assessment IMPRESSION: abnormal calcifications on right breast mammograms, history of right breast cancer PLAN: I have discussed the above with the patient. I have reviewed the abnormal breast radiographs with the patient. I have offered right stereotactic breast biopsy I have explained the procedure to the patient. I have counseled the patient as to the risks of the procedure, including but not limited to: Infection (increased risk due to history of surgery and XRT), bleeding, injury to any blood vessels/nerves, scar tissue, wound infections, complications of anesthesia, etc. - the patient understands. The patient wishes to proceed. I have also explained diverticular disease to the patient and indications for colonoscopy (findings of wall thickening on CT scan). She was concerned about requiring surgery and I have explained the indications for surgery to the patient. She feels better informed and more comfortable with her course of testing. The patient acknowledges above. I have answered all questions to the patient s satisfaction and the patient has no further questions. I have confirmed and edited as necessary, the PFSH and ROS obtained by others. Consultation requested by Dr. Kalia Tabor for an opinion regarding patient's abnormal breast radiographs. My final recommendations will be communicated back to the requesting physician by way of shared Medical record or letter to requesting physician via [place] mail. . Diagnoses: (R92.1) Calcification of right breast on mammography (K57.30) Diverticulosis of large intestine without perforation or abscess without bleeding (R93.3) Abnormal CT scan, gastrointestinal tract Return to Clinic: The patient will be scheduled for stereotactic breast biopsy at [facility]. I spent a total of 41 minutes on the date of the service which included preparing to see the patient with review of any pertinent laboratory studies/radiological imaging/medical records from other medical facilities such as [facility], [id number] patient care, obtaining oral medical history from the patient in this encounter, performing a medically appropriate examination, counseling and educating the patient/family/caregiver, and ordering and/or scheduling of medications/tests/procedures, and completing appropriate medical documentation. Jess Orellana MD documented in this encounter [facility] 08-04-2022 Note HNO ID: [id number] Author: Hazel Estrada APRN.INFORMATION TECHNOLOGY PROJECT MANAGER Service: ? Author Type: Nurse Practitioner Type: Progress Notes Filed: 08/04/2022 11:37 AM Note Text: CC: Patient presents with: Hives: comes and goes x 4 days, itching. Pelvic cramping x 2 days Patient had extensive antibiotics treatment for diverticulitis in June. Still not completely healed from this and patient has a follow up colonoscopy scheduled. NIKHIL Sanchez is a 66 year old female who presents with complaint of possible UTI. These symptoms have been present for 2 days. Associated symptoms: pressure /crampy feeling Denies: burning, fever, chills, sweats, abdominal pain, and flank pain Treatments: nothing The ROS was otherwise negative. PMH, Medications, labs, allergies, and recent past visits with PCP were reviewed and updated as able. PHYSICAL EXAM: BP 102/64 Pulse 82 Temp 37.2 ?C (98.9 ?F) Resp 16 Wt 132 kg (291 lb) SpO2 97% BMI 46.97 kg/m? General: Well appearing and alert CV: Regular rate and rhythm without obvious murmur Lungs: clear to auscultation bilaterally Back: straight and symmetric Abdomen: soft, nontender, nondistended PAST MEDICAL HISTORY Diagnosis Date Abnormal mammogram 07/2020 Achilles tendon pain 04/29/2015 Ankle weakness 04/29/2015 Chronic pain of left ankle 05/21/2016 Colon abnormality 11/07/2013 Thickening of the ascending colon seen on the recent CT scan. Patient has had a colonoscopy around 4 years ago. Records were obtained for when they were done, [facility]. her colonoscopy was completely normal, no thickening, and the biopsy too was normal except for lymphoid aggregates. DJD (degenerative joint disease), ankle and foot 09/19/2015 DM (diabetes mellitus) (HCC) GERD (gastroesophageal reflux disease) Gross hematuria 10/19/20132013, had hematuria, investigated extensively along with cytoscopy, a stone was found but no signs of any malignancy. Heel pain, chronic 05/21/2016 Hepatic steatosis 03/09/2017 Hiatal hernia 03/09/2017 Hypertension Insomnia Kidney stone 10/19/2013 Morbid obesity (HCC) Nephrolithiasis Neuritis 07/18/2015 Renal lesion 10/19/2013 S/P Achilles tendon repair 04/29/2015 sx done PAST SURGICAL HISTORY Procedure Laterality Date BREAST LUMPECTOMY HX Right 2016 BX BREAST W/DEVICE 1ST LESION STEREOTACTIC GUID Right 07/12/2020 CHOLECYSTECTOMY 2010 gallbladder removal COLONOSCOPY 2010 CT ABDOMEN 10/09/2013 PAST SURGICAL HISTORY OF 01/10/2014 DANND hysteroscopy PAST SURGICAL HISTORY OF Left 02/01/2015 Left foot surgery S PK [facility] [id number] 03/22/2014 ALLERGIES Silvadene [Silver Sulfadiazine] and Sulfa (Sulfonamide Antibiotics) MEDICATIONS atenolol (TENORMIN) 50 mg tablet Take 1 tablet by mouth once daily. exemestane (AROMASIN) 25 mg tablet TAKE 1 TABLET BY MOUTH ONCE DAILY. chlorthalidone (HYGROTON) 25 mg tablet Take 0.5 tablets by mouth once daily. metFORMIN ER (GLUCOPHAGE XR) 500 mg 24 hr tablet Take 1 tablet by mouth daily with breakfast. glipiZIDE (GLUCOTROL XL) 2.5 mg 24 hr tablet Take 1 tablet by mouth once daily. blood sugar diagnostic (BLOOD GLUCOSE TEST) test strip Test blood sugars 2daily. Dx:ucnontrolled diabetes . Insulin: Yes ibuprofen (MOTRIN) 800 mg tablet Take 1 tablet by mouth every 8 hours as needed for pain. Take with food. lancets (ONE TOUCH DELICA) 33 gauge misc Test blood sugar(s) 2 daily. Dx: Type 2 DM - Controlled E11.9 Insulin: Yes Blood-Glucose Meter monitoring kit Glucose Meter of Choice - Kit - Dx: Type 2 DM - Uncontrolled E11.65 MV-MN/FOLIC ACID/CALCIUM/VIT K (ONE-A-DAY WOMEN'S 50 PLUS ORAL) Take 1 tablet by mouth once daily. fluconazole (DIFLUCAN) 150 mg tablet (Patient not taking: Reported on 07/14/2022) ciprofloxacin HCl (CIPRO) 500 mg tablet Take 1 tablet by mouth twice daily. metroNIDAZOLE (FLAGYL) 500 mg tablet Take 500 mg by mouth three times daily. TAKE ONE(2) TABLET TWO(2) TIMES DAILY FOR (1) DAY. potassium chloride 20 mEq TbER Take 1 tablet by mouth twice daily. ascorbic acid, vitamin C, (VITAMIN C) 500 mg tablet Take 500 mg by mouth once daily. FAMILY HISTORY Problem Relation Age of Onset Ovarian cancer Mother 39 Heart Father Hypertension Father Prostate Cancer Father 78 other (kidney stones) Brother Hypertension Brother Diabetes Brother Seizures Son Breast Cancer Other 55 Double first cousin (daughter of mother's sister and father's brother) Social History Tobacco Use Smoking status: Former Packs/day: 1.00 Years: 10.00 Pack years: 10.00 Types: Cigarettes Quit date: 10/19/2006 Years since quittin.8 Smokeless tobacco: Never Vaping Use Vaping Use: Never used Substance Use Topics Alcohol use: No Drug use: Not Currently Comment: marijuana for insomnia - currently not using ASSESSMENT/PLAN: 1. Pelvic cramping - ICD9: 625.9, ICD10: R10.2 - UA DIP, URINE (POC) (more content not included)... [facility] 08-04-2022 Nurse Note REVIEW OF SYSTEMS: General: The patient denies fatigue, denies weight loss, denies weight gain, denies feeling hot, and denies feelings of cold. Eyes: The patient denies glaucoma, denies eye injury/surgery, wears glasses or contacts. Ear/Nose/Throat: The patient NOTES allergies, denies hayfever, denies ear infections, and denies bloody noses. Cardiovascular: The patient denies chest pain, denies heart disease, NOTES high blood pressure,denies cardiac stent, denies prior heart attack, denies irregular heart beat, denies high cholesterol, denies poor circulation, denies heart failure, other cardiac issues, denies claudication, denies cold feet, denies peripheral arterial stent. Respiratory: The patient denies tuberculosis, denies pneumonia, denies frequent cough, denies pulmonary embolism, denies shortness of breath, and denies coughing up blood. Gastrointestinal: The patient denies difficulty swallowing, denies acid reflux, denies ulcers, denies vomiting, denies jaundice/hepatitis, NOTES gallbladder problems, denies black or tarry stools, denies hemorrhoids, denies bleeding from rectum, NOTES diverticulitis, denies constipation, denies diarrhea, denies loss of stool control, and denies hernias. Kidney/Bladder: The patient NOTES kidney stones, NOTES urine infections, and NOTES bloody urine. Skin: The patient denies a history of skin cancer, denies bleeding/changing moles, and NOTES a history of skin rash. Neurologic: The patient denies a history of epilepsy/convulsions, denies headaches, denies head/spinal injuries, and denies stroke/TIA. Psychiatric: The patient denies psychiatric medications, denies depression, and denies voices, denies substance abuse. Endocrine: The patient denies thyroid disorders, NOTES diabetes, and denies hormonal problems. Hematologic: The patient denies a history of bruising, denies bleeding, and denies anemia, denies blood clots. Infections: The patient denies a history of measles and mumps, denies rheumatic fever, and denies sexually transmitted diseases. Musculoskeletal: The patient denies back pain/injury, denies back problems, denies sciatica, NOTES knee/foot trouble, NOTES arthritis, or denies gout. When was patient's last Mammogram screening? 07/06/22 and 08/04/22 Last Colonoscopy: 09/22/2010 Ana Hunter RN documented in this encounter [facility] 08-04-2022 Note HNO ID: [id number] Author: Pia Jeronimo Service: ? Author Type: Telecommunications Consultant Type: Progress Notes Filed: 08/04/2022 10:44 AM Note Text: Radiology Service Progress Note PATIENT NAME: Donna Sanchez DATE OF SERVICE: August 04, 2022 TIME: 10:33 AM PATIENT IDENTITY VERIFICATION COMPLETED USING TWO (2) IDENTIFIERS: Name and Date of confirmed by patient verbally. FALL SCREENING: Has the patient had 2 falls in the last year or 1 fall with injury or currently using an Ambulatory Assistive Device (Walker, Cane, Wheelchair, Crutches, etc.)? No PATIENT GENDER DATA: Female. status: : No status: NO. PATIENT RELEVANT IMPLANT DATA REVIEWED: Not Applicable RADIOLOGY DEPARTMENT: Mammography PERIPHERAL IV DATA: Not applicable SIGNED BY: Pia Jeronimo August 04, 2022 10:33 AM [facility] 07-14-2022 Note HNO ID: [id number] Author: Remigio Garcia PA-C Service: ? Author Type: Physician Intramural Director Type: Progress Notes Filed: 07/14/2022 1:05 PM Note Text: [facility] NOTE SERVICE DATE: 07/14/2022 SERVICE TIME: 12:51 PM NAME: Donna Sanchez CHIEF COMPLAINT: Hematuria HISTORY OF PRESENT ILLNESS: Donna Sanchez is a 66 year old female presenting with 2 episodes of hematuria , she was found to have a UTI with E Coli and was given Cipro 500 mg The patient reports UTI improved, and has not seen blood in urine for more than a week. We discussed common causes of hematuria and reviewed tests She had CT and urine culture with E coli LUTS: DYSURIA: yes URGENCY: Yes FREQUENCY:5 per day NOCTURIA: 0 per night STRAINING TO VOID: No EMPTIES COMPLETELY: Yes UTI: 1 past 12 months GROSS HEMATURIA: yes UA DIPSTICK POSITIVE ONLY: yes Other symptoms: LABS: No results found for: TESTOST No results found for: TESTFREE No results found for: PSA Hematocrit (%) Date Value 07/06/2022 45.0 06/18/2022 42.6 03/02/2022 44.1 07/03/2021 45.9 12/30/2020 43.1 12/20/2019 44.4 No results found for: PSA Creatinine Date Value Ref Range Status 07/06/2022 0.84 0.58 - 0.96 mg/dL Final 06/18/2022 0.72 0.58 - 0.96 mg/dL Final 05/13/2022 0.70 0.58 - 0.96 mg/dL Final 04/20/2022 0.74 0.58 - 0.96 mg/dL Final MEDICATIONS: ciprofloxacin HCl (CIPRO) 500 mg tablet Take 1 tablet by mouth twice daily. metroNIDAZOLE (FLAGYL) 500 mg tablet Take 500 mg by mouth three times daily. TAKE ONE(2) TABLET TWO(2) TIMES DAILY FOR (1) DAY. potassium chloride 20 mEq TbER Take 1 tablet by mouth twice daily. atenolol (TENORMIN) 50 mg tablet Take 1 tablet by mouth once daily. exemestane (AROMASIN) 25 mg tablet TAKE 1 TABLET BY MOUTH ONCE DAILY. chlorthalidone (HYGROTON) 25 mg tablet Take 0.5 tablets by mouth once daily. metFORMIN ER (GLUCOPHAGE XR) 500 mg 24 hr tablet Take 1 tablet by mouth daily with breakfast. glipiZIDE (GLUCOTROL XL) 2.5 mg 24 hr tablet Take 1 tablet by mouth once daily. blood sugar diagnostic (BLOOD GLUCOSE TEST) test strip Test blood sugars 2daily. Dx:ucnontrolled diabetes . Insulin: Yes ibuprofen (MOTRIN) 800 mg tablet Take 1 tablet by mouth every 8 hours as needed for pain. Take with food. lancets (ONE TOUCH DELICA) 33 gauge [place] [facility] Test blood sugar(s) 2 daily. Dx: Type 2 DM - Controlled E11.9 Insulin: Yes Blood-Glucose Meter monitoring kit Glucose Meter of Choice - Kit - Dx: Type 2 DM - Uncontrolled E11.65 MV-MN/FOLIC ACID/CALCIUM/VIT K (ONE-A-DAY WOMEN'S 50 PLUS ORAL) Take 1 tablet by mouth once daily. fluconazole (DIFLUCAN) 150 mg tablet (Patient not taking: Reported on 07/14/2022) ascorbic acid, vitamin C, (VITAMIN C) 500 mg tablet Take 500 mg by mouth once daily. PAST MEDICAL HISTORY: PAST MEDICAL HISTORY Diagnosis Date Abnormal mammogram 07/2020 Achilles tendon pain 04/29/2015 Ankle weakness 04/29/2015 Chronic pain of left ankle 05/21/2016 Colon abnormality 11/07/2013 Thickening of the ascending colon seen on the recent CT scan. Patient has had a colonoscopy around 4 years ago. Records were obtained for [facility] her colonoscopy was completely normal, no thickening, and the biopsy too was normal except for lymphoid aggregates. DJD (degenerative joint disease), ankle and foot 09/19/2015 DM (diabetes mellitus) (HCC) GERD (gastroesophageal reflux disease) Gross hematuria 10/19/20132013, had hematuria, investigated extensively along with cytoscopy, a stone was found but no signs of any malignancy. Heel pain, chronic 05/21/2016 Hepatic steatosis 03/09/2017 Hiatal hernia 03/09/2017 Hypertension Insomnia Kidney stone 10/19/2013 Morbid obesity (HCC) Nephrolithiasis Neuritis 07/18/2015 Renal lesion 10/19/2013 S/P Achilles tendon repair 04/29/2015 sx done PAST SURGICAL HISTORY: PAST SURGICAL HISTORY Procedure Laterality Date BREAST LUMPECTOMY HX Right 2017 BX BREAST W/DEVICE 1ST LESION STEREOTACTIC GUID Right 07/12/2020 CHOLECYSTECTOMY 2010 gallbladder removal COLONOSCOPY [address] ABDOMEN 10/09/2013 PAST SURGICAL HISTORY OF 01/10/2014 [facility] hysteroscopy PAST SURGICAL HISTORY OF Left 02/01/2015 Left foot surgery S PK LAVH [id number] 03/22/2014 FAMILY HISTORY: FAMILY HISTORY Problem Relation Age of Onset Ovarian cancer Mother 39 Heart Father Hypertension Father Prostate Cancer Father 78 other (kidney stones) Brother Hypertension Brother Diabetes Brother Seizures Son Breast Cancer Other 55 Double first cousin (daughter of mother's sister and father's brother) SOCIAL HISTORY: Social Connections: Socially Isolated Frequency of Communication with Friends and Family: More than three times a week Frequency of Social Gatherings with Friends and Family: On (more content not included)... [facility] 07-14-2022 Note HNO ID: [id number] Author: Princess Bautista LPN Service: ? Author Type: ? Type: Progress Notes Filed: 07/14/2022 1:05 PM Note Text: Verified name and date of . CC Post Void Residual HPI: Donna Sanchez is a 66 year old female. The patient is here now for an appointment with Remigio Garcia, FRIEDA, XIOMY, PA-BROCK. Procedure: Explained procedure to patient and verbalizes understanding. Performed a PVR. Patient urinated and instructed to empty bladder as much as possible just prior to having PVR done using bladder ultrasound scanner. Results of scan: 0 mL The patient tolerated the procedure well. Plan: Appointment with Remigio. [facility] 07-14-2022 History of Present illness Narrative Images from the original note were not included. [facility] NEW PATIENT CLINIC NOTE SERVICE DATE: 07/14/2022 SERVICE TIME: 12:51 PM NAME: Donna Sanchez CHIEF COMPLAINT: Hematuria HISTORY OF PRESENT ILLNESS: Donna Sanchez is a 66 year old female presenting with 2 episodes of hematuria , she was found to have a UTI with E Coli and was given Cipro 500 mg The patient reports UTI improved, and has not seen blood in urine for more than a week. We discussed common causes of hematuria and reviewed tests She had CT and urine culture with E coli LUTS: DYSURIA: yes URGENCY: Yes FREQUENCY:5 per day NOCTURIA: 0 per night STRAINING TO VOID: No EMPTIES COMPLETELY: Yes UTI: 1 past 12 months GROSS HEMATURIA: yes UA DIPSTICK POSITIVE ONLY: yes Other symptoms: LABS: No results found for: TESTOST No results found for: TESTFREE No results found for: PSA Hematocrit (%) Date Value 07/06/2022 45.0 06/18/2022 42.6 03/02/2022 44.1 07/03/2021 45.9 12/30/2020 43.1 12/20/2019 44.4 No results found for: PSA Creatinine Date Value Ref Range Status 07/06/2022 0.84 0.58 - 0.96 mg/dL Final 06/18/2022 0.72 0.58 - 0.96 mg/dL Final 05/13/2022 0.70 0.58 - 0.96 mg/dL Final 04/20/2022 0.74 0.58 - 0.96 mg/dL Final MEDICATIONS: ciprofloxacin HCl (CIPRO) 500 mg tablet Take 1 tablet by mouth twice daily. metroNIDAZOLE (FLAGYL) 500 mg tablet Take 500 mg by mouth three times daily. TAKE ONE(2) TABLET TWO(2) TIMES DAILY FOR (1) DAY. potassium chloride 20 mEq TbER Take 1 tablet by mouth twice daily. atenolol (TENORMIN) 50 mg tablet Take 1 tablet by mouth once daily. exemestane (AROMASIN) 25 mg tablet TAKE 1 TABLET BY MOUTH ONCE DAILY. chlorthalidone (HYGROTON) 25 mg tablet Take 0.5 tablets by mouth once daily. metFORMIN ER (GLUCOPHAGE XR) 500 mg 24 hr tablet Take 1 tablet by mouth daily with breakfast. glipiZIDE (GLUCOTROL XL) 2.5 mg 24 hr tablet Take 1 tablet by mouth once daily. blood sugar diagnostic (BLOOD GLUCOSE TEST) test strip Test blood sugars 2daily. Dx:ucnontrolled diabetes . Insulin: Yes ibuprofen (MOTRIN) 800 mg tablet Take 1 tablet by mouth every 8 hours as needed for pain. Take with food. lancets (ONE TOUCH DELICA) 33 gauge misc Test blood sugar(s) 2 daily. Dx: Type 2 DM - Controlled E11.9 Insulin: Yes Blood-Glucose Meter monitoring kit Glucose Meter of Choice - Kit - Dx: Type 2 DM - Uncontrolled E11.65 MV-MN/FOLIC ACID/CALCIUM/VIT K (ONE-A-DAY WOMEN'S 50 PLUS ORAL) Take 1 tablet by mouth once daily. fluconazole (DIFLUCAN) 150 mg tablet (Patient not taking: Reported on 07/14/2022) ascorbic acid, vitamin C, (VITAMIN C) 500 mg tablet Take 500 mg by mouth once daily. PAST MEDICAL HISTORY: PAST MEDICAL HISTORY Diagnosis Date Abnormal mammogram 07/2020 Achilles tendon pain 04/29/2015 Ankle weakness 04/29/2015 Chronic pain of left ankle 05/21/2016 Colon abnormality 11/07/2013 Thickening of the ascending colon seen on the recent CT scan. Patient has had a colonoscopy around 4 years ago. Records were obtained for when they were done, [facility]. her colonoscopy was completely normal, no thickening, and the biopsy too was normal except for lymphoid aggregates. DJD (degenerative joint disease), ankle and foot 09/19/2015 DM (diabetes mellitus) (HCC) GERD (gastroesophageal reflux disease) Gross hematuria 10/19/20132013, had hematuria, investigated extensively along with cytoscopy, a stone was found but no signs of any malignancy. Heel pain, chronic 05/21/2016 Hepatic steatosis 03/09/2017 Hiatal hernia 03/09/2017 Hypertension Insomnia Kidney stone 10/19/2013 Morbid obesity (HCC) Nephrolithiasis Neuritis 07/18/2015 Renal lesion 10/19/2013 S/P Achilles tendon repair 04/29/2015 sx done PAST SURGICAL HISTORY: PAST SURGICAL HISTORY Procedure Laterality Date BREAST LUMPECTOMY HX Right 2016 BX BREAST W/DEVICE 1ST LESION STEREOTACTIC GUID Right 07/12/2020 CHOLECYSTECTOMY 2010 gallbladder removal COLONOSCOPY 2010 CT ABDOMEN 10/09/2013 PAST SURGICAL HISTORY OF 01/10/2014 [facility] hysteroscopy PAST SURGICAL HISTORY OF Left 02/01/2015 Left foot surgery S PK LAVH [id number] 03/22/2014 FAMILY HISTORY: FAMILY HISTORY Problem Relation Age of Onset Ovarian cancer Mother 39 Heart Father Hypertension Father Prostate Cancer Father 78 other (kidney stones) Brother Hypertension Brother Diabetes Brother Seizures Son Breast Cancer Other 55 Double first cousin (daughter of mother's sister and father's brother) SOCIAL HISTORY: Social Connections: Socially Isolated Frequency of Communication with Friends and Family: More than three times a week Frequency of Social Gatherings with Friends and Family: Once a week Attends [employer] Services: Never Active Member of Clubs or Organizations: No Attends Club or Organization Meetings: Never Marital Status: REVIEW OF SYSTEMS: GENERAL: No fever, chills, weight loss, or fatigue. ENMT: Negative CARDIOVASCULAR:NO CHEST PAIN, PALPITATIONS, ANKLE EDEMA RESPIRATORY: No chronic cough, wheezing, dyspnea, hemoptysis. GENITOURINARY: SEE HPI MUSCULOSKELETAL:NO CHRONIC BACK PAIN, ARTHRITIS, CHRONIC NECK PAIN SKIN: NO VARICOSE VEINS, RASH, ABNORMAL ITCHING HEME/LYMPH/IMMUNE:Negative for prolonged bleeding, bruising easily or swollen nodes NEUROLOGICAL: NO HEADACHES, NUMBNESS, SEIZURES, STROKE DIABETES: Yes All other systems reviewed and are negative PHYSICAL EXAMINATION: Blood pressure 110/80, pulse 86, temperature 36.5 C (97.7 F), temperature source Temporal, height 167.6 cm (5' 6 ), weight 132.5 kg (292 lb), SpO2 98 %. GENERAL: WNL nutrition, no deformities, healthy appearing NEURO: Awake, alert and oriented x 3 and Normal gait PSYCH: No signs of depression, anxiety, or agitation ENMT (Ear, Nose, Mouth, Throat): No masses, adenopathy, icterus. Thyroid nonpalpable RESP: NL effort, no retractions or purse-lip breathing. CV: No extremity swelling, varices, edema, pallor, erythema GASTROINTESTINAL: Soft, nontender, nondistended, no masses. HERNIAS: None SKIN: No rash, lesions No palpable lymphadenopathy MUSCULOSKELETAL: Extremities normal. No deformities, edema, clubbing or skin discoloration. PROBLEM LIST REVIEW: Yes LABS: Results for orders placed or performed in visit on 07/14/22 UA DIP, URINE (POC) Result Value Ref Range GLUCOSE UA (POCT) Negative Negative mg/dL BILIRUBIN UA (POCT) Negative Negative KETONE UA (POCT) Negative Negative mg/dL SPECIFIC GRAVITY UA (POCT) 1.020 1.005 - 1.030 HEMOGLOBIN/BLOOD UA (POCT) Small (A) Negative PH UA (POCT) 7.0 4.5 - 8.0 PROTEIN UA (POCT) 30 (A) Negative mg/dL UROBILINOGEN UA (POCT) 0.2 Normal E.U./dL NITRITE UA (POCT) Negative Negative LEUKOCYTES UA (POCT) Large (A) Negative COLOR UA (POCT) Yellow CLARITY UA (POCT) Clear Urine Culture: Pending PROCEDURES: PVR: 0 ml IMAGING: CT Urogram - Scanned into [facility] > Normal Kidney and bladder IMPRESSION/PLAN: 66 year old female with 1. Gross hematuria - ICD9: 599.71, ICD10: R31.0 > Urine culture today > Finish Cipro and Flagyl I spent a total of 30 minutes on the date of the service which included preparing to see the patient, face to face patient care, completing clinical documentation, obtaining and/or reviewing separately obtained history, performing a medically appropriate examination, counseling and educating the patient/family/caregiver, ordering medications, tests, or procedures, and care coordination. FRIEDA Purdy MT, PA-C Verified name and date of . CC Post Void Residual HPI: Donna Sanchez is a 66 year old female. The patient is here now for an appointment with Remigio E. Garcia, MPAS, MT, PA-COV. Procedure: Explained procedure to patient and verbalizes understanding. Performed a PVR. Patient urinated and instructed to empty bladder as much as possible just prior to having PVR done using bladder ultrasound scanner. Results of scan: 0 mL The patient tolerated the procedure well. Plan: Appointment with Remigio. documented in this encounter [facility] 07-09-2022 Miscellaneous Notes Called pt and warmed transferred her as directed by scheduling tree to [phone] PSS- please reach out to schedule with urology at [place] and notify patient. Francisca Lipscomb LPN Addended by: KALIA TABOR on: 07/09/2022 01:18 PM Modules accepted: Orders Any of the urologists at [place]. Kalia Tabor DO Dr. Cerna's office called to say they do not accept patient's insurance (Medicaid). Who would you like patient referred to instead? Francisca Lipscomb LPN Patient is aware of all information and verbalized understanding. Referral faxed to Dr. Cerna's office asking them to reach out to patient to schedule. Francisca Lipscomb LPN Let her know that I reviewed her hospital records. As I discussed during the OV I recommend urology evaluation for the gross hematuria she had. Please make a referral to Dr. Cerna at [facility]. Can let her know I talked with Dr. Menard who concurs. Keep appointment with Dr. Menard as well. Kalia Tabor DO documented in this encounter [facility] 07-09-2022 Note HNO ID: [id number] Author: Kalia Tabor DO Service: ? Author Type: Physician Type: Progress Notes Filed: 07/09/2022 11:10 AM Note Text: Per Dr. Ty's most recent OV note. Personally reviewed and updated by me.DIAGNOSIS: Breast cancer HPI: The patient is a 66 year-old female with history of hypertension and borderline diabetes/insulin resistant, obesity, who presented with an abnormal breast exam at her PCP office. Subsequent diagnostic mammogram revealing a lobulated lesion in the right breast at the lower outer quadrant highly suspicious of malignancy. Patient had a mammotome breast biopsy on 08/31/16 that showed invasive ductal carcinoma, positive for estrogen and progesterone receptors, equivocal for overexpression HER-2/margie. She had surgery by Dr. Orellana, right breast lumpectomy and right axillary sentinel lymph node biopsy on 09/15/16 for right breast cancer. Stage IA- pT1c pN0 (3/3 sentinel lymph nodes negative for metastatic disease) Tumor size 1.5 cm x 1 x 0.9 cm Overall grade 2 out of 7 Margins - 0.4 cm from posterior margin ER/LA >95%, [id number] not amplified by FISH Lymph/vasc invasion - none; derm/vasc/lymph invasion - none Menstrual history: Menarche at age 15, first at age 22, 8 ; surgical menopause-total abdominal hysterectomy age 58. No estrogen replacement therapy. Family history: Mother of ovarian cancer in her 40's. No family history of breast cancer. She was initially started on anastrozole, then subsequent switch to Aromasin because of joint pain. Current treatment: 1) Aromasin 25 mg once daily Interim history: Tolerating Aromasin well. Occasional ache in hands. Arthritis pain chronic both knees. Currently on antibiotics for diverticulitis and UTI. Went to ED with gross hematuria with clots. Was also having pain LLQ. Wasn't clearly having dysuria. Had no fever. CT of the abdomen pelvis on 06/28/2022 demonstrated numerous diverticula projecting from the descending and sigmoid colon. Along the segment of the colon extending from the distal descending through the mid to distal sigmoid showed mild to moderate mural thickening with extensive pericolonic stranding. There is a broad band of soft tissue density containing air bubbles extending anteriorly and inferiorly from the proximal sigmoid colon indicating microperforation. No fluid collection was observed. Urinary bladder was noted to tilt toward the soft tissue density but no air bubbles were observed within the bladder to indicate fistula. However the bladder was noted to be nearly empty and the bladder wall was thickened with perivesicular stranding which was attributed to either cystitis and/or reactive edema from adjacent sigmoid inflammation. Urine culture demonstrated 11-25,000 CFU's presumptive E. coli. 2 sets of blood cultures drawn 06/28 remain negative through 5 days. Gross hematuria resolved and pain subsided. PMH, medications and allergies personally reviewed by me today. Any changes documented in appropriate section. ROS: Constitutional: Denies episodes of fever and night sweats. Neuro: Denies BENJAMIN, vertigo, dizziness and imbalance. Denies symptoms of neuropathy. HEENT: No recent change in voice, vision or hearing. Resp: Denies cough, wheeze and hemoptysis. Denies shortness of breath at rest. Denies CASTANEDA. CVS: Denies exertional chest pain, PND, orthopnea and LE edema. GI: Denies dysgeusia. Denies symptoms of stomatitis. Denies dysphagia and odynophagia. Some nausea due to antibiotics. : See above. Endo: Denies hot flashes. Denies polyuria and polydipsia. Denies heat and cold intolerance. Musculoskeletal: See above. Derm: Denies rash. Denies jaundice and diffuse pruritis. Heme: Denies unusual bleeding and unexplained bruising. Psych: Normal mood. PHYSICAL EXAM: Vitals: Blood pressure 115/70, pulse 81, temperature 36.8 ?C (98.2 ?F), height 167 cm (5' 5.75 ), weight 132.2 kg (291 lb 8 oz), SpO2 98 %. Well-appearing and in no acute distress. EYES: Sclerae are anicteric bilaterally. LYMPHATIC: There is no palpable cervical, supraclavicular or axillary adenopathy. RESPIRATORY: Inspiratory breath sounds are of normal intensity in all joiner. No rales, wheezes or rhonchi. CARDIOVASCULAR: Rhythm is regular. 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 There is some contraction of the right breast secondary to radiation. In the lower inner quadrant there is chronic swelling/edema of the skin. No discrete nodule appreciated in the breast tissue itself although palpatory exam is difficult secondary to radiation changes. Left breast no concerning mass or nodule. ABDOMEN: The abdomen is nondistended. Extremities: No swelling or edema. SKIN: No jaundice or rash. No petechiae. NEUROLOGIC: cannon fire direction specialist II-XII are grossly intact. LABS: Component Latest Ref Rng AND Units 07/06/2022 WBC 3.70 - 11.00 k/uL 11.42 (H) RBC 3.90 - 5.20 m/uL 5.56 (H) Hemoglobin 11.5 - 15. (more content not included)... [facility] 07-09-2022 History of Present illness Narrative Per Dr. Ty's most recent OV note. Personally reviewed and updated by me.DIAGNOSIS: Breast cancer HPI: The patient is a 66 year-old female with history of hypertension and borderline diabetes/insulin resistant, obesity, who presented with an abnormal breast exam at her PCP office. Subsequent diagnostic mammogram revealing a lobulated lesion in the right breast at the lower outer quadrant highly suspicious of malignancy. Patient had a mammotome breast biopsy on 08/31/16 that showed invasive ductal carcinoma, positive for estrogen and progesterone receptors, equivocal for overexpression HER-2/margie. She had surgery by Dr. Orellana, right breast lumpectomy and right axillary sentinel lymph node biopsy on 09/15/16 for right breast cancer. Stage IA- pT1c pN0 (3/3 sentinel lymph nodes negative for metastatic disease) Tumor size 1.5 cm x 1 x 0.9 cm Overall grade 2 out of 7 Margins - 0.4 cm from posterior margin ER/LA >95%, [id number] not amplified by FISH Lymph/vasc invasion - none; derm/vasc/lymph invasion - none Menstrual history: Menarche at age 15, first at age 22, 8 ; surgical menopause-total abdominal hysterectomy age 58. No estrogen replacement therapy. Family history: Mother of ovarian cancer in her 40's. No family history of breast cancer. She was initially started on anastrozole, then subsequent switch to Aromasin because of joint pain. Current treatment: 1) Aromasin 25 mg once daily Interim history: Tolerating Aromasin well. Occasional ache in hands. Arthritis pain chronic both knees. Currently on antibiotics for diverticulitis and UTI. Went to ED with gross hematuria with clots. Was also having pain LLQ. Wasn't clearly having dysuria. Had no fever. CT of the abdomen pelvis on 06/28/2022 demonstrated numerous diverticula projecting from the descending and sigmoid colon. Along the segment of the colon extending from the distal descending through the mid to distal sigmoid showed mild to moderate mural thickening with extensive pericolonic stranding. There is a broad band of soft tissue density containing air bubbles extending anteriorly and inferiorly from the proximal sigmoid colon indicating microperforation. No fluid collection was observed. Urinary bladder was noted to tilt toward the soft tissue density but no air bubbles were observed within the bladder to indicate fistula. However the bladder was noted to be nearly empty and the bladder wall was thickened with perivesicular stranding which was attributed to either cystitis and/or reactive edema from adjacent sigmoid inflammation. Urine culture demonstrated 11-25,000 CFU's presumptive E. coli. 2 sets of blood cultures drawn 06/28 remain negative through 5 days. Gross hematuria resolved and pain subsided. PMH, medications and allergies personally reviewed by me today. Any changes documented in appropriate section. ROS: Constitutional: Denies episodes of fever and night sweats. Neuro: Denies BENJAMIN, vertigo, dizziness and imbalance. Denies symptoms of neuropathy. HEENT: No recent change in voice, vision or hearing. Resp: Denies cough, wheeze and hemoptysis. Denies shortness of breath at rest. Denies CASTANEDA. CVS: Denies exertional chest pain, PND, orthopnea and LE edema. GI: Denies dysgeusia. Denies symptoms of stomatitis. Denies dysphagia and odynophagia. Some nausea due to antibiotics. : See above. Endo: Denies hot flashes. Denies polyuria and polydipsia. Denies heat and cold intolerance. Musculoskeletal: See above. Derm: Denies rash. Denies jaundice and diffuse pruritis. Heme: Denies unusual bleeding and unexplained bruising. Psych: Normal mood. PHYSICAL EXAM: Vitals: Blood pressure 115/70, pulse 81, temperature 36.8 C (98.2 F), height 167 cm (5' 5.75 ), weight 132.2 kg (291 lb 8 oz), SpO2 98 %. Well-appearing and in no acute distress. EYES: Sclerae are anicteric bilaterally. LYMPHATIC: There is no palpable cervical, supraclavicular or axillary adenopathy. RESPIRATORY: Inspiratory breath sounds are of normal intensity in all joiner. No rales, wheezes or rhonchi. CARDIOVASCULAR: Rhythm is regular. 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 There is some contraction of the right breast secondary to radiation. In the lower inner quadrant there is chronic swelling/edema of the skin. No discrete nodule appreciated in the breast tissue itself although palpatory exam is difficult secondary to radiation changes. Left breast no concerning mass or nodule. ABDOMEN: The abdomen is nondistended. Extremities: No swelling or edema. SKIN: No jaundice or rash. No petechiae. NEUROLOGIC: cannon fire direction specialist II-XII are grossly intact. LABS: Component Latest Ref Rng & Units 07/06/2022 WBC 3.70 - 11.00 k/uL 11.42 (H) RBC 3.90 - 5.20 m/uL 5.56 (H) Hemoglobin 11.5 - 15.5 g/dL 14.7 Hematocrit 36.0 - 46.0 % 45.0 MCV 80.0 - 100.0 fL 80.9 MCH 26.0 - 34.0 pg 26.4 MCHC 30.5 - 36.0 g/dL 32.7 RDW-CV 11.5 - 15.0 % 17.6 (H) Platelet Count 150 - 400 k/uL 531 (H) MPV 9.0 - 12.7 fL 8.9 (L) Neut% % 71.6 Abs Neut (ANC) 1.45 - 7.50 k/uL 8.17 (H) Lymph% % 17.4 Abs Lymph 1.00 - 4.00 k/uL 1.99 Oneida% % 6.1 Abs [place] <0.87 k/uL 0.70 Eosin% % 3.4 Abs Eosin <0.46 k/uL 0.39 Baso% % 0.5 Abs Baso <0.11 k/uL 0.06 Immature Gran % % 1.0 IMMATURE GRANS (ABS) <0.10 k/uL 0.11 (H) NRBC /100 WBC 0.0 Absolute nRBC <0.01 k/uL <0.01 DTYPE Auto Protein, Total 6.3 - 8.0 g/dL 7.3 Albumin 3.9 - 4.9 g/dL 3.7 (L) Calcium 8.5 - 10.2 mg/dL 9.5 Bilirubin, Total 0.2 - 1.3 mg/dL 0.3 Alkaline Phosphatase 34 - 123 U/L 70 AST 13 - 35 U/L 40 (H) ALT 7 - 38 U/L 47 (H) Glucose 74 - 99 mg/dL 225 (H) BUN 7 - 21 mg/dL 9 Creatinine 0.58 - 0.96 mg/dL 0.84 Sodium 136 - 144 mmol/L 137 Potassium 3.7 - 5.1 mmol/L 3.9 Chloride 97 - 105 mmol/L 101 CO2 22 - 30 mmol/L 25 Anion Gap 9 - 18 mmol/L 11 eGFR >=60 mL/min/1.73m 78 ASSESSMENT/PLAN: (C50.511, Z17.0) Malignant neoplasm of lower-outer quadrant of right breast of female, estrogen receptor positive (HCC) (primary encounter diagnosis) (R92.8) Abnormal mammogram Assessment: -pT1c pN0 (3/3 sentinel lymph nodes negative for metastatic disease) stage IA infiltrating ductal carcinoma the right breast. ER/LA >95%, [id number] non-amplified by FISH. -Has been on exemestane -Reviewed mammogram. New calcifications lower inner quadrant right breast. -Discussed with Dr. Menard. Plan: -Continue exemestane for now. -Diagnostic mammogram right breast with ultrasound. -Further plan pending those results. (R31.0) Gross hematuria Assessment: -She had painless gross hematuria with passing of clots on presentation to the ED. UA demonstrated low-level E. coli. She is a former smoker. I discussed and recommended urology evaluation for opinion on cystoscopy. Plan: -Referral to Dr. Cerna. Portions of this documentation were copied and pasted from previous office visit notes in order to provide a cohesive continuity of the history. The note has been reviewed and edited and updated as necessary. I spent a total of 50 minutes on the date of the service which included preparing to see the patient, [id number] patient care, completing clinical documentation, obtaining and/or reviewing separately obtained history, performing a medically appropriate examination, counseling and educating the patient/family/caregiver, ordering medications, tests, or procedures, communicating with other HCPs (not separately reported), independently interpreting results (not separately reported), communicating results to the patient/family/caregiver, and care coordination (not separately reported). Kalia Tabor DO Cc: Yuli Taylor MD documented in this encounter [facility] 07-07-2022 Miscellaneous Notes July 08, 2022 PID: [id number] Donna Sanchez [address] [place] [address] Dear Ms. Sanchez, Your recent breast imaging exam on 07/06/2022 showed a possible finding that requires additional imaging studies for a complete evaluation. Most such findings are probably benign (not cancer). If you have a healthcare provider who ordered/prescribed your screening mammogram: Please call [phone] or [phone]: [phone] to schedule an appointment for your additional imaging (if you have not already done so). If you DO NOT have a healthcare provider (ie you did not have an order/prescription for your screening mammogram): Please call to schedule an appointment for your additional imaging (if you have not already done so). You must have an order/prescription from your physician when calling to schedule your appointment. If your order/prescription is not electronic, you must bring the hard copy with you on the day of your exam to avoid delays. Your imaging studies and reports are kept on file at [facility] as part of your permanent medical record, and are available for your continuing care. Thank you for allowing us to help in meeting your health care needs. Sincerely, Dr. Kennedy Interpreting Radiologist [facility] (Additional imaging) documented in this encounter [facility] 07-06-2022 Note HNO ID: [id number] Author: RT Eloy(R) Service: ? Author Type: Technologist Type: Progress Notes Filed: 07/06/2022 10:48 AM Note Text: Radiology Service Progress Note PATIENT NAME: Donna Sanchez DATE OF SERVICE: July 06, 2022 TIME: 10:48 AM PATIENT IDENTITY VERIFICATION COMPLETED USING TWO (2) IDENTIFIERS: Name and Date of confirmed by patient verbally. FALL SCREENING: Has the patient had 2 falls in the last year or 1 fall with injury or currently using an Ambulatory Assistive Device (Walker, Cane, Wheelchair, Crutches, etc.)? No PATIENT GENDER DATA: Female. status: : No status: NO. PATIENT RELEVANT IMPLANT DATA REVIEWED: Not Applicable RADIOLOGY DEPARTMENT: Mammography PERIPHERAL IV DATA: Not applicable SIGNED BY: RT Eloy(R) July 06, 2022 10:48 AM [facility] 07-06-2022 History of Present illness Narrative Radiology Service Progress Note PATIENT NAME: Donna Sanchez DATE OF SERVICE: July 06, 2022 TIME: 10:48 AM PATIENT IDENTITY VERIFICATION COMPLETED USING TWO (2) IDENTIFIERS: Name and Date of confirmed by patient verbally. FALL SCREENING: Has the patient had 2 falls in the last year or 1 fall with injury or currently using an Ambulatory Assistive Device (Walker, Cane, Wheelchair, Crutches, etc.)? No PATIENT GENDER DATA: Female. status: : No status: NO. PATIENT RELEVANT IMPLANT DATA REVIEWED: Not Applicable RADIOLOGY DEPARTMENT: Mammography PERIPHERAL IV DATA: Not applicable SIGNED BY: RT Eloy(R) July 06, 2022 10:48 AM documented in this encounter [facility] 07-03-2022 Note HNO ID: [id number] Author: Yuli Taylor MD Service: ? Author Type: Physician Type: Progress Notes Filed: 07/03/2022 5:52 PM Note Text: Reason for Visit Patient presents with: Same Day Appointment: right upper thigh bump size of pea Donna Sanchez is a 66 year old female who presents here today for Above Complaints. Health Maintenance COVID-19 VACCINE(1) PNEUMOCOCCAL(1 - PCV) HIV SCREENING SHINGRIX VACCINE(1 of 2) PAP TESTING HPV TESTING COLORECTAL CANCER SCREENING DILATED RETINAL EXAM DEPRESSION ASSESSMENT MAMMOGRAM URINE ALBUMIN:CREATININE RATIO HPI Being treated for diverticulitis currently with cipro and flagyl. She has been to the emergency room, they had her on IV abx and On clear liquids, 2 ct scans were done. Was there for 3 days, there they noted it to be subacute and discussed surgery for her. She has a follow up with surgeon.. since taking abx her sugars are on the lower side.She has not taken metformin and her sugar was a little on the lower side. Still on the glipizide. Patient is eating different, but not eating lesser than normal. She is eating soft foods. Patient has intentional weight loss. She was not eating all that much. She feels bloated and gassy with medications. Patient does have a follow up appointment. Has developed fungal infection She is here today also for a bump on the upper thigh, It is actually in the lower thing and very superficial , around 0.8 cms and hard like a cyst, she was concerned about dvt but we reassure her that it is not likely to be from dvt. No problem-specific Assessment AND Plan notes found for this encounter. PAST MEDICAL HISTORY Diagnosis Date Abnormal mammogram 07/2020 Achilles tendon pain 04/29/2015 Ankle weakness 04/29/2015 Chronic pain of left ankle 05/21/2016 Colon abnormality 11/07/2013 Thickening of the ascending colon seen on the recent CT scan. Patient has had a colonoscopy around 4 years ago. Records were obtained for when [facility] were [facility] her colonoscopy was completely normal, no thickening, and the biopsy too was normal except for lymphoid aggregates. DJD (degenerative joint disease), ankle and foot 09/19/2015 DM (diabetes mellitus) (HCC) GERD (gastroesophageal reflux disease) Gross hematuria 10/19/20132013, had hematuria, investigated extensively along with cytoscopy, a stone was found but no signs of any malignancy. Heel pain, chronic 05/21/2016 Hepatic steatosis 03/09/2017 Hiatal hernia 03/09/2017 Hypertension Insomnia Kidney stone 10/19/2013 Morbid obesity (HCC) Nephrolithiasis Neuritis 07/18/2015 Renal lesion 10/19/2013 S/P Achilles tendon repair 04/29/2015 sx done PAST SURGICAL HISTORY Procedure Laterality Date BREAST LUMPECTOMY HX Right 2017 BX BREAST W/DEVICE 1ST LESION STEREOTACTIC GUID Right 07/12/2020 CHOLECYSTECTOMY 2010 gallbladder removal COLONOSCOPY 2010 CT ABDOMEN 10/09/2013 PAST SURGICAL HISTORY OF 01/10/2014 [facility] hysteroscopy PAST SURGICAL HISTORY OF Left 02/01/2015 Left foot surgery S PK [facility] [id number] 03/22/2014 FAMILY HISTORY Problem Relation Age of Onset Ovarian cancer Mother 39 Heart Father Hypertension Father Prostate Cancer Father 78 other (kidney stones) Brother Hypertension Brother Diabetes Brother Seizures Son Breast Cancer Other 55 Double first cousin (daughter of mother's sister and father's brother) Social History Tobacco Use Smoking status: Former Packs/day: 1.00 Years: 10.00 Pack years: 10.00 Types: Cigarettes Quit date: 10/19/2006 Years since quittin.7 Smokeless tobacco: Never Substance Use Topics Alcohol use: No Drug use: Yes Comment: marijuana for insomnia - currently not using Past medical history, appointments, medications, allergies reviewed. Pertinent Lab/Diagnostic Studies are reviewed and discussed today Current Outpatient Medications: potassium chloride 20 mEq TbER atenolol (TENORMIN) 50 mg tablet exemestane (AROMASIN) 25 mg tablet benzonatate (TESSALON PERLES) 100 mg capsule albuterol HFA (PROAIR HFA) 90 mcg/actuation inhaler chlorthalidone (HYGROTON) 25 mg tablet metFORMIN ER (GLUCOPHAGE XR) 500 mg 24 hr tablet glipiZIDE (GLUCOTROL XL) 2.5 mg 24 hr tablet blood sugar diagnostic (BLOOD GLUCOSE TEST) test strip ibuprofen (MOTRIN) 800 mg tablet ascorbic acid, vitamin C, (VITAMIN C) 500 mg tablet lancets (ONE TOUCH DELICA) [address] [facility] Blood-Glucose Meter monitoring kit MV-MN/FOLIC ACID/CALCIUM/VIT K (ONE-A-DAY WOMEN'S 50 PLUS ORAL) Review of Systems CONSTITUTIONAL: No fevers, chills night sweats, unintended weight loss CARDIOVASCULAR: No chest pain, dyspnea, palpitations, orthopnea, PND, ankle edema. PULM: No dyspnea, unexplained cough. GI: No dysphagia/odynophagia, problematic reflux, constipation, diarrhea, changes in stool habits, hematochezia, melena. : No new urinary complaints, (more content not included)... [facility] 07-03-2022 History of Present illness Narrative Reason for Visit Patient presents with: Same Day Appointment: right upper thigh bump size of pea Donna F Sanchez is a 66 year old female who presents here today for Above Complaints. Health Maintenance COVID-19 VACCINE(1) PNEUMOCOCCAL(1 - PCV) HIV SCREENING SHINGRIX VACCINE(1 of 2) PAP TESTING HPV TESTING COLORECTAL CANCER SCREENING DILATED RETINAL EXAM DEPRESSION ASSESSMENT MAMMOGRAM URINE ALBUMIN:CREATININE RATIO HPI Being treated for diverticulitis currently with cipro and flagyl. She has been to the emergency room, they had her on IV abx and On clear liquids, 2 ct scans were done. Was there for 3 days, there they noted it to be subacute and discussed surgery for her. She has a follow up with surgeon.. since taking abx her sugars are on the lower side.She has not taken metformin and her sugar was a little on the lower side. Still on the glipizide. Patient is eating different, but not eating lesser than normal. She is eating soft foods. Patient has intentional weight loss. She was not eating all that much. She feels bloated and gassy with medications. Patient does have a follow up appointment. Has developed fungal infection She is here today also for a bump on the upper thigh, It is actually in the lower thing and very superficial , around 0.8 cms and hard like a cyst, she was concerned about dvt but we reassure her that it is not likely to be from dvt. No problem-specific Assessment & Plan notes found for this encounter. PAST MEDICAL HISTORY Diagnosis Date Abnormal mammogram 07/2020 Achilles tendon pain 04/29/2015 Ankle weakness 04/29/2015 Chronic pain of left ankle 05/21/2016 Colon abnormality 11/07/2013 Thickening of the ascending colon seen on the recent CT scan. Patient has had a colonoscopy around 4 years ago. Records were obtained for when they were [facility] her colonoscopy was completely normal, no thickening, and the biopsy too was normal except for lymphoid aggregates. DJD (degenerative joint disease), ankle and foot 09/19/2015 DM (diabetes mellitus) (HCC) GERD (gastroesophageal reflux disease) Gross hematuria 10/19/20132013, had hematuria, investigated extensively along with cytoscopy, a stone was found but no signs of any malignancy. Heel pain, chronic 05/21/2016 Hepatic steatosis 03/09/2017 Hiatal hernia 03/09/2017 Hypertension Insomnia Kidney stone 10/19/2013 Morbid obesity (HCC) Nephrolithiasis Neuritis 07/18/2015 Renal lesion 10/19/2013 S/P Achilles tendon repair 04/29/2015 sx done PAST SURGICAL HISTORY Procedure Laterality Date BREAST LUMPECTOMY HX Right 2017 BX BREAST W/DEVICE 1ST LESION STEREOTACTIC GUID Right 07/12/2020 CHOLECYSTECTOMY 2011 gallbladder removal COLONOSCOPY 2010 CT ABDOMEN 10/09/2013 PAST SURGICAL HISTORY OF 01/10/2014 [facility] hysteroscopy PAST SURGICAL HISTORY OF Left 02/01/2015 Left foot surgery S PK [facility] [id number] 03/22/2014 FAMILY HISTORY Problem Relation Age of Onset Ovarian cancer Mother 39 Heart Father Hypertension Father Prostate Cancer Father 78 other (kidney stones) Brother Hypertension Brother Diabetes Brother Seizures Son Breast Cancer Other 55 Double first cousin (daughter of mother's sister and father's brother) Social History Tobacco Use Smoking status: Former Packs/day: 1.00 Years: 10.00 Pack years: 10.00 Types: Cigarettes Quit date: 10/19/2006 Years since quittin.7 Smokeless tobacco: Never Substance Use Topics Alcohol use: No Drug use: Yes Comment: marijuana for insomnia - currently not using Past medical history, appointments, medications, allergies reviewed. Pertinent Lab/Diagnostic Studies are reviewed and discussed today Current Outpatient Medications: potassium chloride 20 mEq TbER atenolol (TENORMIN) 50 mg tablet exemestane (AROMASIN) 25 mg tablet benzonatate (TESSALON PERLES) 100 mg capsule albuterol HFA (PROAIR HFA) 90 mcg/actuation inhaler chlorthalidone (HYGROTON) 25 mg tablet metFORMIN ER (GLUCOPHAGE XR) 500 mg 24 hr tablet glipiZIDE (GLUCOTROL XL) 2.5 mg 24 hr tablet blood sugar diagnostic (BLOOD GLUCOSE TEST) test strip ibuprofen (MOTRIN) 800 mg tablet ascorbic acid, vitamin C, (VITAMIN C) 500 mg tablet lancets (ONE TOUCH [employer]) [address] [facility] Blood-Glucose Meter monitoring kit MV-MN/FOLIC ACID/CALCIUM/VIT K (ONE-A-DAY WOMEN'S 50 PLUS ORAL) Review of Systems CONSTITUTIONAL: No fevers, chills night sweats, unintended weight loss CARDIOVASCULAR: No chest pain, dyspnea, palpitations, orthopnea, PND, ankle edema. PULM: No dyspnea, unexplained cough. GI: No dysphagia/odynophagia, problematic reflux, constipation, diarrhea, changes in stool habits, hematochezia, melena. : No new urinary complaints, including dysuria, gross hematuria or pyuria. NEURO: No new balance problems, peripheral weakness/paresthesias or numbness of concern. Physical Exam BP 120/82 (BP Site: Left Arm, BP Position: Sitting, BP Cuff Size: Large Adult) Pulse 71 Temp 36.8 C (98.3 F) Resp 16 Ht 165.1 cm (5' 5 ) Wt 131.5 kg (290 lb) SpO2 97% BMI 48.26 kg/m General appearance: Well appearing, alert, in no acute distress, well nourished. Skin: Skin color, texture, turgor normal, no suspicious rashes or lesions Head: Normocephalic, no masses, lesions, tenderness or abnormalities Eyes: Anicteric sclera. Pupils are equally round and reactive to light. Extraocular movements are intact. Lungs: Lungs clear to auscultation. No wheezing, rhonchi, rales Heart: RRR without murmur, gallop, or rubs. Extremities: No deformities, edema, skin discoloration, clubbing or cyanosis. Good capillary refill. ASSESSMENT/PLAN: 1. Primary hypertension - ICD9: 401.9, ICD10: I10 (primary diagnosis) - good control - Recommended regular aerobic exercise. - Recommend home blood pressure monitoring, to bring results in on next visit - Goal of BP <130/80 2. Controlled type 2 diabetes mellitus without complication, without long-term current use of insulin (HCC) - ICD9: 250.00, ICD10: E11.9 Advised to check sugars more often 3. Diverticulitis - ICD9: 562.11, ICD10: K57.92 She has been told that this is subacute and she might need surgery in the future. She is going to follow-up with surgeon to call team. Developed candidiasis for which I gave her Diflucan to take after her antibiotics. Yuli Taylor MD documented in this encounter [facility] 07-01-2022 Miscellaneous Notes Patient has been identified by name and date of : NO Patient phones for refill(s): Requested Prescriptions Pending Prescriptions Disp Refills potassium chloride 20 mEq TbER 180 tablet 1 Sig: Take 1 tablet by mouth twice daily. Date of last office visit in primary care: 03/02/2022 Last 2 Encounter Wt Readings: Date: Wt: 05/13/2022 137.7 kg (303 lb 9.6 oz) 03/02/2022 132.9 kg (293 lb) Previous labs/tests for medication: Not applicable Please advise. Thank you. Kelly Alvarez LPN documented in this encounter [facility] 06-26-2022 Miscellaneous Notes Patient calling, she has noticed since doubling her potassium she is having some constipation. States that she bought miralax but has not taken any. Wondering if it is ok to start with that. She is having small bowel movements and passing gas. Please advise. documented in this encounter [facility] 06-22-2022 Miscellaneous Notes Left below results on identified vm. Tiffanie Ibanez LPN ----- Message from Yuli Taylor MD sent at 06/19/2022 5:43 PM EST ----- Hba1c is a little better donna and the lipids and thyroid are stable documented in this encounter [facility] 06-03-2022 Miscellaneous Notes Pt is calling for a refill for atenolol JAMAR: 03/02/22 NOV: 08/31/22 Last Refill: 03/04/22 #90 3 refills--this order was canceled bc pt was going to increase med to 100mg then her BP's were in normal range so she continued at 50mg but order was already canceled at pharmacy so now pt needs a refill. Pt reports she is still getting good readings with her BP, states systolic has not been over 120. Nano Youngblood LPN documented in this encounter [facility] 05-13-2022 Note HNO ID: [id number] Author: Khris Berry APRN.INFORMATION TECHNOLOGY PROJECT MANAGER Service: ? Author Type: Nurse Practitioner Type: Progress Notes Filed: 05/13/2022 12:32 PM Note Text: Subjective HPI Nontoxic-appearing female presents urgent care chief complaint cough and chest congestion. Duration of symptoms 10 days. Associated symptoms cough chest congestion sinus pressure. States initially she did have body aches chills sore throat headache. Son had similar signs and symptoms. Fever body aches and chills headache and sore throat has since subsided. Presents today with new worsening sinus pressure. No OTC medications used today. Denies any fever body aches chills productive cough chest pain shortness of breath pleuritic pain hemoptysis nausea vomiting abdominal pain change in bowel or bladder habits. Past medical history prescription medication use and allergies reviewed. .Patient presents with: Cough: Cough, chest congestion and scratchy throat x 10 days PAST MEDICAL HISTORY Diagnosis Date Abnormal mammogram 07/2020 Achilles tendon pain 04/29/2015 Ankle weakness 04/29/2015 Chronic pain of left ankle 05/21/2016 Colon abnormality 11/07/2013 Thickening of the ascending colon seen on the recent CT scan. Patient has had a colonoscopy around 4 years ago. Records were obtained for when [facility] were [facility]. her colonoscopy was completely normal, no thickening, and the biopsy too was normal except for lymphoid aggregates. DJD (degenerative joint disease), ankle and foot 09/19/2015 DM (diabetes mellitus) (HCC) GERD (gastroesophageal reflux disease) Gross hematuria 10/19/20132013, had hematuria, investigated extensively along with cytoscopy, a stone was found but no signs of any malignancy. Heel pain, chronic 05/21/2016 Hepatic steatosis 03/09/2017 Hiatal hernia 03/09/2017 Hypertension Insomnia Kidney stone 10/19/2013 Morbid obesity (HCC) Nephrolithiasis Neuritis 07/18/2015 Renal lesion 10/19/2013 S/P Achilles tendon repair 04/29/2015 sx done PAST SURGICAL HISTORY Procedure Laterality Date BREAST LUMPECTOMY HX Right 2017 BX BREAST W/DEVICE 1ST LESION STEREOTACTIC GUID Right 07/12/2020 CHOLECYSTECTOMY 2010 gallbladder removal COLONOSCOPY 2010 CT ABDOMEN 10/09/2013 PAST SURGICAL HISTORY OF 01/10/2014 [facility] hysteroscopy PAST SURGICAL HISTORY OF Left 02/01/2015 Left foot surgery S PK [facility] [id number] 03/22/2014 ALLERGIES Silvadene [Silver Sulfadiazine] and Sulfa (Sulfonamide Antibiotics) MEDICATIONS chlorthalidone (HYGROTON) 25 mg tablet Take 0.5 tablets by mouth once daily. potassium chloride 20 mEq TbER Take 1 tablet by mouth twice daily. metFORMIN ER (GLUCOPHAGE XR) 500 mg 24 hr tablet Take 1 tablet by mouth daily with breakfast. glipiZIDE (GLUCOTROL XL) 2.5 mg 24 hr tablet Take 1 tablet by mouth once daily. blood sugar diagnostic (BLOOD GLUCOSE TEST) test strip Test blood sugars 2daily. Dx:ucnontrolled diabetes . Insulin: Yes ibuprofen (MOTRIN) 800 mg tablet Take 1 tablet by mouth every 8 hours as needed for pain. Take with food. exemestane (AROMASIN) 25 mg tablet Take 1 tablet by mouth once daily. ascorbic acid, vitamin C, (VITAMIN C) 500 mg tablet Take 500 mg by mouth once daily. lancets (ONE TOUCH DELICA) 33 gauge misc Test blood sugar(s) 2 daily. Dx: Type 2 DM - Controlled E11.9 Insulin: Yes Blood-Glucose Meter monitoring kit Glucose Meter of Choice - Kit - Dx: Type 2 DM - Uncontrolled E11.65 MV-MN/FOLIC ACID/CALCIUM/VIT K (ONE-A-DAY WOMEN'S 50 PLUS ORAL) Take 1 tablet by mouth once daily. atenolol (TENORMIN) 100 mg tablet Take 1 tablet by mouth once daily. Vitamin E, dl, acetate, (VITAMIN E) 100 unit capsule Take 100 Units by mouth once daily. polyethylene glycol 3350 (MIRALAX, GLYCOLAX) 17 gram/dose powder Use as directed for Miralax / Gatorade Bowel Prep Kit Gatorade Sports Drink Use as directed for Miralax / Gatorade Bowel Prep Kit cholecalciferol, vitamin D3, (VITAMIN D3 ORAL) Take 1 tablet by mouth once daily. FAMILY HISTORY Problem Relation Age of Onset Ovarian cancer Mother 39 Heart Father Hypertension Father Prostate Cancer Father 78 other (kidney stones) Brother Hypertension Brother Diabetes Brother Seizures Son Breast Cancer Other 55 Double first cousin (daughter of mother's sister and father's brother) Social History Tobacco Use Smoking status: Former Packs/day: 1.00 Years: 10.00 Pack years: 10.00 Types: Cigarettes Quit date: 10/19/2006 Years since quittin.5 Smokeless tobacco: Never Substance Use Topics Alcohol use: No Drug use: Yes Comment: marijuana for insomnia - currently not using BP 122/74 Pulse 65 Temp 36.4 ?C (97.5 ?F) (Tympanic) Resp 18 Wt (!) 137.7 kg (303 lb 9.6 oz) SpO2 97% BMI 50.52 kg/m? Review of Systems Constitutional: Negative for chills, fever and malaise/fatigue. HENT: Positive for congestion and sin (more content not included)... [facility] 05-13-2022 Instructions Khris Berry APRN.INFORMATION TECHNOLOGY PROJECT MANAGER - 05/13/2022 12:25 PM EST COLD AND SINUS PATIENT INSTRUCTIONS A DECONGESTANT Use a nasal saline 3 times daily Directions; 1-2 squirts in each nostril Saline suggestions; [employer] or [employer] or Salt and Water AT BEDTIME TO HELP WITH CONGESTION Use a cool mist vaporizer May use Vicks Vapor Rub on the chest Elevate the head to aid with coughing post nasal drip ACUTE SINUSITIS OVERVIEW Rhinosinusitis, or more commonly sinusitis, is the medical term for inflammation (swelling) of the lining of the sinuses and nose. The sinuses are the hollow areas within the facial bones that are connected to the nasal openings. The sinuses are lined with mucous membranes, similar to the inside of the nose. There are two main types of sinusitis: acute and chronic. Acute sinusitis is inflammation that lasts for less than four weeks while chronic sinusitis lasts for more than 12 weeks. Acute sinusitis is common, affecting approximately one million people per year in the [place]. ACUTE SINUSITIS CAUSES The most common cause of acute sinusitis is a viral infection associated with the common cold. Bacterial sinusitis occurs much less commonly, in only 0.5 to 2 percent of cases, usually as a complication of viral sinusitis. Because antibiotics are effective only against bacterial, and not viral, infections, most people do not need antibiotics for acute sinusitis. ACUTE SINUSITIS SYMPTOMS Symptoms of acute sinusitis include: Nasal congestion or blockage Thick, yellow to green discharge from the nose Pain in the teeth Pain or pressure in the face that is worse when bending forwards Other acute sinusitis symptoms can include fever (temperature greater than 100.4 F or 38 C), fatigue, cough, difficulty or inability to smell, ear pressure or fullness, headache, and bad breath. In most cases, these symptoms develop over the course of one day and begin to improve within seven to 10 days. DO I NEED TO BE EXAMINED? It is difficult to know if you have a viral or bacterial sinus infection initially. However, most people with a viral infection improve without treatment within seven to 10 days after symptoms begin. Bacterial sinusitis also sometimes improves without treatment, although it can also worsen and require treatment. If one or more of the following bothersome symptoms last more than seven days, an examination by a healthcare provider is recommended: Thick, yellow to green discharge from the nose Face or tooth pain, especially if it is only on one side Tenderness over the maxillary sinuses (located on the left and right side of the nose, inside the cheekbones) Symptoms that initially improve and then worsen WHEN TO SEEK IMMEDIATE HELP If you have one or more of the following symptoms, you should seek medical attention immediately (even if symptoms have been present for less than seven days): High fever (>102.5 F or 39.2 C) Sudden, severe pain in the face or head Double vision or difficulty seeing Confusion or difficulty thinking clearly Swelling or redness around one or both eyes Stiff neck, shortness of breath ACUTE SINUSITIS TREATMENT Initial treatment of a sinus infection aims to relieve symptoms since almost everyone will improve within the first seven to 10 days. Experts recommend avoiding antibiotics during this time unless there is clear evidence of a severe bacterial infection. INITIAL TREATMENT Pain relief -- Non-prescription pain medications, such as acetaminophen (eg, Tylenol ) or ibuprofen (eg, Motrin , Advil ) are recommended for pain. Nasal irrigation and saline sprays -- Rinsing the nose with a salt-water (saline) solution is called nasal irrigation or nasal lavage. Saline is also available in a standard nasal spray, although this is not as effective as using larger amounts of water in an irrigation. Nasal irrigation is particularly useful for treating drainage down the back of the throat, sneezing, nasal dryness, and congestion. The treatment helps by rinsing out allergens and irritants from the nose. Saline rinses also clean the nasal lining and can be used before applying sprays containing medications, to get a better effect from the medication. Nasal lavage with warmed saline can be performed as needed, once per day, or twice daily for increased symptoms. Nasal lavage carries few risks when performed correctly. Saline nasal sprays and irrigation kits can be purchased [id number]. Saline mixes can also be purchased or patients can make their own solution. A variety of devices, including bulb syringes, Neti pots, and bottle sprayers, may be used to perform nasal lavage; instructions for nasal lavage are provided in the table. At least 200 mL (about 3/4 cup) of fluid is recommended for each nostril. Nasal decongestants -- Nasal decongestant sprays, including oxymetazoline (Afrin ) and phenylephrine (Mukesh-synephrine ) can be used to temporarily treat congestion. However, these sprays should not be used for more than two to three days due to the risk of rebound congestion (when the nose is congested constantly unless the medication is used repeatedly). Other treatments -- Other treatments for congestion, such as oral antihistamines (such as diphenhydramine/Benadryl ) or zinc supplements are not proven to improve symptoms of sinusitis and can have unwanted side effects. Medications to thin secretions (such as guaifenesin) may help to clear mucus. Secondline treatment -- If symptoms have not improved in seven to ten days, you should arrange for medical evaluation. You may need further treatment. Nasal glucocorticoids -- Nasal glucocorticoids (steroids delivered by a nasal spray) can help to reduce swelling inside the nose, usually within two to three days. These drugs have few side effects and dramatically relieve symptoms in most people. There are a number of nasal glucocorticoids available by prescription. These drugs are all effective, but differ in how frequently they must be used and how much they cost. You may need to use a nasal decongestant for a few days before starting a nasal glucocorticoid to reduce nasal swelling; this will allow the nasal glucocorticoid to reach more areas of the nasal passages Do I need an antibiotic? -- If bothersome symptoms of sinusitis persist for 10 or more days, it is possible that you have bacterial sinusitis. The need for antibiotics depends upon the severity of your symptoms. Mild symptoms -- There are two possible treatment options if you have mild sinusitis symptoms: treat with antibiotics or continue to watch and wait for one week. Watching and waiting is a reasonable option because up to 75 percent of people with bacterial sinusitis improve within one month without antibiotics. During the watch and wait period, treatments to improve symptoms are recommended. If symptoms worsen or do not improve after watching and waiting, treatment with an antibiotic is usually recommended. Treatments to relieve symptoms are recommended while using antibiotics. Moderate or severe symptoms -- Most healthcare providers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 this information is protected by the Federal Confidentiality of Alcohol and Drug Abuse Patient Records regulations: The Federal rules restrict any use of the information to criminally investigate or prosecute any alcohol or drug abuse patient.[facility] HealthIn the event this information is protected by the Federal Confidentiality of Alcohol and Drug Abuse Patient Records regulations: The Federal rules restrict any use of the information to criminally investigate or prosecute any alcohol or drug abuse patient.[facility] HealthIn the event this information is protected by the Federal Confidentiality of Alcohol and Drug Abuse Patient Records regulations: The Federal rules restrict any use of the information to criminally investigate or prosecute any alcohol or drug abuse patient.[facility] HealthIn the event this information is protected by the Federal Confidentiality of Alcohol and Drug Abuse Patient Records regulations: The Federal rules restrict any use of the information to criminally investigate or prosecute any alcohol or drug abuse patient.[facility] HealthIn the event this information is protected by the Federal Confidentiality of Alcohol and Drug Abuse Patient Records regulations: The Federal rules restrict any use of the information to criminally investigate or prosecute any alcohol or drug abuse patient.[facility] HealthIn the event this information is protected by the Federal Confidentiality of Alcohol and Drug Abuse Patient Records regulations: The Federal rules restrict any use of the information to criminally investigate or prosecute any alcohol or drug abuse patient.[facility] HealthIn the event this information is protected by the Federal Confidentiality of Alcohol and Drug Abuse Patient Records regulations: The Federal rules restrict any use of the information to criminally investigate or prosecute any alcohol or drug abuse patient.[facility] HealthIn the event this information is protected by the Federal Confidentiality of Alcohol and Drug Abuse Patient Records regulations: The Federal rules restrict any use of the information to criminally investigate or prosecute any alcohol or drug abuse patient.[facility] HealthIn the event this information is protected by the Federal Confidentiality of Alcohol and Drug Abuse Patient Records regulations: The Federal rules restrict any use of the information to criminally investigate or prosecute any alcohol or drug abuse patient.[facility] HealthIn the event this information is protected by the Federal Confidentiality of Alcohol and Drug Abuse Patient Records regulations: The Federal rules restrict any use of the information to criminally investigate or prosecute any alcohol or drug abuse patient.[facility] HealthIn the event this information is protected by the Federal Confidentiality of Alcohol and Drug Abuse Patient Records regulations: The Federal rules restrict any use of the information to criminally investigate or prosecute any alcohol or drug abuse patient.[facility] HealthIn the event this information is protected by the Federal Confidentiality of Alcohol and Drug Abuse Patient Records regulations: The Federal rules restrict any use of the information to criminally investigate or prosecute any alcohol or drug abuse patient.[facility] HealthIn the event this information is protected by the Federal Confidentiality of Alcohol and Drug Abuse Patient Records regulations: The Federal rules restrict any use of the information to criminally investigate or prosecute any alcohol or drug abuse patient.[facility] HealthIn the event this information is protected by the Federal Confidentiality of Alcohol and Drug Abuse Patient Records regulations: The Federal rules restrict any use of the information to criminally investigate or prosecute any alcohol or drug abuse patient.[facility] HealthIn the event this information is protected by the Federal Confidentiality of Alcohol and Drug Abuse Patient Records regulations: The Federal rules restrict any use of the information to criminally investigate or prosecute any alcohol or drug abuse patient.[facility] HealthIn the event this information is protected by the Federal Confidentiality of Alcohol and Drug Abuse Patient Records regulations: The Federal rules restrict any use of the information to criminally investigate or prosecute any alcohol or drug abuse patient.[facility] HealthIn the event this information is protected by the Federal Confidentiality of Alcohol and Drug Abuse Patient Records regulations: The Federal rules restrict any use of the information to criminally investigate or prosecute any alcohol or drug abuse patient.[facility] Reason for Visit (unrecogniz ed section and content) Specialty Diagnoses / Procedures Referred By Contac t Referred To Contact Internal Medicine / INTERNAL MEDICINE Diagnoses 3 month follow up Procedures 4C EST Self Yuli Taylor MD [address] [place] [address] Referral ID Status Reason Start Date Expiration Date V isits Requested Visits Authorized [id number] Closed Patient Cleared INN/SMCP Payor Auth Obtained 07/04/2021 06/06/2022 1 1 Reason Comments Refill Request Reason Onset Date Comments Refill Request 12/06/2021 Reason Onset Date Comments Refill Request 12/21/2021 Reason Onset Date Comments Population Health Navigation Outreach 12/30/2021 [facility] care gaps Reason Comments Lab Orders Orders Reason Onset Date Comments Refill Request 03/04/2022 Reason Comments Results Reason Onset Date Comments Population Health Navigation Outreach 04/09/2022 [facility] Reason Comments Cough Cough, chest congest ion and scratchy throat x 10 days Reason Onset Date Comments Refill Request 06/03/2022 Reason Comments Constipation Reason Onset Date Comments Refill Request 07/01/2022 Reason Comments Same Day Appointment right upper thigh b ump size of pea Reason Comments Established Patient Specialty Diagnoses / Procedures Referred By Contac t Referred To Contact HEMATOLOGY/ONCOLOGY Diagnoses OV Procedures OFFICE VISIT, EST PT., LEVEL 2 TC OV Zohreh Ty MD [address] [place] [address] [facility] [facility] Include [facility] [address] [place] [address] Referral ID Status Reason Start Date Expiration Date Visits Requested Visits Authorized [id number] Pending Review OON/Self Pay Override 2 11/18/2022 1 1 Reason Comments Mammogram Result Call Back Reason Comments Follow Up Referral to Dr. Hernandez no Reason Comments Consult Blood In Urine Specialty Diagnoses / Procedures Referred By Contac t Referred To Contact Urology Diagnoses Gross hematuria Procedures CONSULT TO UROLOGY OFFICE/OUTPATIENT NEW HIGH MDM 60-74 MINUTES Kalia Tabor DO [address] [place] [address] Referral ID Status Reason Start Date Expiration Date V isits Requested Visits Authorized [id number] Closed PCP Requested Referral 07/09/2022 07/09/2023 1 1 Reason Onset Date Comments Population Health Navigation Outreach 08/05/2022 [facility] Care Gaps Reason Comments Consult Abnormal mammogram Reason Comments Patient Question Reason Comments Results Right breast biopsy results Reason Comments Post Op Follow Up Reason Comments F/U 6 months Reason Comments Medication concern Reason Onset Date Comments Refill Request 11/11/2022 Reason Onset Date Comments Refill Request 02/09/2023 Reason Comments F/U 6 months Care Teams (unrecognized sec tion and content) Sports Marketing Specialist Relationship Specialty Start Date End Date Yuli Taylor MD [address] [place], [place] [address] PCP - General Internal Medicine 11/07/13 Frank Centeno MD, [address] [facility] [place], [place] [address] [phone] Physician Radiation Oncology 10/15/16 Carmen Howell RN Specialty Poultry Farmworker Oncology 01/04/18 Sports Marketing Specialist Relationship Specialty Start Date End Date Yuli Taylor MD [address] [place], [place] [address] PCP - General Internal Medicine 11/07/13 Farnk Centeno MD, [address] [place] [address] Physician Radiation Oncology 10/15/16 Carmen Howell RN Specialty Poultry Farmworker Oncology 01/04/18 Sports Marketing Specialist Relationship Specialty Start Date End Date Yuli Taylor MD [address] [place], [place] [address] [phone] PCP - General Internal Medicine 11/07/13 Frank Centeno MD, [address] [address] Physician Radiation Oncology 10/15/16 Carmen Howell RN Specialty Poultry Farmworker Oncology 01/04/18 Sports Marketing Specialist Relationship Specialty Start Date End Date Yuli Taylor MD [address] [place] [address] PCP - General Internal Medicine 11/07/13 Frank Centeno MD, [address] [facility] [address] Physician Radiation Oncology 10/15/16 Carmen Howell RN Specialty Poultry Farmworker Oncology 01/04/18 Sports Marketing Specialist Relationship Specialty Start Date End Date Yuli Taylor MD [address] [place] [address] PCP - General Internal Medicine 11/07/13 Frank Centeno MD, [address] [facility] [address] Physician Radiation Oncology 10/15/16 Carmen Howell RN Specialty Poultry Farmworker Oncology 01/04/18 Sports Marketing Specialist Relationship Specialty Start Date End Date Yuli Taylor MD [address] [place] [address] PCP - General Internal Medicine 11/07/13 Frank Centeno MD, [address] [facility] [address] Physician Radiation Oncology 10/15/16 Carmen Howell RN Specialty Poultry Farmworker Oncology 01/04/18 Sports Marketing Specialist Relationship Specialty Start Date End Date Yuli Taylor MD [address] [place] [address] PCP - General Internal Medicine 11/07/13 Frank Centeno MD, MD [address] [facility] [place] [address] Physician Radiation Oncology 10/15/16 Carmen Howell RN Specialty Poultry Farmworker Oncology 01/04/18 Sports Marketing Specialist Relationship Specialty Start Date End Date Yuli Taylor MD [address] [place] [address] PCP - General Internal Medicine 11/07/13 Frank Centeno MD, [address] [facility] [place] [address] Physician Radiation Oncology 10/15/16 Carmen Howell RN Specialty Poultry Farmworker Oncology 01/04/18 Sports Marketing Specialist Relationship Specialty Start Date End Date Yuli Taylor MD [address] [place] [address] PCP - General Internal Medicine 11/07/13 Frank Centeno MD, [address] [facility] [address] Physician Radiation Oncology 10/15/16 Carmen Howell RN Specialty Poultry Farmworker Oncology 01/04/18 Sports Marketing Specialist Relationship Specialty Start Date End Date Yuli Taylor MD [address] [place] [address] PCP - General Internal Medicine 11/07/13 Frank Centeno MD, [address] [facility] [address] Physician Radiation Oncology 10/15/16 Carmen Howell RN Specialty Poultry Farmworker Oncology 01/04/18 Sports Marketing Specialist Relationship Specialty Start Date End Date Yuli Taylor MD [address] [place] [address] PCP - General Internal Medicine 11/07/13 Frank Centeno MD, [address] [facility] [place] [address] Physician Radiation Oncology 10/15/16 Carmen Howell RN Specialty Poultry Farmworker Oncology 01/04/18 Sports Marketing Specialist Relationship Specialty Start Date End Date Yuli Taylor MD [address] [place] [address] PCP - General Internal Medicine 11/07/13 Frank Centeno MD, [address] [facility] [place] [address] Physician Radiation Oncology 10/15/16 Carmen Howell RN Specialty Poultry Farmworker Oncology 01/04/18 Sports Marketing Specialist Relationship Specialty Start Date End Date Yuli Taylor MD [address] [place] [address] PCP - General Internal Medicine 11/07/13 Frank Centeno MD, [address] [place] [address] Physician Radiation Oncology 10/15/16 Carmen Howell RN Specialty Poultry Farmworker Oncology 01/04/18 Sports Marketing Specialist Relationship Specialty Start Date End Date Yuli Taylor MD [address] [place] [address] PCP - General Internal Medicine 11/07/13 Frank Centeno MD, [address] [place] [address] Physician Radiation Oncology 10/15/16 Carmen Howell RN Specialty Poultry Farmworker Oncology 01/04/18 Sports Marketing Specialist Relationship Specialty Start Date End Date Yuli Taylor MD [address] [place] [address] PCP - General Internal Medicine 11/07/13 Frank Centeno MD, [address] [place] [facility] [place] [address] Physician Radiation Oncology 10/15/16 Carmen Howell RN Specialty Poultry Farmworker Oncology 01/04/18 Sports Marketing Specialist Relationship Specialty Start Date End Date Yuli Taylor MD [address] [place] [address] PCP - General Internal Medicine 11/07/13 Frank Centeno MD, [address] [facility] [place] [address] Physician Radiation Oncology 10/15/16 Carmen Howell RN Specialty Poultry Farmworker Oncology 01/04/18 Sports Marketing Specialist Relationship Specialty Start Date End Date Yuli Taylor MD [address] [place] [address] PCP - General Internal Medicine 11/07/13 Frank Centeno MD, [address] [place] [address] Physician Radiation Oncology 10/15/16 Carmen Howell RN Specialty Poultry Farmworker Oncology 01/04/18 Sports Marketing Specialist Relationship Specialty Start Date End Date Yuli Taylor MD [address] [place] [address] PCP - General Internal Medicine 11/07/13 Frank Centeno MD, [address] [place] [address] Physician Radiation Oncology 10/15/16 Carmen Howell RN Specialty Poultry Farmworker Oncology 01/04/18 Sports Marketing Specialist Relationship Specialty Start Date End Date Yuli Taylor MD [address] [place] [address] PCP - General Internal Medicine 11/07/13 Frank Centeno MD, [address] [place] [address] Physician Radiation Oncology 10/15/16 Carmen Howell RN Specialty Poultry Farmworker Oncology 01/04/18 Sports Marketing Specialist Relationship Specialty Start Date End Date Yuli Taylor MD [address] [place] [address] PCP - General Internal Medicine 11/07/13 Frank Centeno MD, MD [address] [place] [address] Physician Radiation Oncology 10/15/16 Carmen Howell RN Specialty Poultry Farmworker Oncology 01/04/18 Sports Marketing Specialist Relationship Specialty Start Date End Date Yuli Taylor MD [address] [place] [address] PCP - General Internal Medicine 11/07/13 Frank Centeno MD, [address] [place] [address] Physician Radiation Oncology 10/15/16 Carmen Howell RN Specialty Poultry Farmworker Oncology 01/04/18 Sports Marketing Specialist Relationship Specialty Start Date End Date Yuli Taylor MD [address] [place] [address] PCP - General Internal Medicine 11/07/13 Frank Centeno MD, [address] [place] [address] Physician Radiation Oncology 10/15/16 Carmen Howell RN Specialty Poultry Farmworker Oncology 01/04/18 Sports Marketing Specialist Relationship Specialty Start Date End Date Yuli Taylor MD [address] [place] [address] PCP - General Internal Medicine 11/07/13 Frank Centeno MD, MD [address] [place] [address] Physician Radiation Oncology 10/15/16 Carmen Howell RN Specialty Poultry Farmworker Oncology 01/04/18 Sports Marketing Specialist Relationship Specialty Start Date End Date Yuli Taylor MD [address] [place], [place] [address] PCP - General Internal Medicine 11/07/13 Frank Centeno MD, MD [address] [place], [place] [id number] Physician Radiation Oncology 10/15/16 Carmen Howell RN Specialty Poultry Farmworker Oncology 01/04/18 FOR RECORDS PERTAINING TO PATIENTS WHO ARE OR HAVE BEEN ENROLLED IN A CHEMICAL DEPENDENCY/SUBSTANCEABUSE PROGRAM, SOME INFORMATION MAY BE OMITTED. This clinical summary was aggregated from multiple sources. Caution should be exercised in using it in the provision of clinical care. This summary normalizes information from multiple sources, and as a consequence, information in this document may materially change the coding, format and clinical context of patient data. In addition, data may be omitted in some cases. CLINICAL DECISIONS SHOULD BE BASED ON THE PRIMARY CLINICAL RECORDS. [facility]. provides no warranty or guarantee of the accuracy or completeness of information in this document.
[2023-07-05 21:21] LABS: Mucous, Urine 0 SEEN /hpf (<or=2+); Red Blood Cells-Urine 0 SEEN /hpf (0-5)
[2023-07-05 21:23] LABS: Color, Urine Yellow (Yellow); Glucose, Dipstick Normal (Normal); Ketone-Dipstick Negative (Negative); Leukocyte Esterase-Dipstick 500 /ul (Negative); Nitrite-Dipstick Negative (Negative); Occult Blood-Urine 10 /ul (Negative); Protein-Dipstick 15 mg/dl (Negative); Specific Gravity, Urine 1.005 (1.002-1.030); Urine Bilirubin Dipstick Negative (Negative); Urine Clarity Sl. Cloudy (Clear); Urine Urobilinogen Normal (Normal)
[2023-07-05 21:29] LABS: Bacteria RARE /hpf (None Seen); Squamous Epithelial Cells - UA 0-5 SEEN /hpf (5-10); White Blood Cells 10-25 SEEN /hpf (0-5)
[2023-07-05 23:00] VITALS: PULSE 75; RESP 16; O2SAT 99
[2023-07-05] MEDS: Amox/Clavulanate 875 MG Tablet PO (23:45)
== END 2023-07-05 23:46 | disposition home or self-care (01) ==
PROVIDERS: Emergency Provider Emergency Medicine; PCP Internal Medicine; Visit Provider Emergency Medicine
DX: R10.32 Left lower quadrant pain (principal); E11.9 Type 2 diabetes mellitus without complications; K57.32 Diverticulitis of large intestine without perforation or abscess without bleeding; E66.9 Obesity, unspecified; Z87.891 Personal history of nicotine dependence
CPT/HCPCS: 74177; 80053; 81001; 85025; 87631; 99283; Q9967; A4216

== ENCOUNTER 2024-02-14 20:14 | Emergency (ER) | payer MEDICARE, MEDICAID, SELFPAY ==
[2024-02-14 20:14] VITALS: BP 175/92; PULSE 79; RESP 16; TEMP 36.8; O2SAT 100; BMI 48.8
[2024-02-14 20:54] LABS: Absolute Lymphocyte Count 2.38 X10^3/uL (0.83-4.51); Absolute Neutrophil Count 6.7 X10^3/uL (2.0-7.7); Basophil# 0.06 X10^3/uL; Basophil% 0.6 % (0-1); Eosinophil# 0.37 X10^3/uL; Eosinophils% 3.6 % (0-5); Hematocrit 45.8 % (37-47); Hemoglobin 14.8 g/dL (12.0-15.0); Lymphocyte # 2.38 X10^3/ul (0.83-4.51); Mean Corp Hgb Conc 32.3 g/dL (32-36); Mean Corpuscular Hgb 26.8 pg (27.0-32.0); Mean Corpuscular Volume 82.8 fL (81-99); Mean Platelet Vol. 9.7 fl (6.2-12.0); Monocyte# 0.77 X10^3/uL; Monocyte% 7.4 % (0-10); NRBC Flagged by Analyzer 0 % (0-5); Neutrophil # 6.71 X10^3/uL (2.7-7.7); Neutrophil % 64.9 % (47-70); Platelet Count 326 K/mm3 (150-450); RBC Distribution Width CV 15.3 % (11.6-14.6); RBC Distribution Width SD 46.2 fl (35.1-43.9); Red Blood Count 5.53 M/mm3 (4.2-5.4); White Blood Count 10.3 K/mm3 (4.4-11.0)
[2024-02-14 21:17] LABS: ALB/GLOB Ratio 0.6 RATIO (0.9-2.4); AST(SGOT) 40 U/L (15-37); Alanine Aminotransfer ALT/SGPT 33 U/L (13-56); Albumin, Serum 3.2 g/dL (3.2-5.0); Alkaline Phosphatase 130 U/L (45-117); Anion Gap 7 (5-15); BUN 11 mg/dL (7-18); BUN/Creat Ratio 11.8 RATIO (10-20); Calcium,Total 10.3 mg/dL (8.5-10.1); Chloride 104 mmol/L (98-107); Creatinine, Serum 0.93 mg/dL (0.55-1.02); EST Glomerular Filtration Rate 64 mL/min (>60); Est Glom Filt Rate - Afr Amer 77 mL/min (>60); Glucose 144 mg/dL (74-106); Potassium 4.5 mmol/L (3.5-5.1); Protein, Total 8.2 g/dL (6.4-8.2); Sodium Level 138 mmol/L (136-145)
--- NOTE | 2024-02-14 21:28 | EDS_ITS ---
HPI HPI - GI History of Present Illness Chief Complaint: Abd Pain Informant: patient Narrative Narrative: Reports was 10 days ago had upper respiratory symptoms with diarrhea that was subsiding. Last 4 days discomfort initially right flank that developed to the left side abdomen. Nausea without vomiting. Still having intermittent loose stools nonbloody. No recent antibiotics. She has a urine frequency for the past week. Chills today. No fevers. History of diverticulitis with similar presentation. Last time was this past July and August. She has had previously 2 episodes. Hysterectomy and cholecystectomy in the past. Denies any antibiotic allergies. Prior similar symptoms: Yes [facility] Medical History Wears glasses Cancer Rash Diabetes Arthritis History of diverticulitis History of stress test Invasive ductal carcinoma of right breast Hypertension Former smoker Bone spur HTN (hypertension) Home Medications ?Medication ?Instructions ?Recorded ?Last Taken ?Type metformin 500 mg tablet 500 mg PO DAILY diabetes 09/14/16 06/27/22 10:00 History (Glucophage) multivit-iron 18 mg-folic acid 400 1 ea PO DAILY supplememnt 09/14/16 06/27/22 10:00 History mcg-calcium 500 mg-minerals tablet (Women's Daily Formula) atenolol 50 mg tablet 50 mg PO DAILY blood pressure 06/28/22 10/05/22 History chlorthalidone 25 mg tablet 12.5 mg PO DAILY water pill 06/28/22 06/27/22 10:00 History exemestane 25 mg tablet 25 mg PO DAILY breast cancer 06/28/22 06/27/22 10:00 History glipizide 2.5 mg tablet, extended 2.5 mg PO DAILY diabetes 06/28/22 06/27/22 10:00 History release 24 hr potassium chloride 20 mEq 20 meq PO BID supplement 06/28/22 06/27/22 18:00 History tablet,extended release amoxicillin 875 mg-potassium 1 tab PO BID #14 tabs 07/22/23 Unknown Rx clavulanate 125 mg tablet fluconazole 200 mg tablet 200 mg PO DAILY #2 tabs 07/22/23 Unknown Rx (Diflucan) cefdinir 300 mg capsule 300 mg PO Q12H #14 caps 02/14/24 Unknown Rx metronidazole 500 mg tablet 500 mg PO Q8H #21 tabs 02/14/24 Unknown Rx Allergy/AdvReac Type Severity Reaction Status Date / Time silver sulfadiazine (From Allergy Hives Verified 02/14/24 20:14 Apryl) Family History Other Cancer Surgical History History of colonoscopy History of foot surgery S/P lumpectomy, right breast History of cholecystectomy H/O: hysterectomy Social History Smoking Status: Former smoker ROS ROS ED Constitutional Constitutional ED: Reports chills; Denies fever(s) or sweats Eyes Eyes: Denies change in vision ENT ENT ED: Denies dysphagia or sore throat Cardiovascular Cardiovascular: Denies chest pain, leg edema, palpitations or racing heartbeat Respiratory/Chest Respiratory/Chest: Denies cough, dyspnea or dyspnea on exertion Gastrointestinal Gastrointestinal: Reports abdominal pain and nausea; Denies diarrhea or vomiting Genitourinary Genitourinary ED: Reports urinary frequency; Denies dysuria or hematuria Musculoskeletal Musculoskeletal: Denies back pain, extremity pain or neck pain Integumentary Denies rash or wounds Neurologic Neurologic: Denies headache(s), paresthesias or weakness EXAM Physical Exam Const Vital Signs: 02/14/24 20:14 02/14/24 22:14 02/14/24 23:29 Temperature 98.2 F 97.4 F L Temperature Source Temporal Pulse Rate 79 67 74 Respiratory Rate 16 18 16 Blood Pressure 175/92 H 132/81 H 120/66 Blood Pressure Mean 119 98 84 Pulse Ox 100 98 99 Oxygen Delivery Method Room Air Positive well nourished and well developed General Appearance ED: well developed and NAD HEENT Reports moist mucous membranes normocephalic and atraumatic Eyes EOMs intact bilaterally and conjunctivae normal General Eye ED: Yes normal appearance of both eyes Neck no lymphadenopathy and supple General: Negative for tenderness Chest Wall Chest: Negative for tenderness Resp normal respiratory effort and normal air movement Effort and Inspection: symmetric chest movement; Negative for respiratory distress Cardio regular rate, regular rhythm and no murmurs Peripheral Pulses: pulses 2+ throughout GI normal to inspection, nondistended, normoactive bowel sounds GI Narrative: Mild tenderness left mid abdomen, no guarding or rebound. Palpation: Negative for guarding or rebound tenderness present Back/Spine no CVA tenderness and no thoracic nor lumbar tenderness Extremity normal to inspection General Extremety ED: Negative for edema or tenderness General Extremity: Negative for edema Neuro oriented x3 and no sensory deficits noted Sensorium / Orientation: awake and alert Skin no rashes or lesions noted and no wounds MDM MDM MDM Narrative Medical decision making narrative: Interventions / MDM: Differential diagnosis: Diverticulitis, abdominal pain Diagnosis considered but do not suspect: Kidney stone however CT negative My EKG interpretation: N/A Imaging independently reviewed and interpreted by myself: CT abdomen pelvis IV contrast: Uncomplicated sigmoid diverticulitis, thickening and scarring noted between sigmoid and bladder no current fistula. External documents reviewed: N/A Test considered but not ordered:N/A ED course: Patient is protocol labs performed through triage white count was 10 hemoglobin 14.8. Creatinine 0.93. Patient had fluids ordered, Zofran, CT abdomen pelvis ordered for further evaluation. She declines any pain medicines. Urine resulted no signs of infection. Culture sent. White count is normal creatinine 0.93. She is covered with IV Rocephin. CT scan discussed with radiologist on-call for diverticulitis however noted scarring thickening between the bladder and sigmoid colon without ana fistulization. I did discuss this with the patient. She reports she is followed with surgery Dr. Menard. She had to follow-up with her from her last bout of diverticulitis, she was told no concerns for fistula at this time. Further discussion with patient she states she would have occasional gas with urination. Discussed possible fistula since her last event. Discussed with her to follow-up with her surgeon for outpatient discussion. Return precautions discussed. all questions were answered. Re-evaluation: stable Disposition discussed with patient/family/significant other: Patient Case discussed with consulting clinician: N/A This note was generated with [employer] dictation software. It may contain incorrect words, spelling, and punctuation that were not noted in checking the note before signing. Lab Data Attestation: I reviewed the patient's lab results. Labs: Laboratory Results - last 24 hr 02/14/24 02/14/24 20:31 20:45 WBC 10.3 RBC 5.53 H Hgb 14.8 Hct 45.8 MCV 82.8 MCH 26.8 L MCHC 32.3 RDW Std Deviation 46.2 H RDW Coeff of [place] 15.3 H Plt Count 326 MPV 9.7 Immature Gran % (Auto) 0.500 Neut % (Auto) 64.9 Lymph % (Auto) 23.0 [place] % (Auto) 7.4 Eos % (Auto) 3.6 Baso % (Auto) 0.6 Absolute Neuts (auto) 6.7 Absolute Lymphs (auto) 2.38 Nucleated RBC % 0 Sodium 138 Potassium 4.5 Chloride 104 Carbon Dioxide 27.0 Anion Gap 7 BUN 11 Creatinine 0.93 Estim Creat Clear Calc 85.00 Est GFR (MDRD) Af Amer 77 Est GFR (MDRD) Non-Af 64 BUN/Creatinine Ratio 11.8 Glucose 144 H Calcium 10.3 H Total Bilirubin 0.50 AST 40 H ALT 33 Alkaline Phosphatase 130 H Total Protein 8.2 Albumin 3.2 Globulin 5.0 H Albumin/Globulin Ratio 0.6 L Urine Color Yellow Urine Clarity Clear Urine pH 6.5 Ur Specific Mona 1.010 Urine Protein Negative Urine Glucose (UA) Normal Urine Ketones Negative Urine Occult Blood 25 H Urine Nitrite Negative Urine Bilirubin Negative Urine Urobilinogen Normal Ur Leukocyte Esterase 500 H Urine RBC 0-5 SEEN Urine WBC 5-10 SEEN Ur Squamous Epith Cells 0-5 SEEN Urine Bacteria 2+ Urine Mucus 0 SEEN Radiography Diagnostic Testing: Clinical Impression(s) from Imaging Studies Abdomen/Pelvis CT 02/14/24 21:42 IMPRESSION: 1. Findings most likely due to mild recurrent sigmoid diverticulitis. There is a thick band of presumed inflammation between the proximal sigmoid and the bladder visible on the coronal images, in the region of a prominent previous pocket of air, without ana colovesical fistulization at this time. Moderate bladder wall thickening without intraluminal air. Correlate with evidence of cystitis. 2. No discrete drainable abscess. No free air or free fluid. Mild inflammation along the left upper pelvic sidewall-iliac fossa. 3. Cholecystectomy. Hysterectomy. Nonvisualized appendix. 4. Mild asymmetric irregular soft tissue lobulated density and coarse calcifications in the slightly superior-medial breast, similar to June 2022, not fully included. This may be surgical scarring but it is not fully evaluated. Please correlate with prior procedures and follow-up breast exam, mammogram and ultrasound if it is thought to be indicated. Mammogram September 15, 2016 mentions mass within a resected right biopsy specimen. Electronically Signed: Verena Fregoso MD at 22:47 EDT , ADDENDUM: 02/14/24 2303 IMPRESSION: 1. Findings most likely due to mild recurrent sigmoid diverticulitis. There is a thick band of presumed inflammation between the proximal sigmoid and the bladder visible on the coronal images, in the region of a prominent previous pocket of air, without ana colovesical fistulization at this time. Moderate bladder wall thickening without intraluminal air. Correlate with evidence of cystitis. 2. No discrete drainable abscess. No free air or free fluid. Mild inflammation along the left upper pelvic sidewall-iliac fossa. 3. Cholecystectomy. Hysterectomy. Nonvisualized appendix. 4. Mild asymmetric irregular soft tissue lobulated density and coarse calcifications in the slightly superior-medial breast, similar to June 2022, not fully included. This may be surgical scarring but it is not fully evaluated. Please correlate with prior procedures and follow-up breast exam, mammogram and ultrasound if it is thought to be indicated. Mammogram September 15, 2016 mentions mass within a resected right biopsy specimen. N.B. : The above Results were Read Back by Verena Fregoso MD to Zuhair Roberts DO, and understanding confirmed on 02/14/2024 22:56:42 (ET). Electronically Signed: Verena Fregoso MD at 22:47 EDT , Discharge Plan Triage Chief Complaint: Abd Pain Other Complaint: Complaint ED Provider: Zuhair Roberts Dx/Rx/DC Orders Clinical Impression: Diverticulitis of intestine with perforation without abscess or bleeding, UTI (urinary tract infection) Instructions: Diverticulitis Dc, ED UTIs Women Prescriptions: New metronidazole 500 mg tablet 500 mg PO Q8H Qty: 21 0RF cefdinir 300 mg capsule 300 mg PO Q12H Qty: 14 0RF No Action fluconazole [Diflucan] 200 mg tablet 200 mg PO DAILY Qty: 2 0RF Rx Instructions: take one now and if yeast infection not improved take other in 72 hrs or after the next dose of abx prescribed amoxicillin-pot clavulanate 875-125 mg tablet 1 tab PO BID Qty: 14 0RF metformin [Glucophage] 500 MG tablet 500 mg PO DAILY Women's Daily Formula 1 EACH tablet 1 ea PO DAILY exemestane 25 mg tablet 25 mg PO DAILY atenolol 50 mg tablet 50 mg PO DAILY chlorthalidone 25 mg tablet 12.5 mg PO DAILY glipizide 2.5 mg tablet extended release 24hr 2.5 mg PO DAILY potassium chloride 20 mEq tablet extended release 20 meq PO BID Primary Care Provider: Elsa Taylor Referrals: Elsa Taylor MD [Primary Care Provider] - Deja Menard MD [Med Staff - Active Staff] - 1-2 Weeks Activity Restrictions/Additional Instructions: Uncomplicated diverticulitis. UTI. Take and finish antibiotic as prescribed. CT also notes thickening and inflammation between proximal sigmoid and bladder, at risk for fistulization. Follow-up with your surgeon. Print Language: Albanian Disposition Disposition: Home, Self Care Discharge Date/Time: 02/14/24 23:35
[2024-02-14] MEDS: 0.9% Normal Saline (1000mL) 1,000 ML 1000 ML IV (21:32)
--- NOTE | 2024-02-14 21:42 | CT_ITS ---
We are attempting to reach an attending provider to discuss findings. An addendum with communication details will be sent when the communication is complete. EXAM: CT ABDOMEN AND PELVIS WITH INTRAVENOUS CONTRAST CLINICAL INDICATION: left abd pain June 30, 2022 TECHNIQUE: Helically acquired images were obtained of the abdomen and pelvis with intravenous contrast. This CT exam was performed using one or more of the following dose reduction techniques: automated exposure control, adjustment of the mA and/or kV according to patient size, and/or use of iterative reconstruction technique. CONTRAST: IV 100mL Isovue-370 RADIATION DOSE: CTDIvol = 17.03 mGy, DLP = 1346.09 mGy-cm COMPARISON: July 05, 2023. FINDINGS: LOWER THORAX: Unremarkable. Lung bases are clear. No cardiomegaly. No significant pericardial effusion. ABDOMEN: LIVER: Elongated right lobe of liver is similar to prior exam, 21.1 cm craniocaudal. GALLBLADDER AND BILE DUCTS: Cholecystectomy clips are again noted. No intra- or extrahepatic biliary ductal dilation. PANCREAS: Unremarkable. No focal cystic or solid mass. SPLEEN: Unremarkable. Normal size without focal cystic or solid mass. ADRENALS: Unremarkable. No nodules. KIDNEYS AND URETERS: Similar nonobstructing coarse calcification at the left lower pole renal cortex. No hydronephrosis or ureter stone. STOMACH AND BOWEL: Thick-walled and narrowed long segment of sigmoid and mild adjacent left fascial thickening, similar to prior exam. Diverticulosis of the descending and proximal sigmoid colon. Moderate diverticulosis of hepatic flexure. No stomach or bowel distention. PELVIS: APPENDIX: Nonvisualized appendix. Moderate stool in descending colon. BLADDER: Moderately thick walled but almost collapsed urinary bladder. It is closely adjacent to the inflammatory change of the ethmoid without ana fistula visible at this time. REPRODUCTIVE: Hysterectomy. ABDOMEN and PELVIS: INTRAPERITONEAL SPACE: Unremarkable. No free air or free fluid. BONES/JOINTS: Unremarkable. No suspicious lytic or blastic abnormality. SOFT TISSUES: There are some coarse calcifications and asymmetric appearing soft tissue density in the superior-medial right breast, similar to June 30, 2022. No discrete abdominal or pelvic wall hernia. VASCULATURE: Unremarkable. Abdominal aorta is non-dilated. LYMPH NODES: Unremarkable. No enlarged lymph nodes. CT/Abdomen/Pelvis W IV Cont ONLY IMPRESSION: 1. Findings most likely due to mild recurrent sigmoid diverticulitis. There is a thick band of presumed inflammation between the proximal sigmoid and the bladder visible on the coronal images, in the region of a prominent previous pocket of air, without ana colovesical fistulization at this time. Moderate bladder wall thickening without intraluminal air. Correlate with evidence of cystitis. 2. No discrete drainable abscess. No free air or free fluid. Mild inflammation along the left upper pelvic sidewall-iliac fossa. 3. Cholecystectomy. Hysterectomy. Nonvisualized appendix. 4. Mild asymmetric irregular soft tissue lobulated density and coarse calcifications in the slightly superior-medial breast, similar to June 2022, not fully included. This may be surgical scarring but it is not fully evaluated. Please correlate with prior procedures and follow-up breast exam, mammogram and ultrasound if it is thought to be indicated. Mammogram September 15, 2016 mentions mass within a resected right biopsy specimen. Electronically Signed: Verena Fregoso MD at 22:47 EDT ,
[2024-02-14 21:48] LABS: Mucous, Urine 0 SEEN /hpf (<or=2+)
[2024-02-14 21:58] LABS: Color, Urine Yellow (Yellow); Glucose, Dipstick Normal (Normal); Ketone-Dipstick Negative (Negative); Leukocyte Esterase-Dipstick 500 /ul (Negative); Nitrite-Dipstick Negative (Negative); Occult Blood-Urine 25 /ul (Negative); Protein-Dipstick Negative (Negative); Urine Bilirubin Dipstick Negative (Negative); Urine Clarity Clear (Clear); Urine Urobilinogen Normal (Normal); Urine pH 6.5 (5.0 - 8.0)
[2024-02-14 22:07] LABS: Squamous Epithelial Cells - UA 0-5 SEEN /hpf (5-10); White Blood Cells 5-10 SEEN /hpf (0-5)
[2024-02-14 22:08] LABS: Red Blood Cells-Urine 0-5 SEEN /hpf (0-5)
[2024-02-14 22:09] LABS: Bacteria 2+ /hpf (None Seen)
[2024-02-14 22:14] VITALS: BP 132/81; PULSE 67; RESP 18; O2SAT 98
[2024-02-14] MEDS: Ceftriaxone 1 GM/50 ML BAG IV (23:01)
[2024-02-14] MEDS: metroNIDAZOLE 500 MG Tablet PO (23:28)
[2024-02-14 23:29] VITALS: BP 120/66; PULSE 74; RESP 16; TEMP 36.3; O2SAT 99
== END 2024-02-14 23:35 | disposition home or self-care (01) ==
PROVIDERS: Emergency Provider Emergency Medicine; PCP Internal Medicine; Visit Provider Emergency Medicine
DX: K57.80 Diverticulitis of intestine, part unspecified, with perforation and abscess without bleeding (principal); E11.9 Type 2 diabetes mellitus without complications; N39.0 Urinary tract infection, site not specified; Z87.891 Personal history of nicotine dependence
CPT/HCPCS: 74177; 80053; 81001; 85025; 87086; 87088; 96365; 99284; J7030; Q9967; A4216; J2405

== ENCOUNTER 2024-03-07 13:57 | Observation (INO) | payer MEDICARE, MEDICAID, SELFPAY ==
[2024-03-07] VITALS (7 sets, daily range): BP systolic 110–132; BP diastolic 52–79; PULSE 57–64; RESP 16–18; TEMP 36.6–36.7; O2SAT 96–99; BMI 46.7; BMI 47.2
--- NOTE | 2024-03-07 14:34 | EKG12_ITS ---
Test Reason : GENERAL Blood Pressure : / mmHG Vent. Rate : 060 BPM Atrial Rate : 060 BPM P-R Int : 178 ms QRS Dur : 082 ms QT Int : 426 ms P-R-T Axes : 046 009 053 degrees QTc Int : 426 ms Sinus rhythm with Premature supraventricular complexes Otherwise normal ECG Confirmed by MICHAEL STARK, ALBERT ([id number]), telegraph editor SILVIO GARRIDO ([id number]) on 03/09/2024 1:06:32 PM Referred By: Confirmed By:ALBERT RODRIGUEZ MD
--- NOTE | 2024-03-07 14:35 | CT_ITS ---
INDICATION: recent diverticulitis EXAMINATION: CT Abdomen And Pelvis W/ Contrast Injection TECHNIQUE: Helically acquired images were obtained of the abdomen and pelvis after IV contrast. A radiation dose optimization technique was used for this scan. IV Contrast dosage and agent: IV 100mL Isovue-300 Oral contrast: None. COMPARISON: 02/14/2024. FINDINGS: Visualized lung bases: Unremarkable Liver: Unremarkable Gallbladder: Surgically absent. Spleen: Unremarkable Pancreas: Unremarkable Adrenal Glands: Unremarkable Kidneys: 7 mm nonobstructing stone in the left lower renal pole. Vasculature: Unremarkable GI Tract: Scattered colonic diverticula. There is short segment circumferential wall thickening of the sigmoid colon with surrounding mesenteric fat stranding. Lymphadenopathy: None Peritoneum: No ascites. Bladder: Unremarkable Reproductive organs: Unremarkable Bones/Soft tissues: Mild scattered degenerative changes of the visualized spine. CT/Abdomen/Pelvis W IV Cont ONLY IMPRESSION: Persistent acute sigmoid diverticulitis. No focal fluid collection or free air. Electronically Signed: Jeffrey Alexandra MD at 16:36 EDT ,
[2024-03-07 15:06] LABS: Mucous, Urine 0 SEEN /hpf (<or=2+); Red Blood Cells-Urine 0 SEEN /hpf (0-5)
[2024-03-07 15:20] LABS: Color, Urine Yellow (Yellow); Glucose, Dipstick Normal (Normal); Ketone-Dipstick Negative (Negative); Leukocyte Esterase-Dipstick 500 /ul (Negative); Nitrite-Dipstick Negative (Negative); Occult Blood-Urine 50 /ul (Negative); Protein-Dipstick 15 mg/dl (Negative); Specific Gravity, Urine 1.005 (1.002-1.030); Urine Bilirubin Dipstick Negative (Negative); Urine Clarity Cloudy (Clear); Urine Urobilinogen Normal (Normal)
[2024-03-07 15:26] LABS: Absolute Lymphocyte Count 1.73 X10^3/uL (0.83-4.51); Absolute Neutrophil Count 5.2 X10^3/uL (2.0-7.7); Basophil# 0.06 X10^3/uL; Basophil% 0.7 % (0-1); Eosinophils% 2.5 % (0-5); Hematocrit 46.1 % (37-47); Hemoglobin 14.9 g/dL (12.0-15.0); Lymphocyte # 1.73 X10^3/ul (0.83-4.51); Lymphocyte % 21.4 % (19-41); Mean Corp Hgb Conc 32.3 g/dL (32-36); Mean Corpuscular Hgb 26.8 pg (27.0-32.0); Mean Corpuscular Volume 82.9 fL (81-99); Mean Platelet Vol. 9.6 fl (6.2-12.0); Monocyte# 0.89 X10^3/uL; NRBC Flagged by Analyzer 0 % (0-5); Neutrophil # 5.17 X10^3/uL (2.7-7.7); Platelet Count 310 K/mm3 (150-450); RBC Distribution Width CV 15.9 % (11.6-14.6); RBC Distribution Width SD 48.1 fl (35.1-43.9); Red Blood Count 5.56 M/mm3 (4.2-5.4); White Blood Count 8.1 K/mm3 (4.4-11.0)
[2024-03-07] MEDS: 0.9% Normal Saline (1000mL) 1,000 ML 999 ML IV (15:28)
--- NOTE | 2024-03-07 15:34 | EX.ED.DYSGE1 ---
HPI History of Present Illness Chief Complaint: Abd Pain Narrative Narrative: Patient is a 68-year-old female with past medical history of recent diagnosis of diverticulitis, hypertension, diabetes who presented to the emergency department chief complaint of abdominal pain and not feeling well. Patient states that early on in February she was diagnosed with diverticulitis she was given IV antibiotics here and was ultimately given a 7-day course of oral antibiotics which was then continued by her physician was given another 7-day course of antibiotics. States that the past few days she has not been feeling well she has felt bloated with some abdominal pain nausea but now denies any vomiting. Patient denies any black stools or blood in her stool. Patient states that she is also having some left ear pain and thinks that she may have a ear infection as well. [facility] Medical History (Updated 03/07/24 @ 22:[address] Boyd Zimmerman DO) Kidney stones Diverticulitis Wears glasses Cancer Rash Diabetes Arthritis History of diverticulitis History of stress test Invasive ductal carcinoma of right breast Hypertension Former smoker Bone spur HTN (hypertension) Home Medications ?Medication ?Instructions ?Recorded ?Last Taken ?Type multivit-iron 18 mg-folic acid 400 1 ea PO QODAY supplememnt 09/14/16 03/07/24 History mcg-calcium 500 mg-minerals tablet (Women's Daily Formula) atenolol 50 mg tablet 50 mg PO DAILY blood pressure 06/28/22 03/07/24 History chlorthalidone 25 mg tablet 12.5 mg PO DAILY water pill 06/28/22 03/07/24 History exemestane 25 mg tablet 25 mg PO DAILY breast cancer 06/28/22 03/07/24 History glipizide 2.5 mg tablet, extended 2.5 mg PO DAILY diabetes 06/28/22 03/07/24 History release 24 hr potassium chloride 20 mEq 20 meq PO BID supplement 06/28/22 03/07/24 History tablet,extended release metformin 500 mg tablet,extended 500 mg PO DAILY 03/07/24 03/07/24 History release 24 hr Allergy/AdvReac Type Severity Reaction Status Date / Time silver sulfadiazine (From Allergy Hives Verified 02/23/24 14:42 Silvadene) Family History Other Cancer Surgical History History of colonoscopy History of foot surgery S/P lumpectomy, right breast History of cholecystectomy H/O: hysterectomy Social History Smoking Status: Former smoker ROS ROS ED ROS Narrative Constitutional: Denies any fevers, chills, headaches, lightness, dizziness Eyes, ears, nose, throat: Complains of left ear pain as noted above and concern for ear infection Cardiovascular: Denies any chest pain or palpitations Respiratory: Denies coughing wheezing shortness of breath Abdomen: Complains of abdominal pain and bloating as well as nausea denies vomiting and diarrhea : Denies any painful urination, hematuria, polyuria Neurological: Denies any numbness, weakness, tingling Musculoskeletal: Denies back pain Skin: Denies rashes or lesions EXAM Physical Exam Narrative Exam Narrative: General: Patient lying in bed rest comfortably did not appear to be in acute distress Head: Atraumatic, normocephalic Eyes ears, nose, throat: TMs visualized bilaterally no concern for otitis media or otitis externa Neck: Soft and supple, trachea midline Cardiovascular: Regular rate and rhythm no murmurs gallops rubs noted Respiratory: Clear to auscultation bilaterally no rales rhonchi or wheezes noted Abdomen: Soft, nondistended, diffuse tenderness palpation no rebound or guarding on exam, bowel sounds present x 4 Extremities: +5/5 strength noted in the bilateral upper and lower extremities, no pedal edema on exam, radial pulses +2/4 in the bilateral upper extremities Neurological: Patient is fine commands knew that she was at [facility] there is 2023 Skin: Warm, dry, intact Const Vital Signs: 03/07/24 13:59 03/07/24 15:58 03/07/24 16:00 Temperature 97.9 F 97.9 F Temperature Source Temporal Oral Pulse Rate 64 58 L Respiratory Rate 18 16 Blood Pressure 132/79 H 115/70 115/70 Blood Pressure Mean 96 85 85 Pulse Ox 96 Oxygen Delivery Method Room Air Room Air 03/07/24 17:06 03/07/24 17:07 Temperature 97.9 F 97.9 F Temperature Source Oral Pulse Rate 57 L 57 L Respiratory Rate 18 18 Blood Pressure 118/69 118/69 Blood Pressure Mean 85 85 Pulse Ox 98 98 Oxygen Delivery Method Room Air MDM MDM MDM Narrative Medical decision making narrative: Patient is a 68-year-old female who presented to the emerged part with a chief complaint of abdominal pain, bloating, nausea not feeling well. Patient well at work performed here on the differential diagnose includes but not limited to diverticulitis, diverticular abscess, UTI, pneumonia, ACS. Once workup is obtained reviewed she will be reevaluated. Patient's CBC reviewed and showed no evidence leukocytosis white blood count normal at 8.1, hemoglobin stable 14.9, plate count normal at 310. Patient sodium normal 140, potassium 3.5, creatinine normal at 0.89. Patient lactic acid normal at 1.4, AST and ALT were 24 and 46 respectively, troponin was noted be normal at 6, EKG reviewed and showed sinus bradycardia with a rate of 60 bpm did have some previous mature ventricular complexes noted as well this was independently interpreted by myself. Patient total bilirubin normal at 0.5. Patient lipase normal at 26, urinalysis showed 500 leukocyte esterase 25-50 white cells with 2+ bacteria she is not have any urinary symptoms this was sent for culture. Patient CT abdomen pelvis with IV contrast showed findings consistent with sigmoid diverticulitis no focal fluid collection or free air. At this point time do believe the patient will warrant admission to the hospital for her failed outpatient treatment of her diverticulitis. Called and discussed case with hospitalist Dr. cantu who is recommending we discussed this case with general surgery who I discussed this with Dr. Dillon who states that the patient can be admitted here and be treated with IV antibiotics and pain control and if things are to worsen can be transferred at that point time based on the previous referral. I called back and discussed with hospitalist Dr. Cantu who accept patient for admission. Patient was notified she is agreeable this plan all question concerns answered at bedside. Lab Data Labs: Laboratory Results - last 24 hr 03/07/24 03/07/24 14:55 15:13 WBC 8.1 RBC 5.56 H Hgb 14.9 Hct 46.1 MCV 82.9 MCH 26.8 L MCHC 32.3 RDW Std Deviation 48.1 H RDW Coeff of Rashaun 15.9 H Plt Count 310 MPV 9.6 Immature Gran % (Auto) 0.400 Neut % (Auto) 64.0 Lymph % (Auto) 21.4 [place] % (Auto) 11.0 H Eos % (Auto) 2.5 Baso % (Auto) 0.7 Absolute Neuts (auto) 5.2 Absolute Lymphs (auto) 1.73 Nucleated RBC % 0 Sodium 140 Potassium 3.5 Chloride 107 Carbon Dioxide 29.0 Anion Gap 5 BUN 8 Creatinine 0.89 Estim Creat Clear Calc 86.50 Est GFR (MDRD) Af Amer 82 Est GFR (MDRD) Non-Af 68 BUN/Creatinine Ratio 9.0 L Glucose 106 Lactic Acid 1.4 Calcium 10.0 Total Bilirubin 0.50 AST 24 ALT 46 Alkaline Phosphatase 95 Troponin I High Sens 6 Total Protein 7.6 Albumin 3.2 Globulin 4.4 H Albumin/Globulin Ratio 0.7 L Lipase 26 Urine Color Yellow Urine Clarity Cloudy Urine pH 7.0 Ur Specific [place] 1.005 Urine Protein 15 H Urine Glucose (UA) Normal Urine Ketones Negative Urine Occult Blood 50 H Urine Nitrite Negative Urine Bilirubin Negative Urine Urobilinogen Normal Ur Leukocyte Esterase 500 H Urine RBC 0 SEEN Urine WBC 25-50 SEEN Ur Squamous Epith Cells 0-5 SEEN Urine Bacteria 2+ Urine Mucus 0 SEEN Radiography Diagnostic Testing: Clinical Impression(s) from Imaging Studies Abdomen/Pelvis CT 03/07/24 14:35 IMPRESSION: Persistent acute sigmoid diverticulitis. No focal fluid collection or free air. Electronically Signed: Jeffrey Alexandra MD at 16:36 EDT , Discharge Plan Dx/Rx/DC Orders Clinical Impression: Diverticulitis, Abdominal pain Disposition Disposition: Acute Care Hospital [facility] Discharge Date/Time: 03/07/24 17:56
[2024-03-07 15:42] LABS: Bacteria 2+ /hpf (None Seen); White Blood Cells 25-50 SEEN /hpf (0-5)
[2024-03-07 15:45] LABS: Squamous Epithelial Cells - UA 0-5 SEEN /hpf (5-10)
[2024-03-07 15:48] LABS: ALB/GLOB Ratio 0.7 RATIO (0.9-2.4); AST(SGOT) 24 U/L (15-37); Alanine Aminotransfer ALT/SGPT 46 U/L (13-56); Albumin, Serum 3.2 g/dL (3.2-5.0); Alkaline Phosphatase 95 U/L (45-117); Anion Gap 5 (5-15); BUN 8 mg/dL (7-18); Chloride 107 mmol/L (98-107); Creatinine, Serum 0.89 mg/dL (0.55-1.02); EST Glomerular Filtration Rate 68 mL/min (>60); Est Glom Filt Rate - Afr Amer 82 mL/min (>60); Globulin 4.4 g/dL (2.2-4.2); Glucose 106 mg/dL (74-106); Lipase 26 U/L (13-75); Potassium 3.5 mmol/L (3.5-5.1); Protein, Total 7.6 g/dL (6.4-8.2); Sodium Level 140 mmol/L (136-145); Troponin-I HS 6 pg/mL (3.0-54.0)
[2024-03-07 15:52] LABS: Lactic Acid 1.4 mmol/L (0.4-1.9)
[2024-03-07] MEDS: Piperacil/Tazobactam 3.375 GM in 0.9% Normal Saline (50mL MB+) 50 ML IV ×2 (17:11→21:10)
--- NOTE | 2024-03-07 17:32 | PCM.HP.STD ---
HPI - General General Date of Admission: 03/07/24 Date of Service: 03/07/24 Chief Complaint: Worsening abdominal pain HPI Narrative NEL HUANG, is a 68 F who presented to [facility] ED on 03/07/2024 with worsening abdominal pain. Patient has known history of sigmoid diverticulitis, has followed with Dr. Menard for this since June 2022. Most recent episode was in early February. CT abdomen pelvis on 02/13 showed findings consistent with mild recurrent sigmoid diverticulitis. She was discharged home on p.o. cefdinir and Flagyl and completed course of these antibiotics. Saw Dr. Menard in the office on 02/22. Patient reported mild left mid quadrant pain at that visit but was otherwise feeling improved from previous. Plan was to see Dr. Menard in the office today but patient has had worsening discomfort in the lower abdomen and is generally not been feeling well for the past few days so she was told to come into the ED for further evaluation. CT abdomen pelvis showed persistent acute sigmoid diverticulitis with no focal fluid collection or free air. I saw patient at bedside in the ED and then discussed case with Dr. Dillon over the phone prior to admission. Patient was comfortable appearing in the ED and reported only mild lower abdominal pain. Her abdomen was soft and nontender to palpation. Patient had not eaten anything yesterday and she was stating she was hungry and was asking for a clinic with diet. Dr. Menard noted in her recent office visit note that patient could consider elective surgery for her recurrent diverticulitis, but she would refer patient to colorectal surgery for this. On discussion with Dr. Dillon, patient has no urgent surgical needs and will be fine to treat here with antibiotics and escalate diet as tolerated then discharged home. Patient can then consider outpatient follow-up with surgery and/or establishing with a colorectal surgeon for consideration of elective surgery at that point. Will be admitted here for further management with general surgery consulted. [facility] Medical History (Updated 03/07/24 @ 17:23 by Drea Sandoval) Kidney stones Diverticulitis Wears glasses Cancer Rash Diabetes Arthritis History of diverticulitis History of stress test Invasive ductal carcinoma of right breast Hypertension Former smoker Bone spur HTN (hypertension) Home Medications ?Medication ?Instructions ?Recorded ?Last Taken ?Type multivit-iron 18 mg-folic acid 400 1 ea PO QODAY supplememnt 09/14/16 03/07/24 History mcg-calcium 500 mg-minerals tablet (Women's Daily Formula) atenolol 50 mg tablet 50 mg PO DAILY blood pressure 06/28/22 03/07/24 History chlorthalidone 25 mg tablet 12.5 mg PO DAILY water pill 06/28/22 03/07/24 History exemestane 25 mg tablet 25 mg PO DAILY breast cancer 06/28/22 03/07/24 History glipizide 2.5 mg tablet, extended 2.5 mg PO DAILY diabetes 06/28/22 03/07/24 History release 24 hr potassium chloride 20 mEq 20 meq PO BID supplement 06/28/22 03/07/24 History tablet,extended release metformin 500 mg tablet,extended 500 mg PO DAILY 03/07/24 03/07/24 History release 24 hr Allergy/AdvReac Type Severity Reaction Status Date / Time silver sulfadiazine (From Allergy Hives Verified 02/23/24 14:42 Silvadene) Family History Other Cancer Surgical History History of colonoscopy History of foot surgery S/P lumpectomy, right breast History of cholecystectomy H/O: hysterectomy Social History Smoking Status: Former smoker ROS Constitutional Constitutional: Denies chills, fatigue, fever(s) or weakness Eyes Eyes: Denies change in vision Cardiovascular Cardiovascular: Denies chest pain Respiratory/Chest Respiratory/Chest: Denies shortness of breath at rest Gastrointestinal Gastrointestinal: Reports abdominal pain; Denies constipation, diarrhea, nausea or vomiting Genitourinary Genitourinary: Denies dysuria Vital Signs Vital Signs Vital Signs: 03/07/24 13:59 03/07/24 15:58 03/07/24 16:00 Temperature 97.9 F 97.9 F Temperature Source Temporal Oral Pulse Rate 64 58 L Respiratory Rate 18 16 Blood Pressure 132/79 H 115/70 115/70 Blood Pressure Mean 96 85 85 Pulse Ox 96 Oxygen Delivery Method Room Air Room Air 03/07/24 17:06 03/07/24 17:07 Temperature 97.9 F 97.9 F Temperature Source Oral Pulse Rate 57 L 57 L Respiratory Rate 18 18 Blood Pressure 118/69 118/69 Blood Pressure Mean 85 85 Pulse Ox 98 98 Oxygen Delivery Method Room Air Weight Weight: 131.36 kg Body Mass Index (BMI) 46.7 Physical Exam Const alert, oriented x3 and no apparent distress Constitutional Narrative: Elderly female, morbidly obese, mildly fatigued appearing, otherwise sitting up comfortably in bed, conversing normally, no acute distress. General Appearance: cooperative and comfortable HEENT normocephalic, head/scalp atraumatic, hearing grossly normal bilaterally, nasal mucous membranes and turbinates normal and moist oral mucous membranes Eyes PERRL, EOMs intact bilaterally and conjunctivae normal Neck full ROM Chest inspection of chest normal Resp normal respiratory effort, normal air movement, no use of accessory muscles and clear to auscultation bilaterally Cardio regular rate, regular rhythm, no murmurs and peripheral pulses 2+ throughout GI normal to inspection, nondistended, normoactive bowel sounds, soft to palpation, non-tender and non-distended Back/Spine normal ROM Extremity normal to inspection, full ROM and no pedal edema Skin no rashes or lesions noted Neuro moves all extremities and no focal motor deficits Speech: speech normal Psych mental status grossly normal Results Lab / Micro Data 03/07/24 15:13 03/07/24 15:13 Labs: Laboratory Results - last 24 hr 03/07/24 14:55: Urine Color Yellow, Urine Clarity Cloudy, Urine pH 7.0, Ur Specific [place] 1.005, Urine Protein 15 H, Urine Glucose (UA) Normal, Urine Ketones Negative, Urine Occult Blood 50 H, Urine Nitrite Negative, Urine Bilirubin Negative, Urine Urobilinogen Normal, Ur Leukocyte Esterase 500 H, Urine RBC 0 SEEN, Urine WBC 25-50 SEEN, Ur Squamous Epith Cells 0-5 SEEN, Urine Bacteria 2+, Urine Mucus 0 SEEN 03/07/24 15:13: WBC 8.1, RBC 5.56 H, Hgb 14.9, Hct 46.1, MCV 82.9, MCH 26.8 L, MCHC 32.3, RDW Std Deviation 48.1 H, RDW Coeff of Rashaun 15.9 H, Plt Count 310, MPV 9.6, Immature Gran % (Auto) 0.400, Neut % (Auto) 64.0, Lymph % (Auto) 21.4, [place] % (Auto) 11.0 H, Eos % (Auto) 2.5, Baso % (Auto) 0.7, Absolute Neuts (auto) 5.2, Absolute Lymphs (auto) 1.73, Nucleated RBC % 0, Sodium 140, Potassium 3.5, Chloride 107, Carbon Dioxide 29.0, Anion Gap 5, BUN 8, Creatinine 0.89, Estim Creat Clear Calc 86.50, Est GFR (MDRD) Af Amer 82, Est GFR (MDRD) Non-Af 68, BUN/Creatinine Ratio 9.0 L, Glucose 106, Lactic Acid 1.4, Calcium 10.0, Total Bilirubin 0.50, AST 24, ALT 46, Alkaline Phosphatase 95, Troponin I High Sens 6, Total Protein 7.6, Albumin 3.2, Globulin 4.4 H, Albumin/Globulin Ratio 0.7 L, Lipase 26 Imaging Radiology Impression Abdomen/Pelvis CT 03/07/24 14:35 IMPRESSION: Persistent acute sigmoid diverticulitis. No focal fluid collection or free air. Electronically Signed: Jeffrey Alexandra MD at 16:36 EDT , Assessment & Plan Assessment/Plan (1) Diverticulitis: PLAN: Plan Patient is a 68-year-old female who presented [facility] ED on 03/07/2024 with worsening abdominal pain. 1. Recurrent mild sigmoid diverticulitis ? Admit under observation status to [facility]. General surgery consulted. CT abdomen pelvis showed recurrent acute sigmoid diverticulitis with no perforation or abscess noted. Patient very stable appearing on exam with minimal abdominal pain. Hemodynamically stable and afebrile. Will treat with IV Zosyn for now. Okay for clear liquid diet for now, advance diet per surgery recommendations. Chronic medical conditions: ? Morbid obesity: BMI 47 on admit. Encouraged lifestyle modifications. Complicates hospital course, care and prognosis. ? Hypertension: Stable. Continue home atenolol and chlorthalidone. ? Type 2 diabetes mellitus: Home regimen of metformin 500 mg daily and glipizide 2.5 mg daily. Blood glucose 106 on admit. Okay for sliding scale insulin with meals while inpatient. ? History of breast cancer: Continue home exemestane. DVT prophylaxis: Lovenox twice daily CODE STATUS: Full code, verified Expected disposition: Home, 1 to 2 days Total clinical time spent by myself addressing the patient's medical issues, reviewing all the data, and collaborating with patient's care team: 55 minutes. Charges/Coding Visit Charges Inpatient E&M: 18412 Init Hosp L2
--- NOTE | 2024-03-07 17:46 | NURSING ---
MED SURG MOSTELLER DIVERTICULITIS, FAILED OP TREATMENT
[2024-03-07 23:29] LABS: Bedside Glucose 91 mg/dL (74-106)
[2024-03-08 04:00] VITALS: BP 125/66; PULSE 64; RESP 18; TEMP 36.4; O2SAT 100
[2024-03-08] MEDS: Piperacil/Tazobactam 3.375 GM in 0.9% Normal Saline (50mL MB+) 50 ML IV ×3 (06:10→21:35)
[2024-03-08 06:29] LABS: Bedside Glucose 103 mg/dL (74-106)
[2024-03-08 07:38] LABS: Hematocrit 45.4 % (37-47); Hemoglobin 14.5 g/dL (12.0-15.0); Mean Corp Hgb Conc 31.9 g/dL (32-36); Mean Corpuscular Hgb 26.9 pg (27.0-32.0); Mean Corpuscular Volume 84.2 fL (81-99); Mean Platelet Vol. 10.2 fl (6.2-12.0); Platelet Count 284 K/mm3 (150-450); RBC Distribution Width CV 16.2 % (11.6-14.6); RBC Distribution Width SD 49.4 fl (35.1-43.9); Red Blood Count 5.39 M/mm3 (4.2-5.4); White Blood Count 7.1 K/mm3 (4.4-11.0)
[2024-03-08 07:39] LABS: Anion Gap 5 (5-15); BUN 7 mg/dL (7-18); Calcium,Total 9.6 mg/dL (8.5-10.1); Chloride 110 mmol/L (98-107); Creatinine, Serum 0.77 mg/dL (0.55-1.02); EST Glomerular Filtration Rate 79 mL/min (>60); Est Glom Filt Rate - Afr Amer 96 mL/min (>60); Estimated Creatinine Clearance 96.87 ml/min; Glucose 85 mg/dL (74-106); Potassium 3.4 mmol/L (3.5-5.1); Sodium Level 141 mmol/L (136-145)
--- NOTE | 2024-03-08 07:55 | PN.HOSP_ITS ---
Reason for Visit Reason for Visit: Diagnoses Diverticulitis of intestine, part unspecified, without perforation or abscess without bleeding (03/07/24) Objective Data Objective Data Vital Signs: Vital Signs Temp Pulse Resp BP Pulse Ox O2 Del Method 97.5 F L 64 18 125/66 H 100 Room Air 03/08/24 04:00 03/08/24 04:00 03/08/24 04:00 03/08/24 04:00 03/08/24 04:00 03/08/24 04:00 Oxygen Delivery Method Room Air Weight: 292 lb 12.8 oz Body Mass Index (BMI) 47.2 Intake & Output: Intake and Output for Last 24 Hours 03/06/24 03/07/24 03/08/24 23:59 23:59 23:59 Intake Total 1050 / 1050 150 / 150 Balance 1050 / 1050 150 / 150 Lab / Micro Data 03/08/24 06:54 03/08/24 05:53 Labs: Laboratory Results - last 24 hr 03/07/24 14:55: Urine Color Yellow, Urine Clarity Cloudy, Urine pH 7.0, Ur Specific [place] 1.005, Urine Protein 15 H, Urine Glucose (UA) Normal, Urine Ketones Negative, Urine Occult Blood 50 H, Urine Nitrite Negative, Urine Bilirubin Negative, Urine Urobilinogen Normal, Ur Leukocyte Esterase 500 H, Urine RBC 0 SEEN, Urine WBC 25-50 SEEN, Ur Squamous Epith Cells 0-5 SEEN, Urine Bacteria 2+, Urine Mucus 0 SEEN 03/07/24 15:13: WBC 8.1, RBC 5.56 H, Hgb 14.9, Hct 46.1, MCV 82.9, MCH 26.8 L, MCHC 32.3, RDW Std Deviation 48.1 H, RDW Coeff of Arshaun 15.9 H, Plt Count 310, MPV 9.6, Immature Gran % (Auto) 0.400, Neut % (Auto) 64.0, Lymph % (Auto) 21.4, [place] % (Auto) 11.0 H, Eos % (Auto) 2.5, Baso % (Auto) 0.7, Absolute Neuts (auto) 5.2, Absolute Lymphs (auto) 1.73, Nucleated RBC % 0, Sodium 140, Potassium 3.5, Chloride 107, Carbon Dioxide 29.0, Anion Gap 5, BUN 8, Creatinine 0.89, Estim Creat Clear Calc 86.50, Est GFR (MDRD) Af Amer 82, Est GFR (MDRD) Non-Af 68, B UN/Creatinine Ratio 9.0 L, Glucose 106, Lactic Acid 1.4, Calcium 10.0, Total Bilirubin 0.50, AST 24, ALT 46, Alkaline Phosphatase 95, Troponin I High Sens 6, Total Protein 7.6, Albumin 3.2, Globulin 4.4 H, Albumin/Globulin Ratio 0.7 L, Lipase 26 03/07/24 21:03: POC Glucose 91 03/08/24 05:53: Sodium 141, Potassium 3.4 L, Chloride 110 H, Carbon Dioxide 26.0, Anion Gap 5, BUN 7, Creatinine 0.77, Estim Creat Clear Calc 96.87, Est GFR (MDRD) Af Amer 96, Est GFR (MDRD) Non-Af 79, BUN/Creatinine Ratio 9.0 L, Glucose 85, Calcium 9.6 03/08/24 06:07: POC Glucose 103 03/08/24 06:54: WBC 7.1, RBC 5.39, Hgb 14.5, Hct 45.4, MCV 84.2, MCH 26.9 L, M CHC 31.9 L, RDW Std Deviation 49.4 H, RDW Coeff of Rashaun 16.2 H, Plt Count 284, MPV 10.2 Radiography Diagnostic Testing: Radiology Impression Abdomen/Pelvis CT 03/07/24 14:35 IMPRESSION: Persistent acute sigmoid diverticulitis. No focal fluid collection or free air. Electronically Signed: Jeffrey Alexandra MD at 16:36 EDT , Physical Exam Narrative Seen and examined. Patient has minimal soreness over side of abdomen. Denies abdominal pain. No fever. Physical exam General: Alert, Oriented x3, Cooperative. Morbid obesity BMI 47.3 kg/m?. HEENT: Atraumatic, PERRLA, EOMI, Normocephalic Oral: No Gingival or Mucosal Lesions/ Ulcerations Neck: Supple, No JVD, Negative Carotid Bruits Chest wall/Lungs: Air entry diminished in bilateral lung bases. No crepitation/rhonchi Cardiovascular: Regular rate, Regular Rhythm, Normal S1, Normal S2, No M/G/R Abdomen: Bowel Sounds Present, Soft, Non Tender, Non-Distended. No palpable mass : No dysuria. No renal angle tenderness. No suprapubic tenderness. Extremities: No edema, Capillary Refill Less than 3 Seconds Skin: No rashes, No breakdown Musculoskeletal: No Tenderness to Palpation of Joints or Extremities. ROM restricted. Neurological: Cranial nerves II-XII grossly intact, DTR 2+/4. No acute focal neurological deficit. Psych/Mental Status: Normal Affect, Appropriate. Assessment & Plan Assessment/Plan (1) Diverticulitis: PLAN: Plan Patient is a 68-year-old female who presented [facility] ED on 03/07/2024 with worsening abdominal pain. Patient was diagnosed with diverticulitis in early February and completed 2 weeks of antibiotics 1. Recurrent mild sigmoid diverticulitis ? Admit under observation status to [facility]. General surgery consulted. CT abdomen pelvis showed recurrent acute sigmoid diverticulitis with no perforation or abscess noted. Patient very stable appearing on exam with minimal abdominal pain. Hemodynamically stable and afebrile. IV Zosyn for now. Advised the diet as needed. Patient had 2 weeks of antibiotics. Currently not having diarrhea but soft bowel movement with mucus. No blood. Chronic medical conditions: ? Morbid obesity: BMI 47 on admit. Encouraged lifestyle modifications. Complicates hospital course, care and prognosis. ? Hypertension: Stable. Continue home atenolol and chlorthalidone. ? Type 2 diabetes mellitus: Home regimen of metformin 500 mg daily and glipizide 2.5 mg daily. Blood glucose 106 on admit. Okay for sliding scale insulin with meals while inpatient. ? History of breast cancer: Continue home exemestane. DVT prophylaxis: Lovenox twice daily CODE STATUS: Full code, verified Charges/Coding Visit Charges Inpatient E&M: 27636 Subs Hosp L2
--- NOTE | 2024-03-08 07:57 | CON.PCM.SX_ITS ---
Assessment & Plan Assessment/Plan (1) Diverticulitis: PLAN: Patient has recurrent diverticulitis. She was just seen last week by my partner and referred to a tertiary center. She presents with worsening abdominal pain and CT scan reveals that she has diverticulitis in the same area. I discussed conservative management with her and I will keep her on clear liquids until her pain resolves and continue antibiotics. She may then follow- up at the tertiary center for elective resection of the segment of colon. She is still painful today so I will keep her on clear liquids. Carlos Dillon MD Pager: [facility] [address] [place] [address] [address] [place], [address] [place] [address] Office: HPI Consult Data Date of Consult: 03/08/24 HPI Narrative HPI Narrative: NEL HUANG, is a 68 F who presents with another flareup of her diverticulitis. The patient has had multiple flares in the last month or 2. She was recently referred to a tertiary center due to her BMI but she has not seen them yet. [facility] Medical History (Updated 03/07/24 @ 22:[address] Boyd Zimmerman, DO) Kidney stones Diverticulitis Wears glasses Cancer Rash Diabetes Arthritis History of diverticulitis History of stress test Invasive ductal carcinoma of right breast Hypertension Former smoker Bone spur HTN (hypertension) Home Medications ?Medication ?Instructions ?Recorded ?Last Taken ?Type multivit-iron 18 mg-folic acid 400 1 ea PO QODAY supplememnt 09/14/16 03/07/24 History mcg-calcium 500 mg-minerals tablet (Women's Daily Formula) atenolol 50 mg tablet 50 mg PO DAILY blood pressure 06/28/22 03/07/24 History chlorthalidone 25 mg tablet 12.5 mg PO DAILY water pill 06/28/22 03/07/24 History exemestane 25 mg tablet 25 mg PO DAILY breast cancer 06/28/22 03/07/24 History glipizide 2.5 mg tablet, extended 2.5 mg PO DAILY diabetes 06/28/22 03/07/24 History release 24 hr potassium chloride 20 mEq 20 meq PO BID supplement 06/28/22 03/07/24 History tablet,extended release metformin 500 mg tablet,extended 500 mg PO DAILY 03/07/24 03/07/24 History release 24 hr Allergy/AdvReac Type Severity Reaction Status Date / Time silver sulfadiazine (From Allergy Hives Verified 02/23/24 14:42 Silvadene) Family History Other Cancer Surgical History History of colonoscopy History of foot surgery S/P lumpectomy, right breast History of cholecystectomy H/O: hysterectomy Social History Smoking Status: Former smoker Physical Exam Const alert and oriented x3 HEENT normocephalic Eyes PERRL Chest inspection of chest normal Resp normal respiratory effort and normal air movement Cardio regular rate and regular rhythm GI soft to palpation Palpation: tender LLQ and LUQ Extremity normal to inspection Neuro CN's II-XII intact bilaterally Lab / Micro Data 03/08/24 06:54 03/08/24 05:53 Labs: Laboratory Results - last 24 hr 03/07/24 14:55: Urine Color Yellow, Urine Clarity Cloudy, Urine pH 7.0, Ur Specific [place] 1.005, Urine Protein 15 H, Urine Glucose (UA) Normal, Urine Ketones Negative, Urine Occult Blood 50 H, Urine Nitrite Negative, Urine Bilirubin Negative, Urine Urobilinogen Normal, Ur Leukocyte Esterase 500 H, Urine RBC 0 SEEN, Urine WBC 25-50 SEEN, Ur Squamous Epith Cells 0-5 SEEN, Urine Bacteria 2+, Urine Mucus 0 SEEN 03/07/24 15:13: WBC 8.1, RBC 5.56 H, Hgb 14.9, Hct 46.1, MCV 82.9, MCH 26.8 L, MCHC 32.3, RDW Std Deviation 48.1 H, RDW Coeff of Rashaun 15.9 H, Plt Count 310, MPV 9.6, Immature Gran % (Auto) 0.400, Neut % (Auto) 64.0, Lymph % (Auto) 21.4, [place] % (Auto) 11.0 H, Eos % (Auto) 2.5, Baso % (Auto) 0.7, Absolute Neuts (auto) 5.2, Absolute Lymphs (auto) 1.73, Nucleated RBC % 0, Sodium 140, Potassium 3.5, Chloride 107, Carbon Dioxide 29.0, Anion Gap 5, BUN 8, Creatinine 0.89, Estim Creat Clear Calc 86.50, Est GFR (MDRD) Af Amer 82, Est GFR (MDRD) Non-Af 68, B UN/Creatinine Ratio 9.0 L, Glucose 106, Lactic Acid 1.4, Calcium 10.0, Total Bilirubin 0.50, AST 24, ALT 46, Alkaline Phosphatase 95, Troponin I High Sens 6, Total Protein 7.6, Albumin 3.2, Globulin 4.4 H, Albumin/Globulin Ratio 0.7 L, Lipase 26 03/07/24 21:03: POC Glucose 91 03/08/24 05:53: Sodium 141, Potassium 3.4 L, Chloride 110 H, Carbon Dioxide 26.0, Anion Gap 5, BUN 7, Creatinine 0.77, Estim Creat Clear Calc 96.87, Est GFR (MDRD) Af Amer 96, Est GFR (MDRD) Non-Af 79, BUN/Creatinine Ratio 9.0 L, Glucose 85, Calcium 9.6 03/08/24 06:07: POC Glucose 103 03/08/24 06:54: WBC 7.1, RBC 5.39, Hgb 14.5, Hct 45.4, MCV 84.2, MCH 26.9 L, M CHC 31.9 L, RDW Std Deviation 49.4 H, RDW Coeff of Rashaun 16.2 H, Plt Count 284, MPV 10.2 Imaging Radiology Impression Abdomen/Pelvis CT 03/07/24 14:35 IMPRESSION: Persistent acute sigmoid diverticulitis. No focal fluid collection or free air. Electronically Signed: Jeffrey Alexandra MD at 16:36 EDT ,
[2024-03-08 08:28] VITALS: BP 114/66; PULSE 55; RESP 18; TEMP 36.4; O2SAT 100
[2024-03-08 08:30] VITALS: PULSE 55
[2024-03-08 08:33] VITALS: O2SAT 96
[2024-03-08] MEDS: Enoxaparin 40 MG/0.4 ML Syringe SC ×2 (08:49→21:33)
[2024-03-08] MEDS: Potassium Chloride Oral Tablet 20 MEQ PO ×2 (08:49→11:38)
[2024-03-08 11:52] LABS: Bedside Glucose 149 mg/dL (74-106)
--- NOTE | 2024-03-08 14:24 | CASEMGMT ---
Met with patient to complete SANTOS form. SANTOS form explained to patient who voiced understanding and signed form. Original form placed in pt?s chart and copy provided to patient. Nano Lopez, Discharge Planning Asst
[2024-03-08 15:09] VITALS: BP 128/64; PULSE 58; RESP 17; TEMP 36.6; O2SAT 97
[2024-03-08 17:13] LABS: Bedside Glucose 126 mg/dL (74-106)
[2024-03-08 21:19] VITALS: BP 114/70; PULSE 61; RESP 18; TEMP 36.9; O2SAT 96
[2024-03-08] MEDS: Lactobacillis Acidophilus 1 CAP PO (21:35)
[2024-03-08 21:55] LABS: Bedside Glucose 82 mg/dL (74-106)
[2024-03-09 04:34] VITALS: BP 110/72; PULSE 55; RESP 18; TEMP 36.3; O2SAT 100
[2024-03-09] MEDS: 0.9% Saline Lock 10 ML Syringe IV (04:44)
[2024-03-09] MEDS: 0.9% Normal Saline (250mL Bag) 250 ML 15 ML IV (04:44)
[2024-03-09] MEDS: Piperacil/Tazobactam 3.375 GM in 0.9% Normal Saline (50mL MB+) 50 ML IV (06:20)
[2024-03-09 06:56] LABS: Bedside Glucose 99 mg/dL (74-106)
[2024-03-09 06:58] LABS: Absolute Lymphocyte Count 1.63 X10^3/uL (0.83-4.51); Absolute Neutrophil Count 3.4 X10^3/uL (2.0-7.7); Basophil# 0.04 X10^3/uL; Basophil% 0.7 % (0-1); Eosinophil# 0.25 X10^3/uL; Eosinophils% 4.2 % (0-5); Hematocrit 48.4 % (37-47); Hemoglobin 15.4 g/dL (12.0-15.0); Lymphocyte # 1.63 X10^3/ul (0.83-4.51); Lymphocyte % 27.2 % (19-41); Mean Corp Hgb Conc 31.8 g/dL (32-36); Mean Corpuscular Hgb 27.2 pg (27.0-32.0); Mean Corpuscular Volume 85.5 fL (81-99); Mean Platelet Vol. 9.8 fl (6.2-12.0); Monocyte# 0.65 X10^3/uL; Monocyte% 10.8 % (0-10); NRBC Flagged by Analyzer 0 % (0-5); Neutrophil # 3.41 X10^3/uL (2.7-7.7); Neutrophil % 56.8 % (47-70); Platelet Count 259 K/mm3 (150-450); RBC Distribution Width CV 16.5 % (11.6-14.6); Red Blood Count 5.66 M/mm3 (4.2-5.4)
[2024-03-09 07:27] LABS: Anion Gap 6 (5-15); BUN 6 mg/dL (7-18); BUN/Creat Ratio 6.8 RATIO (10-20); Calcium,Total 9.6 mg/dL (8.5-10.1); Chloride 111 mmol/L (98-107); Creatinine, Serum 0.88 mg/dL (0.55-1.02); EST Glomerular Filtration Rate 69 mL/min (>60); Est Glom Filt Rate - Afr Amer 83 mL/min (>60); Estimated Creatinine Clearance 88.06 ml/min; Glucose 96 mg/dL (74-106); Potassium 3.6 mmol/L (3.5-5.1); Sodium Level 140 mmol/L (136-145)
[2024-03-09 08:10] VITALS: BP 135/61; PULSE 58; RESP 18; TEMP 36.6; O2SAT 98
--- NOTE | 2024-03-09 08:22 | PN.SURG_ITS ---
Subjective Subjective Patient is evaluated resting comfortably in bed. She denies any current abdominal pain. She is frustrated with the continued flare ups of the diverticulitis. She denies any nausea, vomiting, fever. She states she is attempting to figure out what diet is best for her situation. She notes passing flatus. She notes when passing flatus there is some minimal pain noted. Objective Data Objective Data Vital Signs: Vital Signs Temp Pulse Resp BP Pulse Ox O2 Del Method 98 F 58 L 18 135/61 H 98 Room Air 03/09/24 08:10 03/09/24 08:10 03/09/24 08:10 03/09/24 08:10 03/09/24 08:10 03/09/24 08:14 Oxygen Delivery Method Room Air Weight: 292 lb 12.8 oz Body Mass Index (BMI) 47.2 Intake & Output: Intake and Output for Last 24 Hours 03/07/24 03/08/24 03/09/24 23:59 23:59 23:59 Intake Total 1050 / 1050 900 / 1550 800 / 800 Balance 1050 / 1050 900 / 1550 800 / 800 Lab / Micro Data 03/09/24 06:32 03/09/24 06:32 Labs: Laboratory Results - last 24 hr 03/08/24 11:32: POC Glucose 149 H 03/08/24 16:54: POC Glucose 126 H 03/08/24 21:26: POC Glucose 82 03/09/24 06:17: POC Glucose 99 03/09/24 06:32: WBC 6.0, RBC 5.66 H, Hgb 15.4 H, Hct 48.4 H, MCV 85.5, MCH 27.2, MCHC 31.8 L, RDW Std Deviation 51.0 H, RDW Coeff of Rashaun 16.5 H, Plt Count 259, MPV 9.8, Immature Gran % (Auto) 0.300, Neut % (Auto) 56.8, Lymph % (Auto) 27.2, [place] % (Auto) 10.8 H, Eos % (Auto) 4.2, Baso % (Auto) 0.7, Absolute Neuts (auto) 3.4, Absolute Lymphs (auto) 1.63, Nucleated RBC % 0, Sodium 140, Potassium 3.6, Chloride 111 H, Carbon Dioxide 23.0, Anion Gap 6, BUN 6 L, Creatinine 0.88, Estim Creat Clear Calc 88.06, Est GFR (MDRD) Af Amer 83, Est GFR (MDRD) Non-Af 69, BUN/Creatinine Ratio 6.8 L, Glucose 96, Calcium 9.6 Physical Exam GI GI Narrative: Abdomen- soft, nontender to palpation. Positive bowel sounds Assessment & Plan Assessment/Plan (1) Diverticulitis: (2) Abdominal pain: PLAN: Plan I am seeing this patient in conjunction with Dr. Dillon. He has independently evaluated this patient. Continue IV antibiotics Increase to transitional diet If patient tolerated transitional diet, plan to discharge home on Augmentin x 10 days I have discussed with the patient that I will have our office check into the referral to Dr. Hook's office for evaluation and recommendation of sigmoidectomy for recurrent diverticulitis I will also include recommendations on a more specific diet for diverticulitis Hopefully patient will meet with the dietitian for further recommendations on diet We will continue to monitor this patient Charges/Coding Visit Charges Inpatient E&M: [address] [facility] L1
[2024-03-09] MEDS: Potassium Chloride Oral Tablet 20 MEQ 40 MEQ PO (08:42)
[2024-03-09] MEDS: Enoxaparin 40 MG/0.4 ML Syringe SC (08:42)
[2024-03-09] MEDS: Lactobacillis Acidophilus 1 CAP PO (08:42)
[2024-03-09] MEDS: Chlorthalidone 50 MG Tablet 12.5 MG PO (10:19)
[2024-03-09] MEDS: Potassium Chloride Oral Tablet 20 MEQ PO (10:41)
--- NOTE | 2024-03-09 11:11 | DCINST_ITS ---
Discharge Instructions Diet Discharge Diet: - (Low fiber diet. See attached. ) Activity Discharge Activity: Return to Normal Activity Weight Bearing Status: Weight bearing as tolerated Dressing / Incision Call your doctor if you observe: Fever of 101 or Higher, Coldness, Increased Pain, Numbness or Tingling, Change in Color, Inability to urinate, Inability to have a bowel movement, Using more than 1 pad per hour, Shortness of breath, Dizziness, Fainting spells, Swelling in the ankles, Chest pain, Prolonged hiccupping, Increased palpitations (irregular heartbeat) and Calf discomfort Follow Up Care Please Follow Up With: Deja Menard MD When: IN 2 WEEKS Test Results: Test results from this visit will be discussed in further detail at your follow- up appointment, if applicable. Discharge Plan Admission Admit Date/Time: 03/07/24 17:32 Primary Reason for Your Visit: Acute recurrent diverticulitis Attending Provider: Dylan Borges Primary Care Provider: Elsa Taylor Consulting Providers: Carlos Dillon; Freddy Cantu Instructions Additional Instructions / Restrictions: What are low-fiber foods? If your doctor tells you to follow a low-fiber diet, here are low-fiber foods you can eat and higher-fiber foods you should avoid. Remember to always choose foods that you would normally eat. Do not try any foods that caused you discomfort or allergic reactions in the past. If you are on a ?low-residue diet,? your food choices are even more restricted than those listed below. Talk with your cancer care team or dietitian if you have questions about certain foods or amounts. Meat, fish, poultry, and protein Eat: Tender cuts of meat Ground meat Tofu Fish and shellfish Smooth peanut butter Eggs Bake, broil, or poach meats, and use mild seasonings. Try preparing meats as stews, roasts, meatloaves, casseroles, sandwiches, and soups using ingredients on the approved lists. Scramble, poach, or boil eggs; or make omelets, souffl?s, custard, puddings, and casseroles, using ingredients noted below. You might want to ask your doctor, nurse, or dietitian about other foods may be OK for you to eat, and find out when you can go back to your normal diet. Avoid: All beans, nuts, peas, lentils, and legumes Processed meats, hot dogs, sausage, and cold cuts Tough meats with gristle Dairy: Milk and cheese Eat: Only in small to medium amounts and only if they don?t cause problems for you Milk, chocolate milk, buttermilk, and milk drinks Yogurt without seeds or granola Sour cream Cheese Cottage cheese Custard or pudding Ice cream or frozen desserts (without nuts) Cream sauces, soups, and casseroles You can use these items in desserts, snacks, or breads. Bread, cereals, and grains Eat: White breads, waffles, Mongolian toast, plain white rolls, or white bread toast Pretzels Plain pasta or noodles White rice Crackers, zwieback, abril, and matzoh (no cracked wheat or whole grains) Cereals without whole grains, added fiber, seeds, raisins, or other dried fruit Use white flour for baking and making sauces. Grains, such as white rice, Cream of Wheat, or grits, should be well-cooked. Include the above grains in casseroles, dumplings, souffl?s, cheese strata, kugels, and pudding. Avoid any food that contains: Brown or wild rice Whole grains, cracked grains, or whole wheat products Kasha (buckwheat) Cornbread or cornmeal Leon crackers Bran Wheat germ Nuts Granola Coconut Dried fruit Seeds Vegetables and potatoes Eat: Tender, well-cooked fresh or canned vegetables without seeds, stems, or skins Cooked sweet or white potatoes without skins Strained vegetable juices without pulp or spices You can also eat these with cream sauces, or in soups, souffl?s, kugels, and casseroles. Avoid: All raw or steamed vegetables All types of beans Potatoes with skin Peas [place] Cabbage, broccoli, cauliflower, [place] sprouts, and greens Sauerkraut Onions Fruits and desserts Eat: Soft canned or cooked fruit without seeds or skins (small amounts) Small amounts of well-ripened banana Strained or clear juices Small amounts of soft cantaloupe or honeydew melon Cookies and other desserts without whole grains, dried fruit, berries, nuts, or coconut Sherbet and popsicles Serving suggestions include gelatins, milk shakes, frozen desserts, puddings, tapioca, cakes, and sauces. Avoid: All raw or dried fruits Berries Prune juice, prunes, and raisins Other foods Eat: Mayonnaise and mild salad dressings Margarine, butter, cream, and oils in small amounts Plain gravies Plain bouillon and broth Ketchup and mild mustard Spices, cooked herbs, and salt Sugar, honey, and syrup Clear jellies Hard candy and marshmallows Plain chocolate Avoid: Marmalade Pickles, olives, relish, and horseradish Popcorn Potato chips Liquids Keep in mind that low-fiber foods cause fewer bowel movements and smaller stools. You may need to drink extra fluids to help prevent constipation while you are on a low-fiber diet. Drink plenty of water unless your doctor tells you otherwise, and use juices and milk as noted above. Discharge Orders/Prescriptions Prescriptions: gerson Reinoso-BCariebif-S.therm 175 mg Capsule 1 cap PO BID 30 Days Qty: 60 0RF amoxicillin-pot clavulanate 875-125 mg tablet 1 tab PO BID 10 Days Qty: 20 0RF Continued Women's Daily Formula 1 EACH tablet 1 ea PO QODAY exemestane 25 mg tablet 25 mg PO DAILY atenolol 50 mg tablet 50 mg PO DAILY chlorthalidone 25 mg tablet 12.5 mg PO DAILY glipizide 2.5 mg tablet extended release 24hr 2.5 mg PO DAILY potassium chloride 20 mEq tablet extended release 20 meq PO BID metformin 500 mg tablet extended release 24 hr 500 mg PO DAILY Referrals / Follow Up: Elsa Taylor MD [Primary Care Provider] - Within 2 Weeks Deja Menard MD [Med Staff - Active Staff] - (Please contact our office to follow-up in 10-14 days unless appointment is scheduled with colorectal at [facility]) Disposition Disposition (needs filled in before D/C Order can be placed): Home, Self Care
[2024-03-09 11:39] VITALS: PULSE 63
[2024-03-09] MEDS: Atenolol 50 MG Tablet PO (11:40)
[2024-03-09 12:01] LABS: Bedside Glucose 147 mg/dL (74-106)
--- NOTE | 2024-03-09 12:09 | DCINST_ITS ---
Discharge Instructions Diet Discharge Diet: - (Low fiber diet. See attached. ) Activity Discharge Activity: No Restrictions Follow Up Care Please Follow Up With: Deja Menard MD When: Please contact our office to follow-up with Dr. Menard in 10-14 days following discharge Test Results: Test results from this visit will be discussed in further detail at your follow- up appointment, if applicable. Discharge Plan Admission Admit Date/Time: 03/07/24 17:32 Primary Reason for Your Visit: Acute recurrent diverticulitis Attending Provider: Dylan Borges Primary Care Provider: Elsa Taylor Consulting Providers: Carlos Dillon; Freddy Cantu Instructions Additional Instructions / Restrictions: What are low-fiber foods? If your doctor tells you to follow a low-fiber diet, here are low-fiber foods you can eat and higher-fiber foods you should avoid. Remember to always choose foods that you would normally eat. Do not try any foods that caused you discomfort or allergic reactions in the past. If you are on a ?low-residue diet,? your food choices are even more restricted than those listed below. Talk with your cancer care team or dietitian if you have questions about certain foods or amounts. Meat, fish, poultry, and protein Eat: Tender cuts of meat Ground meat Tofu Fish and shellfish Smooth peanut butter Eggs Bake, broil, or poach meats, and use mild seasonings. Try preparing meats as stews, roasts, meatloaves, casseroles, sandwiches, and soups using ingredients on the approved lists. Scramble, poach, or boil eggs; or make omelets, souffl?s, custard, puddings, and casseroles, using ingredients noted below. You might want to ask your doctor, nurse, or dietitian about other foods may be OK for you to eat, and find out when you can go back to your normal diet. Avoid: All beans, nuts, peas, lentils, and legumes Processed meats, hot dogs, sausage, and cold cuts Tough meats with gristle Dairy: Milk and cheese Eat: Only in small to medium amounts and only if they don?t cause problems for you Milk, chocolate milk, buttermilk, and milk drinks Yogurt without seeds or granola Sour cream Cheese Cottage cheese Custard or pudding Ice cream or frozen desserts (without nuts) Cream sauces, soups, and casseroles You can use these items in desserts, snacks, or breads. Bread, cereals, and grains Eat: White breads, waffles, [place]an toast, plain white rolls, or white bread toast Pretzels Plain pasta or noodles White rice Crackers, zwieback, abril, and matzoh (no cracked wheat or whole grains) Cereals without whole grains, added fiber, seeds, raisins, or other dried fruit Use white flour for baking and making sauces. Grains, such as white rice, Cream of Wheat, or grits, should be well-cooked. Include the above grains in casseroles, dumplings, souffl?s, cheese strata, kugels, and pudding. Avoid any food that contains: Brown or wild rice Whole grains, cracked grains, or whole wheat products Kasha (buckwheat) Cornbread or cornmeal Leon crackers Bran Wheat germ Nuts Granola Coconut Dried fruit Seeds Vegetables and potatoes Eat: Tender, well-cooked fresh or canned vegetables without seeds, stems, or skins Cooked sweet or white potatoes without skins Strained vegetable juices without pulp or spices You can also eat these with cream sauces, or in soups, souffl?s, kugels, and casseroles. Avoid: All raw or steamed vegetables All types of beans Potatoes with skin Peas [place] Cabbage, broccoli, cauliflower, [place] sprouts, and greens Sauerkraut Onions Fruits and desserts Eat: Soft canned or cooked fruit without seeds or skins (small amounts) Small amounts of well-ripened banana Strained or clear juices Small amounts of soft cantaloupe or honeydew melon Cookies and other desserts without whole grains, dried fruit, berries, nuts, or coconut Sherbet and popsicles Serving suggestions include gelatins, milk shakes, frozen desserts, puddings, tapioca, cakes, and sauces. Avoid: All raw or dried fruits Berries Prune juice, prunes, and raisins Other foods Eat: Mayonnaise and mild salad dressings Margarine, butter, cream, and oils in small amounts Plain gravies Plain bouillon and broth Ketchup and mild mustard Spices, cooked herbs, and salt Sugar, honey, and syrup Clear jellies Hard candy and marshmallows Plain chocolate Avoid: Marmalade Pickles, olives, relish, and horseradish Popcorn Potato chips Liquids Keep in mind that low-fiber foods cause fewer bowel movements and smaller stools. You may need to drink extra fluids to help prevent constipation while you are on a low-fiber diet. Drink plenty of water unless your doctor tells you otherwise, and use juices and milk as noted above. Discharge Orders/Prescriptions Prescriptions: Kevin Reinoso-S.therm 175 mg Capsule 1 cap PO BID 30 Days Qty: 60 0RF amoxicillin-pot clavulanate 875-125 mg tablet 1 tab PO BID 10 Days Qty: 20 0RF Continued Women's Daily Formula 1 EACH tablet 1 ea PO QODAY exemestane 25 mg tablet 25 mg PO DAILY atenolol 50 mg tablet 50 mg PO DAILY chlorthalidone 25 mg tablet 12.5 mg PO DAILY glipizide 2.5 mg tablet extended release 24hr 2.5 mg PO DAILY potassium chloride 20 mEq tablet extended release 20 meq PO BID metformin 500 mg tablet extended release 24 hr 500 mg PO DAILY Referrals / Follow Up: Elsa Taylor MD [Primary Care Provider] - Deja Menard MD [Med Staff - Active Staff] - (Please contact our office to follow-up in 10-14 days unless appointment is scheduled with colorectal at [facility]) Disposition Disposition (needs filled in before D/C Order can be placed): Home, Self Care
--- NOTE | 2024-03-09 12:41 | CASEMGMT ---
RN CM into pt room, pt states she lives at home and her son and his girlfriend are staying at her house and children. Pt reports she has dogs and emotional support ducks that are important to her. Pt states she is indep at home and denies any homegoing needs other than diet information. Pt is aware that this will be on her dc instructions. Pt verbalizes understanding.
--- NOTE | 2024-03-09 14:13 | DS.PCM_ITS ---
Providers Date of Admission: 03/07/24 Date of Discharge: 03/09/24 Primary Care Physician: Dr. Elsa Taylor MD Consultations 03/07/24 18:04 Consult: General Surgery Routine Consulting Provider: Carlos Dillon Reason for Consult: recurrent sigmoid diverticulitis EMERGENT Consult: No MD Notified: Yes Date Notified: 03/07/24 Time Notified: 17:36 Method of Notification: Verbal Reason For Visit: RECURRENT SIGMOID DIVERTICULITIS Diagnosis Discharge Diagnosis (1) Diverticulitis: Status: Acute Code(s): K57.92 - Diverticulitis of intestine, part unspecified, without perforation or abscess without bleeding (2) Abdominal pain: Status: Acute Code(s): R10.9 - Unspecified abdominal pain Plan Patient is a 68-year-old female who presented [facility] ED on 03/07/2024 with worsening abdominal pain. Patient was diagnosed with diverticulitis in early February and completed 2 weeks of antibiotics 1. Recurrent mild sigmoid diverticulitis ? Admit under observation status to [facility]. General surgery consulted. CT abdomen pelvis showed recurrent acute sigmoid diverticulitis with no perforation or abscess noted. Patient very stable appearing on exam with minimal abdominal pain. Hemodynamically stable and afebrile. IV Zosyn for now. Advised the diet as needed. Patient had 2 weeks of antibiotics. Currently not having diarrhea but soft bowel movement with mucus. No blood. 03/09: Patient was seen and examined. Does not have abdominal tenderness or pain. I agree with the surgical plan of discharged on 10 more days of Augmentin. She has been referred to tertiary care to Dr. Hook's office to evaluate for sigmoidectomy for recurrent diverticulitis as she is high risk for surgery. Chronic medical conditions: ? Morbid obesity: BMI 47 on admit. Encouraged lifestyle modifications. Complicates hospital course, care and prognosis. ? Hypertension: 03/08: BP is controlled. Heart rate 55 to 58/min. Advised to hold atenolol and may take it in afternoon when heart rate is more than 60/min. Continue home atenolol and chlorthalidone. ? Type 2 diabetes mellitus: Home regimen of metformin 500 mg daily and glipizide 2.5 mg daily. Blood glucose 106 on admit. Patient was on sliding scale insulin with meals while inpatient. ? History of breast cancer: Continue home exemestane. DVT prophylaxis: Lovenox twice daily CODE STATUS: Full code, verified Discharge medication reconciliation done. Discharge follow-up instructions completed. Discharge process discussed with the patient and all questions were answered to patient's satisfaction. Follow with PCP in 1 to 2 weeks Total time spent, exact 35 minutes on discharge meds reconciliation, examination, coordination of care with nurses and ancillary staff, review of imaging and blood test and discussion with the patient on follow-up instructions. Medications at Discharge Home Medications multivit-iron 18 mg-folic acid 400 mcg-calcium 500 mg-minerals tablet (Women's Daily Formula) 1 ea PO QODAY supplememnt 09/14/16 atenolol 50 mg tablet 50 mg PO DAILY blood pressure 06/28/22 chlorthalidone 25 mg tablet 12.5 mg PO DAILY water pill 06/28/22 exemestane 25 mg tablet 25 mg PO DAILY breast cancer 06/28/22 glipizide 2.5 mg tablet, extended release 24 hr 2.5 mg PO DAILY diabetes 06/28/22 potassium chloride 20 mEq tablet,extended release 20 meq PO BID supplement 06/28/22 metformin 500 mg tablet,extended release 24 hr 500 mg PO DAILY 03/07/24 L.acidophil,salivari-Bifido bifidum-Strep thermoph 175 mg capsule 1 cap PO BID 30 days #60 caps 03/09/24 amoxicillin 875 mg-potassium clavulanate 125 mg tablet 1 tab PO BID 10 days #20 tabs 03/09/24 Physical Exam Narrative Seen and examined. Denies pain nausea vomiting. Patient tolerated soft diet. Patient is little frustrated with recurrent diverticulitis. Discussed with the surgeon and his referral further tertiary care for evaluation of sigmoidectomy No fever. Physical exam General: Alert, Oriented x3, Cooperative. Morbid obesity BMI 47.3 kg/m?. HEENT: Atraumatic, PERRLA, EOMI, Normocephalic Oral: No Gingival or Mucosal Lesions/ Ulcerations Neck: Supple, No JVD, Negative Carotid Bruits Chest wall/Lungs: Air entry diminished in bilateral lung bases. No crepitation/rhonchi Cardiovascular: Regular rate, Regular Rhythm, Normal S1, Normal S2, No M/G/R Abdomen: Bowel Sounds Present, Soft, Non Tender, Non-Distended. No palpable mass : No dysuria. No renal angle tenderness. No suprapubic tenderness. Extremities: No edema, Capillary Refill Less than 3 Seconds Skin: No rashes, No breakdown Musculoskeletal: No Tenderness to Palpation of Joints or Extremities. ROM restricted. Neurological: Cranial nerves II-XII grossly intact, DTR 2+/4. No acute focal neurological deficit. Psych/Mental Status: Normal Affect, Appropriate. Weight / BMI Weight Weight: 292 lb 12.8 oz Body Mass Index (BMI) 47.2 ABG / Lab / Microbiology Data 03/09/24 06:32 03/09/24 06:32 Laboratory: Laboratory Results - last 24 hr 03/08/24 16:54: POC Glucose 126 H 03/08/24 21:26: POC Glucose 82 03/09/24 06:17: POC Glucose 99 03/09/24 06:32: WBC 6.0, RBC 5.66 H, Hgb 15.4 H, Hct 48.4 H, MCV 85.5, MCH 27.2, MCHC 31.8 L, RDW Std Deviation 51.0 H, RDW Coeff of Rashaun 16.5 H, Plt Count 259, MPV 9.8, Immature Gran % (Auto) 0.300, Neut % (Auto) 56.8, Lymph % (Auto) 27.2, [place] % (Auto) 10.8 H, Eos % (Auto) 4.2, Baso % (Auto) 0.7, Absolute Neuts (auto) 3.4, Absolute Lymphs (auto) 1.63, Nucleated RBC % 0, Sodium 140, Potassium 3.6, Chloride 111 H, Carbon Dioxide 23.0, Anion Gap 6, BUN 6 L, Creatinine 0.88, Estim Creat Clear Calc 88.06, Est GFR (MDRD) Af Amer 83, Est GFR (MDRD) Non-Af 69, BUN/Creatinine Ratio 6.8 L, Glucose 96, Calcium 9.6 03/09/24 11:37: POC Glucose 147 H Microbiology: Microbiology 03/07/24 14:55 Urine, Clean Catch Urine Culture - Preliminary GPC Poss Enterococcus sp Mixed Gram Pos & Gram Neg Org D/C Instructions Discharge Diet: - (Low fiber diet. See attached. ) Weight Bearing Status: Weight bearing as tolerated Call your doctor if you observe: Fever of 101 or Higher, Coldness, Increased Pain, Numbness or Tingling, Change in Color, Inability to urinate, Inability to have a bowel movement, Using more than 1 pad per hour, Shortness of breath, Dizziness, Fainting spells, Swelling in the ankles, Chest pain, Prolonged hiccupping, Increased palpitations (irregular heartbeat) and Calf discomfort Please Follow Up With: Deja Menard MD When: IN 2 WEEKS Meaningful Use Info Meaningful Use Meaningful Use Diagnoses (Choose all that apply): None applicable Ischemic Stroke Statin Dosing Therapy Reference: STATIN DOSE THERAPY REFERENCE: * Patients > 75 years receive moderate or high dose statin therapy. * Patients 75 years or YOUNGER should receive HIGH intensity statin dose unless contraindicated. You will be required to document reason for non-treatment if statin daily dose does not meet guidelines. HIGH DOSE STATIN THERAPY DAILY Atorvastatin > than or = to 40 mg Rosuvastatin > than or = to 20 mg Amlodipine + Atorvastatin > than or = to 2.5/40 mg Ezetimibe + Simvastatin 10/80 mg Simvastatin 80mg Discharge Plan Admission Admit Date/Time: 03/07/24 17:32 Primary Reason for Your Visit: Acute recurrent diverticulitis Attending Provider: Dylan Borges Primary Care Provider: Elsa Taylor Consulting Providers: Carlos iDllon; Freddy Cantu Instructions Additional Instructions / Restrictions: What are low-fiber foods? If your doctor tells you to follow a low-fiber diet, here are low-fiber foods you can eat and higher-fiber foods you should avoid. Remember to always choose foods that you would normally eat. Do not try any foods that caused you discomfort or allergic reactions in the past. If you are on a ?low-residue diet,? your food choices are even more restricted than those listed below. Talk with your cancer care team or dietitian if you have questions about certain foods or amounts. Meat, fish, poultry, and protein Eat: Tender cuts of meat Ground meat Tofu Fish and shellfish Smooth peanut butter Eggs Bake, broil, or poach meats, and use mild seasonings. Try preparing meats as stews, roasts, meatloaves, casseroles, sandwiches, and soups using ingredients on the approved lists. Scramble, poach, or boil eggs; or make omelets, souffl?s, custard, puddings, and casseroles, using ingredients noted below. You might want to ask your doctor, nurse, or dietitian about other foods may be OK for you to eat, and find out when you can go back to your normal diet. Avoid: All beans, nuts, peas, lentils, and legumes Processed meats, hot dogs, sausage, and cold cuts Tough meats with gristle Dairy: Milk and cheese Eat: Only in small to medium amounts and only if they don?t cause problems for you Milk, chocolate milk, buttermilk, and milk drinks Yogurt without seeds or granola Sour cream Cheese Cottage cheese Custard or pudding Ice cream or frozen desserts (without nuts) Cream sauces, soups, and casseroles You can use these items in desserts, snacks, or breads. Bread, cereals, and grains Eat: White breads, waffles, [place] toast, plain white rolls, or white bread toast Pretzels Plain pasta or noodles White rice Crackers, zwieback, abril, and matzoh (no cracked wheat or whole grains) Cereals without whole grains, added fiber, seeds, raisins, or other dried fruit Use white flour for baking and making sauces. Grains, such as white rice, Cream of Wheat, or grits, should be well-cooked. Include the above grains in casseroles, dumplings, souffl?s, cheese strata, kugels, and pudding. Avoid any food that contains: Brown or wild rice Whole grains, cracked grains, or whole wheat products Kasha (buckwheat) Cornbread or cornmeal Leon crackers Bran Wheat germ Nuts Granola Coconut Dried fruit Seeds Vegetables and potatoes Eat: Tender, well-cooked fresh or canned vegetables without seeds, stems, or skins Cooked sweet or white potatoes without skins Strained vegetable juices without pulp or spices You can also eat these with cream sauces, or in soups, souffl?s, kugels, and casseroles. Avoid: All raw or steamed vegetables All types of beans Potatoes with skin Peas [place] Cabbage, broccoli, cauliflower, [place] sprouts, and greens Sauerkraut Onions Fruits and desserts Eat: Soft canned or cooked fruit without seeds or skins (small amounts) Small amounts of well-ripened banana Strained or clear juices Small amounts of soft cantaloupe or honeydew melon Cookies and other desserts without whole grains, dried fruit, berries, nuts, or coconut Sherbet and popsicles Serving suggestions include gelatins, milk shakes, frozen desserts, puddings, tapioca, cakes, and sauces. Avoid: All raw or dried fruits Berries Prune juice, prunes, and raisins Other foods Eat: Mayonnaise and mild salad dressings Margarine, butter, cream, and oils in small amounts Plain gravies Plain bouillon and broth Ketchup and mild mustard Spices, cooked herbs, and salt Sugar, honey, and syrup Clear jellies Hard candy and marshmallows Plain chocolate Avoid: Marmalade Pickles, olives, relish, and horseradish Popcorn Potato chips Liquids Keep in mind that low-fiber foods cause fewer bowel movements and smaller stools. You may need to drink extra fluids to help prevent constipation while you are on a low-fiber diet. Drink plenty of water unless your doctor tells you otherwise, and use juices and milk as noted above. Discharge Orders/Prescriptions Prescriptions: José Luis Reinoso 175 mg Capsule 1 cap PO BID 30 Days Qty: 60 0RF amoxicillin-pot clavulanate 875-125 mg tablet 1 tab PO BID 10 Days Qty: 20 0RF Continued Women's Daily Formula 1 EACH tablet 1 ea PO QODAY exemestane 25 mg tablet 25 mg PO DAILY atenolol 50 mg tablet 50 mg PO DAILY chlorthalidone 25 mg tablet 12.5 mg PO DAILY glipizide 2.5 mg tablet extended release 24hr 2.5 mg PO DAILY potassium chloride 20 mEq tablet extended release 20 meq PO BID metformin 500 mg tablet extended release 24 hr 500 mg PO DAILY Referrals / Follow Up: Elsa Taylor MD [Primary Care Provider] - Within 2 Weeks Deja Menard MD [Med Staff - Active Staff] - (Please contact our office to follow-up in 10-14 days unless appointment is scheduled with colorectal at [facility]) Disposition Disposition (needs filled in before D/C Order can be placed): Home, Self Care Charges/Coding Visit Charges Inpatient E&M: 49655 Disch Hosp >30min
[2024-03-09 14:21] VITALS: BP 103/63; PULSE 64; RESP 18; TEMP 37.1; O2SAT 99
== END 2024-03-09 14:53 | disposition home or self-care (01) ==
LOC: ED 15:04 → MS3 17:57
PROVIDERS: Admitting Provider Hospitalist; Emergency Provider Emergency Medicine; PCP Internal Medicine; Visit Provider Internal Medicine
DX: K57.32 Diverticulitis of large intestine without perforation or abscess without bleeding (principal); Z68.42 Body mass index [BMI] 45.0-49.9, adult; E66.01 Morbid (severe) obesity due to excess calories; E11.9 Type 2 diabetes mellitus without complications; I10 Essential (primary) hypertension; Z79.84 Long term (current) use of oral hypoglycemic drugs; Z87.891 Personal history of nicotine dependence; H92.02 Otalgia, left ear; Z79.899 Other long term (current) drug therapy
CPT/HCPCS: 36415; 74177; 80048; 80053; 81001; 82962; 83605; 83690; 84484; 85025; 85027; 87077; 87086; 87088; 87186; 93005; 94668; 96361; 96365; 96366; 96372; 99221; 99284; J7030; J7050; Q9967; A4216; G0378

== ENCOUNTER 2024-05-23 12:44 | Emergency (ER) | payer MEDICARE, MEDICAID, SELFPAY ==
[2024-05-23 12:45] VITALS: BP 147/83; PULSE 79; RESP 20; TEMP 36; O2SAT 100; BMI 47.9
[2024-05-23 13:18] VITALS: BP 138/78; PULSE 78; RESP 18; TEMP 36.9; O2SAT 97
--- NOTE | 2024-05-23 13:23 | RAD_ITS ---
STUDY: X-RAY CHEST REASON FOR EXAM: Female, 68 years old. Cough TECHNIQUE: PA and lateral views of the chest. COMPARISON: None. FINDINGS: There is a 1.7 cm x 1.5 cm nodule in the left midlung. Questionable faint calcifications within it. There is no demonstrated pleural abnormality. Normal size heart. Normal mediastinum and nicolas. Normal visualized pulmonary arteries. There is atherosclerotic calcification of the aortic arch with tortuosity. There are diffuse degenerative changes of the visualized thoracic spine. Normal visualized ribs, clavicles, and shoulders. There is no demonstrated abnormality of the visualized soft tissue structures of the upper abdomen. RAD/Chest PA and Lateral IMPRESSION: 1.7 cm x 1.5 cm nodule in the left midlung. Questionable calcification suggestive of a granuloma. No prior study available for comparison. Electronically Signed: Lorne Campbell MD at 14:55 EST ,
--- NOTE | 2024-05-23 13:23 | CT_ITS ---
STUDY: CT ABDOMEN AND PELVIS WITH CONTRAST REASON FOR EXAM: Female, 68 years old. LLQ abd pain w/ hx of diverticulitis. Urinary frequency. RADIATION DOSAGE (If Supplied By Facility): CTDIvol = ( 22.59 ) mGy, DLP = ( 1504.59 ) mGycm TECHNIQUE: Transaxial images were obtained from the dome of the diaphragm to the symphysis pubis without oral contrast. IV 100mL Isovue-[id number] was administered. Sagittal and coronal images were reconstructed. Individualized dose optimization techniques were used for this CT. COMPARISON: Comparison is made with prior study dated March 07, 2024. FINDINGS: Small calcifications seen in the right breast suggestive of fibroadenoma. The visualized lung bases are unremarkable. Minimal coronary calcification. There is decreased attenuation of the liver consistent with steatosis. There are surgical clips in the gallbladder fossa consistent with a prior cholecystectomy. Normal spleen. Normal pancreas. Normal bilateral adrenal glands. Normal right kidney. Stable 7 mm nonobstructive calculus in the lower pole calyx of the left kidney. There is a small hiatal hernia. Normal small intestine. There is diverticulosis, with thickening of the colon wall, and pericolonic inflammation changes consistent with acute diverticulitis. There is non-visualization of the appendix. Normal abdominal aorta. Normal inferior vena cava. Normal retroperitoneum. Normal urinary bladder. There is absence of the uterus consistent with a prior hysterectomy. Normal abdominal wall. Normal osseous structures. CT/Abdomen/Pelvis W IV Cont ONLY IMPRESSION: Mild degree of sigmoid diverticulitis. No evidence of fluid or abscess collection at this time. Fatty infiltration of the liver. Stable 7 mm nonobstructive left intrarenal calculus. Electronically Signed: Lorne Campbell MD at 14:44 EST ,
--- NOTE | 2024-05-23 13:24 | ED.VIS.GI ---
HPI HPI - GI History of Present Illness Chief Complaint: Abd Pain Informant: patient Abdominal Pain/Flank Pain Onset: Today and Yesterday Context: Gradual Onset Timing: Continuous Location: LLQ and Left Flank Current Severity: Mild Maximum Severity: Mild Worsened by: Nothing Relieved by: Nothing Nausea/Vomiting/Emesis GI Symptom: Negative for Nausea or Vomiting Diarrhea/Melena/Hematochezia GI Symptom: Positive for Diarrhea Stool Quality: Positive for Loose Severity: Mild Associated Symptoms Associated Symptoms: Negative for Dysuria, Frequency, Hematuria or Urgency Narrative Narrative: Sick 8-year-old female history of diverticulitis prior kidney stones and hypertension. She has had URI symptoms for about a week with green sputum. Multiple grandchildren with URI symptoms. But the primary reason why she is here today as she is also having left lower quadrant flank pain. History of diverticulitis. She is supposed to have partial colon resection done by a surgeon named Dr. Saleh, at [facility] on Wednesday. She is concerned she may have diverticulitis again. Want to make sure she did not have pneumonia. Prior similar symptoms: Yes Recent Illness/Hospitalization: No PFSH PFSH Medical History Diverticulitis Kidney stones Wears glasses Cancer Rash Diabetes Arthritis History of diverticulitis History of stress test Invasive ductal carcinoma of right breast Hypertension Former smoker Bone spur HTN (hypertension) Home Medications ?Medication ?Instructions ?Recorded ?Last Taken ?Type multivit-iron 18 mg-folic acid 400 1 ea PO QODAY supplememnt 09/14/16 03/07/24 History mcg-calcium 500 mg-minerals tablet (Women's Daily Formula) atenolol 50 mg tablet 50 mg PO DAILY blood pressure 06/28/22 03/07/24 History chlorthalidone 25 mg tablet 12.5 mg PO DAILY water pill 06/28/22 03/07/24 History exemestane 25 mg tablet 25 mg PO DAILY breast cancer 06/28/22 03/07/24 History glipizide 2.5 mg tablet, extended 2.5 mg PO DAILY diabetes 06/28/22 03/07/24 History release 24 hr potassium chloride 20 mEq 20 meq PO BID supplement 06/28/22 03/07/24 History tablet,extended release metformin 500 mg tablet,extended 500 mg PO DAILY 03/07/24 03/07/24 History release 24 hr L.acidophil,salivari-Bifido 1 cap PO BID 30 days #60 caps 03/09/24 Unknown Rx bifidum-Strep thermoph 175 mg capsule amoxicillin 875 mg-potassium 1 tab PO BID 10 days #20 tabs 03/09/24 Unknown Rx clavulanate 125 mg tablet fluconazole 150 mg tablet 150 mg PO ONCE #1 TAB 03/29/24 Unknown Rx Allergy/AdvReac Type Severity Reaction Status Date / Time silver sulfadiazine (From Allergy Hives Verified 02/23/24 14:42 Silvadene) Family History Other Cancer Surgical History History of colonoscopy History of foot surgery S/P lumpectomy, right breast History of cholecystectomy H/O: hysterectomy Social History Smoking Status: Former smoker ROS ROS ED ROS Narrative Left lower quadrant flank abdominal pain. URI with cough of green sputum. Constitutional Constitutional ED: Denies chills or fever(s) ENT ENT ED: Denies ear pain Cardiovascular Cardiovascular: Denies chest pain Respiratory/Chest Respiratory/Chest: Reports cough; Denies dyspnea Gastrointestinal Gastrointestinal: Reports abdominal pain and diarrhea; Denies constipation, melena, nausea or vomiting Genitourinary Genitourinary ED: Denies dysuria or hematuria Musculoskeletal Musculoskeletal: Denies arthralgias or back pain Integumentary Denies abscess or Abrasions Neurologic Neurologic: Denies headache(s) Psychiatric Psychiatric: Denies anxiety or depression Endocrine Endocrinology: Denies polydipsia Hematologic/Lymphatic Hematologic/Lymphatic: Denies easy bleeding, easy bruising or lymphadenopathy Allergic/Immunologic Allergic/Immunologic ED: Denies mouth swelling, tongue swelling or urticaria EXAM Physical Exam Narrative Exam Narrative: Well-appearing 68-year-old female. Vital signs are stable afebrile. Pulse ox 100% on room air no signs of hypoxia. She is in no distress. H EENT exam unremarkable. Mytrex membranes. Pupils round reactive to light. Neck nontender no lymphadenopathy. No meningismus. Lungs clear to auscultation bilaterally. No rales, rhonchi or wheezing. Dry cough. Heart regular rate and rhythm rate about 80 no murmur. Chest wall ribs nontender. Abdomen soft nondistended normal bowel sounds without peritoneal signs. No obstruction. Mild tenderness left lower quadrant. No hernia or mass. No pulsatile mass. No peritoneal signs. Moving all 4 extremities. Nontender no edema. Back nontender. Neurologically she is awake alert no focal motor deficits. Const Vital Signs: 05/23/24 12:45 05/23/24 13:15 05/23/24 13:18 Temperature 96.8 F L 98.4 F Temperature Source Temporal Oral Pulse Rate 79 78 Respiratory Rate 20 H 18 Respiratory Effort Normal Non-Labored Respiratory Pattern Normal Blood Pressure 147/83 H 138/78 H Blood Pressure Mean 104 98 Pulse Ox 100 97 Oxygen Delivery Method Room Air Room Air 05/23/24 14:45 05/23/24 16:00 Temperature Temperature Source Pulse Rate 78 Respiratory Rate Respiratory Effort Respiratory Pattern Blood Pressure 107/63 Blood Pressure Mean 77 Pulse Ox 96 Oxygen Delivery Method Positive well nourished and well developed; Negative for cachectic, contractures or unkempt General Appearance ED: well developed and NAD; Negative for unkempt, cachectic, contractures or pallor Nutritional Appearance: Negative for cachectic HEENT Reports moist mucous membranes normocephalic and atraumatic; Negative for trauma or tenderness Eyes PERRL and EOMs intact bilaterally General Eye ED: Negative for pale conjunctiva or scleral icterus Neck no lymphadenopathy, supple and no JVD General: Negative for tenderness Carotids: Negative for other Lymph Lymphatic: Negative for other Resp normal respiratory effort and clear to auscultation bilaterally Effort and Inspection: Negative for respiratory distress Auscultation: Negative for rales, rhonchi, wheezes or diminished lung sounds Cardio regular rate, regular rhythm, S1 normal heart sound, S2 normal heart sound and no murmurs Rate: Negative for bradycardia or tachycardic Rhythm: Negative for abnormal rhythm GI non-distended and no masses; Negative for non-tender GI Narrative: Mild left lower quadrant tenderness. Inspection: Negative for abdominal distention Auscultation: normoactive bowel sounds Palpation: soft and tender; Negative for guarding, rigid, pulsatile mass or rebound tenderness present Back/Spine no CVA tenderness General Back: Negative for CVA tenderness Cervical Spine: Negative for cervical spine tenderness Thoracic Spine / Upper Back: Negative for thoracic spinal tenderness Lumbar Spine / Lower Back: Negative for lumbar spinal tenderness Extremity full ROM General Extremety ED: Negative for edema or tenderness General Extremity: Negative for edema Neuro CN's II-XII intact bilaterally and moves all extremities Sensorium / Orientation: alert, oriented to person, oriented to place and oriented to time Motor Exam: strength 5/5 throughout Psych mental status grossly normal and thought process normal Appearance: Negative for unkempt Mood & Affect: Negative for depressed, anxious or tearful Skin no wounds General Skin Exam: Negative for jaundice or pallor Lesions: no lesions Rashes: no rashes Trauma: Negative for abrasion Nails: Negative for discolored MDM MDM MDM Narrative Medical decision making narrative: 68-year-old female with a living require abdominal pain with a history of diverticulitis CAT scan the labs Arad acute exacerbation diverticulitis versus abscess versus for versus UTI. Chest x-ray to rule out pneumonia. Clinically I do not feel she has pneumonia. Repeat exam patient is doing well at 4:50 PM. She and I went over her test results including her chest x-ray and CAT scan. She understands that she is in acute diverticulitis. She has been treated with Cipro and Flagyl in the past. She will be given a prescription for both for 2 weeks. She did not waiting for pain. Her CAT scan will also be sent electronically to [facility] because she has surgery later this week for partial colon resection and her surgeon at [facility] can decide if he wants to do the surgery or delay it. She will follow-up with her office tomorrow also. History & Record Review Discussion w/independent historian: Patient Additional record(s) reviewed:: Prior inpatient record, Prior outpatient record, Prior ED visit and Prior labs Lab Data Attestation: I reviewed the patient's lab results. Lab results narrative: White count of 10. H&H of 15 and 46. Platelets 322. Electrolytes show a gap of 7. BUN and creatinine 9 and 0.9. Liver enzymes are unremarkable. Glucose 136. Yes Urinalysis shows no nitrates. 0-5 red cells. 5-10 white cells 1+ bacteria. Urine culture sent. Labs: Laboratory Results - last 24 hr 05/23/24 13:09 WBC 10.3 RBC 5.56 H Hgb 15.3 H Hct 46.4 MCV 83.5 MCH 27.5 MCHC 33.0 RDW Std Deviation 46.2 H RDW Coeff of Rashaun 15.3 H Plt Count 322 MPV 10.0 Immature Gran % (Auto) 0.800 Neut % (Auto) 70.2 H Lymph % (Auto) 15.8 L Harrison % (Auto) 8.2 Eos % (Auto) 4.4 Baso % (Auto) 0.6 Absolute Neuts (auto) 7.2 Absolute Lymphs (auto) 1.62 Nucleated RBC % 0 Sodium 137 Potassium 3.6 Chloride 107 Carbon Dioxide 24.0 Anion Gap 7 BUN 9 Creatinine 0.97 Estim Creat Clear Calc 80.61 Est GFR (MDRD) Af Amer 74 Est GFR (MDRD) Non-Af 61 BUN/Creatinine Ratio 9.3 L Glucose 136 H Calcium 10.1 Total Bilirubin 0.40 AST 22 ALT 29 Alkaline Phosphatase 136 H Total Protein 7.9 Albumin 3.1 L Globulin 4.8 H Albumin/Globulin Ratio 0.6 L Urine Color Straw Urine Clarity Sl. Cloudy Urine pH 7.0 Ur Specific [place] 1.005 Urine Protein Negative Urine Glucose (UA) Normal Urine Ketones Negative Urine Occult Blood 10 H Urine Nitrite Negative Urine Bilirubin Negative Urine Urobilinogen Normal Ur Leukocyte Esterase 500 H Urine RBC 0-5 SEEN Urine WBC 5-10 SEEN Ur Squamous Epith Cells 0-5 SEEN Urine Bacteria 1+ Urine Mucus 0 SEEN Radiography Chest X-Ray - ED: 2 View, Read by ED Physician, Read by Radiologist, Heart, Lungs, Mediastinum, Bony Structures, No Acute Disease and Chronic Changes Diagnostic Testing: Clinical Impression(s) from Imaging Studies Abdomen/Pelvis CT 05/23/24 13:23 IMPRESSION: Mild degree of sigmoid diverticulitis. No evidence of fluid or abscess collection at this time. Fatty infiltration of the liver. Stable 7 mm nonobstructive left intrarenal calculus. Electronically Signed: Lorne Campbell MD at 14:44 EST , Chest X-Ray 05/23/24 13:23 IMPRESSION: 1.7 cm x 1.5 cm nodule in the left midlung. Questionable calcification suggestive of a granuloma. No prior study available for comparison. Electronically Signed: Lorne Campbell MD at 14:55 EST , Chest x-ray, 2 views, AP lateral, interpreted by myself And the radiologist. Shows chronic changes. Left midlung nodule. No acute pneumonia. Discharge Plan Triage Chief Complaint: Abd Pain Other Complaint: Cold Sx ED Provider: Kirk Vergara Dx/Rx/DC Orders Prescriptions: No Action Women's Daily Formula 1 EACH tablet 1 ea PO QODAY exemestane 25 mg tablet 25 mg PO DAILY atenolol 50 mg tablet 50 mg PO DAILY chlorthalidone 25 mg tablet 12.5 mg PO DAILY glipizide 2.5 mg tablet extended release 24hr 2.5 mg PO DAILY potassium chloride 20 mEq tablet extended release 20 meq PO BID metformin 500 mg tablet extended release 24 hr 500 mg PO DAILY L.acidoph,saliva-B.bif-S.therm 175 mg Capsule 1 cap PO BID 30 Days Qty: 60 0RF amoxicillin-pot clavulanate 875-125 mg tablet 1 tab PO BID 10 Days Qty: 20 0RF fluconazole 150 mg tablet 150 mg PO ONCE Qty: 1 0RF Rx Instructions: as a single dose Primary Care Provider: Elsa Taylor Referrals: Elsa Taylor MD [Primary Care Provider] - Print Language: Croatian
[2024-05-23 13:29] LABS: Mucous, Urine 0 SEEN /hpf (<or=2+)
[2024-05-23 13:35] LABS: Absolute Lymphocyte Count 1.62 X10^3/uL (0.83-4.51); Absolute Neutrophil Count 7.2 X10^3/uL (2.0-7.7); Basophil# 0.06 X10^3/uL; Basophil% 0.6 % (0-1); Color, Urine Straw (Yellow); Eosinophil# 0.45 X10^3/uL; Eosinophils% 4.4 % (0-5); Glucose, Dipstick Normal (Normal); Hematocrit 46.4 % (37-47); Hemoglobin 15.3 g/dL (12.0-15.0); Ketone-Dipstick Negative (Negative); Leukocyte Esterase-Dipstick 500 /ul (Negative); Lymphocyte # 1.62 X10^3/ul (0.83-4.51); Lymphocyte % 15.8 % (19-41); Mean Corpuscular Hgb 27.5 pg (27.0-32.0); Mean Corpuscular Volume 83.5 fL (81-99); Monocyte# 0.84 X10^3/uL; Monocyte% 8.2 % (0-10); NRBC Flagged by Analyzer 0 % (0-5); Neutrophil # 7.22 X10^3/uL (2.7-7.7); Neutrophil % 70.2 % (47-70); Nitrite-Dipstick Negative (Negative); Occult Blood-Urine 10 /ul (Negative); Platelet Count 322 K/mm3 (150-450); Protein-Dipstick Negative (Negative); RBC Distribution Width CV 15.3 % (11.6-14.6); RBC Distribution Width SD 46.2 fl (35.1-43.9); Red Blood Count 5.56 M/mm3 (4.2-5.4); Specific Gravity, Urine 1.005 (1.002-1.030); Urine Bilirubin Dipstick Negative (Negative); Urine Clarity Sl. Cloudy (Clear); Urine Urobilinogen Normal (Normal); White Blood Count 10.3 K/mm3 (4.4-11.0)
[2024-05-23 13:50] LABS: Bacteria 1+ /hpf (None Seen); Red Blood Cells-Urine 0-5 SEEN /hpf (0-5); Squamous Epithelial Cells - UA 0-5 SEEN /hpf (5-10); White Blood Cells 5-10 SEEN /hpf (0-5)
[2024-05-23 13:58] LABS: ALB/GLOB Ratio 0.6 RATIO (0.9-2.4); AST(SGOT) 22 U/L (15-37); Alanine Aminotransfer ALT/SGPT 29 U/L (13-56); Albumin, Serum 3.1 g/dL (3.2-5.0); Alkaline Phosphatase 136 U/L (45-117); Anion Gap 7 (5-15); BUN 9 mg/dL (7-18); BUN/Creat Ratio 9.3 RATIO (10-20); Calcium,Total 10.1 mg/dL (8.5-10.1); Chloride 107 mmol/L (98-107); Creatinine, Serum 0.97 mg/dL (0.55-1.02); EST Glomerular Filtration Rate 61 mL/min (>60); Est Glom Filt Rate - Afr Amer 74 mL/min (>60); Estimated Creatinine Clearance 80.61 ml/min; Globulin 4.8 g/dL (2.2-4.2); Glucose 136 mg/dL (74-106); Potassium 3.6 mmol/L (3.5-5.1); Protein, Total 7.9 g/dL (6.4-8.2); Sodium Level 137 mmol/L (136-145)
[2024-05-23 14:45] VITALS: PULSE 78; O2SAT 96
[2024-05-23 16:00] VITALS: BP 107/63
[2024-05-23] MEDS: Ciprofloxacin 500 MG Tablet PO (17:06)
[2024-05-23] MEDS: metroNIDAZOLE 500 MG Tablet PO (17:06)
[2024-05-23 17:17] VITALS: BP 107/63; PULSE 68; RESP 16; TEMP 36.6; O2SAT 99
== END 2024-05-23 17:17 | disposition home or self-care (01) ==
PROVIDERS: Emergency Provider Emergency Medicine; PCP Internal Medicine; Visit Provider Emergency Medicine
DX: K57.32 Diverticulitis of large intestine without perforation or abscess without bleeding (principal); E11.9 Type 2 diabetes mellitus without complications; I10 Essential (primary) hypertension; Z87.19 Personal history of other diseases of the digestive system; Z90.49 Acquired absence of other specified parts of digestive tract; Z79.84 Long term (current) use of oral hypoglycemic drugs; Z87.442 Personal history of urinary calculi; Z87.891 Personal history of nicotine dependence; Z79.899 Other long term (current) drug therapy
CPT/HCPCS: 71046; 74177; 80053; 81001; 85025; 99285; Q9967; A4216

== ENCOUNTER 2024-07-11 22:52 | Emergency (ER) | payer MEDICARE, MEDICAID, SELFPAY ==
[2024-07-11 22:53] VITALS: BP 153/105; PULSE 82; RESP 15; TEMP 36; O2SAT 98; BMI 46.6
--- NOTE | 2024-07-11 23:15 | CT_ITS ---
PROCEDURE: ABDOMEN/PELVIS W IV CONT ONLY REASON FOR EXAM: Pelvic pain. Diverticulitis. Colectomy dated 06/30/2024. . TECHNIQUE: Axial CT images of the abdomen and pelvis was performed with IV contrast enhancement. IV CONTRAST: 94 cc of Isovue 370 COMPARISON: 05/23/2024 FINDINGS: Lung bases: Trace atelectasis within the lung bases and lingula. Few nonspecific calcifications within the right breast. Liver: 5 mm hypodensity within the right hepatic lobe, too small to accurately characterize, most likely representing a tiny cyst. No enhancing masses are seen. Gallbladder: Prior cholecystectomy. Spleen: Probable splenic cyst measuring 5.5 mm, too small to accurately characterize. No splenomegaly. Pancreas: Intact. No peripancreatic inflammatory changes. No drainable fluid collections. Adrenals: No adrenal masses are identified. Kidneys: Kidneys enhance symmetrically. Mild extrarenal pelvises bilaterally. Nonobstructing calculus within the inferior pole of the left kidney measuring 1 cm. Small exophytic renal cyst on the left measuring 7 mm, too small to accurately characterize. No hydronephrosis bilaterally. Bladder: Duenas catheter seen within the decompressed urinary bladder. Small amounts of non dependent gas within the urinary bladder likely secondary to Duenas placement. Reproductive Organs: Uterus is surgically absent. Bowel: No bowel obstruction is identified. [id number] amounts of fecal retention. There has been interval resection involving portions of the mid to distal sigmoid colon. Occasional diverticula involving the remaining large bowel. Appendix: Appendix is not well seen. No inflammatory changes within the suspected location of the appendix. Lymph nodes: No suspicious lymph node enlargement. Vasculature: Major vascular structures are unremarkable. Peritoneum / Retroperitoneum: Scattered small amounts of free air within the lower abdomenand within the pelvis, likely postsurgical in etiology. Minimal nonspecific stranding within the central lower pelvis likely postsurgical in etiology. There is stranding within the subcutaneous tissues overlying the right pelvis, with ill-defined fluid measuring approximately 2.0 x 5.0 x 4.8 cm. Bones: Osseous structures about the abdomen and pelvis appear intact. Trace grade 1 anterolisthesis of L4 on L5. Minimal retrolisthesis of L5 on S1. Mild spondylotic changes seen at the lumbosacral junction CT/Abdomen/Pelvis W IV Cont ONLY IMPRESSION: 1. Interval resection involving portions of the mid to distal sigmoid colon. 2. Small amounts of scattered free air within the lower abdomen and pelvis, lik jami postsurgical in etiology, given history. 3. Minimal nonspecific stranding within the central lower pelvis, most likely p ostsurgical in etiology. 4. Stranding within the subcutaneous tissues overlying the right pelvis with il l-defined fluid measuring up to 2.0 x 5.0 x 4.8 cm. Findings could represent postsurgical changes, developing seroma or hemato ma. Infectious process however not entirely excluded. Correlate clinically. 5. Occasional diverticula involving the remaining large bowel. 6. Nonobstructing calculus within the left kidney, inferiorly measuring up to 1 .0 cm. Negative for hydronephrosis, bilaterally. 7. Small exophytic renal cyst on the left measuring 0.7 cm, too small to accura tely characterize. 8. Probable subcentimeter liver and splenic cysts, as described. 9. Additional findings, as detailed above One or more dose reduction techniques were used (e.g., Automated exposure contr ol, adjustment of the mA and/or kV according to patient size, use of iterative reconstruction technique). [facility]
[2024-07-11] MEDS: 0.9% Normal Saline (1000mL) 1,000 ML 999 ML IV (23:41)
[2024-07-11 23:46] LABS: Color, Urine Yellow (Yellow); Glucose, Dipstick Normal (Normal); Ketone-Dipstick Negative (Negative); Leukocyte Esterase-Dipstick 25 /ul (Negative); Nitrite-Dipstick Negative (Negative); Occult Blood-Urine 150 /ul (Negative); Protein-Dipstick 15 mg/dl (Negative); Specific Gravity, Urine 1.005 (1.002-1.030); Urine Bilirubin Dipstick Negative (Negative); Urine Clarity Clear (Clear); Urine Urobilinogen Normal (Normal)
[2024-07-12 00:06] LABS: AST(SGOT) 23 U/L (15-37); Alanine Aminotransfer ALT/SGPT 49 U/L (13-56); Alkaline Phosphatase 99 U/L (45-117); Anion Gap 8 (5-15); BUN 7 mg/dL (7-18); BUN/Creat Ratio 8.8 RATIO (10-20); Bilirubin, Direct 0.17 mg/dL (0.00-0.30); Calcium,Total 9.8 mg/dL (8.5-10.1); Chloride 104 mmol/L (98-107); EST Glomerular Filtration Rate 77 mL/min (>60); Est Glom Filt Rate - Afr Amer 93 mL/min (>60); Estimated Creatinine Clearance 96.11 ml/min; Globulin 4.4 g/dL (2.2-4.2); Glucose 104 mg/dL (74-106); Lipase 28 U/L (13-75); Potassium 3.5 mmol/L (3.5-5.1); Protein, Total 7.4 g/dL (6.4-8.2); Sodium Level 138 mmol/L (136-145)
[2024-07-12 00:26] LABS: Bacteria 1+ /hpf (None Seen); Mucous, Urine 2+ /hpf (<or=2+); Red Blood Cells-Urine 25-50 SEEN /hpf (0-5); Squamous Epithelial Cells - UA 0-5 SEEN /hpf (5-10); White Blood Cells 5-10 SEEN /hpf (0-5)
[2024-07-12 00:27] LABS: Absolute Neutrophil Count 7.1 X10^3/uL (2.0-7.7); Basophil# 0.06 X10^3/uL; Basophil% 0.6 % (0-1); Eosinophil# 0.39 X10^3/uL; Eosinophils% 3.7 % (0-5); Hematocrit 43.1 % (37-47); Hemoglobin 14.2 g/dL (12.0-15.0); Lymphocyte % 19.8 % (19-41); Mean Corp Hgb Conc 32.9 g/dL (32-36); Mean Corpuscular Hgb 27.8 pg (27.0-32.0); Mean Corpuscular Volume 84.5 fL (81-99); Mean Platelet Vol. 9.9 fl (6.2-12.0); Monocyte# 0.98 X10^3/uL; Monocyte% 9.2 % (0-10); NRBC Flagged by Analyzer 0 % (0-5); Neutrophil # 7.05 X10^3/uL (2.7-7.7); Neutrophil % 66.2 % (47-70); Platelet Count 387 K/mm3 (150-450); RBC Distribution Width CV 15.3 % (11.6-14.6); RBC Distribution Width SD 46.7 fl (35.1-43.9); White Blood Count 10.6 K/mm3 (4.4-11.0)
[2024-07-12 00:53] VITALS: BP 118/73; PULSE 66; RESP 18; TEMP 36.3; O2SAT 97
--- NOTE | 2024-07-12 00:54 | EX.ED.DYSGE1 ---
HPI History of Present Illness Chief Complaint: Complaint Informant: patient Narrative Narrative: Patient is a 68-year-old female with past medical history of remote breast cancer and hypertension and numbness independent diabetes who had to undergo a hemicolectomy roughly 2 weeks ago. She states she had to have a Duenas catheter placed secondary to this. She was on antibiotics initially but has been off of them for approximately 7 to 10 days. She states in the last 1 to 2 days she has noticed irritation in the lower abdomen and has felt some irritation at where the catheter enters. She denies any fevers or chills nausea or vomiting but has concern for potential infection based on her new symptoms and therefore comes in for evaluation [facility] Medical History (Updated 07/12/24 @ 05:[address] Jaspal Magana, DO) Diverticulitis Kidney stones Wears glasses Cancer Rash Diabetes Arthritis History of diverticulitis History of stress test Invasive ductal carcinoma of right breast Hypertension Former smoker Bone spur HTN (hypertension) Home Medications ?Medication ?Instructions ?Recorded ?Last Taken ?Type multivit-iron 18 mg-folic acid 400 1 ea PO QODAY supplememnt 09/14/16 03/07/24 History mcg-calcium 500 mg-minerals tablet (Women's Daily Formula) atenolol 50 mg tablet 50 mg PO DAILY blood pressure 06/28/22 03/07/24 History chlorthalidone 25 mg tablet 12.5 mg PO DAILY water pill 06/28/22 03/07/24 History exemestane 25 mg tablet 25 mg PO DAILY breast cancer 06/28/22 03/07/24 History glipizide 2.5 mg tablet, extended 2.5 mg PO DAILY diabetes 06/28/22 03/07/24 History release 24 hr potassium chloride 20 mEq 20 meq PO BID supplement 06/28/22 03/07/24 History tablet,extended release metformin 500 mg tablet,extended 500 mg PO DAILY 03/07/24 03/07/24 History release 24 hr L.acidophil,salivari-Bifido 1 cap PO BID 30 days #60 caps 03/09/24 Unknown Rx bifidum-Strep thermoph 175 mg capsule amoxicillin 875 mg-potassium 1 tab PO BID 10 days #20 tabs 03/09/24 Unknown Rx clavulanate 125 mg tablet fluconazole 150 mg tablet 150 mg PO ONCE #1 TAB 03/29/24 Unknown Rx ciprofloxacin HCl 500 mg tablet 500 mg PO BID Diverticulitis 14 05/23/24 Unknown Rx (Cipro) days #28 tabs metronidazole 500 mg tablet 500 mg PO Q8H Diverticulitis 14 05/23/24 Unknown Rx days #42 tabs cephalexin 500 mg capsule 500 mg PO TID 7 days #21 caps 07/12/24 Unknown Rx fluconazole 150 mg tablet See Rx Instructions .Route 07/12/24 Unknown Rx .COMPLEX #2 tabs Allergy/AdvReac Type Severity Reaction Status Date / Time silver sulfadiazine (From Allergy Hives Verified 07/11/24 22:53 Silvadene) Family History Other Cancer Surgical History (Updated 07/11/24 @ 23:04 by Dipika Alcala) H/O colectomy History of colonoscopy History of foot surgery S/P lumpectomy, right breast History of cholecystectomy H/O: hysterectomy Social History Smoking Status: Former smoker ROS ROS ED Constitutional Constitutional ED: Denies chills or fever(s) ENT ENT ED: Denies sore throat Cardiovascular Cardiovascular: Denies chest pain Respiratory/Chest Respiratory/Chest: Denies cough or dyspnea Gastrointestinal Gastrointestinal: Reports abdominal pain; Denies diarrhea, nausea or vomiting Genitourinary Genitourinary ED: Reports dysuria Musculoskeletal Musculoskeletal: Reports back pain Integumentary Denies rash Neurologic Neurologic: Denies headache(s) Hematologic/Lymphatic Hematologic/Lymphatic: Denies easy bleeding or easy bruising EXAM Physical Exam Const Vital Signs: 07/11/24 22:53 07/12/24 00:53 07/12/24 01:29 Temperature 96.8 F L 97.3 F L 97.5 F L Temperature Source Temporal Oral Pulse Rate 82 66 66 Respiratory Rate 15 18 18 Blood Pressure 153/105 H 118/73 118/75 Blood Pressure Mean 121 88 89 Pulse Ox 98 97 97 Oxygen Delivery Method Room Air Room Air Positive well nourished, well developed and obese General Appearance ED: well developed Nutritional Appearance: obese HEENT HEENT Narrative: Normocephalic atraumatic Eyes PERRL and EOMs intact bilaterally General Eye ED: Negative for scleral icterus Neck supple Resp normal respiratory effort and clear to auscultation bilaterally Cardio regular rate and regular rhythm Rate: other Other Details: Heart is regular rate and rhythm Radial and carotid pulses are equal and symmetric GI non-distended GI Narrative: Abdomen is obese soft and nondistended with normoactive bowel sounds. There are postsurgical wounds that are clean dry and intact without secondary findings to suggest infection. There is mild pain on palpation along the lower abdomen diffusely without voluntary guarding or rigidity. No pulsatile mass or fluid wave Auscultation: normoactive bowel sounds Palpation: soft Back/Spine no CVA tenderness Extremity normal to inspection Neuro oriented x3, CN's II-XII intact bilaterally and no sensory deficits noted Sensorium / Orientation: alert Motor Exam: strength 5/5 throughout Psych Mood & Affect: anxious Skin Skin Narrative: Postoperative wounds as documented above MDM MDM MDM Narrative Medical decision making narrative: Patient arrived to the ER hypertensive but otherwise with stable vitals. She reported discomfort in the lower abdomen/suprapubic region and therefore there is concern for postoperative infection versus UTI and patient could have potential intestinal abscess or dehiscence of the intestinal anastomoses. Secondary to his basic blood work with urine sample as well as a CT with IV contrast was ordered. Patient's white count is normal there is no left shift there is no lactic acidosis. She does not have signs of LUKE or clinically significant electrolyte abnormalities. Urine sample does show changes concerning for potential infection but this is nitrate negative and the catheter has been placed for approximately 2 weeks indicating this is most likely colonization. However in order to ensure that this is not a true UTI the urine to be sent for culture and I will start her on antibiotics until the culture results based on her sensation of discomfort. The CT scan did show changes in the right pelvis consistent with a seroma or hematoma. The radiologist did state that infection was not 100% excluded but the patient does not have a fever she does not have a white count or left shift or lactic acidosis and therefore I feel this is most likely a seroma. This is most likely the cause of the patient's discomfort in the lower abdomen but as the urine shows changes concerning for developing infection I will place her on outpatient antibiotics until the culture results. This plan of care was discussed with the patient she is agreeable to it but at this time vitals are stable and her abdomen remains soft and nonsurgical and she is otherwise safe for discharge with outpatient follow-up History & Record Review Discussion w/independent historian: Patient Lab Data Attestation: I reviewed the patient's lab results. Labs: Laboratory Results - last 24 hr 07/11/24 07/11/24 23:32 23:38 WBC 10.6 RBC 5.10 Hgb 14.2 Hct 43.1 MCV 84.5 MCH 27.8 MCHC 32.9 RDW Std Deviation 46.7 H RDW Coeff of Rashaun 15.3 H Plt Count 387 MPV 9.9 Immature Gran % (Auto) 0.500 Neut % (Auto) 66.2 Lymph % (Auto) 19.8 Rogers % (Auto) 9.2 Eos % (Auto) 3.7 Baso % (Auto) 0.6 Absolute Neuts (auto) 7.1 Absolute Lymphs (auto) 2.10 Nucleated RBC % 0 Sodium 138 Potassium 3.5 Chloride 104 Carbon Dioxide 26.0 Anion Gap 8 BUN 7 Creatinine 0.80 Estim Creat Clear Calc 96.11 Est GFR (MDRD) Af Amer 93 Est GFR (MDRD) Non-Af 77 BUN/Creatinine Ratio 8.8 L Glucose 104 Lactic Acid 1.0 Calcium 9.8 Magnesium 2.0 Total Bilirubin 0.50 Direct Bilirubin 0.17 AST 23 ALT 49 Alkaline Phosphatase 99 Total Protein 7.4 Albumin 3.0 L Globulin 4.4 H Lipase 28 Urine Color Yellow Urine Clarity Clear Urine pH 7.0 Ur Specific Benicia 1.005 Urine Protein 15 H Urine Glucose (UA) Normal Urine Ketones Negative Urine Occult Blood 150 H Urine Nitrite Negative Urine Bilirubin Negative Urine Urobilinogen Normal Ur Leukocyte Esterase 25 H Urine RBC 25-50 SEEN Urine WBC 5-10 SEEN Ur Squamous Epith Cells 0-5 SEEN Urine Bacteria 1+ Urine Mucus 2+ Radiography Diagnostic Testing: Clinical Impression(s) from Imaging Studies Abdomen/Pelvis CT 07/11/24 23:15 IMPRESSION: 1. Interval resection involving portions of the mid to distal sigmoid colon. 2. Small amounts of scattered free air within the lower abdomen and pelvis, likely postsurgical in etiology, given history. 3. Minimal nonspecific stranding within the central lower pelvis, most likely postsurgical in etiology. 4. Stranding within the subcutaneous tissues overlying the right pelvis with ill-defined fluid measuring up to 2.0 x 5.0 x 4.8 cm. Findings could represent postsurgical changes, developing seroma or hematoma. Infectious process however not entirely excluded. Correlate clinically. 5. Occasional diverticula involving the remaining large bowel. 6. Nonobstructing calculus within the left kidney, inferiorly measuring up to 1.0 cm. Negative for hydronephrosis, bilaterally. 7. Small exophytic renal cyst on the left measuring 0.7 cm, too small to accurately characterize. 8. Probable subcentimeter liver and splenic cysts, as described. 9. Additional findings, as detailed above One or more dose reduction techniques were used (e.g., Automated exposure control, adjustment of the mA and/or kV according to patient size, use of iterative reconstruction technique). Reading Location: [facility] Discharge Plan Triage Chief Complaint: Complaint ED Provider: Jaspal Magana Dx/Rx/DC Orders Clinical Impression: UTI (urinary tract infection), Postoperative seroma, Non-insulin dependent diabetes mellitus, Hypertension Instructions: ED Seroma, Postsurgical, ED UTIs Women Prescriptions: New cephalexin 500 mg capsule 500 mg PO TID 7 Days Qty: 21 0RF fluconazole 150 mg tablet See Rx Instructions .ROUTE .COMPLEX Qty: 2 0RF Rx Instructions: 1 pill by mouth at the start of antibiotics and 1 pill by mouth once antibiotics are finished No Action Women's Daily Formula 1 EACH tablet 1 ea PO QODAY exemestane 25 mg tablet 25 mg PO DAILY atenolol 50 mg tablet 50 mg PO DAILY chlorthalidone 25 mg tablet 12.5 mg PO DAILY glipizide 2.5 mg tablet extended release 24hr 2.5 mg PO DAILY potassium chloride 20 mEq tablet extended release 20 meq PO BID ciprofloxacin HCl [Cipro] 500 mg tablet 500 mg PO BID 14 Days Qty: 28 0RF metronidazole 500 mg tablet 500 mg PO Q8H 14 Days Qty: 42 0RF metformin 500 mg tablet extended release 24 hr 500 mg PO DAILY L.acidoph,saliva-B.bif-S.therm 175 mg Capsule 1 cap PO BID 30 Days Qty: 60 0RF amoxicillin-pot clavulanate 875-125 mg tablet 1 tab PO BID 10 Days Qty: 20 0RF fluconazole 150 mg tablet 150 mg PO ONCE Qty: 1 0RF Rx Instructions: as a single dose Primary Care Provider: Elsa Taylor Referrals: Elsa Taylor MD [Primary Care Provider] - Max Saleh MD [Non-Staff] - Activity Restrictions/Additional Instructions: Your CT scan showed normal/healing postoperative changes there is a small seroma which is a natural fluid collection in the right lower pelvis which is most likely the cause of your symptoms. However as your urine sample does show mild changes for infection it will be sent for culture and in the meantime take the antibiotic as directed to cover for any potential infection. Follow-up with your surgeon as previously directed and return to the ER should you have any further concerns Print Language: Iraqi Disposition Disposition: Home, Self Care Discharge Date/Time: 07/12/24 01:32
[2024-07-12] MEDS: Ceftriaxone 1 GM/50 ML BAG IV (01:09)
[2024-07-12 01:29] VITALS: BP 118/75; PULSE 66; RESP 18; TEMP 36.4; O2SAT 97
== END 2024-07-12 01:32 | disposition home or self-care (01) ==
PROVIDERS: Emergency Provider Emergency Medicine; PCP Internal Medicine; Visit Provider Emergency Medicine
DX: N39.0 Urinary tract infection, site not specified (principal); E11.9 Type 2 diabetes mellitus without complications; K91.872 Postprocedural seroma of a digestive system organ or structure following a digestive system procedure; I10 Essential (primary) hypertension; E66.9 Obesity, unspecified; Z85.3 Personal history of malignant neoplasm of breast; Z90.49 Acquired absence of other specified parts of digestive tract; Z87.19 Personal history of other diseases of the digestive system; Z79.84 Long term (current) use of oral hypoglycemic drugs; Z79.899 Other long term (current) drug therapy; Z87.891 Personal history of nicotine dependence
CPT/HCPCS: 74177; 80048; 80076; 81001; 83605; 83690; 83735; 85025; 87086; 96361; 96365; 99285; Q9967; A4216